=== PATIENT | male | born 1960 | race Caucasian/White ===

== ENCOUNTER → 2024-12-22 | Outpatient (CLI) | payer MEDICARE, MEDICAID, SELFPAY | END | disposition home or self-care (01) | PROVIDERS: PCP Internal Medicine; Referring Provider Nurse Practitioner Family; Visit Provider Nurse Practitioner Family | DX: R06.02 Shortness of breath (principal) | CPT/HCPCS: 94060; 94726; 94729 ==

== ENCOUNTER → 2025-01-09 | Outpatient (CLI) | payer MEDICARE, MEDICAID, SELFPAY ==
[2025-01-09 12:12] VITALS: PULSE 109; PULSE 113; PULSE 74; PULSE 80; PULSE 82; PULSE 89; PULSE 93; PULSE 96; O2SAT 92; O2SAT 93; O2SAT 95; O2SAT 96
--- NOTE | 2025-01-12 11:23 | PCM.PSN.6M ---
PSN 6 Minute Walk Test 6 Minute Walk Test 6 Minute Walk Test: 6 Minute Walk Test PSN:6-Minute Walk Test Start: 01/09/25 12:12 Freq: Status: Active Protocol: [id number] Document 01/09/25 12:12 JUDIE (Rec: 01/09/25 12:14 CHRISTA [id number]) 6 Minute Walk Test Date Performed 01/09/25 Time Performed 12:00 Height 6 ft Weight: 372 lb Weight in Pounds 372.[address]: Joann Crowe Assistive device Walker used: Pre-test Oxygen Delivery Room Air Method Pulse Ox (%) 92 Pulse Rate (60-100 74 beats/min) Dyspnea Minnie Scale ( 0 0-10) Exertion Minnie Scale 6 (6-20) 1st minute Oxygen Delivery Room Air Method Pulse Ox (%) 93 Pulse Rate (60-100 82 beats/min) 2nd minute Oxygen Delivery Room Air Method Pulse Ox (%) 92 Pulse Rate (60-100 89 beats/min) 3rd minute Oxygen Delivery Room Air Method Pulse Ox (%) 95 Pulse Rate (60-100 93 beats/min) 4th minute Oxygen Delivery Room Air Method Pulse Ox (%) 96 Pulse Rate (60-100 96 beats/min) 5th minute Oxygen Delivery Room Air Method Pulse Ox (%) 95 Pulse Rate (60-100 109 H beats/min) 6th minute Oxygen Delivery Room Air Method Pulse Ox (%) 95 Pulse Rate (60-100 113 H beats/min) Dyspnea Minnie Scale ( 4 0-10) Exertion Minnie Scale 14 (6-20) Post-test Oxygen Delivery Room Air Method Pulse Ox (%) 95 Pulse Rate (60-100 80 beats/min) Full Laps Walked 12 Partial Lap, Number 22 of Tiles Walked Total Distance 730 Walked (ft) Interpretation Interpretation: The patient ambulated 730 feet over the course of 6 minutes beginning on room air with use of a walker. Pretesting oxygen saturation was noted to be 92% on room air. With ambulation, the vinicius oxygen saturation was 92%. There was no significant exertional oxygen desaturation. Recommendations Recommendations: There is no indication for the use of supplemental oxygen at this time.
== END | disposition home or self-care (01) ==
LOC: PSN 11:52
PROVIDERS: PCP Internal Medicine; Referring Provider Nurse Practitioner Family; Visit Provider Nurse Practitioner Family
DX: R06.02 Shortness of breath (principal)
CPT/HCPCS: 94618

== ENCOUNTER 2025-03-01 06:49 | Day surgery (SDC) | payer MEDICARE, MEDICAID, SELFPAY ==
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
[2025-03-01] VITALS (7 sets, daily range): BP systolic 81–125; BP diastolic 55–82; PULSE 59–68; RESP 16–20; TEMP 35.5–36.2; O2SAT 94–95; BMI 52.7
--- OUTSIDE RECORDS SUMMARY | 2025-03-01 07:11 | XMS RPT_ITS | CCD ---
Author Organization [facility] Providers Care Sql Etl Developer Name Role Phone REFERRING, FREDERICK WO [id number] Unavailable Unava ilable HERBER CUMMINGS Unavailable Unavailable HERBER CUMMINGS Unavailable Unavailable DYANA LOPEZ Unavailable Unavailable BRITTANEY HOLLINS Unavailable Unavailable SAVANNA CHANDRA Unavailable Unavailable KAMALA CAUSEY Unavailable Unavailable JOEY CERVANTES Unavailable Unavailable HERBER CUMMINGS Unavailable Unavailable REFERRING, PHY WO [id number] Unavailable Unava ilable GARRETT DAVIS KJosy Unavailable Unavailable PODUGU, AMARESHWAR Unavailable Unavailable RUBÉN GUIDRY Unavailable Unavailable SHANNA PEACOCK Unavailable Unavailable DESTINY COX Unavailable Unavailable Artur Rosario Primary Care Provider Juve Martinez Primary Care Provider Unavailable Primary Care Provider UnavailJuve Carmona MD Primary Care Provider Artur Rosario MD Primary Care Provider Shanna Rai MD Primary Care Provider [phone] Shanna Rai MD Primary Care Provider Shanna Rai MD Primary Care Provider Shanna Rai MD Primary Care Provider Unavailable Primary Care Provider UnavailMadeleine Ross RN Unavailable Shanna Ferrari DO Primary Care Provider Judge Clara CARSON Unavailable Unavailable Primary Care Provider Unavailabl e VOSABINA, SHANNA Primary Care Unavailable CHEPYALA, MARTHA Attending Unavailable CHEPYPATITO, MARTHA Admitting Unavailable JUDGE, CLARA Admitting Unavailable JUDGE, CLARA Attending Unavailable VOGT, SHANNA Primary Care Unavailable BRITTANEY BRAGA Unavailable BETY SALINAS Attending Unavailable JUDGE, CLARA Attending Unavailable VOGT, SHANNA Primary Care Unavailable JUDGE, CLARA Attending Unavailable JUDGE, CLARA Attending Unavailable JUDGE, CLARA Referring Unavailable BROWN, ILSA Attending Unavailable BROWN, ILSA Referring Unavailable VOGT, SHANNA Primary Care Unavailable BROWN, ILSA Attending Unavailable BROWN, ILSA Referring Unavailable VOGT, SHANNA Primary Care Unavailable JUDGE, CLARA Attending Unavailable BROWN, ILSA Referring Unavailable JUDGE, CLARA Attending Unavailable JUDGE, CLARA Attending Unavailable JUDGE, CLARA Referring Unavailable MONE CAMPBELL Attending Unavailable ALMEGDADILEV Referring Unavailable JUDGE, CLARA Attending Unavailable JUDGE, CLARA Referring Unavailable VOGT, SHANNA Primary Care Unavailable JOSE G, ILSA Attending Unavailable VOGT, [facility] Primary Care Unavailable JUDGE, CLARA Attending Unavailable VOGT, [facility] Primary Care Unavailable JUDGE, CLARA Attending Unavailable MAEVE PEREZ Attending Unavailable Joann De La Cruz Attending Provider Dr. Shanna Thompson DO Primary Care Provider Dr. Shanna Thompson DO Referring Provider [phone] Erma Hickman Attending Provider Amrita MALDONADO-Joann Schaffer Referring Provider Joann De La Cruz Other Provider Dr. Lyle Araiza DO Attending Provider [phone] Joann Crowe Referring Unavailable Jay, Shanna Primary Care Unavailable Joann Crowe Attending Unavailable Joann Crowe Referring Unavailable Jay, Shanna Primary Care Unavailable Joann Crowe Attending Unavailable Javier Cason Attending Unavailable Jay, Shanna Primary Care Unavailable Vogt, Shanna Primary Care Unavailable Joann Crowe Attending Unavailable Shanna Thompson Referring Unavailable Lyle Araiza Attending Unavailable Joann Crowe Referring Unavailable Shanna Thompson Primary Care Unavailable Joann Crowe Consulting Unavailable Lyle Araiza Attending Unavailable Erma Rascon Attending Unavailable Shanna Thompson Primary Care Unavailable Shanna Thompson Referring Unavailable Shanna Thompson Referring Unavailable Shanna Thompson Primary Care Unavailable Joann Crowe Attending Unavailable Allergies Allergy Classification Reported Allergen(s) Allergy Type Date of Onset Reaction(s) Facility (20 sources) traZODone Drug Allergy 11-18-2004 [facility] Medications Current Medications Medication Drug Class(es) Dates Sig (Normalized) Sig (Original) 200 actuat albuterol 0.09 mg/actuat dry powder inhaler (20 sources) beta2-Adrenergic Agonist Start: 11-29-2024 End: 02-16-2025 Albuterol Sulfate 90 mcg/actuation aerosol powdr breath activated Active 2 NMA INHALATION Q4H as needed for shortness of breath or wheezing 1 February 16, 2025 8:51am Start: 11-04-2024 End: 11-07-2024 Start: 07-21-2024 End: 07-23-2024 take 2 puff(s) by inhalation every four hours as needed for wheezing 2 puff, Inhalation, Every 4 hours PRN, wheezing, Starting on 07/21/24 at 2157 Start: 10-07-2023 End: 10-15-2023 2.5 mg, Nebulization, Every 4 hours PRN, wheezing, Starting on [place] 10/07/23 at 2050, Initiate RT Bronchodilator Protocol? Yes Start: 09-07-2019 take 2 puff(s) by in halation every six hours as needed for wheezing albuterol sulfate HFA (VENTOLIN HFA) 108 (90 Base) MCG/ACT inhaler Indications: Chronic obstructive pulmonary disease, unspecified COPD type (HCC) Inhale 2 puffs into the lungs every 6 hours as needed for Wheezing 1 Inhaler 3 09/07/2019 Active Start: 09-01-2019 Albuterol Sulf ate 0.63 mg/3 mL nebulizer solution Use 1 Ampule via nebulizer every 6 hours as needed for Wheezing/Shortness of Breath. 90 mL 2 09/01/2019 Active Start: 09-01-2019 take 2.5 mg by inhal ation every four hours as needed albuterol (PROVENTIL) 2.5 mg /3 mL (0.083 %) nebulizer solution Use 3 mL via nebulizer every 4 hours as needed for Wheezing/Shortness of Breath. 90 mL 2 09/01/2019 Active Start: 06-07-2019 albuterol (PRO VENTIL) nebulizer solution 2.5 mg Start: 04-10-2019 take 2 puff(s) by in halation every six hours as needed for wheezing albuterol sulfate HFA (VENTOLIN HFA) 108 (90 Base) MCG/ACT inhaler Indications: Chronic obstructive pulmonary disease, unspecified COPD type (HCC) Inhale 2 puffs into the lungs every 6 hours as needed for Wheezing 1 Inhaler 3 09/07/2019 Active Start: 04-10-2019 take 2 puff(s) by in halation every six hours as needed for wheezing albuterol sulfate HFA (VENTOLIN HFA) 108 (90 Base) MCG/ACT inhaler Indications: Chronic obstructive pulmonary disease, unspecified COPD type (HCC) Inhale 2 puffs into the lungs every 6 hours as needed for Wheezing 1 Inhaler 3 04/10/2019 Active Comment on above: Use 1 Ampule via neb ulizer every 6 hours as needed for Wheezing/Shortness of Breath. Use 3 mL via nebuliz er every 4 hours as needed for Wheezing/Shortness of Breath. 24 hr alfuzosin hydrochloride 10 mg extended release oral tablet (1 source) alpha-Adrenergic [place] Start: take 1 tablet by mouth once daily alfuzosin (UROXATRAL) 10 MG extended release tablet Indications: Benign prostatic hyperplasia with urinary retention Take 1 tablet by mouth daily 30 tablet 3 12/04/2019 Active amoxicillin 875 mg / clavulanate 125 mg oral tablet (5 sources) Penicillin-class Antibacterial Start: 023 End: 023 take 1 tablet by mouth in the morning amoxicillin-clavul anate (Augmentin) 875-125 MG tablet Take 1 tablet by mouth in the morning and 1 tablet before bedtime. Do all this for 10 days. 20 tablet 0 10/14/2022 10/24/2022 Active Start: 10-13-2022 End: 10-14-2022 amoxicillin-clavulanate (Aug mentin) 875-125 MG per tablet 1 tablet apixaban 2.5 mg oral tablet (20 sources) Factor Xa Inhibitor Start: 11-29-2024 take 1 tablet by mouth twice daily Apixaban 2.5 mg tablet Active 2.5 mg PO TWICE A DAY November 29, 2024 12:00am Start: 11-04-2024 End: 11-07-2024 take 2.5 mg by mouth twice daily 2.5 mg, Oral, 2 times daily, First dose on 11/04/24 at 0900, Anticoagulant Start: 07-21-2024 End: 08-21-2024 take 1 tablet by mouth twice daily apixaban (Eliquis) 2.5 MG tablet Take 1 tablet (2.5 mg) by mouth 2 times daily. 60 tablet 07/22/2024 Active Start: 06-06-2019 End: 06-19-2020 take 1 tablet by mouth twice daily apixaban (ELIQUIS) 5 MG TABS tablet Take 1 tablet by mouth 2 times daily 60 tablet 3 06/06/2019 06/19/2020 Discontinued (LIST CLEANUP) Start: 06-01-2019 take 1 tablet by avery th twice daily apixaban (ELIQUIS) 5 MG TABS tablet Take 1 tablet by mouth 2 times daily 60 tablet 3 06/01/2019 Active aspirin 81 mg delayed release oral tablet (20 sources) Platelet Aggregation Inhibitor, Nonsteroidal Anti-inflammatory Drug Start: 10-08-2023 End: 10-15-2024 take 1 tablet by mouth once daily aspirin 81 MG EC tablet Take 1 tablet (81 mg) by mouth daily. 10/16/2023 10/15/2024 Active Start: 10-07-2023 End: 10-07-2023 take 324 mg by mouth once 324 mg, Oral, Once, On [place] at 1500, For 1 dose Start: 11-10-2018 End: 06-19-2020 take 1 tablet by mouth once daily aspirin 81 MG chewab le tablet Take 1 tablet by mouth daily 30 tablet 3 07/19/2019 Active Comment on above: Take 81 mg by mouth once daily. atorvastatin 10 mg oral tablet (20 sources) HMG-CoA Reductase Inhibitor Start: take 1 tablet by mouth once daily Atorvastatin 10 mg tablet Active 10 mg PO daily November 29, 2024 12:00am Start: 11-04-2024 End: 11-07-2024 take 10 mg by mouth once daily 10 mg, Oral, Daily, Fir st dose on 11/04/24 at 0900 Start: 01-19-2023 End: 07-23-2024 take 1 tablet by mouth once daily atorvastatin (Lipitor) 10 MG tablet Take 1 tablet by mouth daily. 01/21/2023 Active Start: 11-01-2019 End: 12-17-2020 take 1 tablet by mouth once daily atorvastatin (LIPITOR) 40 MG tablet Indications: Mixed hyperlipidemia Take 1 tablet by mouth nightly 90 tablet 1 06/20/2020 Active baclofen 10 mg oral tablet (20 sources) gamma-Aminobutyric Acid-ergic Agonist Start: 06-06-2019 End: 06-19-2020 take 1 tablet by mouth three times daily baclofen (LIORESAL) 10 MG tablet Indications: Acute pain of right shoulder TAKE 1 TABLET BY MOUTH THREE TIMES A DAY 90 tablet 0 07/10/2019 Active Start: 03-15-2019 take 10 mg by mouth three times daily 10 mg, Oral, 3 TIMES DAILY, First dose on 05/29/19 at 2330 Beclomethasone (20 sources) Corticosteroid Start: 09-07-2019 take 2 puff(s) by inhalation twice daily beclomethasone (QVAR) 80 MCG/ACT inhaler Indications: Medication refill Inhale 2 puffs into the lungs 2 times daily 1 Inhaler 3 09/07/2019 Active Start: 03-15-2019 take 2 puff(s) by in halation twice daily beclomethasone (QVAR) 80 MCG/ACT inhaler Indications: Medication refill Inhale 2 puffs into the lungs 2 times daily 1 Inhaler 3 03/15/2019 Active ceFAZolin 2000 mg injection (13 sources) Cephalosporin Antibacterial Start: 10-15-2023 End: 10-23-2023 inject 2 g by intramuscular injection every eight hours ceFAZolin (Ancef) 2 g injection Inject 2,000 mg (2 g) into the shoulder, thigh, or buttocks in the morning and 2,000 mg (2 g) at noon and 2,000 mg (2 g) before bedtime. Do all this for 8 days. 0 10/15/2023 10/23/2023 Active Start: 10-15-2023 End: 10-23-2023 inject 2 g by intramuscular injection every eight hours Start: 10-11-2023 End: 10-15-2023 take 2000 mg intravenously every eight hours 2,000 mg, IntraVENous, Administer over 30 Minutes, Every 8 hours, First dose on Wed10/11/23 at 1300, premix bag, Suspected Indication (Select all that apply): Bloodstream Infection, Skin and Soft Tissue Infection Start: 05-29-2019 End: 06-01-2019 ceFAZolin (ANCEF) 1 g in dextrose 5 % 50 mL IVPB (premix) celecoxib 200 mg oral capsule (20 sources) Nonsteroidal Anti-inflammatory Drug Start: 03-15-2019 take 1 capsule by mouth twice daily celecoxib (CELEBREX) 200 MG capsule Indications: Arthritis of both knees Take 1 capsule by mouth 2 times daily 60 capsule 0 03/15/2019 Active cephalexin 500 mg oral capsule (4 sources) Cephalosporin Antibacterial Start: 06-01-2019 End: 06-08-2019 take 2 capsules by mouth every eight hours cephALEXin (KEFLEX) 500 MG capsule Take 2 capsules by mouth every 8 hours for 7 days 42 capsule 0 06/01/2019 06/08/2019 Active Start: 06-01-2019 cephALEXin (KE FLEX) capsule 1,000 mg cetirizine hydrochloride 10 mg oral tablet (20 sources) Histamine-1 Receptor Antagonist Start: 10-10-2019 take 1 tablet by mouth once daily cetirizine (ZYRTEC) 10 MG tablet Indications: Allergic rhinitis, unspecified seasonality, unspecified trigger Take 1 tablet by mouth daily 30 tablet 2 10/10/2019 Active Start: 09-07-2019 take 1 tablet by avery th once daily cetirizine (ZYRTEC) 10 MG tablet Indications: Allergic rhinitis due to other allergic trigger, unspecified seasonality Take 1 tablet by mouth daily 30 tablet 2 09/07/2019 Active Start: 06-06-2019 take 1 tablet by avery th once daily cetirizine (ZYRTEC) 10 MG tablet Indications: Allergic rhinitis due to other allergic trigger, unspecified seasonality Take 1 tablet by mouth daily 30 tablet 2 06/06/2019 Active Start: 03-15-2019 take 10 mg by mouth once daily 10 mg, Oral, DAILY, First dose on Wed05/30/19 at 0900 docusate sodium 100 mg oral capsule (15 sources) Start: 07-21-2024 End: 08-21-2024 take 1 capsule by mouth twice daily as needed for constipation docusate sodium (Colace) 100 MG capsule Take 1 capsule (100 mg) by mouth 2 times daily as needed for constipation. 60 capsule 07/22/2024 08/21/2024 Active doxycycline hyclate 100 mg oral capsule (4 sources) Tetracyclin e-class Drug Start: 09-07-2019 take 1 capsule by mouth twice daily doxycycline hyclate (VIBRAMYCIN) 100 MG capsule Indications: Acute bacterial sinusitis Take 1 capsule by mouth 2 times daily 14 capsule 0 09/07/2019 Active Start: 08-01-2019 doxycycline hy clate (VIBRAMYCIN) 100 MG capsule DULoxetine 60 mg delayed release oral capsule (7 sources) Serotonin and Norepinephrine Reuptake Inhibitor Start: 07-22-2020 take 1 capsule by mouth once daily DULoxetine (CYMBALTA) 60 MG extended release capsule Indications: Episode of recurrent major depressive disorder, unspecified depression episode severity (HCC) Take 1 capsule by mouth daily 30 capsule 2 07/22/2020 Active Start: 06-21-2020 take 1 capsule by mo uth once daily DULoxetine (CYMBALTA) 60 MG extended release capsule Take 1 capsule by mouth daily 30 capsule 2 06/21/2020 Active Start: 09-01-2019 End: 06-20-2020 take 1 capsule by mouth twice daily at mealtime DULoxetine (CYMBALTA) 60 mg capsule Take 1 capsule by mouth twice daily with meals. 60 capsule 2 09/01/2019 Active Comment on above: Take 1 capsule by mo uth twice daily with meals. 120 actuat fluticasone propionate 0.11 mg/actuat metered dose inhaler (20 sources) Corticosteroid Start: 09-13-19 End: 09-12-19 21 take 2 puff(s) by inhalation twice daily fluticasone (FLOVENT HFA) 110 MCG/ACT inhaler Indications: Chronic obstructive pulmonary disease, unspecified COPD type (HCC) Inhale 2 puffs into the lungs 2 times daily 1 Inhaler 3 09/13/2019 09/12/2020 Active Start: 09-07-2019 fluticasone (F LONASE) 50 MCG/ACT nasal spray Indications: Acute bacterial sinusitis , Allergic rhinitis due to other allergic trigger, unspecified seasonality 1 spray by Nasal route daily 1 Bottle 3 09/07/2019 Active Start: 06-06-2019 fluticasone (F LONASE) 50 MCG/ACT nasal spray Indications: Medication refill 1 spray by Nasal route daily 1 Bottle 3 06/06/2019 Active Start: 05-29-2019 take 2 puff(s) by in halation twice daily 2 puff, Inhalation, 2 TIMES DAILY, First dose on Wed05/29/19 at 2330 Substituted for Beclomethasone (QVAR) inhaler. Start: 03-15-2019 fluticasone (F LONASE) 50 MCG/ACT nasal spray Indications: Medication refill 1 spray by Nasal route daily 1 Bottle 3 03/15/2019 Active take 1 spray(s) nasa l route once daily fluticasone (FLONASE ALLERGY RELIEF) 50 mcg/actuation nasal spray Use 1 [place] in each nostril once daily. 0 Active Comment on above: Use 1 [place] in each nostril once daily. folic acid 1 mg oral tablet (20 sources) Start: 11-29-2024 take 1 tablet by mouth once daily Folic Acid 1 mg tablet Active 1 mg PO daily November 29, 2024 12:00am Start: 11-04-2024 End: 11-07-2024 take 1 mg by mouth once daily 1 mg, Oral, Daily, First dose on Wed11/04/24 at 0900 Start: 12-27-2022 End: 12-30-2023 take 1 tablet by mouth once daily folic acid (Folvite) 1 MG tablet Take 1 tablet (1 mg) by mouth daily. 30 tablet 0 11/18/2023 12/18/2023 Active gabapentin enacarbil 300 mg extended release oral tablet (20 sources) Anti-epileptic Agent Start: 12-06-2024 take 1 tablet by mouth three times daily Gabapentin 300 mg tablet extended release 24 hr Active 300 mg PO THREE TIMES A DAY December 06, 2024 10:00am Start: 11-29-2024 End: 12-06-2024 Gabapentin 300 mg tablet ext ended release 24 hr Discontinued 900 mg PO THREE TIMES A DAY November 29, 2024 12:00am December 06, 2024 10:02am Start: 11-04-2024 End: 11-07-2024 take 300 mg by mouth three times daily 300 mg, Oral, 3 times daily, First dose on 11/04/24 at 0900 Start: 07-21-2024 End: 07-23-2024 take 300 mg by mouth three times daily 300 mg, Oral, 3 times daily, First dose on Wed07/21/24 at 2215 Start: 11-16-2023 End: 11-18-2023 take 100 mg by mouth three times daily 100 mg, Oral, 3 times daily, First dose on Wed11/16/23 at 0900 Start: 10-08-2020 End: 02-05-2021 take 2 tablets by mouth three times daily gabapentin (NEURONTIN) 600 MG tablet Indications: Neuropathic pain Take 2 tablets by mouth 3 times daily for 120 days. 90 tablet 7 10/08/2020 Active Start: 09-01-2019 take 2 capsules by m outh three times daily gabapentin (NEURONTIN) 300 mg capsule Take 2 capsules by mouth three times daily for 90 days. 180 capsule 2 09/01/2019 Active Start: 06-06-2019 End: 08-28-2019 take 2 tablets by mouth three times daily gabapentin (NEURONTIN) 600 MG tablet Indications: Low back pain potentially associated with radiculopathy , Arthritis of both knees Take 2 tablets by mouth 3 times daily for 83 days. 180 tablet 1 06/06/2019 08/28/2019 Active Start: 05-29-2019 take 1200 mg by mout h three times daily 1,200 mg, Oral, 3 TIMES DAILY, First dose on 05/29/19 at 2330 Start: 03-15-2019 take 2 tablets by mo uth three times daily gabapentin (NEURONTIN) 600 MG tablet Indications: Low back pain potentially associated with radiculopathy , Arthritis of both knees Take 2 tablets by mouth 3 times daily for 30 days. 180 tablet 1 03/15/2019 Active take 3 capsules by m outh three times daily gabapentin (Neurontin) 100 MG capsule Take 300 mg by mouth 3 times daily. Active End: 11-16-2023 gabapentin (Neurontin) 600 M G tablet Take 100 mg by mouth 3 times daily. 0 11/16/2023 Discontinued (Entered in error) take 1 tablet by avery th three times daily gabapentin (NEURONTIN) 600 MG tablet Take 600 mg by mouth 3 times daily. 0 Active Comment on above: Take 2 capsules by m out three times daily for 90 days. Handicap Placard MISC (7 sources) Start: 0 Handicap Placard MISC Indications: Class 3 severe obesity due to excess calories with serious comorbidity and body mass index (BMI) of 60.0 to 69.9 in adult (HCC) by Does not apply route Expiration 2023 1 each 0 10/10/2019 Active ibuprofen 600 mg oral tablet (20 sources) Nonsteroidal Anti-inflammatory Drug Start: 9 take 1 tablet by mouth every six hours as needed for pain ibuprofen (IBU) 600 MG tablet Take 1 tablet by mouth every 6 hours as needed for Pain 20 tablet 0 06/08/2019 Active lactic acid 50 mg/ml topical lotion (20 sources) Start: Ammonium Lactate 5 % lotion Active 1 NMA TOPICAL TWICE A DAY as needed November 29, 2024 12:00am End: 11-04-2024 ammonium lactate (Lac-Hydrin ) 12 % lotion Apply topically every 12 hours as needed for dry skin. 11/04/2024 Discontinued Lactobacillus acidophilus (1 source) Start: 02-16-2025 Lactobacillus Acidophilus (Freeze Dried Acidophilus) capsule Active 1 NMA PO daily February 16, 2025 12:00am lisinopril 5 mg oral tablet (20 sources) Angiotensin Converting Enzyme Inhibitor Start: 11-29-2024 take 1 tablet by mouth once daily Lisinopril 5 mg tablet Active 5 mg PO daily November 29, 2024 12:00am Start: 11-04-2024 End: 11-07-2024 take 5 mg by mouth once daily 5 mg, Oral, Daily, First dose on 11/04/24 at 0800 Start: 07-22-2024 End: 07-23-2024 take 5 mg by mouth once daily 5 mg, Oral, Daily, First dose on 07/22/24 at 0800 Start: 11-09-2023 End: 11-18-2023 take 1 tablet by mouth in the morning lisinopril 5 MG tablet Take 5 mg by mouth in the morning. 11/09/2023 Active Start: 12-28-2022 End: 12-30-2023 Start: 10-14-2022 End: 04-12-2023 take 1 tablet by mouth once daily lisinopril 2.5 MG tablet Take 1 tablet (2.5 mg) by mouth daily. 30 tablet 5 10/14/2022 12/31/2022 Discontinued (Stop taking at discharge) Start: 06-21-2020 take 1 tablet by avery th once daily lisinopril (PRINIVIL;ZESTRIL) 5 MG tablet Take 1 tablet by mouth daily 30 tablet 3 06/21/2020 Active Start: 06-21-2020 take 1 tablet by avery th once daily lisinopril (PRINIVIL;ZESTRIL) 5 MG tablet Take 1 tablet by mouth daily 30 tablet 3 06/21/2020 Active Start: 09-01-2019 take 1 tablet by avery th once daily lisinopril (ZESTRIL, PRINIVIL) 5 mg tablet Take 1 tablet by mouth once daily. 30 tablet 2 09/01/2019 Active Comment on above: Take 1 tablet by avery th once daily. loperamide hydrochloride 2 mg oral capsule (2 sources) Opioid Agonist Start: 11-29-2024 take 1 capsule by mouth every four hours as needed Loperamide 2 mg capsule Active 2 mg PO Q4H as needed November 29, 2024 12:00am magnesium hydroxide 80 mg/ml oral suspension (1 source) Start: 05-29-2019 magnesium hydroxide (MILK OF MAGNESIA) 400 MG/5ML suspension 30 mL melatonin 10 mg oral capsule (20 sources) Start: 11-29-2024 take 1 capsule by mouth at bedtime Melatonin 10 mg capsule Active 10 mg PO BEDTIME November 29, 2024 12:00am Start: 11-04-2024 End: 11-07-2024 take 10 mg by mouth once daily 10 mg, Oral, Nightly, F irst dose on 11/04/24 at 2100 Start: 07-21-2024 End: 07-23-2024 Start: 11-17-2023 End: 11-17-2023 melatonin tablet 5 mg take 1 capsule by mo uth once daily Melatonin 10 MG capsule Take 10 mg by mouth Nightly. Active metFORMIN hydrochloride 500 mg oral tablet (20 sources) Biguanide Start: 10-25-2019 End: 06-20-2020 take 1 tablet by mouth twice daily at mealtime, then take 1 tablet by mouth twice daily at mealtime metFORMIN (GLUCOPHAGE) 500 MG tablet Take 1 tablet by mouth 2 times daily (with meals) Take 1 pill by mouth twice daily with meals. 60 tablet 3 06/20/2020 Active Start: 09-01-2019 take 1 tablet by avery th twice daily at mealtime metFORMIN (GLUCOPHAGE) 1,000 mg tablet Take 1 tablet by mouth twice daily with meals. 60 tablet 1 09/01/2019 Active Start: 06-01-2019 take 1 tablet by avery th twice daily at mealtime metFORMIN (GLUCOPHAGE) 500 MG tablet Take 1 tablet by mouth 2 times daily (with meals) Take 1 pill with dinner for first 4 days, then 500mg BID 60 tablet 3 06/01/2019 Active Comment on above: Take 1 tablet by avery th twice daily with meals. metOLazone 5 mg oral tablet (20 sources) Thiazide-like Diuretic Start: 12-13-19 End: 05-30-20 metolazone (ZAROXOLYN) 5 MG tablet TAKE 1 TABLET BY MOUTH EVERY 48 HOURS NEEDED FOR WORSENING SHORTNESS OF BREATH/WEIGHT GAIN 30 tablet 0 12/12/2018 Active metoprolol tartrate 25 mg oral tablet (2 sources) beta-Adrenergic [place] Start: 06-20-20 take 1 tablet by mouth twice daily metoprolol tartrate (LOPRESSOR) 25 MG tablet Take 1 tablet by mouth 2 times daily 60 tablet 3 06/20/2020 Active nitroglycerin 0.4 mg sublingual tablet (20 sources) Nitrate Vasodilator Start: 11-10-19 nitroGLYCERIN (NITROSTAT) 0.[address] 1 tablet under the tongue; Wait 5 minutes, then repeat if needed-- up to max of 3 total doses. If no relief after 1 dose, call 911. 25 tablet 3 11/09/2018 Active nitroglycerin rosario blingual (NITROSTAT) 0.4 mg SL tablet Dissolve 0.4 mg under the tongue every 5 minutes as needed. 0 Active Comment on above: Dissolve 0.4 mg unde r the tongue every 5 minutes as needed. omeprazole 20 mg delayed release oral capsule (20 sources) Proton Pump Inhibitor Start: 10-25-2019 take 1 capsule by mouth twice daily omeprazole (PRILOSEC) 20 MG delayed release capsule Indications: Medication refill Take 1 capsule by mouth 2 times daily 30 capsule 2 10/25/2019 Active Start: 06-06-2019 take 1 capsule by mo uth twice daily omeprazole (PRILOSEC) 20 MG delayed release capsule Indications: Medication refill Take 1 capsule by mouth 2 times daily 30 capsule 2 06/06/2019 Active Start: 03-15-2019 take 1 capsule by [facility] twice daily omeprazole (PRILOSEC) 20 MG delayed release capsule Indications: Medication refill Take 1 capsule by mouth 2 times daily 30 capsule 2 03/15/2019 Active take 1 capsule by id ut once daily omeprazole (PRILOSEC) 20 mg capsule Take 20 mg by mouth once daily. 0 Active Comment on above: Take 20 mg by mouth once daily. oxyCODONE hydrochloride 5 mg oral tablet (20 sources) Opioid Agonist Start: 11-29-2024 take 1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 Administer over 240 Minutes, Every 8 hours, First dose (after last modification) on 10/09/23 at 0730, Suspected Indication (Select all that apply): Skin and Soft Tissue Infection Start: 10-07-2023 End: 10-07-2023 empagliflozin 25 mg oral tablet (20 sources) Sodium-Glucose Cotransporter 2 Inhibitor Start: 11-09-2023 End: 11-04-2024 empagliflozin (Jardiance) 25 MG 25 mg by Per G Tube route in the morning. 0 11/09/2023 11/16/2023 Discontinued 0.4 ml enoxaparin sodium 100 mg/ml prefilled syringe (20 sources) Low Molecular Weight Heparin Start: 11-16-2023 End: 11-18-2023 inject 40 mg by subcutaneous injection every twenty-four hours 40 mg, SubCUTAneous, Every 24 hours scheduled (Daily), First dose on Wed11/16/23 at 0900, Indication of Use: Prophylaxis-DVT/PE, Indications: Prophylaxis of Venous Thromboembolism Start: 10-08-2023 End: 10-15-2023 inject 40 mg by subcutaneous injection every twenty-four hours 40 mg, SubCUTAneous, Every 24 hours, First dose on Wed10/08/23 at 0900, Indication of Use: Prophylaxis-DVT/PE, Indications: Prophylaxis of Venous Thromboembolism Start: 12-26-2022 End: 12-31-2022 inject 1 dose by subcutaneous injection twice daily 30 mg, SubCUTAneous, Every 12 hours scheduled (2 times per day), First dose on Wed12/26/22 at 0900 Indication of Use: Prophylaxis-DVT/PE Start: 10-09-2022 End: 10-14-2022 enoxaparin (Lovenox) syringe 40 mg Start: 05-30-2019 enoxaparin (LO VENOX) injection 40 mg End: 05-08-2024 enoxaparin (Lovenox) 40 MG/0 .4ML solution prefilled syringe Inject 40 mg under the skin daily. 05/08/2024 Discontinued (Med list cleanup) famotidine 20 mg oral tablet (20 sources) Histamine-2 Receptor Antagonist Start: 11-09-2023 End: 11-04-2024 take 1 tablet by mouth in the morning famotidine (Pepcid) 20 MG tablet Take 20 mg by mouth in the morning. 11/09/2023 11/04/2024 Discontinued Start: 11-09-2023 End: 11-18-2023 take 1 tablet by mouth in the morning famotidine (Pepcid) 20 MG tablet Take 20 mg by mouth in the morning. 11/09/2023 Active 4 ml furosemide 10 mg/ml injection (11 sources) Loop Diuretic Start: 10-13-2023 End: 10-13-2023 40 mg, IntraVENous, Once, On Wed10/13/23 at 1745, For 1 dose Start: 10-09-2023 End: 10-09-2023 40 mg, IntraVENous, Once, On 10/09/23 at 0915, For 1 dose Start: 01-19-2023 End: 10-15-2023 Start: 10-09-2022 End: 10-09-2022 furosemide (Lasix) injection 40 mg Start: 05-31-2019 End: 06-01-2019 furosemide (LASIX) injection 80 mg glucagon (rdna) 1 mg injection (8 sources) Antihypoglycemic Agent Start: 11-04-2024 End: 11-07-2024 1 mg, IntraMUSCular, PRN, low blood sugar, Blood glucose less than 70 mg/dL and patient NOT ALERT or NPO and does not have IV access., Starting on 11/04/24 at 1625, After administration, attempt intravenous access and start D5W at 100 mL/hr. Repeat blood glucose in 15 minutes x2 and notify provider. Start: 11-16-2023 End: 11-18-2023 1 mg, IntraMUSCular, PRN, lo w blood sugar, Blood glucose less than 70 mg/dL and patient NOT ALERT or NPO and does not have IV access., Starting on 11/16/23 at 0325, After administration, attempt intravenous access and start D5W at 100 mL/hr. Repeat blood glucose in 15 minutes x2 and notify provider. Start: 10-10-2023 End: 10-15-2023 1 mg, IntraMUSCular, PRN, lo w blood sugar, Blood glucose less than 70 mg/dL and patient NOT ALERT or NPO and does not have IV access., Starting on 10/10/23 at 1815, After administration, attempt intravenous access and start D5W at 100 mL/hr. Repeat blood glucose in 15 minutes x2 and notify provider. Start: 10-09-2022 End: 10-14-2022 glucagon (human recombinant) injection 1 mg 50 ml glucose 50 mg/ml injection (16 sources) Start: 11-04-2024 End: 11-07-2024 100 mL/hr, IntraVENous, PRN, Blood sugar less than 70mg/dL, Starting on 11/04/24 at 1625, Start infusion following administration of dextrose 50% or glucagon. Start: 11-04-2024 End: 11-07-2024 12.5 g, IntraVENous, PRN, lo w blood sugar, Blood glucose less than 70 mg/dL and patient NOT ALERT or NPO., Starting on 11/04/24 at 1625, If patient does not respond within 5 minutes, repeat dose x1. Start D5W at 100 mL/hour until ordering provider can be reached. Repeat blood glucose in 15 minutes. If blood glucose is less than 70 mg/dL, repeat treatment and recheck blood glucose in 15 minutes x2. If using Glucostabilizer, dose as instructed per system. Start: 11-16-2023 End: 11-18-2023 12.5 g, IntraVENous, PRN, lo w blood sugar, Blood glucose less than 70 mg/dL and patient NOT ALERT or NPO., Starting on Wed11/16/23 at 0325, If patient does not respond within 5 minutes, repeat dose x1. Start D5W at 100 mL/hour until ordering provider can be reached. Repeat blood glucose in 15 minutes. If blood glucose is less than 70 mg/dL, repeat treatment and recheck blood glucose in 15 minutes x2. If using Glucostabilizer, dose as instructed per system. Start: 11-16-2023 End: 11-18-2023 100 mL/hr, IntraVENous, PRN, Blood sugar less than 70mg/dL, Starting on Tu11/16/23 at 0325, Start infusion following administration of dextrose 50% or glucagon. Start: 10-10-2023 End: 10-15-2023 12.5 g, IntraVENous, PRN, lo w blood sugar, Blood glucose less than 70 mg/dL and patient NOT ALERT or NPO., Starting on Wed10/10/23 at 1815, If patient does not respond within 5 minutes, repeat dose x1. Start D5W at 100 mL/hour until ordering provider can be reached. Repeat blood glucose in 15 minutes. If blood glucose is less than 70 mg/dL, repeat treatment and recheck blood glucose in 15 minutes x2. If using Glucostabilizer, dose as instructed per system. Start: 10-10-2023 End: 10-15-2023 100 mL/hr, IntraVENous, PRN, Blood sugar less than 70mg/dL, Starting on 10/10/23 at 1815, Start infusion following administration of dextrose 50% or glucagon. Start: 10-09-2022 End: 10-14-2022 dextrose 5 % infusion Start: 10-09-2022 End: 10-14-2022 dextrose 50 % solution 12.5 g 1 ml haloperidol 5 mg/ml injection (1 source) Typical Antipsychotic Start: 02-15-2022 End: 02-15-2022 haloperidol lactate (HALDOL) injection 5 mg 1 ml hydrALAZINE hydrochloride 20 mg/ml injection (4 sources) Arteriolar Vasodilator Start: 10-09-2023 End: 10-15-2023 take 10 mg intravenously every four hours as needed for hypertension 10 mg, IntraVENous, Every 4 hours PRN, high blood pressure, SBP > 180, Starting on 10/09/23 at 0815 Start: 12-28-2022 End: 12-31-2022 take 10 mg intravenously every six hours as needed for hypertension hydrALAZINE (Apresoline) injection 10 mg hydrocortisone 25 mg/ml topical cream (20 sources) Corticosteroid End: 11-04-2024 hydrocortisone 2.5 % cream Apply topically as needed (itching). 11/04/2024 Discontinued 1 ml HYDROmorphone hydrochloride 1 mg/ml cartridge (8 sources) Opioid Agonist Start: 11-04-2024 End: 11-07-2024 take 0.5 mg by mouth every three hours as needed for pain 0.5 mg, IntraVENous, Every 3 hours PRN, moderate pain (4-6), severe pain (7-10), Starting on 11/04/24 at 0523, If oral and IV narcotics ordered, use oral first and only use IV if oral is ineffective or cannot take oral. Do Not give oral and IV within 1 hour of each other unless specifically ordered. Start: 11-03-2024 End: 11-03-2024 1 mg, IntraVENous, Once, On Wed11/03/24 at 1925, For 1 dose Start: 10-11-2022 End: 10-14-2022 take 0.25 mg intravenously every four hours as needed for pain HYDROmorphone (Dilaudid) injection 0.25 mg Start: 10-11-2022 End: 10-11-2022 HYDROmorphone (Dilaudid) injection 0.5 mg HYDROmorphone (Dilaudid) injection 0.25 mg (2 sources) Start: 07-21-2024 End: 07-23-2024 HYDROmorphone (Dilaudid) injection 0.25 mg insulin lispro 100 unt/ml injectable solution (2 sources) Insulin Analog End: 11-18-2023 Insulin Lispro (Humalog) 100 UNIT/ML solution injection Indications: Type 2 Diabetes Mellitus Inject under the skin 3 times daily (with meals). 0-150= 0 151-200= 2 201-250= 4 251-300=6 301-350=8 351-400=10 401-450=12 0 11/18/2023 Discontinued (Stop taking at discharge) Insulin Lispro (Humalog) injection 0-6 Units (4 sources) Start: 11-04-2024 End: 11-07-2024 Insulin Lispro (Humalog) injection 0-6 Units Start: 10-09-2022 End: 10-14-2022 Insulin Lispro (Humalog) inj ection 0-6 Units Iopamidol (7 sources) Radiographic Contrast Agent Start: 10-13-2023 End: 10-13-2023 take 75 mL intravenously once as needed 75 mL, IntraVENous, IMG once PRN, contrast, Starting on Wed10/13/23 at 1701, For 1 dose Start: 10-07-2023 End: 10-07-2023 take 75 mL intravenously once as needed 75 mL, IntraVENous, IMG once PRN, contrast, Starting on Wed10/07/23 at 1651, For 1 dose Start: 10-07-2023 End: 10-07-2023 take 75 mL intravenously once as needed 75 mL, IntraVENous, IMG once PRN, contrast, Starting on Wed10/07/23 at 1643, For 1 dose Start: 05-29-2019 End: 05-29-2019 iopamidol (ISOVUE-370) 76 % injection 100 mL iopamidol (Isovue-370) 76 % injection 100 mL (2 sources) Start: 11-03-2024 End: 11-03-2024 take 100 mL intravenously once as needed 100 mL, IntraVENous, IMG once PRN, contrast, Starting on Wed11/03/24 at 1719, For 1 dose ketamine 100 mg/ml injectable solution (1 source) General Anesthetic Start: 02-15-2022 End: 02-15-2022 ketamine (KETALAR) injection 500 mg 1 ml ketorolac tromethamine 15 mg/ml cartridge (2 sources) Nonsteroidal Anti-inflammatory Drug, Cyclooxygenase Inhibitor Start: 07-21-2024 End: 07-22-2024 take 15 mg intravenously every six hours 15 mg, IntraVENous, Every 6 hours, First dose on Wed07/21/24 at 1845, For 2 doses, Phase II/On Unit 10 ml lidocaine hydrochloride 10 mg/ml injection (20 sources) Antiarrhythmic, Amide Local Anesthetic Start: 11-01-2024 End: 11-01-2024 lidocaine (Xylocaine) 1 % injection 8 mL Start: 11-01-2024 End: 11-01-2024 8 mL, Injection, Once, On 11/01/24 at 1430, For 1 dose Start: 02-02-2024 End: 02-02-2024 lidocaine (Xylocaine) 1 % in jection 8 mL Start: 01-14-2024 End: 01-14-2024 lidocaine (Xylocaine) 1 % in jection 4 mL Start: 11-18-2023 End: 11-18-2023 Lidocaine 4 % patch 1 patch Start: 10-09-2022 End: 10-14-2022 Lidocaine 4 % patch 1 patch 300 ml linezolid 2 mg/ml injection (2 sources) Oxazolidinone Antibacterial Start: 10-12-2022 End: 10-13-2022 take 600 mg intravenously every twelve hours linezolid (Zyvox) injection 600 mg LORazepam (4 sources) Benzodiazepine Start: 12-27-2022 End: 12-31-2022 LORazepam (Ativan) tablet 1 mg Start: 12-27-2022 End: 12-27-2022 LORazepam (Ativan) tablet 0. 5 mg magnesium citrate 58.2 mg/ml oral solution (2 sources) Start: 07-21-2024 End: 07-23-2024 50 ml magnesium sulfate 40 mg/ml injection (3 sources) Start: 10-10-2023 End: 10-10-2023 2,000 mg, IntraVENous, at 25 mL/hr, Administer over 2 Hours, Once, On 10/10/23 at 0615, For 1 dose, Recommended infusion rate not to exceed 1,000 mg (milligrams) per hour. Start: 05-31-2019 End: 05-31-2019 magnesium sulfate 4 g in 100 mL IVPB premix meclizine hydrochloride 12.5 mg oral tablet (9 sources) Antiemetic Start: 07-10-2019 End: 07-20-2019 take 1 tablet by mouth three times daily as needed for nausea meclizine (ANTIVERT) 12.5 MG tablet Indications: Dizziness , Concussion without loss of consciousness, subsequent encounter Take 1 tablet by mouth 3 times daily as needed for Dizziness or Nausea 30 tablet 0 07/10/2019 07/20/2019 miconazole nitrate 0.02 mg/mg topical powder (20 sources) Azole Antifungal Start: 10-09-2023 End: 11-04-2024 miconazole (Micotin) 2 % powder Apply topically 2 times daily. 10/15/2023 11/04/2024 Discontinued 1 ml morphine sulfate 4 mg/ml cartridge (2 sources) Opioid Agonist Start: 11-03-2024 End: 11-03-2024 4 mg, IntraVENous, Once, On Wed11/03/24 at 1615, For 1 dose multivitamin (Theragran) tablet (20 sources) End: 11-04-2024 take 1 tablet by mouth once daily multivitamin (Theragran) tablet Take 1 tablet by mouth daily. 11/04/2024 Discontinued take 1 tablet by mouth once casi y multivitamin (Theragran) tablet Take 1 tablet by mouth daily. Active take 1 tablet by mouth once casi y multivitamin (Theragran) tablet Take 1 tablet by mouth daily. 0 Active mupirocin 0.02 mg/mg topical ointment (9 sources) RNA Synthetase Inhibitor Antibacterial Start: 08-01-2019 End: 06-20-2020 mupirocin (BACTROBAN) 2 % ointment Start: 06-01-2019 End: 06-08-2019 mupirocin (BACTROBAN) 2 % oi ntment Apply topically 3 times daily. 15 g 1 06/01/2019 06/08/2019 Active Start: 05-30-2019 mupirocin (NEO TROBAN) 2 % ointment 1 ml naloxone hydrochloride 0.4 mg/ml injection (8 sources) Opioid Antagonist Start: 11-04-2024 End: 11-07-2024 0.4 mg, IntraVENous, Every 5 min PRN, opioid reversal, respiratory depression, Starting on 11/04/24 at 0529, +++ For RR Start: 07-21-2024 End: 07-23-2024 Start: 11-16-2023 End: 11-18-2023 naloxone (Narcan) injection 0.4 mg Start: 10-07-2023 End: 10-15-2023 0.4 mg, IntraVENous, As need ed, opioid reversal, pinpoint pupils, Starting on [place] 10/07/23 at 1720, administer IV PRN for oversedation, RR LESS than 10 OLANZapine 5 mg oral tablet (2 sources) Atypical Antipsychotic Start: 12-29-2022 End: 12-31-2022 OLANZapine (ZyPREXA) tablet 5 mg OLANZapine (ZyPREXA) injection 5 mg (2 sources) Start: 12-29-2022 End: 12-31-2022 inject 5 mg by intramuscular injection every six hours as needed OLANZapine (ZyPREXA) injection 5 mg 2 ml ondansetron 2 mg/ml injection (20 sources) Serotonin-3 Receptor Antagonist Start: 11-03-2024 End: 11-03-2024 4 mg, IntraVENous, Once, On 11/03/24 at 1615, For 1 dose Start: 07-21-2024 End: 08-21-2024 take 1 tablet by mouth every eight hours ondansetron (Zofran) 4 MG tablet Take 1 tablet (4 mg) by mouth every 8 hours as needed for nausea and/or vomiting. May take 2 tablets if needed. 10 tablet 07/22/2024 08/21/2024 Active Start: 12-25-2022 End: 12-25-2022 ondansetron (Zofran) injecti on 4 mg Start: 06-06-2019 End: 08-07-2019 take 1 tablet by mouth every eight hours as needed for nausea ondansetron (ZOFRAN ODT) 4 MG disintegrating tablet Take 1 tablet by mouth every 8 hours as needed for Nausea or Vomiting 10 tablet 0 06/06/2019 08/07/2019 Discontinued (DUPLICATE) Start: 05-29-2019 take 1 tablet by avery th every eight hours as needed for nausea ondansetron (ZOFRAN) 4 MG tablet Indications: Nausea Take 1 tablet by mouth every 8 hours as needed for Nausea or Vomiting 30 tablet 0 07/10/2019 Active Start: 10-07-2017 take 1 tablet by avery th every eight hours as needed for nausea ondansetron (ZOFRAN ODT) 4 MG disintegrating tablet Take 1 tablet by mouth every 8 hours as needed for Nausea or Vomiting 10 tablet 0 10/07/2017 Active End: 11-04-2024 ondansetron (Zofran) 4 MG ta blet Take by mouth every 6 hours as needed for nausea or vomiting. 11/04/2024 Discontinued ondansetron ODT (Zofran-ODT) disintegrating tablet 4 mg (10 sources) Start: 11-04-2024 End: 11-07-2024 take 1 tablet by mouth every eight hours as needed for nausea and vomiting ondansetron ODT (Zofran-ODT) disintegrating tablet 4 mg Start: 07-21-2024 End: 07-23-2024 take 1 tablet by mouth every eight hours as needed for nausea and vomiting ondansetron ODT (Zofran-ODT) disintegrating tablet 4 mg Start: 11-16-2023 End: 11-18-2023 take 1 tablet by mouth every eight hours as needed for nausea and vomiting ondansetron ODT (Zofran-ODT) disintegrating tablet 4 mg Start: 12-26-2022 End: 12-31-2022 take 1 tablet by mouth every eight hours as needed for nausea and vomiting ondansetron ODT (Zofran-ODT) disintegrating tablet 4 mg Start: 10-09-2022 End: 10-14-2022 take 1 tablet by mouth every eight hours as needed for nausea and vomiting ondansetron ODT (Zofran-ODT) disintegrating tablet 4 mg Oxygen (20 sources) End: 11-04-2024 oxygen (O2) gas Inhale 2 L/m in as needed. via nasal canula-as needed for low O2 11/04/2024 Discontinued oxygen (O2) gas Inhale 2 L/min as needed. via nasal canula-as needed for low O2 Active pantoprazole (ProtoNix) 40 mg in sodium chloride (PF) 0.9 % 10 mL injection (2 sources) Start: 11-04-2024 End: 11-07-2024 40 mg, IntraVENous, Administer over 2 Minutes, Daily before breakfast, First dose on 11/04/24 at 0600, Reconstitute with 10 ml NS. Vial expires 2 hrs after reconstitution. perflutren lipid microspheres (Definity) injection 1.65 mg (2 sources) Start: 10-10-2022 End: 10-10-2022 perflutren lipid microspheres (Definity) injection 1.65 mg perflutren protein A microsphere (Optison) 3 mL in sodium chloride (PF) 0.9 % 10 mL IV syringe (2 sources) Start: 11-16-2023 End: 11-16-2023 0-10 mL, IntraVENous, IMG once PRN, other, suboptimal echo image, Starting on Wed11/16/23 at 0325, For 1 dose, CV Procedural Medications, Only to be given in Echo Lab during CARDIAC STRESS TEST ONLY. Echocardiogram should first be performed without contrast and if exam is adequate then DO NOT administer the contrast. If unable to adequately visualize heart without contrast and the patient has no contraindications to echo contrast then administer the echo contrast. petrolatum 0.41 mg/mg topical ointment (2 sources) Start: 10-15-2023 End: 10-15-2023 apply 1 dose topically once daily Topical, Daily, First dose on Wed10/15/23 at 0600, Apply to Left hand and BLE piperacillin 4000 mg / tazobactam 500 mg injection (6 sources) Penicillin-cla ss Antibacterial, beta Lactamase Inhibitor Start: 10-10-2023 End: 10-11-2023 take 4500 mg intravenously every six hours 4,500 mg, IntraVENous, at 33.3 mL/hr, Administer over 180 Minutes, Every 6 hours, First dose (after last modification) on Wed10/10/23 at 1430, premix bag, Suspected Indication (Select all that apply): Skin and Soft Tissue Infection Start: 10-09-2022 End: 10-13-2022 take 3375 mg intravenously every eight hours piperacillin-tazobactam (Zosyn) IVPB 3,375 mg polyethylene glycol 3350 40666 mg powder for oral solution (20 sources) Osmotic Laxative Start: 11-16-2023 End: 11-18-2023 take 17 g by mouth every twenty-four hours as needed for constipation 17 g, Oral, Daily PRN, constipation, Starting on Wed11/16/23 at 0325, 1st line for treatment of constipation - give scheduled if no bowel movement in past 24 hours. Start: 10-12-2023 End: 10-15-2023 17 g, Oral, Daily, First dos e on Wed10/12/23 at 0900 Start: 12-26-2022 End: 12-31-2022 take 17 g by mouth every twenty-four hours as needed for constipation 17 g, Oral, Daily PRN, constipation, Starting on 12/26/22 at 0513 1st line for treatment of constipation - give scheduled if no bowel movement in past 24 hours. Start: 10-14-2022 End: 10-17-2022 take 17 g by mouth every twenty-four hours as needed polyethylene glycol, PEG, 3350 (Glycolax) 17 GM/SCOOP powder Take 17 g by mouth Daily as needed (constipation) for up to 3 days. 510 g 0 10/14/2022 10/17/2022 Active Start: 10-09-2022 End: 10-14-2022 take 17 g by mouth every twenty-four hours as needed for constipation polyethylene glycol (PEG) 3350 (Miralax) packet 17 g End: 11-04-2024 polyethylene glycol, PEG, 33 50 (Miralax) 17 g packet Take by mouth. 11/04/2024 Discontinued Potassium Chloride (10 sources) Start: 11-05-2024 End: 11-05-2024 40 mEq, IntraVENous, at 125 mL/hr, Administer over 4 Hours, Once, On 11/05/24 at 1345, For 1 dose, Max infusion rate = 10 mEq/hr Start: 11-04-2024 End: 11-04-2024 40 mEq, IntraVENous, at 125 mL/hr, Administer over 4 Hours, Once, On 11/04/24 at 0800, For 1 dose, Max infusion rate = 10 mEq/hr Start: 10-12-2023 End: 10-12-2023 take 1 [oz_av] by mouth twice daily 40 mEq, Oral, 2 times daily, First dose on Wed10/12/23 at 0900, For 2 doses, Dissolve each packet in 4 ounces of water = 5 mEq per 1 oz fluid., Indications: Hypokalemia Start: 10-11-2023 End: 10-11-2023 take 1 [oz_av] by mouth once 40 mEq, Oral, Once, On Mo n 10/11/23 at 1615, For 1 dose, Dissolve each packet in 4 ounces of water = 5 mEq per 1 oz fluid., Indications: Hypokalemia Start: 10-09-2023 End: 10-09-2023 take 1 [oz_av] by mouth once 40 mEq, Oral, Once, On Sa t 10/09/23 at 0730, For 1 dose, Dissolve each packet in 4 ounces of water = 5 mEq per 1 oz fluid., Indications: Hypokalemia predniSONE 10 mg oral tablet (11 sources) Start: 06-08-2019 End: 06-18-2019 take 4 tablets by mouth once daily predniSONE (DELTASONE) 10 MG tablet Take 4 tablets by mouth once daily for 5 days 20 tablet 0 06/08/2019 06/18/2019 Start: 06-07-2019 End: 06-08-2019 predniSONE (DELTASONE) table t 60 mg ropivacaine (Naropin) 5 MG/ML 15 mL, EPINEPHrine (Adrenalin) 30 MG/30ML 0.125 mL, ketorolac (Toradol) 30 MG/ML 0.5 mL in sodium chloride (PF) 0.9 % 15 mL syringe (4 sources) Start: 07-21-2024 End: 07-21-2024 1 Syringe, Intra-artICUlar, Once, On Wed07/21/24 at 1345, For 1 dose, Intraprocedure sertraline 50 mg oral tablet (20 sources) Serotonin Reuptake Inhibitor Start: 07-22-2024 End: 11-04-2024 take 50 mg by mouth once daily 50 mg, Oral, Daily, First dose on 07/22/24 at 0900 silver sulfADIAZINE 10 mg/ml topical cream (1 source) Sulfonamide Antibacterial Start: 06-11-2019 silver sulfADIAZINE (SILVADENE,THERMAZENE ) 1 % cream Apply 1 application to affected area twice daily. 25 g 0 06/11/2019 Active Comment on above: Apply 1 application to affected area twice daily. SITagliptin 100 mg oral tablet (1 source) Dipeptidyl Peptidase 4 Inhibitor Start: 09-01-2019 take 1 tablet by mouth once daily sitaGLIPtin (JANUVIA) 100 mg tablet Take 1 tablet by mouth once daily. 30 tablet 1 09/01/2019 Active Comment on above: Take 1 tablet by avery once daily. sodium chloride 1000 mg oral tablet (20 sources) Start: 11-04-2024 End: 11-07-2024 1 g, Oral, 3 times daily, First dose on Wed11/04/24 at 0900 Start: 11-04-2024 End: 11-05-2024 take 50 mL intravenously every hour 50 mL/hr, IntraVENous, Continuous, Starting on Wed11/04/24 at 0530, For 20 hours Start: 11-03-2024 End: 11-03-2024 1,000 mL, IntraVENous, at 1, 000 mL/hr, Administer over 1 Hours, Once, On Wed11/03/24 at 1615, For 1 dose Start: 07-21-2024 End: 07-23-2024 1 g, Oral, 3 times daily, Fi rst dose on Wed07/21/24 at 2215 Start: 07-21-2024 End: 07-23-2024 10 mL, IntraVENous, Every 12 hours scheduled (2 times per day), First dose on Wed07/21/24 at 2100, Phase II/On Unit Start: 07-21-2024 End: 07-23-2024 take 125 mL intravenously every hour 125 mL/hr, IntraVENous, Continuous, Starting on Wed07/21/24 at 1845, Phase II/On Unit Start: 07-21-2024 End: 07-23-2024 Start: 07-21-2024 End: 07-23-2024 take 10 mL intravenously once as needed 10 mL, IntraVENous, PRN, line care, Starting on Wed07/21/24 at 1832, Phase II/On Unit, After every IV line use Start: 11-16-2023 End: 11-18-2023 1 g, Oral, 3 times daily, Fi rst dose on Wed11/16/23 at 0900 Start: 11-15-2023 End: 11-15-2023 sodium chloride 0.9 % bolus 500 mL Start: 10-10-2023 End: 10-15-2023 take 5-40 mL intraluminal route every eight hours 5-40 mL, IntraCATHeter, Every 8 hours, First dose on [place] 10/10/23 at 0915, For Line Patency: Peripheral IV = 5 mL; Midline or Central Line = 10 mL/lumen. If following IV push medication, administer flush at same rate as the IV push. Flush volume is determined by type of infusion therapy being given. For non-viscous solutions use: Peripheral IV = 5 mL Midline or Central Line = 10 mL/lumen For viscous solutions (i.e. blood components, parenteral nutrition, contrast media, or after obtaining blood sample) use: Peripheral IV = 10 mL Midline or Central Line = 20 mL/lumen Start: 10-10-2023 End: 10-15-2023 5-40 mL, IntraVENous, PRN, l ine care, before and after blood draws, infusion, or medication administration, Starting on [place] 10/10/23 at 0908, For Line Patency: Peripheral IV = 5 mL; Midline or Central Line = 10 mL/lumen. If following IV push medication, administer flush at same rate as the IV push. Flush volume is determined by type of infusion therapy being given. For non-viscous solutions use: Peripheral IV = 5 mL Midline or Central Line = 10 mL/lumen For viscous solutions (i.e. blood components, parenteral nutrition, contrast media, or after obtaining blood sample) use: Peripheral IV = 10 mL Midline or Central Line = 20 mL/lumen Start: 10-07-2023 End: 10-07-2023 250 mL/hr, IntraVENous, Once , On [facility] 10/07/23 at 1550, For 1 dose Start: 10-07-2023 End: 10-07-2023 1,000 mL, IntraVENous, at 1, 000 mL/hr, Administer over 1 Hours, Once, On [facility] 10/07/23 at 1550, For 1 dose Start: 12-26-2022 End: 12-26-2022 take 100 mL intravenously every hour 100 mL/hr, IntraVENous, Continuous, Starting on 12/26/22 at 0530, For 10 hours Start: 12-25-2022 End: 12-25-2022 sodium chloride 0.9 % bolus 1,000 mL Start: 12-25-2022 End: 12-31-2022 sodium chloride 0.9 % infusi on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 [Elevated C-reactive protein (CRP)] Onset: 8 Resolved: 8 10-06-2017 Phlebitis; thrombophlebitis and thromboembolism (20 sources) Deep venous thrombosis; Translations: [Acute deep vein thrombosis of lower limb] Onset: 7 Resolved: 9 05-30-2019 Episodic Phlebitis; thrombophlebitis and thromboembolism (20 sources) Deep venous thrombosis of right upper extremity; Translations: [Deep vein thrombosis (DVT) of right upper extremity] Onset: 7 Resolved: 9 05-30-2019 Pneumonia (except that caused by tuberculosis or sexually transmitted disease) (20 sources) Community acquired pneumonia; Translations: [Pneumonia, unspecified organism] Onset: 8 Resolved: 8 10-06-2017 Episodic Residual codes; unclassified (20 sources) Chronic back pain ; Translations: [Dorsalgia, unspecified] Onset: 8 11-09-2018 Episodic Residual codes; unclassified (20 sources) Transient alteration of awareness; Translations: [Transient alteration of awareness] Onset: 4 10-19-2023 Episodic Residual codes; unclassified (20 sources) Other general symptoms and signs; Translations: [Other general symptoms] Onset: 4 02-02-2024 Episodic Residual codes; unclassified (2 sources) Swelling; Translations: [Edema, unspecified] Episodic Respiratory failure; insufficiency; arrest (adult) (20 sources) Dependence on supplemental oxygen; Translations: [Dependence on supplemental oxygen] Onset: 8 Resolved: 3 04-17-2018 Chronic Septicemia (except in labor) (20 sources) Sepsis; Translations: [Sepsis, unspecified organism] Onset: 7 Resolved: 7 01-26-2017 Episodic Skin and subcutaneous tissue infections (20 sources) Cellulitis; Translations: [Cellulitis of left lower limb] Onset: 7 Resolved: 3 05-29-2019 Episodic Skin and subcutaneous tissue infections (20 sources) Cellulitis of left lower limb; Translations: [Cellulitis of leg, left] Onset: 7 Resolved: 9 10-06-2017 Sprains and strains (20 sources) Shoulder strain; Translations: [Strain of neck muscle] Onset: 4 02-02-2024 Episodic Suicide and intentional self-inflicted injury (7 sources) Suicidal thoughts; Translations: [Suicidal ideations] Onset: 0 Resolved: 1 06-20-2020 Episodic Viral infection (20 sources) Disease caused by 2019-nCoV; Translations: [COVID-19] Onset: 4 Episodic Results Test Name Value Interpretation Reference Range Facility Pulmonary Visit Reporton Pulmonary Visit Report [facility] [place] [address] [place] [address] OFFICE VISIT Date of Service: 02/16/25 MR#: [id number] Acct: [id number] Name: HYACINTH HURST Rep #: [id number] : 1960 Provider: Joann Crowe NP Age/Sex: 64/M [place] [facility] Status: Signed Assessment and Plan Assessment and Plan (1) Shortness of breath: Status: Acute Plan: No evidence of COPD or asthma on PFT. The patient does not need to continue on Incruse. Albuterol can be available on an as needed basis. I have recommended that the patient have this available to him at all times. Mild restrictive lung disease is seen on PFT, likely due to morbid obesity due to a BMI of 52. He has a DLCO VA which corrects to normal. Weight loss will be the source of improving mild restriction. I have asked him to increase his exercise regimen. His biking regimen needs to increase to 20 mins (currently 15 min). He is asked to continue to follow with provider who is prescribing Ozempic. He is to follow up in 6 months to determine if weight loss has improved his shortness of breath. (2) Hypoxemia: Status: Acute Plan: Nocturnal hypoxemia was present in the past. I cannot evaluate if this is controlled without reviewing sleep study and compliance download. I have discussed the correlation between shortness of breath and abnormal nocturnal oxygenation with the patient at length today. I have recommended a nocturnal pulse oximetry to be obtained on CPAP with supplemental oxygen going forward. The patient understands that if he would like for me to manage his sleep apnea that I need the proper testing and documentation. The patient does not require daytime supplemental oxygen at this time. (3) HARISH (obstructive sleep apnea): Status: Acute Plan: History of sleep apnea but patient was not able to use the device over 20 years ago. He reports recent testing, although this has been request 3 times, it has not been received by this practice. He has recently reported use of CPAP and this has likely improved his HARISH but I have not objective data which proves this. He may be failing therapy and need BiPAP if he continues to have suboptimal control of sleep apnea on CPAP. Medications: New albuterol sulfate 90 mcg/actuation 2 inhalations inhalation Q4H PRN 1 ea 5RF shortness of breath or wheezing Discontinued umeclidinium 62.5 mcg/actuation (Incruse Ellipta) Discontinued Reason: Order Completed 1 inh inhalation Q24H Plan Fax office visit note to [facility] Plan Details Follow Up: 6 Months (LMR) HPI HPI Comments Details: Patient is a 64 year old male who presents today for evaluation of hypoxemia. He is being referred by AMA Gustafson from [facility], his current living facility. He is using a wheeled walker and on room air. He has not had respiratory illness requiring oral prednisone or antibiotics since last evaluation. He carries a diagnosis of COPD, HFpEF, HARISH, bipolar disorder, remote DVT, HTN, DM, polysubstance abuse who had presented to the care facility due to sepsis due to cellulitis, FRANCISCO J, rhabdomyolysis, and acute respiratory failure approximately 1 year ago. He is utilizing Incruse for COPD. Albuterol is being used on occasion. He is asking for a refill today. He underwent a chest xray on 10/15/24 due to shortness of breath, cough, wheezing which indicated no chest radiographic evidence of acute cardiopulmonary disease. Today the patient is reporting shortness of breath will occur at rest and with exertion this has occurred for several months. He was bed bound for a year, today he is in a wheel chair. He is planning to start to use a rollator soon. He reports occasional wheeze. He denies cough, sputum, hemoptysis. He denies chest pain, chest tightness, chest heaviness. The patient denies fever, chills, body aches. Smoking history includes 5 year history of 1 pack per day, he quit over 15 years. 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 He is using 4L per minute of supplemental oxygen blended into his PAP device but will occasionally use it during the day and finds it to be beneficial. He reports that he did complete a sleep study at his place of living. This was ordered by a different provider. He did not complete the ordered in-lab study from this provider. The patient indicates that he is using his PAP device. He feels rested upon awakening. He does experience oral dryness. He reports that he feels rested upon awakening. He denies morning headache. He denies napping. He have been on Ozempic for 4 weeks. Lost 6 pounds. Documentation reviewed today includes: PFT from December 22, 2024 shows mild restrictive impairment. 6-minute walk test from January 09, 2025 shows no significant exertional oxyg (more content not included)... [facility] 6 Minute Walk Teston 025 6 Minute Walk Test y [facility]Neurology [address] [place] [address] MR#: [id number] Acct: [id number] Name: HYACINTH HURST Rep #: [id number] : 1960 64 From: Lyle Araiza DO Referring Dr: Joann Crowe WOOD PROCESSING WORKER-C Status: REG CLI Location: PSN Date: Sex: M C PSN 6 Minute Walk Test 6 Minute Walk Test 6 Minute Walk Test: 6 Minute Walk Test PSN:6-Minute Walk Test Start: 01/09/25 12:12 Freq: Status: Active Protocol: RESP.6MINW Document 01/09/25 12:12 ENTON (Rec: 01/09/25 12:14 SFENTON [id number]) 6 Minute Walk Test Date Performed 01/09/25 Time Performed 12:00 Height 6 ft Weight: 372 lb Weight in Pounds 372.[address]: Joann Crowe Assistive device Walker used: Pre-test Oxygen Delivery Room Air Method Pulse Ox (%) 92 Pulse Rate (60-100 74 beats/min) Dyspnea Minnie Scale ( 0 0-10) Exertion Minnie Scale 6 (6-20) 1st minute Oxygen Delivery Room Air Method Pulse Ox (%) 93 Pulse Rate (60-100 82 beats/min) 2nd minute Oxygen Delivery Room Air Method Pulse Ox (%) 92 Pulse Rate (60-100 89 beats/min) 3rd minute Oxygen Delivery Room Air Method Pulse Ox (%) 95 Pulse Rate (60-100 93 beats/min) 4th minute Oxygen Delivery Room Air Method Pulse Ox (%) 96 Pulse Rate (60-100 96 beats/min) 5th minute Oxygen Delivery Room Air Method Pulse Ox (%) 95 Pulse Rate (60-100 109 H beats/min) 6th minute Oxygen Delivery Room Air Method Pulse Ox (%) 95 Pulse Rate (60-100 113 H beats/min) Dyspnea Minnie Scale ( 4 0-10) Exertion Minnie Scale 14 (6-20) Post-test Oxygen Delivery Room Air Method Pulse Ox (%) 95 Pulse Rate (60-100 80 beats/min) Full Laps Walked 12 Partial Lap, Number 22 of Tiles Walked Total Distance 730 Walked (ft) Interpretation Interpretation: The patient ambulated 730 feet over the course of 6 minutes beginning on room air with use of a walker. Pretesting oxygen saturation was noted to be 92% on room air. With ambulation, the vinicius oxygen saturation was 92%. There was no significant exertional oxygen desaturation. Recommendations Recommendations: There is no indication for the use of supplemental oxygen at this time. 01/12/25 1124 Date Lyle Araiza DO CC: Date Dictated: 01/12/25 1123 Date Transcribed: 01/12/25 112 Incubator Tender: Dr. Lyle Araiza DO Signed [facility] Gastroenterology Visit Repor ton 12-06-2024 Gastroenterology Visit Report [facility] Gastroenterology [address] [place] [address] OFFICE VISIT Date of Service: 12/06/24 MR#: [id number] Acct: [id number] Name: HYACINTH HURST Rep #: [id number] : 1960 Provider: CONNER pruett Age/Sex: 64/M Location: [facility] Status: Signed Intake Vital Signs 12/06/24 09:15 12/06/24 10:06 Height 6 ft 1.5 in 6 ft 1.5 in Weight: 380 lb 280 lb BMI 49.4 36.4 BP 123/83 H 143/77 H Blood Pressure Location Rt radial Position Sitting Respiration 22 H 16 Pulse 68 65 Pulse Source Monitor Temp 97.4 F L Pulse Oximetry (%) 93 95 Oxygen Delivery Method room air room air Intake Visit Reasons: DIARRHEA, BLOATING Apparel Embroidery Digitizer Required: No Is patient in pain?: Yes (lower abdomen) Pain scale (1-10): 3 Allergies No Known Allergies Allergy (Unverified 12/06/24 09:59) Medications ???Medication ???Instructions ???Recorded ???Confirmed ???Type albuterol sulfate 90 mcg/actuation 2 inh inhalation Q4H PRN 5 12/06/24 History breath activated powder inhaler ammonium lactate 5 % lotion 1 applic topical BID PRN 11/29/24 12/06/24 History apixaban 2.5 mg tablet 2.5 mg PO BID 11/29/24 12/06/24 Hi story atorvastatin 10 mg tablet 10 mg PO QDAY 11/29/24 12/06/24 Hi story folic acid 1 mg tablet 1 mg PO QDAY 11/29/24 12/06/24 His tory lisinopril 5 mg tablet 5 mg PO QDAY 11/29/24 12/06/24 His tory loperamide 2 mg capsule 2 mg PO Q4H PRN 11/29/24 12/06/24 History melatonin 10 mg capsule 10 mg PO HS 11/29/24 12/06/24 Hist ory oxycodone 5 mg tablet,oral ONLY 5 mg PO BID PRN 11/29/24 12/06/24 History (not feeding tubes) pantoprazole 20 mg tablet,delayed 20 mg PO QDAY 11/29/24 12/06/24 H istory release umeclidinium 62.5 mcg/actuation 1 inh inhalation Q24H 11/29/2405/24 History blister powder for inhalation (Incruse Ellipta) gabapentin 300 mg tablet,extended 300 mg PO TID 12/06/24 12/06/24 H istory release 24 hr peg 3350-electrolytes 236 240 ml PO Q10M #4,000 mL 12/06/24 12/06/24 Rx gram-22.74 gram-6.74 gram-5.86 gram solution (Golytely) Nurse's Note: Has been having diarrhea and bloating for several months. Had a regular bowel movement for the first time in a while yesterday. Denies blood in stool and is sometimes dark in color or green. 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 male with history of DVT, obesity, diabetes mellitus, asthma, COPD, CAD sleep apnea, GERD, hep C, underlying psychiatric issues [facility] comes into hospital with complaints of 2-week onset of nausea, vomiting and diarrhea and increased abdominal distention. He had left knee replacement approximately 4 weeks ago also. He had KUB done which was concerning and so sent to ER. CT abdomen was done in ER and noted to have gastric emphysema. Kept n.p.o. and consultation placed to surgery. Seen by surgery and recommended conservative treatment only. Having loose BM, GI PCR negative. Stool for C. difficile negative. Gradually patient condition improved. Tolerating diet at this time. Agreeable with going back to [facility]. Denies any nausea or vomiting. - resides at [facility] - in [place] - no history of colon and EGD and does not want one - lower abd pain, across lower abdomen - has resolved - currently complains of upper abdominal pain - intermittent, unable to associate a trigger, dull, non-radiating, does not change with PO intake - diarrhea x3 weeks - had first regular BM yesterday - denies any recurrent N/V post discharge - he is eating well and denies any loss of appetite - denies any pain with eating - denies any recent viral infections - denies any weight loss - denies any HB - pantoprazole 20mg daily - denies any fevers - c/o night sweats for couple months - endorses SOB - reports this is his baseline - denies any h/o NE or CVA - denies any CKD - no further N/V - bloating of the abdomen - his last dose of Imodium and Pepto was a couple days ago - denies any bleeding - stools are dark liquid green - last episode of fecal incontinence was one week ago - he was waking at HS with BM - Paternal Uncle with gastric cancer ROS Const Constitutional: No fatigue, fever(s) or weight change E (more content not included)... [facility] Pulmonary Visit Reporton Pulmonary Visit Report [facility] [place] [address] [place] [address] OFFICE VISIT Date of Service: 12/06/24 MR#: [id number] Acct: [id number] Name: HYACINTH HURST Rep #: [id number] : 1960 Provider: Joann Crowe NP Age/Sex: 64/M [place] [facility] Status: Signed Assessment and Plan Assessment and Plan (1) Shortness of breath: Status: Acute Plan: I would recommend a PFT and 6MWT test at this time to help confirm or refute the presence of COPD. Asthma, obesity, deconditioning is also in the differential for shortness of breath. I am concerned that since he has had 20 years of untreated sleep apnea that this could be causing pulmonary hypertension which would also be in the differential. I have recommended that he continue with use of Incruse at this time until further testing is obtained then recommendations will be forthcoming. I have also recommended that the patient have his albuterol HFA available to him on person to use on an as-needed basis for shortness of breath. It appears that Spiriva needs to be discontinued from his medication list that was on his previous PCP office visit records. (2) Hypoxemia: Status: Acute Plan: Await 6MWT and PSG. (3) HARISH (obstructive sleep apnea): Status: Acute Plan: History of sleep apnea but patient was not able to use the device over 20 years ago. He is currently using supplemental oxygen but I am concerned that this is not adequately treating his disease process and I am suspecting that this has worsened. I have recommended a PSG at this time. If sleep apnea is present then I would recommend proceeding with titration study and set up with device. The patient is agreeable to this plan. I have reviewed the pathophysiology of sleep apnea and the importance of treating this disease process. I have reviewed the comorbid disease processes uncontrolled sleep apnea can affect. Orders: Orders PFT Complete - DLCO, Spirometry b/a bronchodilators, lung volumes Today R06.02 - Shortness of breath Simple Pulmonary Exercise Test Today R06.02 - Shortness of breath Polysomnography Today G47.33 - Obstructive sleep apnea (adult) (pediatric) Plan Details Follow Up: 6-8 weeks (LMR) HPI HPI Comments Details: Patient is a 64 year old male who presents today for evaluation of hypoxemia. He is being referred by AMA Gustafson from [facility], his current living facility. He is in a wheel chair and on room air. He underwent a AP/RPO chest xray on 10/15/24 due to shortness of breath, cough, wheezing which indicated no chest radiographic evidence of acute cardiopulmonary disease. He carries a diagnosis of COPD, HFpEF, HARISH, bipolar disorder, remote DVT, HTN, DM, polysubstance abuse who had presented to the care facility due to sepsis due to cellulitis, FRANCISCO J, rhabdomyolysis, and acute respiratory failure approximately 1 year ago. He is utilizing Incruse for COPD, Sprivia is listed as a medication but patient reports he is not taking it. Albuterol is not being used because it is not accessible for him. It is unclear to me at this time why he is utilizing 2 muscarinic agents. Today the patient is reporting shortness of breath will occur at rest and with exertion this has occurred for several months. He was bed bound for a year, today he is in a wheel chair. He is planning to start to use a rollator soon. He reports occasional wheeze. He denies cough, sputum, hemoptysis. He denies chest pain, chest tightness, chest heaviness. The patient denies fever, chills, body aches. Smoking history includes 5 year history of 1 pack per day, he quit over 15 years. 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 He is using 3L per minute of supplemental oxygen mainly at night but will occasionally use it during the day and finds it to be beneficial. History of sleep apnea. He reports study 20 years ago. In the past he tried pap approximately 20 years ago but was unsuccessful. He feels like he is suffocating when he is trying to fall asleep. Intake Vital Signs 12/06/24 09:15 Height 6 ft 1.5 in Weight: 380 lb BMI 49.4 BP 123/83 H Blood Pressure Location Rt radial Position Sitting Respiration 22 H Pulse 68 Pulse Source Monitor Temp 97.4 F L Temperature Source Temporal Artery Pulse Oximetry (%) 93 Oxygen Delivery Method room air Intake Visit Reasons: COPD, LOW PULSE OX Apparel Embroidery Digitizer Required: No DME Vendor: [employer] Accompanied by: Self Is patient in pain?: No Allergies No Known Allergies Allergy (Unverified 12/06/24 09:18) Medications ???Medication ???Instructions ???Recorded ???Confirmed ???Type albuterol sulfate 90 mcg/actuation 2 inh inhalation Q4H PRN 5 12/06/24 History breath a (more content not included)... [facility] [id number] 11-07-2024 [id number] Confirmed pickup diana e of 4:30pm by transport company [employer] at phone number . Location of facility drop off is [facility] . Facility notified via [employer], Crystal Garza notified on secure chat. [facility] [phone] MAR & Discharge med list transmitted to [facility] via [facility] per TCC request. [facility] [phone] Transport requested in [employer]. Awaiting time confirmation. [facility] [phone] Discharge order note d. CM portion of [place] updated. Task sent to [facility] to send discharge paperwork to [facility]. SW and RN aware. CM and WORK ORDER CLERK arranging transport. Normal [facility] Laboratory - Chemistry and C hemistry - challengeon 11-07-2024 Glucose [Mass/Vol] 122 mg/dL High 70 - 100 mg/dL [facility] Glucose [Mass/Vol] 124 mg/dL High 70 - 100 mg/dL [facility] No Panel Informationon 11-07 Interpretation and review of laboratory results Abnormal [facility] Performed by: [facility], [address] [place] [address] CLIA ID: [id number] [facility] Interpretation and review of laboratory results Abnormal [facility] Performed by: [facility], [address] [place] [address] CLIA ID: [id number] [facility] Nursing Noteon 11-07-2024 Nursing Note [id number] called report brisa Estrella RN patient ready to go back to rehab denies needs Normal [facility] 30on 11-06-2024 30 Problem: Pain - Adul t Goal: Verbalizes/displays adequate comfort level or baseline comfort level Outcome: Progressing Problem: Safety - Adult Goal: Free from fall injury Outcome: Progressing Problem: Discharge Planning Goal: Discharge to home or other facility with appropriate resources Outcome: Progressing Problem: Chronic Conditions and Co-morbidities Goal: Patient's chronic conditions and co-morbidity symptoms are monitored and maintained or improved Outcome: Progressing Problem: Gastrointestinal - Adult Goal: Minimal or absence of nausea and vomiting Outcome: Progressing Goal: Maintains or returns to baseline bowel function Outcome: Progressing Goal: Maintains adequate nutritional intake Outcome: Progressing Normal [facility] CBC (HEMOGRAM)on 11-06-2024 Erythrocyte distribution width (RBC) [Ratio] 13.2 % Normal 11.5-15.0 [facility] Comment on above: Performed By: #### L [id number], [id number] #### Machine Long Goods Helper: BRANDEE BARON ([id number]) [facility] ([facility]) [address] [place] [address] Hematocrit (Bld) [Volume fraction] 45.4 % Normal 40.0-52.0 [facility] Comment on above: Performed By: #### L [id number], [id number] #### Machine Long Goods Helper: BRANDEE BARON ([id number]) [facility] ([facility]) [address] [place] [address] Hemoglobin (Bld) [Mass/Vol] 14.1 g/dL Normal 13.0-18.0 [facility] Comment on above: Performed By: #### L [id number], [id number] #### Machine Long Goods Helper: BRANDEE BARON ([id number]) [facility] ([facility]) [address] [place] [address] MCH (RBC) [Entitic mass] 29.1 pg Normal 26.0-34.0 [facility] Comment on above: Performed By: #### L [id number], [id number] #### Machine Long Goods Helper: BRANDEE BARON ([id number]) [facility] ([facility]) [address] [place] [address] MCHC 31.1 % Normal 30.5-36.0 [facility] Comment on above: Performed By: #### L [id number], [id number] #### Machine Long Goods Helper: BRANDEE BARON ([id number]) [facility] ([facility]) [address] [place] [address] MCV (RBC) [Entitic vol] 93.6 fL Normal 77.0-99.0 [facility] Comment on above: Performed By: #### L [id number], [id number] #### Machine Long Goods Helper: BRANDEE BARON ([phone]) [facility] ([facility]) [address] [place] [address] Platelet mean volume (Bld) [Entitic vol] 9.2 fL Normal 9.0-12.7 [facility] Comment on above: Performed By: #### L [id number], [id number] #### Machine Long Goods Helper: BRANDEE BARON ([id number]) [facility]) [address] [place] [address] Platelets (Bld) [#/Vol] 186 10*3/uL Normal 140-440 [facility] Comment on above: Performed By: #### L [id number], [id number] #### Machine Long Goods Helper: BRANDEE BARON ([id number]) [facility] ([facility] [facility] [address] [place] [address] RBC (Bld) [#/Vol] 4.85 10*6/uL Normal 4.40-5.90 [facility] Comment on above: Performed By: #### L [id number], [id number] #### Machine [employer] Helper: BRANDEE BARON ([phone]) [facility] ([facility]) [address] [place] [address] WBC (Bld) [#/Vol] 10.9 10*3/uL High 3.6-10.7 [facility] Comment on above: Performed By: #### L [id number], [id number] #### [employer] Helper: BRANDEE BARON ([phone]) [facility] ([facility]) [address] [place] [address] CBC panel Auto (Bld)on 11-06 Erythrocyte distribution width (RBC) [Ratio] 13.2 % 11.5 - 15.0 % [facility] Hematocrit (Bld) [Volume fraction] 45.4 % 40.0 - 52.0 % [facility] Hemoglobin (Bld) [Mass/Vol] 14.1 g/dL 13.0 - 18.0 g/dL [facility] Interpretation and review of laboratory results Abnormal [facility] MCH (RBC) [Entitic mass] 29.1 pg 26.0 - 34.0 pg [facility] MCHC (RBC) [Mass/Vol] 31.1 % 30.5 - 36.0 % [facility] MCV (RBC) [Entitic vol] 93.6 fL 77.0 - 99.0 fL [facility] Platelet mean volume (Bld) [Entitic vol] 9.2 fL 9.0 - 12.7 fL [facility] Platelets (Bld) [#/Vol] 186 10*3/uL 140 - 440 10*3/uL [facility] RBC (Bld) [#/Vol] 4.85 10*6/uL 4.40 - 5.9 0 10*6/uL [facility] WBC (Bld) [#/Vol] 10.9 10*3/uL High 3.6 - 10.7 10*3/uL [facility] COMPREHENSIVE METABOLIC PANE Jose 11-06-2024 Albumin [Mass/Vol] 3.1 g/dL Low 3.4-4.8 [facility] Comment on above: Performed By: #### L [id number], [id number] #### [employer] Helper: BRANDEE BARON ([id number]) [facility] [address] [place] [address] ALP [Catalytic activity/Vol] 74 U/L Normal 40-150 [facility] Comment on above: Performed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 a baseline troponin <= 5 ng/L suggests acute cardiac injury is unlikely and further serial testing is generally not indicated. [facility] XR Chest Single viewon 11-03 Cardiomegaly and chr onic appearing lung changes. Report Dictated on Electronically Signed By: Juve Vallejo MD Electronically Signed Date/Time: 11/03/2024 4:39 PM EST [facility] Patient Name: HYACINTH HURST : 1960 Exam Date/Time: 11/03/2024 16:23 Procedure: XR CHEST 1 VIEW Ordering Provider: VILLAREAL JAY Reason For Exam: shortness of breath EXAMINATION: XR chest AP. EXAM DATE & TIME: 11/03/2024 4:23 PM EST INDICATION: shortness of breath ADDITIONAL INFORMATION: 64-year-old male shortness of breath presents for evaluation COMPARISON: Chest x-ray dated 11/15/2023 TECHNIQUE: Frontal view of the chest was obtained. FINDINGS: Lines/support devices: None. Cardiomediastinal silhouette: The heart is enlarged. Lungs/pleura: There is bibasilar scarring/atelectasis. No focal consolidation, pleural effusion or pneumothorax. Osseous structures: Degenerative changes of the spine and shoulders are seen. No acute osseous abnormality is demonstrated. Bones are osteopenic. Other findings: None. [facility] Juve Vallejo MD - 11/03/2024 Patient Name: HYACINTH HURST : 1960 Exam Date/Time: 11/03/2024 16:23 Procedure: XR CHEST 1 VIEW Ordering Provider: VILLAREAL JAY Reason For Exam: shortness of breath EXAMINATION: XR chest AP. EXAM DATE & TIME: 11/03/2024 4:23 PM EST INDICATION: shortness of breath ADDITIONAL INFORMATION: 64-year-old male shortness of breath presents for evaluation COMPARISON: Chest x-ray dated 11/15/2023 TECHNIQUE: Frontal view of the chest was obtained. FINDINGS: Lines/support devices: None. Cardiomediastinal silhouette: The heart is enlarged. Lungs/pleura: There is bibasilar scarring/atelectasis. No focal consolidation, pleural effusion or pneumothorax. Osseous structures: Degenerative changes of the spine and shoulders are seen. No acute osseous abnormality is demonstrated. Bones are osteopenic. Other findings: None. IMPRESSION: Cardiomegaly and chronic appearing lung changes. Report Dictated on Electronically Signed By: Juve Vallejo MD Electronically Signed Date/Time: 11/03/2024 4:39 PM EST [employer] Radiology Study observation (narrative) [employer] XR Chest Single viewOrdered By: Juve Vallejo on 11-03-2024 [employer] Work Phone: No Panel Informationon 11-01 Patient Name: HYACINTH HURST DOB: 1960 Exam Date/Time: 11/01/2024 13:30 Procedure: XR KNEES ANTEROPOSTERIOR STANDING BILATERAL Ordering Provider: ARAIZA WILLIAM Reason For Exam: s/p R TKA HISTORY: Status post right TKA AP weightbearing view both knees shows right TKA appearing in good position. Severe degenerative joint disease left knee with lower end of long femoral intramedullary john. Additional frontal and sunrise view of the right knee shows TKA appearing in good position with scattered areas of soft tissue calcification in the region of the quadriceps tendon. Report Dictated on Electronically Signed By: Ilsa Liu MD Electronically Signed Date/Time: 11/01/2024 6:31 PM EST [facility] Ilsa Liu MD - 11/01/2024 Patient Name: HYACINTH HURST DOB: 1960 Exam Date/Time: 11/01/2024 13:30 Procedure: XR KNEES ANTEROPOSTERIOR STANDING BILATERAL Ordering Provider: ARAIZA WILLIAM Reason For Exam: s/p R TKA HISTORY: Status post right TKA AP weightbearing view both knees shows right TKA appearing in good position. Severe degenerative joint disease left knee with lower end of long femoral intramedullary john. Additional frontal and sunrise view of the right knee shows TKA appearing in good position with scattered areas of soft tissue calcification in the region of the quadriceps tendon. Report Dictated on Electronically Signed By: Ilsa Liu MD Electronically Signed Date/Time: 11/01/2024 6:31 PM [facility] Radiology Study observation (narrative) [facility] Office Visiton 11-01-2024 Follow-up visit [id number] Hyacinth Hurst T 1960 M Date Provider Department Center 11/01/2024 [facility]ARA MARTINEZ [facility] None Family History Problem Relation Age of Onset Arthritis Mother Arthritis Father High Blood Pressure Father Substance Abuse Father Heart disease Father Arthritis Sister Early natural Brother Depression Father Cancer Brother Family Status - Relation Status Age at Mother Alive Notes: dementia Father Sister Alive Brother Level of Service:31379 OR OFFICE/OUTPATIENT ESTABLISHED LOW MDM 20 MIN Reason for Visit and Comments: Follow-up [045128] - FU RTKA 4 month Normal [facility] System [facility] Progress Noteon 11-01-2024 Progress Note [facility] - [facility] [address] [place] [address] [place] [address] Dept: [phone] Dept 11/01/2024 Chief Complaint Patient presents with Follow-up FU RTKA 4 month Subjective: Hyacinth is approximately 4 month(s) out from a right total knee arthroplasty. Pain is mild. Patient has noted issues with: nothing out of the ordinary. Assistive device for ambulation: walker. Pre-operative symptoms are improved. The patient is able to walk 0 blocks and is not able to use stairs. Patient denies calf pain or unusual swelling. Known knee arthritis on left side. Here today with continued pain in left knee. Requesting injection for left knee. ED visit since surgery: No Hospital re-admit since surgery: No Complication since surgery: No Review of Systems Constitutional: Negative for activity change. HENT: Negative for congestion. Cardiovascular: Negative for leg swelling. Musculoskeletal: Negative for arthralgias, gait problem and joint swelling. Skin: Negative for wound. Neurological: Negative for weakness. Objective: There were no vitals taken for this visit. Hyacinth overall looks well and comfortable. Gait: antalgic. Knee incision(s): healing well. Swelling is absent. Knee ROM shows flexion 120, extension 20 active, 10 passive. The knee is stable to varus/valgus stress <6 degrees. No evidence of DVT seen on physical exam. No cords or calf tenderness. No significant calf/ankle edema. LEFT KNEE: Inspection shows skin is warm, dry and intact. There are no obvious scars or previous incisions.. Alignment is mild varus. ROM shows extension is 20, flexion 120. The knee is stable to varus/valgus stress (<6 degrees) and is correctable. Additional findings include medial joint line tenderness, no effusion and no erythema. Anterior, posterior drawer negative. +PF/DF/EHL. SILT distally. DP/PT palpable. Straight leg raise negative for inciting radicular symptoms. Bilateral hip range of motion is not painful. Ortho Exam XRAYS: 11/01/24 images obtained by outside radiology department independently reviewed by myself today in office. Indication: Status post right total knee arthroplasty. Left knee pain. Exam Ordered: Radiographs taken today include an AP standing, lateral, and sunrise view of the right knee. Left knee visualized on AP view. Details of Examination: Exam shows a well fixed, well positioned total knee arthroplasty with no evidence of wear, osteolysis, fracture, or loosening. Patella appears to be tracking well within the trochlear groove of the prosthesis. Medial compartment bone-bone degenerative arthritis, surrounding spurs and subchondral sclerosis Impression: Status post right total knee arthroplasty, implant in good position with no abnormality. Left knee end-stage degenerative arthritis. Assessment 1. S/P total knee arthroplasty, right 2. Primary osteoarthritis of left knee Plan Right knee: Hyacinth will continue with WBAT and therapy. Doing well, still limited with extension, similar to left knee he is very tight from sitting majority of the day. I would like to check the patient back in 8 month(s) with new knee X-rays. We reviewed signs and symptoms of common post-operative issues including infection. We reviewed the need for prophylaxis with dental or other procedures. He will call and return sooner for questions, issues, or concerns. Left knee: Injection only Procedure Note: After risks and benefits of intra-articular injection were reviewed with the patient, he elected to proceed. After sterile alcohol prep, a mixture of 2cc of celestone and 8cc of 1% lidocaine was given through a anterolateral portal into the left knee. The patient tolerated the injection well. A band-aid was placed. Post-injection instructions were reviewed. Electronically signed by Clara Judge M.D. 11/06/2024 at 12:33 PM. [facility] SHS XR Knee - right 1 or 2 Views on 11-01-2024 Patient Name: HYACINTH HURST : 1960 Exam Date/Time: 11/01/2024 13:30 Procedure: XR KNEE 1-2 VIEWS RIGHT Ordering Provider: ARAIZA WILLIAM Reason For Exam: s/p R TKA This order should be linked with today's previously dictated accession #, which includes the reasons for examination, report, and impressions for both orders. Report Dictated on Electronically Signed By: Ilsa Liu MD Electronically Signed Date/Time: 11/01/2024 6:31 PM [facility] Ilsa Liu MD - 11/01/2024 Patient Name: HYACINTH HURST : 1960 Exam Date/Time: 11/01/2024 13:30 Procedure: XR KNEE 1-2 VIEWS RIGHT Ordering Provider: ARAIZA WILLIAM Reason For Exam: s/p R TKA This order should be linked with today's previously dictated accession #, which includes the reasons for examination, report, and impressions for both orders. Report Dictated on Electronically Signed By: Ilsa Liu MD Electronically Signed Date/Time: 11/01/2024 6:31 PM EST [employer] XR Knee - right 1 or 2 Views Ordered By: Ilsa Liu on 11-01-2024 [employer] Work Phone: Office Visiton 2024 Follow-up visit [id number] Hyacinth Hurst 1960 M Date Provider Department Center 2024 [id number] ARAIZA [facility] ORT JAYNA None Family History Problem Relation Age of Onset Arthritis Mother Arthritis Father High Blood Pressure Father Substance Abuse Father Heart disease Father Arthritis Sister Early natural Brother Depression Father Cancer Brother Family Status - Relation Status Age at Mother Alive Notes: dementia Father Sister Alive Brother Level of Service:30264 OR POSTOP FOLLOW UP VISIT RELATED TO ORIGINAL PX Reason for Visit and Comments: Post-op [483] - Right Total Knee Arthroplasty SX 07/21/24 Normal [employer] [facility] Progress Noteon 2024 Progress Note [facility] [employer] OR[facility] - YUE [address] [place] [address] [place] [address] Dept: [phone] Dept 2024 No chief complaint on file. Subjective: Hyacinth is approximately 3 week(s) out from a right total knee arthroplasty. Pain is mild. Patient has noted issues with: nothing out of the ordinary. Assistive device for ambulation: walker and wheelchair. Pre-operative symptoms are improved. The patient is able to walk 0 blocks and is not able to use stairs. Patient denies calf pain or unusual swelling. ED visit since surgery: No Hospital re-admit since surgery: No Complication since surgery: No Review of Systems Objective: There were no vitals taken for this visit. Hyacinth overall looks well and comfortable. Gait: antalgic and baseline wheelchair . Knee incision(s): healing well, no drainage, no erythema. Swelling is moderate. Knee ROM shows flexion 110, extension -15. The knee is stable to varus/valgus stress <6 degrees. No evidence of DVT seen on physical exam. Negative Sathya's sign. No cords or calf tenderness.. Ortho Exam XRAYS: 08/16/28 images obtained by outside radiology department independently reviewed by myself today in office. Indication: Status post right total knee arthroplasty. Exam Ordered: Radiographs taken today include an AP standing, lateral, and sunrise view of the right knee. Details of Examination: Exam shows a well fixed, well positioned total knee arthroplasty with no evidence of wear, osteolysis, fracture, or loosening. Patella appears to be tracking well within the trochlear groove of the prosthesis. Impression: Status post right total knee arthroplasty, implant in good position with no abnormality. Assessment 1. Arthritis of right knee 2. S/P total knee arthroplasty, right Plan Hyacinth will continue with WBAT and therapy. I would like to check the patient back in 3 month(s) with new knee X-rays. He is doing well. Pain is controlled. He is working with PT at his facility. Early on had bleeding from proximal incision which eschar is present now and incision is well healed with no erythema or drainage. We reviewed signs and symptoms of common post-operative issues including infection. We reviewed the need for prophylaxis with dental or other procedures. He will call and return sooner for questions, issues, or concerns. Ilsa Araiza PA-C Orthopedic Surgery Hip and Knee Reconstruction [facility] 2024 at 2:05 PM. [facility] 36on 08-09-2024 36 I called number in [place] and spoke to daughter yas. She advised to me call the facility directly. I called the facility and patients nurse was not available at this time. LVM for facility to call us back or send in a new picture on mychart of patients incision. [place] [address]30on 07-31-2024 36 Spoke with Valentine and gave advice per Dr Judge. She verbalized understanding. Will check with PT for a knee immobilizer. [facility] 36 Spoke with Julius from [facility] she stated it trickles a little blood when he moves knee in therapy. They have placed steri strips and also reinforced with HILTON wrap. She will try and send pictures to secure [employer] email. [facility] 36on 07-28-2024 36 Received call from Brisa burger at [facility] stating patients dressing was to be removed today. She states patient has bled through 2 different bandages. She states she is keeping the patient in bed for the rest of the day. Please advise. Please call her back at [phone]. [facility] 36on 07-25-2024 36 Noted, thanks for handling. [facility] 36 Spoke with Daniela jara nd advised her that there are no sutures to remove as we use derma french and steri strips. She asked when dressing can come off and I let her know 7-10 days from surgery so around Saturday 07/28 it can come off. She verbalized understanding. [facility] 36 Facility calling to ask if any sutures will need removed prior to his follow up appt on 08/16. Please fax any orders to: [phone] Thank you! DOS: 07/21/24 R TKA [facility] 30on 07-23-2024 30 Problem: Pain - Adul t Goal: Verbalizes/displays adequate comfort level or baseline comfort level Outcome: Progressing Problem: Safety - Adult Goal: Free from fall injury Outcome: Progressing Problem: Discharge Planning Goal: Discharge to home or other facility with appropriate resources Outcome: Progressing Problem: Knowledge Deficit Goal: Patient/family/caregiver demonstrates understanding of disease process, treatment plan, medications, and discharge instructions Outcome: Progressing Problem: Potential for Compromised Skin Integrity Goal: Skin Integrity is Maintained or Improved Outcome: Progressing Goal: Nutritional status is improving Outcome: Progressing Problem: Urinary Incontinence Goal: Perineal skin integrity is maintained or improved Outcome: Progressing [facility] [id number] 07-23-2024 [id number] Next Site of Care Admission Date: 07/21/2024 09:30 AM Patient Name: HYACINTH HURST Location: [address]/[facility] [id number] A Date of : 1960 -------- Placement Information -------- Referral Type:[facility] ICF - Return Referral ID:[id number] Provider Name:[facility] Address 1:[address] [place] [address] VR1 Address 2: City:[place] Selection Factors:Returning to Facility State:[place] Normal [facility] Nursing Noteon 07-23-2024 Nursing Note Report called to [facility]. No questions at this time. [facility] Progress Noteon 07-23-2024 Progress Note Nutrition rescreen completed. Chart reviewed. Patient to be monitored and followed by the diet r&d lab technician. [facility] Progress Note Adult Hip and Knee Reconstruction Service Patient Name: Hyacinth Hurst Date of : 1960 Date: 07/23/24 Assessment: s/p Right TKA on 07/21/2024 Plan: Continue PT - WBAT Pain control Med consult DVT Prophylaxis - eliquis/SCDs Abx x24hrs, duricef at discharge Dispo: Appropriate for dc to rehab today Subjective: No significant issues overnight. Patient states that there was a small amount of bleeding on his dressing after therapy that required reinforcement. He was post to be discharged to rehab yesterday but transportation got delayed and now disposed to this morning. No other questions or concerns currently. Medications: acetaminophen, 650 mg, Oral, q6h apixaban, 2.5 mg, Oral, BID ARIPiprazole, 20 mg, Oral, Daily aspirin, 81 mg, Oral, Daily atorvastatin, 10 mg, Oral, Daily bumetanide, 1 mg, Oral, Daily dapagliflozin, 5 mg, Oral, Daily famotidine, 20 mg, Oral, BID gabapentin, 300 mg, Oral, TID lisinopril, 5 mg, Oral, Daily sertraline, 50 mg, Oral, Daily sodium chloride 0.9%, 10 mL, IntraVENous, 2 times per day sodium chloride, 1 g, Oral, TID tiotropium, 2 puff, Inhalation, Daily Physical Exam: Vitals: 07/22/24 194 BP: 112/71 Pulse: 76 Resp: 16 Temp: 36.8 ?C (98.2 ?F) SpO2: 93% Intake and Output Summary (Last 24 hours) at Date Time Intake/Output Summary (Last 24 hours) at 07/23/2024 0630 Last data filed at 07/22/2024 2311 Gross per 24 hour Intake 2747.92 ml Output 1025 ml Net 1722.92 ml General appearance - no acute distress Musculoskeletal - Dressing with some moderate saturation. It was removed and incision was inspected, revealing no gross dehiscence. Steri-Strips still intact. Dressing was replaced with a fresh OpSite and reinforced with a sterile 4 x 4 and Tegaderm proximally. Fires quad/TA/EHL/GSC SILT SP/DP/TN WWP distally Calves soft, nontender bilateral Labs: Lab Results Component Value Date WBC 10.1 11/18/2023 HGB 15.1 07/22/2024 HCT 46.5 07/22/2024 MCV 89.3 11/18/2023 PLT 310 11/18/2023 and Lab Results Component Value Date GLUCOSE 138 (H) 07/22/2024 CALCIUM 8.7 07/22/2024 NA 137 07/22/2024 K 4.7 07/22/2024 CO2 28 07/22/2024 CL 103 07/22/2024 BUN 17 07/22/2024 CREATININE 0.90 07/22/2024 Rads: Radiological Procedure reviewed. Signed by: Americo Wayne MD [facility] SHS XR Knee - right 1 or 2 Views on 07-23-2024 Patient Name: HYACINTH HURST : 1960 Exam Date/Time: 07/21/2024 17:09 Procedure: XR KNEE 1-2 VIEWS RIGHT Ordering Provider: GAMBOA BRITTANY Reason For Exam: Postprocedure RIGHT KNEE: CLINICAL INDICATION: Followup for arthroplasty. TECHNIQUE: Portable AP and crosstable lateral COMPARISON: 06/28/2024 FINDINGS: A total knee arthroplasty is noted with metallic femoral and tibial components in adequate alignment. No bone lesion is identified. Surgical changes are noted with overlying radiopaque structures and soft tissue gas. Report Dictated on Electronically Signed By: Pedro Mcmahan MD Electronically Signed Date/Time: 07/23/2024 12:04 PM [facility] Pedro Mcmahan MD - 07/23/2024 Patient Name: HYACINTH HURST : 1960 Exam Date/Time: 07/21/2024 17:09 Procedure: XR KNEE 1-2 VIEWS RIGHT Ordering Provider: GAMBOA BRITTANY Reason For Exam: Postprocedure RIGHT KNEE: CLINICAL INDICATION: Followup for arthroplasty. TECHNIQUE: Portable AP and crosstable lateral COMPARISON: 06/28/2024 FINDINGS: A total knee arthroplasty is noted with metallic femoral and tibial components in adequate alignment. No bone lesion is identified. Surgical changes are noted with overlying radiopaque structures and soft tissue gas. Report Dictated on Electronically Signed By: Pedro Mcmahna MD Electronically Signed Date/Time: 07/23/2024 12:04 PM EST [employer] XR Knee - right 1 or 2 Views Ordered By: Pedro Mcmahan on 07-23-2024 [employer] Work Phone: 30on 07-22-2024 30 Problem: Pain - Adul t Goal: Verbalizes/displays adequate comfort level or baseline comfort level Outcome: Progressing Problem: Safety - Adult Goal: Free from fall injury Outcome: Progressing Problem: Discharge Planning Goal: Discharge to home or other facility with appropriate resources Outcome: Progressing [facility] [id number] 07-22-2024 [id number] Case Management Casi padilla Note/Update Discharge Plan: return to [facility] Auth Status: none needed - returning under Medicaid Discharge Orders: yes [place] Complete: yes Med Rec Complete: yes 7000/[id number]: not needed - returning to LTC facility Transport: cot transport claimed by [facility] for 1630 / cancelled by [facility] dispatcher / second cot transport request claimed by [employer] for adjusted time of 2029 Notified Family: phoned legal guardian, Maeve Arreguin, at [phone] to notify of discharge and transport time Notified Facility: yes, via [facility] Notified RN: yes - RN will notify patient AVS & MAR: sent via [facility] TCC tasked to follow patient through the weekend to assist with discharge needs. Chart reviewed. Received message from bedside RN - discharge orders are in and patient wishes to return to [facility] rather than go to [facility]. Interested in therapy but states they offer it there. Sent return ECF referral via [facility]. Notified facility patient is interested in therapy if they are able to skill him. Received response back from facility - no auth to return. Can return today. Messaged bedside RN to update. Requested cot transport via [facility] for 1530. Expected Discharge, Rapid Rounding, and Discharge Milestones / Delays updated as appropriate. TCC will remain available for any additional discharge needs. Received message from bedside RN - patient now wishes to go to [facility]. Messaged [facility] liaison for chart review to confirm appropriateness before canceling transport. Received response back from [facility] liaison - patient is not appropriate for [facility] level of care due to lack of medical necessity. Daughters a bedside with questions. Will update patient/daughters on response. Stopped by room. Spoke to patient and daughters. PT working with patient. Discussed medical need to go to [facility] and that patient is not currently appropriate for that level of care. Patient/daughters expressed understanding. Confirmed DCP remains return to [facility]. Received notification that [facility] cancelled transport for 1630. Placed new cot transport request in [facility] for 1630. [facility] claimed second transport request for adjusted time of 2029. Messaged bedside RN to notify. Messaged facility via [facility] to make sure they will accept patient at that hour. Per bedside RN, patient would prefer to stay overnight and DC tomorrow rather than transporting that late. Messaged resident to notify of patient's preference. Requested confirmation patient could still DC in the AM and if transport could be pre-arranged or if they need to see him again before discharge. Per attending, patient okay to DC in AM and they do not need to see before discharge. Phoned [facility] at [phone] and rescheduled transport for tomorrow, [place], 07/23 at 1000. Messaged RN to update - RN will update patient. Phoned legal guardian and left message notifying of change in transport time from 1630 to 1000 without giving patient name. Provided TCC's contact information if there are any questions. TCC will continue to follow. [facility] BASIC METABOLIC PANELon 07-01 Anion gap [Moles/Vol] 6 mmol/L Normal -13 [facility] Comment on above: Performed By: #### L [id number], [id number] #### [employer] Helper: BRANDEE BARON ([phone]) [facility] ([facility]) [address] [place] [address] Calcium [Mass/Vol] 8.7 mg/dL Normal 8.4-10.4 [facility] Comment on above: Performed By: #### L [id number], [id number] #### [employer] Helper: BRANDEE BARON ([id number]) [facility] ([facility] [address] [place] [address] [place] Chloride [Moles/Vol] 103 mmol/L Normal 98-107 [facility] Comment on above: Performed By: #### L [id number], [id number] #### [employer] Helper: BRANDEE BARON ([phone]) [facility] ([facility] [address] [place] [address] [place] CO2 [Moles/Vol] 28 mmol/L Normal 22-30 [facility] Comment on above: Performed By: #### Costa [id number], [id number] #### [employer] Helper: BRANDEE BARON ([phone]) [facility] ([facility] [address] [place] [address] Creatinine [Mass/Vol] 0.90 mg/dL Normal 0.66-1.25 [facility] Comment on above: Performed By: #### Costa [id number], [id number] #### [employer] Helper: BRANDEE BARON ([id number]) [facility] ([facility]) [address] [place] [address] [place] GLOMERULAR FILTRATION RATE ML/MIN/1.73 SQ M.PREDICTED >90.0 Normal >60.0 [facility] Comment on above: Result Comment: Calc ulation based on the Chronic Kidney Disease Epidemiology Collaboration (CKD-EPI)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 Negative Negative [facility] Benzodiazepines screen method Nom (U) Negative Negative [facility] Cocaine Ql (U) Negative Negative [facility] Ethanol [Mass/Vol] Negative Negative [facility] Methadone Ql (U) Negative Negative [facility] Opiates Screen Ql (U) Negative Negative [facility] Lipid 1996 panelon Cholesterol [Mass/Vol] 98 mg/dL NINF - 200 mg/dL [facility] [place] Cholesterol in HDL [Mass/Vol] 20 mg/dL Low 40 - 60 mg/dL [facility] [place] Cholesterol in LDL [Mass/Vol] 66 mg/dL 0 - <100 [facility] [place] Cholesterol.total/Lori sterol in HDL [Mass ratio] 5 {ratio} [facility] [place] Comment on above: Ref Range: < 3 Low Risk for CHD 3-6 Mod Risk for CHD > 6 High Risk for CHD Interpretation and review of laboratory results Abnormal [facility] [place] Triglyceride [Mass/Vol] 62 mg/dL NINF - 150 mg/dL [facility] [place] [facility] [place] No Panel Informationon 11-15 Interpretation and review of laboratory results Abnormal [facility] [place] Performed by: [facility], [address] [place] [address] CLIA ID: [id number] [facility] [place] [facility] [place] Study Impression: No echocardiographic evidence of ischemia. The sensitivity of the study is decreased due to inability to achieve target heart rate. There is no evidence of ischemia at the achieved workload. Findings suggest a low risk of adverse cardiac events. Post-stress Echo: The post-stress echo showed normal wall motion which was improved compared to baseline. Left Ventricle: Left ventricle is mildly dilated. Normal wall thickness. Normal left ventricular systolic function. EF by 2D [employer] Biplane is 53%. Normal wall motion. Right Ventricle: Right ventricle is dilated. Normal systolic function. Aorta: Dilated annulus. Dilated ascending aorta. Ao ascending diameter is 4.0 cm. Stress ECG: Conclusion: The stress test is normal. Stress Test: A pharmacological stress test was performed using dobutamine. Dobutamine was infused to a max dose of 40 mcg/kg/min. Patient also received a total of 2mg IV Atropine to augment HR. Patient moved feet, but kept falling asleep and had to be verbally stimulated frequently and reminded to keep moving feet. Hemodynamics are inadequate for diagnosis. Blood pressure demonstrated a normal response and heart rate demonstrated a blunted response to stress. The patient's heart rate recovery was abnormal. This is an adverse prognostic indicator. The patient reported no symptoms during the stress test. Note is made of the mildly dilated right ventricle and mildly dilated ascending aorta. The dilated ascending aorta was seen on the transthoracic echocardiogram dated October 07, 2023. If clinically indicated, this requires follow-up with repeat imaging in 6 to 12 months. Although the patient did not achieve the target heart rate, to the full pharmacologic stress of this study there was no ischemia seen. This is consistent with a low risk for myocardial ischemia in the short-term. Left Ventricle Left ventricle is mildly dilated. Normal wall thickness. Normal left ventricular systolic function. EF by 2D [employer] Biplane is 53%. Normal wall motion. Right Ventricle Right ventricle is dilated. Normal systolic function. Left Atrium Left atrium size is normal. Right Atrium Right atrium size is normal. Mitral Valve Valve structure is normal. Trace regurgitation. No stenosis noted. Tricuspid Valve Valve structure is normal. Trace regurgitation. Aortic Valve Trileaflet. No cusp thickening. No cusp calcification. No regurgitation. No stenosis. Pulmonic Valve The pulmonic valve was not well visualized. Trace regurgitation. Ascending Aorta Dilated annulus. Dilated ascending aorta. Ao ascending diameter is 4.0 cm. Pericardium No pericardial effusion. Septum No interatrial shunt visualized on color Doppler. Study Details Image quality: fair. Heart rate: 75 bpm. The underlying ECG rhythm was sinus rhythm. Technical qualifiers: Technically difficult study due to patient's body habitus. Ultrasound enhancement agent was given to enhance imaging. Resting ECG The ECG shows normal sinus rhythm. Resting ECG shows no ST-segment deviation. There is no myocardial infarction. Stress Findings A pharmacological stress test was performed using dobutamine. Dobutamine was infused to a max dose of 40 mcg/kg/min. Patient also received a total of 2mg IV Atropine to augment HR. Patient moved feet, but kept falling asleep and had to be verbally stimulated frequently and reminded to keep moving feet. Hemodynamics are inadequate for diagnosis. Blood pressure demonstrated a normal response and heart rate demonstrated a blunted response to stress. The patient's heart rate recovery was abnormal. This is an adverse prognostic indicator. The patient reported no symptoms prior to the stress test. The patient reported no symptoms during the stress test. The patient reached the end of the protocol. Prior to bringing the patient to the Stress Lab, I spoke with his ED RN (Michelle) and informed her that his Coreg needed to be held for 24 hours prior to testing. Asked her to find out when last dose of Coreg was given. I then called the SN[facility] he came from to find out the last dose of his Coreg, but no one answered the phone. Francois (my gaming table operator) answered the Stress Lab phone and Michelle stated that he had not received his Coreg. Therefore, we brought the patient to the Stress Lab to perform his test. Stress ECG There were no arrhythmias during stress. No ST depression was noted. There were no noted arrhythmias during recovery. There were no ST changes during recovery. Conclusion: The stress test is normal. Echo Post Stress Left ventricle cavity size is decreased post-stress. Decreased end systolic volume. Compared to baseline, the post-stress left ventricle systolic function is improved. The post-stress echo showed normal wall motion which was improved compared to baseline. Study Impression No echocardiographic evidence of ischemia. The sensitivity of the study (more content not included)... JOSE MARTIN WRIGHT Interpretation and review of laboratory results Abnormal [facility] [place] Performed by: [facility], [address] [place] [address] CLIA ID: [id number] [facility] Sinus rhythm Nonspecific intraventricular conduction delay Low voltage, precordial leads Borderline T abnormalities, inferior leads Electronically Signed On 11-16-2023 12:47:42 EDT by Severiano Winkler, - 11/16/2023 IMPRESSION: Sinus rhythm Nonspecific intraventricular conduction delay Low voltage, precordial leads Borderline T abnormalities, inferior leads Electronically Signed On 11-16-2023 12:47:42 EDT by Severiano Hernandez [facility] ETHYL GLUCURONIDE, URINE Negative Negative [facility] Ethyl Glucuronide taylor s been screened by Immunoassay at a 500 ng/mL threshold. POSITIVE results are not confirmed by a more specific alternative method unless requested. If confirmation is needed, request confirmation under separate order. NOTE: These results are for medical treatment only. Analysis performed using non-forensic procedures. This test has not been cleared by the US Food and Drug Administration (FDA). The FDA has determined that such clearance or approval is not necessary. The performance characteristics have been determined by the clinical laboratories of [facility]. [facility] Interpretation and review of laboratory results Normal [facility] Radiology Study observation (narrative) [facility] Radiology Study observation (narrative) [facility] No Panel InformationOrdered By: Singh Fuentes on 11-16-2023 Ascending Aorta 4.0 cm [facility] [place] Work Phone: Ascending Aorta Index 1.58 cm/m2 [facility] [place] Work Phone: Baseline Diastolic BP 77 mmHg [facility] [place] Work Phone: Baseline HR 78 bpm [facility] [place] Work Phone: Baseline ST Depression 0 mm [facility] Work Phone: Baseline Systolic BP 123 mmHg [facility] [place] Work Phone: EF BP 53 % Abnormal 55 - 100 % [facility] [place] Work Phone: Exercise Duration Seconds 44 sec [facility] [place] Work Phone: Exercise Duration Time 14 min [facility] [place] Work Phone: Fractional Shortening 2D 35 % 28 - 44 % [facility] [place] Work Phone: Interpretation and review of laboratory results Abnormal [facility] [employer] Phone: IVSd 1.1 cm Abnormal 0.6 - 1.0 cm [facility] Work Phone: LV EDV A2C 158 mL [facility] Work Phone: LV EDV A4C 158 mL [facility] Work Phone: LV EDV BP 160 mL Abnormal 67 - 155 mL [facility] [place] Work Phone: LV EDV Index A2C 62 mL/m2 [facility] [place] Work Phone: LV EDV Index A4C 62 mL/m2 [facility] [place] Work Phone: LV EDV Index BP 63 mL/m2 [facility] [place] Work Phone: LV Ejection Fraction A2C 54 % [facility] [place] Work Phone: LV Ejection Fraction A4C 61 % [facility] [place] Work Phone: LV ESV A2C 72 mL [facility] Work Phone: LV ESV A4C 62 mL [facility] [place] Work Phone: LV ESV BP 75 mL Abnormal 22 - 58 mL [facility] Work Phone: LV ESV Index A2C 28 mL/m2 [facility] Work Phone: LV ESV Index A4C 25 mL/m2 [facility] [place] Work Phone: [phone] LV ESV Index BP 30 mL/m2 [facility] [place] Work Phone: [phone] LV Mass 2D 176.0 g 88 - 224 g [facility] [place] Work Phone: [phone] LV Mass 2D Index 69.6 g/m2 49 - 115 g/m2 [facility] [place] Work Phone: [phone] LV RWT Ratio 0.37 [facility] [place] Work Phone: [phone] LVIDd 4.9 cm 4.2 - 5.9 cm [facility] [place] Work Phone: [phone] LVIDd Index 1.94 cm/m2 [facility] [place] Work Phone: [phone] LVIDs 3.2 cm [facility] [place] Work Phone: [phone] LVIDs Index 1.26 cm/m2 [facility] [place] Work Phone: [phone] LVOT Area 4.5 cm2 [facility] [place] Work Phone: [phone] LVOT Cardiac Output 20.3 liter/minute [facility] [place] Work Phone: [phone] LVOT Diameter 2.4 cm [facility] [place] Work Phone: [phone] LVOT Mean Gradient 3 mmHg [facility] [place] Work Phone: [phone] LVOT Peak Gradient 6 mmHg [facility] [place] Work Phone: [phone] LVOT Peak Velocity 1.3 m/s [facility] [place] Work Phone: [phone] LVOT Stroke Volume Index 37.9 mL/m2 [facility] [place] Work Phone: [phone] LVOT SV 95.9 ml [facility] [place] Work Phone: [phone] LVOT VTI 21.2 cm [facility] [place] Work Phone: [phone] LVPWd 0.9 cm 0.6 - 1.0 cm [facility] [place] Work Phone: [phone] MV A Velocity 0.92 m/s [facility] [place] Work Phone: [phone] MV E Velocity 0.77 m/s [facility] [place] Work Phone: [phone] MV E Wave Deceleration Time 160.9 ms [employer] Work Phone: MV E/A 0.84 [employer] Work Phone: Recovery Stage 1 Comments 2 [employer] Work Phone: Recovery Stage 1 Duration 1 min:sec [employer] Work Phone: Recovery Stage 1 HR 114 bpm [employer] Work Phone: Recovery Stage 2 BP 121/72 mmHg [employer] Work Phone: Recovery Stage 2 Duration 2 min:sec [employer] Work Phone: Recovery Stage 2 HR 105 bpm [employer] Work Phone: Recovery Stage 3 BP 116/69 mmHg [employer] Work Phone: Recovery Stage 3 Duration 3 min:sec [employer] Work Phone: Recovery Stage 3 HR 93 bpm [employer] Work Phone: Recovery Stage 4 BP 120/74 mmHg [facility] Work Phone: Recovery Stage 4 Comments Pulse ox 97% on 2L NC [employer] Work Phone: Recovery Stage 4 Duration 2 min:sec [employer] Work Phone: Recovery Stage 4 HR 92 bpm [facility] Work Phone: Stress Diastolic BP 71 mmHg [employer] Phone: Stress Estimated Workload 1.0 METS [employer] Work Phone: Stress Peak HR 115 bpm [facility] Work Phone: Stress Percent HR Achieved 73 % [facility] Work Phone: Stress Rate Pressure Product 19194 bpm*mmHg [employer] Work Phone: Stress ST Depression 0 mm [facility] Work Phone: Stress Stage 1 BP 113/71 mmHg [facility] Reply Phone: Stress Stage 1 Duration 3 min:sec [facility] [place] Work Phone: Stress Stage 1 HR 73 bpm [facility] Work Phone: Stress Stage 2 BP 128/64 mmHg [employer] Work Phone: Stress Stage 2 Duration 3 min:sec [facility] [employer] Work Phone: Stress Stage 2 HR 82 bpm [employer] Work Phone: Stress Stage 3 BP 101/60 mmHg [employer] Work Phone: Stress Stage 3 Duration 3 min:sec [facility] [place] Work Phone: Stress Stage 3 HR 100 bpm [employer] Work Phone: Stress Stage 4 BP 127/71 mmHg [employer] Work Phone: Stress Stage 4 Comments Pulse ox 98% on 2L NC [employer] Work Phone: Stress Stage 4 Duration [id number] min:sec [facility] [place] Work Phone: Stress Stage 4 HR 115 bpm [employer] Phone: Stress Systolic BP 127 mmHg [employer] Work Phone: Stress Target HR 157 bpm [employer] Work Phone: TAPSE 1.9 cm 1.7 cm [employer] Work Phone: [employer] Work Phone: No Panel InformationOrdered By: Severiano Hernandez on 11-16-2023 P [place] -2 degrees [employer] Work Phone: OR Interval 196 ms [employer] Work Phone: QRS [place] 24 degrees [employer] Work Phone: [phone] QRSD Interval 118 ms [employer] Work Phone: [phone] QT Interval 411 ms [employer] Work Phone: [phone] QTC Interval 474 ms [employer] Work Phone: [phone] T Wave [place] 8 degrees [employer] Work Phone: [phone] [employer] Work Phone: [phone] Panel InformationOrdered By: Theresa Nurse on 11-16-2023 BUPRENORPHINE SCREEN Negative Negative [facility] FENTANYL Negative Negative [facility] OXYCODONE/OXYMORPHONE Positive Negative [facility] PCP Negative Negative [facility] THC Negative Negative [facility] The expected value f or the drugs listed above is Negative. The following drugs or drug groups have been screened for by Immunoassay at the following thresholds: Amphetamine class(1000ng/mL) Barbituates(200ng/mL) Benzodiazepines(200ng/mL ) Cocaine(300ng/mL) Ethanol (50 ng/mL) Methadone(300ng/mL) Opiates(300ng/mL) Oxycodone(100ng/mL) PCP(25ng/mL) Buprenorphine(5ng/mL) THC(50ng/mL) Fentanyl(1ng/mL) Positive results are NOT confirmed by a more specific alternative method unless requested. If confirmation is needed, request confirmation under separate order. NOTE: These results are for medical treatment only. Analysis performed using non-forensic procedures. [facility] Troponin I.cardiac [Mass/Vol ]on 11-16-2023 Interpretation and review of laboratory results Normal [facility] Patients with high levels of Biotin oral intake (ie >5 mg/day) may have falsely decreased Troponin levels. [facility] Interpretation and review of laboratory results Normal [facility] Patients with high levels of Biotin oral intake (ie >5 mg/day) may have falsely decreased Troponin levels. [facility] Interpretation and review of laboratory results Normal [facility] Patients with high levels of Biotin oral intake (ie >5 mg/day) may have falsely decreased Troponin levels. [facility] Vital signsOrdered By: Singh Fuentes on 11-16-2023 Oxygen saturation in Blood 96 % [facility] Work Phone: Oxygen saturation in Blood 98 % [facility] Work Phone: Vital signsOrdered By: Chandan Hernandez on 11-16-2023 Heart rate 80 /min bpm [facility] Work Phone: Basic metabolic 1998 panelon 11-15-2023 Anion gap [Moles/Vol] 6 mmol/L 3 - 13 mmol/L [facility] Calcium [Mass/Vol] 10.1 mg/dL 8.4 - 10. 4 mg/dL [facility] Chloride [Moles/Vol] 90 mmol/L Low 98 - 10 7 mmol/L [facility] CO2 [Moles/Vol] 29 mmol/L 22 - 30 mmol/L [facility] Creatinine [Mass/Vol] 0.85 mg/dL 0.66 - 1.25 mg/dL [facility] GFR/1.73 sq M.predicted MDRD (S/P/Bld) [Vol rate/Area] - PINF [facility] Comment on above: Calculation based on the Chronic Kidney Disease Epidemiology Collaboration (CKD-EPI) equation refit without adjustment for race Glucose [Mass/Vol] 138 mg/dL High 70 - 100 mg/dL [facility] Interpretation and review of laboratory results Abnormal [facility] Potassium [Moles/Vol] 4.9 mmol/L 3.5 - 5.1 mmol/L [facility] Sodium [Moles/Vol] 125 mmol/L Low 135 - 145 mmol/L [facility] Urea nitrogen [Mass/Vol] 40 mg/dL High 9 - 20 mg/dL [facility] CBC W Auto Differential pane l (Bld)on 11-15-2023 Basophils (Bld) [#/Vol] 0.1 10*3/uL 0.0 - 0.2 10*3/uL [facility] Basophils/100 WBC (Bld) 0.4 % 0.0 - 2.0 % [facility] Eosinophils (Bld) [#/Vol] 0.2 10*3/uL 0.0 - 0.5 10*3/uL [facility] Eosinophils/100 WBC (Bld) 1.6 % 0.0 - 6.0 % [facility] Erythrocyte distribution width (RBC) [Ratio] 12.6 % 11.5 - 15.0 % [facility] Hematocrit (Bld) [Volume fraction] 30.7 % Low 40.0 - 52.0 % [facility] Hemoglobin (Bld) [Mass/Vol] 10.2 g/dL Low 13.0 - 18.0 g/dL [facility] Immature granulocytes (Bld) [#/Vol] 0.3 10*3/uL High NINF - 0.1 10*3/uL [facility] Immature granulocytes/100 WBC (Bld) 2.2 % High 0.0 - 2.0 % [facility] Interpretation and review of laboratory results Abnormal [facility] Lymphocytes (Bld) [#/Vol] 2.3 10*3/uL 1.0 - 4.3 10*3/uL [facility] Lymphocytes/100 WBC (Bld) 16.0 % 15.0 - 45.0 % [facility] MCH (RBC) [Entitic mass] 29.6 pg 26.0 - 34.0 pg [facility] MCHC (RBC) [Mass/Vol] 33.2 % 30.5 - 36.0 % [facility] MCV (RBC) [Entitic vol] 89.0 fL 77.0 - 99.0 fL [facility] Monocytes (Bld) [#/Vol] 1.0 10*3/uL High 0.0 - 0.9 10*3/uL [facility] Monocytes/100 WBC (Bld) 6.7 % 5.0 - 13.0 % [facility] Neutrophils (Bld) [#/Vol] 10.6 10*3/uL High 1.8 - 7.5 10*3/uL [facility] Neutrophils/100 WBC (Bld) 73.1 % 38.0 - 82.0 % [facility] Nucleated RBC/100 WBC (Bld) [Ratio] 0.0 % [facility] Platelet mean volume (Bld) [Entitic vol] 8.6 fL Low 9.0 - 12.7 fL [facility] Platelets (Bld) [#/Vol] 377 10*3/uL 140 - 440 10*3/uL [facility] RBC (Bld) [#/Vol] 3.45 10*6/uL Low 4.40 - 5.9 0 10*6/uL [facility] WBC (Bld) [#/Vol] 14.5 10*3/uL High 3.6 - 10.7 10*3/uL [facility] - Chemistry and C hemistry - challengeon 11-15-2023 Troponin I.cardiac [Mass/Vol] ng/mL NINF - 0.034 ng/mL [facility] Glucose [Mass/Vol] 124 mg/dL High 70 - 100 mg/dL [facility] Natriuretic peptide B [Mass/ Vol]on 11-15-2023 Natriuretic peptide B (Bld) [Mass/Vol] 147 pg/mL <20 - 300 [facility] No Panel Informationon 11-14 P [place] -3 degrees [facility] OR Interval 190 ms [facility] QRS [place] 40 degrees [facility] QRSD Interval 104 ms [facility] [place] QT Interval 363 ms [facility] [place] QTC Interval 451 ms [facility] [place] T Wave [place] -17 degrees [facility] [place] Sinus rhythm RSR' in V1 or V2, right VCD or RVH Inferior infarct, age indeterminate Similar to prior on 10/07/23 Electronically Signed On 11-15-2023 23:33:43 EDT by Seymour Benito Seymour Lino DO - 11/15/2023 IMPRESSION: Sinus rhythm RSR' in V1 or V2, right VCD or RVH Inferior infarct, age indeterminate Similar to prior on 10/07/23 Electronically Signed On 11-15-2023 23:33:43 EDT by Seymour Benito [facility] Interpretation and review of laboratory results Normal [facility] Interpretation and review of laboratory results Abnormal [facility] Performed by: [facility], [address] [place] [address] CLIA ID: [id number] [facility] Radiology Study observation (narrative) [facility] Troponin I.cardiac [Mass/Vol ]on 11-15-2023 Patients with high levels of Biotin oral intake (ie >5 mg/day) may have falsely decreased Troponin levels. [facility] [place] Vital signson 11-15-2023 Heart rate 93 /min bpm [facility] XR Chest Single viewon 11-14 No acute cardiopulmonary process. Report Dictated on Electronically Signed By: Caesar Huber MD Electronically Signed Date/Time: 11/15/2023 9:10 PM EDT [facility] 1960 [id number] Exam Date/Time: 11/15/2023 20:53 Procedure: XR CHEST 1 VIEW Ordering Provider: DOUGLAS RACHEL Reason For Exam: chestpain CHEST X-RAY AP CLINICAL INDICATION: Chest pain AP radiograph of the chest was obtained. COMPARISON: October 13, 2023 FINDINGS: The cardiac silhouette is within normal limits. No focal consolidation or opacification is seen within the lungs. No pleural effusion or pneumothorax is identified. Degenerative changes of the thoracic spine are noted. [facility] Caesar Huber MD - 11/15/2023 Patient Name: HYACINTH HRUST [facility] 1960 [id number] Exam Date/Time: 11/15/2023 20:53 Procedure: XR CHEST 1 VIEW Ordering Provider: DOUGLAS RACHEL Reason For Exam: chestpain CHEST X-RAY AP CLINICAL INDICATION: Chest pain AP radiograph of the chest was obtained. COMPARISON: October 13, 2023 FINDINGS: The cardiac silhouette is within normal limits. No focal consolidation or opacification is seen within the lungs. No pleural effusion or pneumothorax is identified. Degenerative changes of the thoracic spine are noted. IMPRESSION: No acute cardiopulmonary process. Report Dictated on Electronically Signed By: Caesar Huber MD Electronically Signed Date/Time: 11/15/2023 9:10 PM EDT [facility] Radiology Study observation (narrative) [facility] [place] XR Chest Single viewOrdered By: Caesar Huber on 11-15-2023 [facility] [place] Work Phone: CBC W Auto Differential pane l (Bld)on 10-15-2023 Erythrocyte distribution width (RBC) [Ratio] 14.4 % 11.5 - 14.5 % [facility] Hematocrit (Bld) [Volume fraction] 36.6 % Low 40.0 - 52.0 % [facility] Hemoglobin (Bld) [Mass/Vol] 12.1 g/dL Low 13.0 - 18.0 g/dL [facility] Interpretation and review of laboratory results Abnormal [facility] MCH (RBC) [Entitic mass] 29.7 pg 26.0 - 34.0 pg [facility] MCHC (RBC) [Mass/Vol] 33.0 % 32.0 - 36.0 % [facility] MCV (RBC) [Entitic vol] 89.9 fL 80.0 - 98.0 fL [facility] Platelet mean volume (Bld) [Entitic vol] 7.4 fL 7.4 - 12.4 fL [facility] [place] Platelets (Bld) [#/Vol] 372 10*3/uL 140 - 440 10*3/uL [facility] RBC (Bld) [#/Vol] 4.08 10*6/uL Low 4.40 - 5.9 0 10*6/uL [facility] WBC (Bld) [#/Vol] 28.0 10*3/uL High 3.6 - 10.7 10*3/uL [facility] Comprehensive metabolic 1998 panelon 10-15-2023 Albumin [Mass/Vol] 2.8 g/dL Low 3.5 - 5.0 g/dL [facility] ALP [Catalytic activity/Vol] 128 U/L High 38 - 126 U/L [facility] ALT [Catalytic activity/Vol] 27 U/L 0 - 49 U/L [facility] Anion gap [Moles/Vol] 6 mmol/L 3 - 13 mmol/L [facility] AST [Catalytic activity/Vol] 60 U/L High 15 - 46 U/L [facility] Bilirubin [Mass/Vol] 1.1 mg/dL 0.2 - 1 .3 mg/dL [facility] Calcium [Mass/Vol] 8.4 mg/dL 8.4 - 10. 4 mg/dL [facility] Chloride [Moles/Vol] 97 mmol/L Low 98 - 10 7 mmol/L [facility] CO2 [Moles/Vol] 30 mmol/L 22 - 30 mmol/L [facility] Creatinine [Mass/Vol] 0.93 mg/dL 0.66 - 1.25 mg/dL [facility] GFR/1.73 sq M.predicted MDRD (S/P/Bld) [Vol rate/Area] - PINF [facility] Glucose [Mass/Vol] 126 mg/dL High 70 - 100 mg/dL [facility] Interpretation and review of laboratory results Abnormal [facility] Potassium [Moles/Vol] 4.0 mmol/L 3.5 - 5.1 mmol/L [facility] Protein [Mass/Vol] 7.0 g/dL 6.3 - 8.2 g/dL [facility] Sodium [Moles/Vol] 134 mmol/L Low 135 - 145 mmol/L [facility] Urea nitrogen [Mass/Vol] 30 mg/dL High 9 - 20 mg/dL [facility] Laboratory - Chemistry and C hemistry - challengeon 10-15-2023 Glucose [Mass/Vol] 148 mg/dL High 70 - 100 mg/dL [facility] Magnesium [Mass/Vol] 2.0 mg/dL 1.6 - 2 .3 mg/dL [facility] Manual differential performe d Ql (Bld)on 10-15-2023 Atypical Lymphocytes Manual 1 [facility] Band form neutrophils (Bld) [#/Vol] 2.8 10*3/uL High NINF - 0.0 10*3/uL [facility] Band form neutrophils/100 WBC (Bld) 10 % High NINF - 0 % [facility] Bands Manual 10 [facility] Cells Counted Total (Bld) [#] 100 {cells} [facility] Differential Method Manual differential performed [facility] Interpretation and review of laboratory results Abnormal [facility] Leukocyte morphology finding Nom (Bld) Normal [facility] Lymphocytes (Bld) [#/Vol] 4.2 10*3/uL 1.0 - 4.3 10*3/uL [facility] Lymphocytes Manual 15 [facility] Lymphocytes/100 WBC (Bld) 15 % Low 20 - 40 % [facility] Metamyelocytes (Bld) [#/Vol] 1.7 10*3/uL High NINF - 0.0 10*3/uL [facility] Health Metamyelocytes Manual 6 [facility] Metamyelocytes/100 WBC (Bld) 6 % High NINF - 0 % [facility] Monocytes (Bld) [#/Vol] 1.4 10*3/uL High 0.0 - 0.8 10*3/uL [facility] Monocytes Manual 5 [facility] Monocytes/100 WBC (Bld) 5 % 2 - 10 % [facility] Neutrophils (Bld) [#/Vol] 20.4 10*3/uL High 1.8 - 7.0 10*3/uL [facility] Neutrophils Manual 63 [facility] Platelet morphology finding Nom (Bld) Normal [facility] RBC morphology finding Nom (Bld) Normal [facility] Segmented neutrophils/100 WBC (Bld) 63 % 40 - 80 % [facility] Variant lymphocytes (Bld) [#/Vol] 0.3 10*3/uL High NINF - 0.0 10*3/uL [facility] Variant lymphocytes/100 WBC (Bld) 1 % High NINF - 0 % [facility] WBC corrected for nucl RBC (Bld) [#/Vol] 28.0 10*3/uL High 3.6 - 10.7 10*3/uL [facility] No Panel Informationon 10-15 Interpretation and review of laboratory results Abnormal [facility] Interpretation and review of laboratory results Normal [facility] Radiology Study observation (narrative) [facility] Phosphate [Moles/Vol]on 09-30 Phosphate [Mass/Vol] 4.0 mg/dL 2.5 - 4 .5 mg/dL [facility] Bacteria identified Cx Nom ( Bld)on 10-14-2023 Interpretation and review of laboratory results Normal [facility] CBC W Auto Differential pane l (Bld)Ordered By: Nirav Gan on 10-14-2023 Erythrocyte distribution width (RBC) [Ratio] 14.6 % High 11.5 - 14.5 % [facility] Hematocrit (Bld) [Volume fraction] 40.1 % 40.0 - 52.0 % [facility] Hemoglobin (Bld) [Mass/Vol] 13.2 g/dL 13.0 - 18.0 g/dL [facility] Interpretation and review of laboratory results Abnormal [facility] MCH (RBC) [Entitic mass] 29.4 pg 26.0 - 34.0 pg [facility] MCHC (RBC) [Mass/Vol] 32.9 % 32.0 - 36.0 % [facility] MCV (RBC) [Entitic vol] 89.2 fL 80.0 - 98.0 fL [facility] Nucleated RBC/100 WBC (Bld) [Ratio] 0.0 % [facility] Platelet mean volume (Bld) [Entitic vol] 7.8 fL 7.4 - 12.4 fL [facility] Platelets (Bld) [#/Vol] 328 10*3/uL 140 - 440 10*3/uL [facility] RBC (Bld) [#/Vol] 4.50 10*6/uL 4.40 - 5.9 0 10*6/uL [facility] WBC (Bld) [#/Vol] 34.5 10*3/uL Critically high 3.6 - 1 0.7 10*3/uL [facility] CT Hand - left W contrast IV on 10-14-2023 [facility] CT Hand - left W contrast IV Ordered By: Caesar Huber on 10-14-2023 [facility] Work Phone: Comprehensive metabolic 1998 panelon 10-14-2023 Albumin [Mass/Vol] 3.0 g/dL Low 3.5 - 5.0 g/dL [facility] ALP [Catalytic activity/Vol] 191 U/L High 38 - 126 U/L [facility] ALT [Catalytic activity/Vol] 31 U/L 0 - 49 U/L [facility] Anion gap [Moles/Vol] 7 mmol/L 3 - 13 mmol/L [facility] AST [Catalytic activity/Vol] 76 U/L High 15 - 46 U/L [facility] Bilirubin [Mass/Vol] 1.4 mg/dL High 0.2 - 1 .3 mg/dL [facility] Calcium [Mass/Vol] 8.7 mg/dL 8.4 - 10. 4 mg/dL [facility] Chloride [Moles/Vol] 98 mmol/L 98 - 10 7 mmol/L [facility] CO2 [Moles/Vol] 30 mmol/L 22 - 30 mmol/L [facility] Creatinine [Mass/Vol] 0.86 mg/dL 0.66 - 1.25 mg/dL [facility] GFR/1.73 sq M.predicted MDRD (S/P/Bld) [Vol rate/Area] - PINF [facility] Glucose [Mass/Vol] 119 mg/dL High 70 - 100 mg/dL [facility] Interpretation and review of laboratory results Abnormal [facility] Potassium [Moles/Vol] 3.9 mmol/L 3.5 - 5.1 mmol/L [facility] Protein [Mass/Vol] 7.2 g/dL 6.3 - 8.2 g/dL [facility] Sodium [Moles/Vol] 135 mmol/L 135 - 145 mmol/L [facility] Urea nitrogen [Mass/Vol] 22 mg/dL High 9 - 20 mg/dL [facility] HCV RNA panel AROLDO+probeon HCV RNA AROLDO+probe [Log units/Vol] Not detected [facility] HCV RNA AROLDO+probe Qn Not detected [facility] Interpretation and review of laboratory results Normal [facility] Laboratory - Chemistry and C hemistry - challengeon 10-14-2023 Glucose [Mass/Vol] 126 mg/dL High 70 - 100 mg/dL [facility] Glucose [Mass/Vol] 123 mg/dL High 70 - 100 mg/dL [facility] Glucose [Mass/Vol] 159 mg/dL High 70 - 100 mg/dL [facility] Glucose [Mass/Vol] 119 mg/dL High 70 - 100 mg/dL [facility] Lactate [Moles/Vol] 1.2 mmol/L 0.7 - 2. 0 mmol/L [facility] Magnesium [Mass/Vol] 2.0 mg/dL 1.6 - 2 .3 mg/dL [facility] Laboratory - Microbiology an d Antimicrobial susceptibilityon 10-14-2023 Bacteria identified Cx Nom (Bld) No growth at 5 days [facility] Manual differential performe d Ql (Bld)on 10-14-2023 Atypical Lymphocytes Manual 4 [facility] Band form neutrophils (Bld) [#/Vol] 4.8 10*3/uL High NINF - 0.0 10*3/uL [facility] Band form neutrophils/100 WBC (Bld) 14 % High NINF - 0 % [facility] Bands Manual 14 [facility] Cells Counted Total (Bld) [#] 100 {cells} [facility] Differential Method Manual differential performed [facility] Interpretation and review of laboratory results Abnormal [facility] Lymphocytes (Bld) [#/Vol] 2.1 10*3/uL 1.0 - 4.3 10*3/uL [facility] Lymphocytes Manual 6 [facility] Lymphocytes/100 WBC (Bld) 6 % Low 20 - 40 % [facility] Metamyelocytes (Bld) [#/Vol] 1.0 10*3/uL High NINF - 0.0 10*3/uL [facility] Metamyelocytes Manual 3 [facility] Metamyelocytes/100 WBC (Bld) 3 % High NINF - 0 % [facility] Monocytes (Bld) [#/Vol] 1.0 10*3/uL High 0.0 - 0.8 10*3/uL [facility] Monocytes Manual 3 [facility] Monocytes/100 WBC (Bld) 3 % 2 - 10 % [facility] Myelocytes (Bld) [#/Vol] 0.3 10*3/uL High NINF - 0.0 10*3/uL [facility] Myelocytes Manual 1 [facility] Myelocytes/100 WBC (Bld) 1 % High NINF - 0 % [facility] Neutrophils (Bld) [#/Vol] 28.6 10*3/uL High 1.8 - 7.0 10*3/uL [facility] Neutrophils Manual 69 [facility] Platelet morphology finding Nom (Bld) Normal [facility] RBC morphology finding Nom (Bld) Normal [facility] Segmented neutrophils/100 WBC (Bld) 69 % 40 - 80 % [facility] Toxic granules LM Ql (Bld) Present Abnormal (none) [facility] Variant lymphocytes (Bld) [#/Vol] 1.4 10*3/uL High NINF - 0.0 10*3/uL [facility] Variant lymphocytes/100 WBC (Bld) 4 % High NINF - 0 % [facility] WBC corrected for nucl RBC (Bld) [#/Vol] 34.5 10*3/uL Critically high 3.6 - 10.7 10*3/uL [facility] Natriuretic peptide B [Mass/ Vol]on 10-14-2023 Interpretation and review of laboratory results Abnormal [facility] Natriuretic peptide B (Bld) [Mass/Vol] 2910 pg/mL High <20 - 300 [facility] No Panel Informationon 10-14 Interpretation and review of laboratory results Abnormal [facility] Interpretation and review of laboratory results Abnormal [facility] Interpretation and review of laboratory results Abnormal [facility] Interpretation and review of laboratory results Abnormal [facility] Interpretation and review of laboratory results Normal [facility] Interpretation and review of laboratory results Normal [facility] Radiology Study observation (narrative) [facility] Radiology Study observation (narrative) [facility] Radiology Study observation (narrative) [facility] No Panel InformationOrdered By: Kamala Park on 10-14-2023 Pathology Review [facility] Work Phone: [facility] Work Phone: Phosphate [Moles/Vol]on 09-30 Phosphate [Mass/Vol] 4.4 mg/dL 2.5 - 4 .5 mg/dL [facility] Bacteria identified Anaer cx Nom (Unsp spec)Ordered By: Chip Emanuel on 10-13-2023 Interpretation and review of laboratory results Normal [facility] CBC W Auto Differential pane l (Bld)Ordered By: Reba Dewitt on 10-13-2023 Erythrocyte distribution width (RBC) [Ratio] 14.4 % 11.5 - 14.5 % [facility] Hematocrit (Bld) [Volume fraction] 37.5 % Low 40.0 - 52.0 % [facility] Hemoglobin (Bld) [Mass/Vol] 12.6 g/dL Low 13.0 - 18.0 g/dL [facility] Interpretation and review of laboratory results Abnormal [facility] MCH (RBC) [Entitic mass] 29.6 pg 26.0 - 34.0 pg [facility] MCHC (RBC) [Mass/Vol] 33.6 % 32.0 - 36.0 % [facility] MCV (RBC) [Entitic vol] 87.9 fL 80.0 - 98.0 fL [facility] Nucleated RBC/100 WBC (Bld) [Ratio] 0.0 % [facility] Platelet mean volume (Bld) [Entitic vol] 8.8 fL 7.4 - 12.4 fL [facility] Platelets (Bld) [#/Vol] 225 10*3/uL 140 - 440 10*3/uL [facility] RBC (Bld) [#/Vol] 4.27 10*6/uL Low 4.40 - 5.9 0 10*6/uL [facility] WBC (Bld) [#/Vol] 27.7 10*3/uL High 3.6 - 10.7 10*3/uL [facility] CT Hand - left W contrast IV on 10-13-2023 Radiology Study observation (narrative) [facility] Comprehensive metabolic 1998 panelon 10-13-2023 Albumin [Mass/Vol] 2.7 g/dL Low 3.5 - 5.0 g/dL [facility] ALP [Catalytic activity/Vol] 150 U/L High 38 - 126 U/L [facility] ALT [Catalytic activity/Vol] 34 U/L 0 - 49 U/L [facility] Anion gap [Moles/Vol] 8 mmol/L 3 - 13 mmol/L [facility] AST [Catalytic activity/Vol] 57 U/L High 15 - 46 U/L [facility] Bilirubin [Mass/Vol] 1.1 mg/dL 0.2 - 1 .3 mg/dL [facility] Calcium [Mass/Vol] 8.2 mg/dL Low 8.4 - 10. 4 mg/dL [facility] Chloride [Moles/Vol] 98 mmol/L 98 - 10 7 mmol/L [facility] CO2 [Moles/Vol] 26 mmol/L 22 - 30 mmol/L [facility] Creatinine [Mass/Vol] 0.79 mg/dL 0.66 - 1.25 mg/dL [facility] GFR/1.73 sq M.predicted MDRD (S/P/Bld) [Vol rate/Area] - PINF [facility] Glucose [Mass/Vol] 135 mg/dL High 70 - 100 mg/dL [facility] Interpretation and review of laboratory results Abnormal [facility] Potassium [Moles/Vol] 3.7 mmol/L 3.5 - 5.1 mmol/L [facility] Protein [Mass/Vol] 6.2 g/dL Low 6.3 - 8.2 g/dL [facility] Sodium [Moles/Vol] 131 mmol/L Low 135 - 145 mmol/L [facility] Urea nitrogen [Mass/Vol] 22 mg/dL High 9 - 20 mg/dL [facility] Laboratory - Chemistry and C hemistry - challengeon 10-13-2023 Glucose [Mass/Vol] 123 mg/dL High 70 - 100 mg/dL [facility] Glucose [Mass/Vol] 116 mg/dL High 70 - 100 mg/dL [facility] Procalcitonin [Mass/Vol] 2.09 ng/mL High 0.00 - 0.09 ng/mL [facility] Glucose [Mass/Vol] 114 mg/dL High 70 - 100 mg/dL [facility] Magnesium [Mass/Vol] 1.9 mg/dL 1.6 - 2 .3 mg/dL [facility] Laboratory - Microbiology an d Antimicrobial susceptibilityOrdered By: Chip Emanuel on 10-13-2023 Bacteria identified Anaer cx Nom (Unsp spec) No growth at 5 days [facility] Manual differential performe d Ql (Bld)Ordered By: Joann Wing on 10-13-2023 Band form neutrophils (Bld) [#/Vol] 1.9 10*3/uL High NINF - 0.0 10*3/uL [facility] Band form neutrophils/100 WBC (Bld) 7 % High NINF - 0 % [facility] Bands Manual 7 [facility] Cells Counted Total (Bld) [#] 100 {cells} [facility] Differential Method Manual differential performed [facility] Interpretation and review of laboratory results Abnormal [facility] Lymphocytes (Bld) [#/Vol] 1.9 10*3/uL 1.0 - 4.3 10*3/uL [facility] Health Lymphocytes Manual 7 [facility] Lymphocytes/100 WBC (Bld) 7 % Low 20 - 40 % [facility] Metamyelocytes (Bld) [#/Vol] 0.6 10*3/uL High NINF - 0.0 10*3/uL [facility] Metamyelocytes Manual 2 [facility] Metamyelocytes/100 WBC (Bld) 2 % High NINF - 0 % [facility] Monocytes (Bld) [#/Vol] 1.4 10*3/uL High 0.0 - 0.8 10*3/uL [facility] Monocytes Manual 5 [facility] Monocytes/100 WBC (Bld) 5 % 2 - 10 % [facility] Myelocytes (Bld) [#/Vol] 0.3 10*3/uL High NINF - 0.0 10*3/uL [facility] Myelocytes Manual 1 [facility] Myelocytes/100 WBC (Bld) 1 % High NINF - 0 % [facility] Neutrophils (Bld) [#/Vol] 23.5 10*3/uL High 1.8 - 7.0 10*3/uL [facility] Neutrophils Manual 78 [facility] Neutrophils.vacuolated LM Ql (Bld) Present Abnormal (none) [facility] Platelet morphology finding Nom (Bld) Normal [facility] RBC morphology finding Nom (Bld) Normal [facility] Segmented neutrophils/100 WBC (Bld) 78 % 40 - 80 % [facility] Toxic granules LM Ql (Bld) Present Abnormal (none) [facility] WBC corrected for nucl RBC (Bld) [#/Vol] 27.7 10*3/uL High 3.6 - 10.7 10*3/uL [facility] No Panel Informationon 10-13 Interpretation and review of laboratory results Abnormal [facility] Interpretation and review of laboratory results Abnormal [facility] Interpretation and review of laboratory results Abnormal [facility] Interpretation and review of laboratory results Normal [facility] Radiology Study observation (narrative) [facility] Radiology Study observation (narrative) [facility] Radiology Study observation (narrative) [facility] Phosphate [Moles/Vol]on 09-30 Phosphate [Mass/Vol] 3.6 mg/dL 2.5 - 4 .5 mg/dL [facility] Procalcitonin [Mass/Vol]on 0 10-13-2023 Interpretation and review of laboratory results Abnormal [facility] XR Chest Single viewon 10-13 [facility] Radiology Study observation (narrative) [facility] CBC W Auto Differential pane l (Bld)on 10-12-2023 Erythrocyte distribution width (RBC) [Ratio] 14.3 % 11.5 - 14.5 % [facility] Hematocrit (Bld) [Volume fraction] 36.7 % Low 40.0 - 52.0 % [facility] Hemoglobin (Bld) [Mass/Vol] 12.4 g/dL Low 13.0 - 18.0 g/dL [facility] Interpretation and review of laboratory results Abnormal [facility] MCH (RBC) [Entitic mass] 30.4 pg 26.0 - 34.0 pg [facility] MCHC (RBC) [Mass/Vol] 33.7 % 32.0 - 36.0 % [facility] MCV (RBC) [Entitic vol] 90.2 fL 80.0 - 98.0 fL [facility] Platelet mean volume (Bld) [Entitic vol] 9.0 fL 7.4 - 12.4 fL [facility] Platelets (Bld) [#/Vol] 143 10*3/uL 140 - 440 10*3/uL [facility] RBC (Bld) [#/Vol] 4.07 10*6/uL Low 4.40 - 5.9 0 10*6/uL [facility] WBC (Bld) [#/Vol] 26.1 10*3/uL High 3.6 - 10.7 10*3/uL [facility] CK [Catalytic activity/Vol]o n 10-12-2023 Interpretation and review of laboratory results Normal [facility] Comprehensive metabolic 1998 panelon 10-12-2023 Albumin [Mass/Vol] 2.7 g/dL Low 3.5 - 5.0 g/dL [facility] ALP [Catalytic activity/Vol] 124 U/L 38 - 126 U/L [facility] ALT [Catalytic activity/Vol] 41 U/L 0 - 49 U/L [facility] Anion gap [Moles/Vol] 7 mmol/L 3 - 13 mmol/L [facility] AST [Catalytic activity/Vol] 68 U/L High 15 - 46 U/L [facility] Bilirubin [Mass/Vol] 0.9 mg/dL 0.2 - 1 .3 mg/dL [facility] Calcium [Mass/Vol] 8.1 mg/dL Low 8.4 - 10. 4 mg/dL [facility] Chloride [Moles/Vol] 97 mmol/L Low 98 - 10 7 mmol/L [facility] CO2 [Moles/Vol] 26 mmol/L 22 - 30 mmol/L [facility] Creatinine [Mass/Vol] 0.86 mg/dL 0.66 - 1.25 mg/dL [facility] GFR/1.73 sq M.predicted MDRD (S/P/Bld) [Vol rate/Area] - PINF [facility] [facility] Glucose [Mass/Vol] 111 mg/dL High 70 - 100 mg/dL [facility] Interpretation and review of laboratory results Abnormal [facility] Potassium [Moles/Vol] 3.4 mmol/L Low 3.5 - 5.1 mmol/L [facility] Protein [Mass/Vol] 5.9 g/dL Low 6.3 - 8.2 g/dL [facility] Sodium [Moles/Vol] 130 mmol/L Low 135 - 145 mmol/L [facility] Urea nitrogen [Mass/Vol] 27 mg/dL High 9 - 20 mg/dL [facility] Laboratory - Chemistry and C hemistry - challengeon 10-12-2023 Glucose [Mass/Vol] 120 mg/dL High 70 - 100 mg/dL [facility] Glucose [Mass/Vol] 114 mg/dL High 70 - 100 mg/dL [facility] CK [Catalytic activity/Vol] 99 U/L 30 - 170 U/L [facility] Glucose [Mass/Vol] 108 mg/dL High 70 - 100 mg/dL [facility] Glucose [Mass/Vol] 103 mg/dL High 70 - 100 mg/dL [facility] Procalcitonin [Mass/Vol] 4.56 ng/mL High 0.00 - 0.09 ng/mL [facility] Magnesium [Mass/Vol] 1.9 mg/dL 1.6 - 2 .3 mg/dL [facility] Manual differential performe d Ql (Bld)on 10-12-2023 Band form neutrophils (Bld) [#/Vol] 3.9 10*3/uL High NINF - 0.0 10*3/uL [facility] Band form neutrophils/100 WBC (Bld) 15 % High NINF - 0 % [facility] Bands Manual 15 [facility] [place] Cells Counted Total (Bld) [#] 100 {cells} [facility] [place] Differential Method Manual differential performed [facility] Eosinophils (Bld) [#/Vol] 0.3 10*3/uL 0.0 - 0.5 10*3/uL [facility] [place] Eosinophils Manual 1 0 - 1 [facility] [place] Eosinophils/100 WBC (Bld) 1 % 1 - 6 % [facility] [place] Interpretation and review of laboratory results Abnormal [facility] Leukocyte morphology finding Nom (Bld) Normal [facility] Lymphocytes (Bld) [#/Vol] 0.8 10*3/uL Low 1.0 - 4.3 10*3/uL [facility] Lymphocytes Manual 3 [facility] [place] Lymphocytes/100 WBC (Bld) 3 % Low 20 - 40 % [facility] [place] Monocytes (Bld) [#/Vol] 0.5 10*3/uL 0.0 - 0.8 10*3/uL [facility] [place] Monocytes Manual 2 [facility] [place] Monocytes/100 WBC (Bld) 2 % 2 - 10 % [facility] Neutrophils (Bld) [#/Vol] 24.5 10*3/uL High 1.8 - 7.0 10*3/uL [facility] [place] Neutrophils Manual 79 [facility] [place] Nucleated RBC/100 WBC (Bld) [Ratio] 1 % [facility] [place] Platelet morphology finding Nom (Bld) Normal [facility] RBC morphology finding Nom (Bld) Normal [facility] Segmented neutrophils/100 WBC (Bld) 79 % 40 - 80 % [facility] WBC corrected for nucl RBC (Bld) [#/Vol] 26.1 10*3/uL High 3.6 - 10.7 10*3/uL [facility] No Panel Informationon 10-12 Interpretation and review of laboratory results Abnormal [facility] Interpretation and review of laboratory results Abnormal [facility] Interpretation and review of laboratory results Abnormal [facility] Interpretation and review of laboratory results Abnormal [facility] Interpretation and review of laboratory results Normal [facility] Radiology Study observation (narrative) [facility] Radiology Study observation (narrative) [facility] Radiology Study observation (narrative) [facility] Radiology Study observation (narrative) [facility] Phosphate [Moles/Vol]on 09-30 Phosphate [Mass/Vol] 3.9 mg/dL 2.5 - 4 .5 mg/dL [facility] Procalcitonin [Mass/Vol]on 10-12-2023 Interpretation and review of laboratory results Abnormal [facility] Bacteria identified Aer cx N om (Unsp spec)Ordered By: Gaston Mcdowell on 10-11-2023 Gram Stain Result No polymorphonuclear leukocytes seen [facility] Gram Stain Result No organisms seen [facility] CBC W Auto Differential pane l (Bld)on 10-11-2023 Erythrocyte distribution width (RBC) [Ratio] 14.2 % 11.5 - 14.5 % [facility] Hematocrit (Bld) [Volume fraction] 38.4 % Low 40.0 - 52.0 % [facility] Hemoglobin (Bld) [Mass/Vol] 12.7 g/dL Low 13.0 - 18.0 g/dL [facility] Interpretation and review of laboratory results Abnormal [facility] MCH (RBC) [Entitic mass] 29.8 pg 26.0 - 34.0 pg [facility] MCHC (RBC) [Mass/Vol] 33.1 % 32.0 - 36.0 % [facility] MCV (RBC) [Entitic vol] 90.2 fL 80.0 - 98.0 fL [facility] Nucleated RBC/100 WBC (Bld) [Ratio] 0.0 % [facility] Platelet mean volume (Bld) [Entitic vol] 9.2 fL 7.4 - 12.4 fL [facility] Platelets (Bld) [#/Vol] 102 10*3/uL Low 140 - 440 10*3/uL [facility] RBC (Bld) [#/Vol] 4.25 10*6/uL Low 4.40 - 5.9 0 10*6/uL [facility] WBC (Bld) [#/Vol] 22.6 10*3/uL High 3.6 - 10.7 10*3/uL [facility] Comprehensive metabolic 1998 panelon 10-11-2023 Albumin [Mass/Vol] 2.6 g/dL Low 3.5 - 5.0 g/dL [facility] ALP [Catalytic activity/Vol] 162 U/L High 38 - 126 U/L [facility] ALT [Catalytic activity/Vol] 42 U/L 0 - 49 U/L [facility] Anion gap [Moles/Vol] 8 mmol/L 3 - 13 mmol/L [facility] AST [Catalytic activity/Vol] 125 U/L High 15 - 46 U/L [facility] Bilirubin [Mass/Vol] 0.9 mg/dL 0.2 - 1 .3 mg/dL [facility] Calcium [Mass/Vol] 8.2 mg/dL Low 8.4 - 10. 4 mg/dL [facility] Chloride [Moles/Vol] 98 mmol/L 98 - 10 7 mmol/L [facility] CO2 [Moles/Vol] 25 mmol/L 22 - 30 mmol/L [facility] Creatinine [Mass/Vol] 0.93 mg/dL 0.66 - 1.25 mg/dL [facility] GFR/1.73 sq M.predicted MDRD (S/P/Bld) [Vol rate/Area] - PINF [facility] Glucose [Mass/Vol] 112 mg/dL High 70 - 100 mg/dL [facility] Interpretation and review of laboratory results Abnormal [facility] Potassium [Moles/Vol] 3.3 mmol/L Low 3.5 - 5.1 mmol/L [facility] Protein [Mass/Vol] 5.8 g/dL Low 6.3 - 8.2 g/dL [facility] Sodium [Moles/Vol] 130 mmol/L Low 135 - 145 mmol/L [facility] Urea nitrogen [Mass/Vol] 25 mg/dL High 9 - 20 mg/dL [facility] HIV 1+2 Ab+HIV1 p24 Ag IA Ql Ordered By: Francisco Hodge on 10-11-2023 Interpretation and review of laboratory results Normal [facility] Laboratory - Chemistry and C hemistry - challengeon 10-11-2023 Glucose [Mass/Vol] 181 mg/dL High 70 - 100 mg/dL [facility] [place] Glucose [Mass/Vol] 108 mg/dL High 70 - 100 mg/dL [facility] [place] Glucose [Mass/Vol] 94 mg/dL 70 - 100 mg/dL [facility] [place] Magnesium [Mass/Vol] 1.9 mg/dL 1.6 - 2 .3 mg/dL [facility] Laboratory - Microbiology an d Antimicrobial susceptibilityOrdered By: Francisco Hodge on 10-11-2023 HIV 1+2 Ab+HIV1 p24 Ag IA Ql Non-Reactive Nonreactive [facility] Laboratory - Microbiology an d Antimicrobial susceptibilityOrdered By: Gaston Mcdowell on 10-11-2023 Bacteria identified Aer cx Nom (Unsp spec) No growth at 72 hours [facility] [place] MR Lower leg - left WO and W contrast Betty 10-11-2023 [facility] Radiology Study observation (narrative) [facility] [place] MR Lower leg - left WO and W contrast IVOrdered By: Danica Bustillos on 10-11-2023 [facility] [place] Work Phone: Manual differential performe d Ql (Bld)Ordered By: Shyla Shankar on 10-11-2023 Basophils (Bld) [#/Vol] 0.0 10*3/uL 0.0 - 0.2 10*3/uL [facility] [place] Basophils Manual 0 [facility] [place] Basophils/100 WBC (Bld) 0 % 0 - 2 % [facility] Cells Counted Total (Bld) [#] 100 {cells} [facility] [place] Differential Method Automated differenti al reported after manual slide review [facility] [place] Eosinophils (Bld) [#/Vol] 0.2 10*3/uL 0.0 - 0.5 10*3/uL [facility] [place] Eosinophils Manual 1 0 - 1 [facility] [place] Eosinophils/100 WBC (Bld) 1 % 1 - 6 % [facility] Interpretation and review of laboratory results Abnormal [facility] Leukocyte morphology finding Nom (Bld) Normal [facility] [place] Lymphocytes (Bld) [#/Vol] 0.5 10*3/uL Low 1.0 - 4.3 10*3/uL [facility] [place] Lymphocytes Manual 2 [facility] [place] Lymphocytes/100 WBC (Bld) 2 % Low 20 - 40 % [facility] Monocytes (Bld) [#/Vol] 0.7 10*3/uL 0.0 - 0.8 10*3/uL [facility] Monocytes Manual 3 [facility] Monocytes/100 WBC (Bld) 3 % 2 - 10 % [facility] Neutrophils (Bld) [#/Vol] 21.2 10*3/uL High 1.8 - 7.0 10*3/uL [facility] Neutrophils Manual 94 [facility] Platelet morphology finding Nom (Bld) Normal [facility] RBC morphology finding Nom (Bld) Normal [facility] Segmented neutrophils/100 WBC (Bld) 94 % High 40 - 80 % [facility] WBC corrected for nucl RBC (Bld) [#/Vol] 22.6 10*3/uL High 3.6 - 10.7 10*3/uL [facility] No Panel Informationon 10-11 Interpretation and review of laboratory results Abnormal [facility] Interpretation and review of laboratory results Abnormal [facility] CV CPACS Interpretation and review of laboratory results Normal [facility] Interpretation and review of laboratory results Normal [facility] Radiology Study observation (narrative) [facility] Radiology Study observation (narrative) [facility] Radiology Study observation (narrative) [facility] Phosphate [Moles/Vol]on 09-30 Phosphate [Mass/Vol] 3.3 mg/dL 2.5 - 4 .5 mg/dL [facility] A variant subtype Ab Qlon [facility] CBC W Auto Differential pane l (Bld)Ordered By: Abiodun Elizabeth on 10-10-2023 Erythrocyte distribution width (RBC) [Ratio] 13.8 % 11.5 - 14.5 % [facility] Hematocrit (Bld) [Volume fraction] 40.3 % 40.0 - 52.0 % [facility] Hemoglobin (Bld) [Mass/Vol] 13.2 g/dL 13.0 - 18.0 g/dL [facility] MCH (RBC) [Entitic mass] 29.4 pg 26.0 - 34.0 pg [facility] MCHC (RBC) [Mass/Vol] 32.7 % 32.0 - 36.0 % [facility] MCV (RBC) [Entitic vol] 89.9 fL 80.0 - 98.0 fL [facility] Nucleated RBC/100 WBC (Bld) [Ratio] 0.1 % [facility] Platelet mean volume (Bld) [Entitic vol] 9.0 fL 7.4 - 12.4 fL [facility] Platelets (Bld) [#/Vol] 94 10*3/uL Low 140 - 440 10*3/uL [facility] RBC (Bld) [#/Vol] 4.48 10*6/uL 4.40 - 5.9 0 10*6/uL [facility] WBC (Bld) [#/Vol] 23.3 10*3/uL High 3.6 - 10.7 10*3/uL [facility] Comprehensive metabolic 1998 panelon 10-10-2023 Albumin [Mass/Vol] 3.0 g/dL Low 3.5 - 5.0 g/dL [facility] ALP [Catalytic activity/Vol] 67 U/L 38 - 126 U/L [facility] ALT [Catalytic activity/Vol] 57 U/L High 0 - 49 U/L [facility] Anion gap [Moles/Vol] 9 mmol/L 3 - 13 mmol/L [facility] AST [Catalytic activity/Vol] 128 U/L High 15 - 46 U/L [facility] Bilirubin [Mass/Vol] 1.1 mg/dL 0.2 - 1 .3 mg/dL [facility] Calcium [Mass/Vol] 8.2 mg/dL Low 8.4 - 10. 4 mg/dL [facility] Chloride [Moles/Vol] 95 mmol/L Low 98 - 10 7 mmol/L [facility] CO2 [Moles/Vol] 23 mmol/L 22 - 30 mmol/L [facility] Creatinine [Mass/Vol] 1.04 mg/dL 0.66 - 1.25 mg/dL [facility] GFR/1.73 sq M.predicted MDRD (S/P/Bld) [Vol rate/Area] 80.7 mL/min/{1.73_m2} - PINF [facility] Glucose [Mass/Vol] 108 mg/dL High 70 - 100 mg/dL [facility] Potassium [Moles/Vol] 3.7 mmol/L 3.5 - 5.1 mmol/L [facility] Protein [Mass/Vol] 6.2 g/dL Low 6.3 - 8.2 g/dL [facility] Sodium [Moles/Vol] 128 mmol/L Low 135 - 145 mmol/L [facility] Urea nitrogen [Mass/Vol] 24 mg/dL High 9 - 20 mg/dL [facility] E Ag Ql (RBC)on 10-10-2023 [facility] HBV surface Ag IA Qlon 10-10 Interpretation and review of laboratory results Normal [facility] Laboratory - Blood bankon A variant subtype Ab Ql LC [facility] little c Ag Ql (RBC) Negative [facility] E Ag Ql (RBC) Negative [facility] Laboratory - Chemistry and C hemistry - challengeon 10-10-2023 Glucose [Mass/Vol] 101 mg/dL High 70 - 100 mg/dL [facility] Glucose [Mass/Vol] 115 mg/dL High 70 - 100 mg/dL [facility] Procalcitonin [Mass/Vol] 8.03 ng/mL High 0.00 - 0.09 ng/mL [facility] Average glucose Estimated from glycated hemoglobin (Bld) [Mass/Vol] 120 mg/dL [facility] Procalcitonin [Mass/Vol] 9.55 ng/mL High 0.00 - 0.09 ng/mL [facility] Magnesium [Mass/Vol] 1.6 mg/dL 1.6 - 2 .3 mg/dL [facility] Laboratory - Coagulationon 0 10-10-2023 aPTT Coag (PPP) [Time] 26.2 s 20.0 - 30.5 s [facility] INR Coag (PPP) [Relative time] 1.0 {INR} 0.9 - 1.1 [facility] PT Coag (Bld) [Time] 10.3 s 9.0 - 12.0 s [facility] Laboratory - Drug toxicology on 10-10-2023 Vancomycin [Mass/Vol] 12.5 ug/mL Low 15.0 - 20.0 ug/mL [facility] Laboratory - Hematology and Cell countson 10-10-2023 HbA1c (Bld) [Mass fraction] 5.8 % High NINF - 5.7 % [facility] Laboratory - Microbiology an d Antimicrobial susceptibilityon 10-10-2023 HBV surface Ab IA Qn 471.9 m[IU]/mL mIU/mL [facility] HBV surface Ag IA Ql Not detected Not Detected [facility] Magnesium [Mass/Vol]on 10-10 Interpretation and review of laboratory results Normal [facility] [place] Manual differential performe d Ql (Bld)on 10-10-2023 Band form neutrophils (Bld) [#/Vol] 3.7 10*3/uL High NINF - 0.0 10*3/uL [facility] Band form neutrophils/100 WBC (Bld) 16 % High NINF - 0 % [facility] [place] Bands Manual 16 [facility] Cells Counted Total (Bld) [#] 100 {cells} [facility] [place] Differential Method Manual differential performed [facility] Leukocyte morphology finding Nom (Bld) Normal [facility] Lymphocytes (Bld) [#/Vol] 0.5 10*3/uL Low 1.0 - 4.3 10*3/uL [facility] Lymphocytes Manual 2 [facility] Lymphocytes/100 WBC (Bld) 2 % Low 20 - 40 % [facility] Monocytes (Bld) [#/Vol] 0.5 10*3/uL 0.0 - 0.8 10*3/uL [facility] Monocytes Manual 2 [facility] Monocytes/100 WBC (Bld) 2 % 2 - 10 % [facility] Neutrophils (Bld) [#/Vol] 22.4 10*3/uL High 1.8 - 7.0 10*3/uL [facility] Neutrophils Manual 80 [facility] Platelet morphology finding Nom (Bld) Normal [facility] RBC morphology finding Nom (Bld) Normal [facility] Segmented neutrophils/100 WBC (Bld) 80 % 40 - 80 % [facility] WBC corrected for nucl RBC (Bld) [#/Vol] 23.3 10*3/uL High 3.6 - 10.7 10*3/uL [facility] No Panel Informationon 10-10 Interpretation and review of laboratory results Abnormal [facility] Interpretation and review of laboratory results Abnormal [facility]IOLOG[facility] SYSTEM [facility] Radiology Study observation (narrative) [facility] Interpretation and review of laboratory results Abnormal [facility] Radiology Study observation (narrative) [facility] Interpretation and review of laboratory results Abnormal [facility] Interpretation and review of laboratory results Abnormal [facility] Interpretation and review of laboratory results Normal [facility] Radiology Study observation (narrative) [facility] Radiology Study observation (narrative) [facility] No Panel InformationOrdered By: Deonte Connell on 10-10-2023 [facility] [place] Work Phone: No Panel InformationOrdered By: Candice Funes on 10-10-2023 [facility] Work Phone: No Panel InformationOrdered By: Abiodun Elizabeth on 10-10-2023 Interpretation and review of laboratory results Abnormal [facility] No Panel InformationOrdered By: Shanna Rod on 10-10-2023 [facility] Phosphate [Moles/Vol]on 09-30 Phosphate [Mass/Vol] 2.2 mg/dL Low 2.5 - 4 .5 mg/dL [facility] Procalcitonin [Mass/Vol]on 0 10-10-2023 Interpretation and review of laboratory results Abnormal [facility] Interpretation and review of laboratory results Abnormal [facility] XR Abdomen Single viewon [facility] RADIOLOGY SYSTEM [facility] Radiology Study observation (narrative) [facility] XR Chest Single viewon 10-10 [facility] RAD[facility]Y SYSTEM [facility] Radiology Study observation (narrative) [facility] XR Chest Single viewOrdered By: Noble Kyle on 10-10-2023 [facility] Work Phone: XR Hand - bilateral 3 Viewso n 10-10-2023 [facility]Y SYSTEM [facility] Radiology Study observation (narrative) [facility] XR Hand - bilateral 3 ViewsO rdered By: Nirav Gallego on 10-10-2023 [facility] Work Phone: little c Ag Ql (RBC)on 10-10 [facility] ABO and Rh group Confirm Nom (Bld)on 10-09-2023 ABO group Nom (Bld) O [facility] D Ag Ql (RBC) Positive [facility] Bacteria identified Cx Nom ( Bld)Ordered By: Cindy Murguia on 10-09-2023 Interpretation and review of laboratory results Abnormal [facility] Bacteria identified Cx Nom ( Bld)on 10-09-2023 Interpretation and review of laboratory results Abnormal [facility] Blood type and Crossmatch pa david (Bld)on 10-09-2023 ABO group Nom (Bld) O [facility] Blood group antibody screen GEL Ql Positive [facility] D Ag Ql (RBC) Positive [facility] CBC W Auto Differential pane l (Bld)on 10-09-2023 Basophils (Bld) [#/Vol] 0.0 10*3/uL 0.0 - 0.2 10*3/uL [facility] Basophils/100 WBC (Bld) 0.1 % 0.0 - 2.0 % [facility] Eosinophils (Bld) [#/Vol] 0.0 10*3/uL 0.0 - 0.5 10*3/uL [facility] Eosinophils/100 WBC (Bld) 0.1 % Low 1.0 - 6.0 % [facility] Erythrocyte distribution width (RBC) [Ratio] 13.9 % 11.5 - 14.5 % [facility] Hematocrit (Bld) [Volume fraction] 40.3 % 40.0 - 52.0 % [facility] Hemoglobin (Bld) [Mass/Vol] 13.5 g/dL 13.0 - 18.0 g/dL [facility] Interpretation and review of laboratory results Abnormal [facility] Lymphocytes (Bld) [#/Vol] 0.2 10*3/uL Low 1.0 - 4.3 10*3/uL [facility] Lymphocytes/100 WBC (Bld) 1.6 % Low 20.0 - 40.0 % [facility] MCH (RBC) [Entitic mass] 29.5 pg 26.0 - 34.0 pg [facility] MCHC (RBC) [Mass/Vol] 33.5 % 32.0 - 36.0 % [facility] MCV (RBC) [Entitic vol] 87.9 fL 80.0 - 98.0 fL [facility] Monocytes (Bld) [#/Vol] 0.2 10*3/uL 0.0 - 0.8 10*3/uL [facility] Monocytes/100 WBC (Bld) 1.6 % Low 2.0 - 10.0 % [facility] Neutrophils (Bld) [#/Vol] 14.4 10*3/uL High 1.8 - 7.0 10*3/uL [facility] Neutrophils/100 WBC (Bld) 96.6 % High 40.0 - 80.0 % [facility] Nucleated RBC/100 WBC (Bld) [Ratio] 0.0 % [facility] Platelet mean volume (Bld) [Entitic vol] 8.5 fL 7.4 - 12.4 fL [facility] Platelets (Bld) [#/Vol] 94 10*3/uL Low 140 - 440 10*3/uL [facility] RBC (Bld) [#/Vol] 4.59 10*6/uL 4.40 - 5.9 0 10*6/uL [facility] WBC (Bld) [#/Vol] 14.9 10*3/uL High 3.6 - 10.7 10*3/uL [facility] CK [Catalytic activity/Vol]o n 10-09-2023 Interpretation and review of laboratory results Abnormal [facility] Comprehensive metabolic 1998 panelon 10-09-2023 Albumin [Mass/Vol] 2.9 g/dL Low 3.5 - 5.0 g/dL [facility] ALP [Catalytic activity/Vol] 62 U/L 38 - 126 U/L [facility] ALT [Catalytic activity/Vol] 62 U/L High 0 - 49 U/L [facility] Anion gap [Moles/Vol] 9 mmol/L 3 - 13 mmol/L [facility] AST [Catalytic activity/Vol] 177 U/L High 15 - 46 U/L [facility] Bilirubin [Mass/Vol] 1.0 mg/dL 0.2 - 1 .3 mg/dL [facility] Calcium [Mass/Vol] 8.1 mg/dL Low 8.4 - 10. 4 mg/dL [facility] Chloride [Moles/Vol] 99 mmol/L 98 - 10 7 mmol/L [facility] CO2 [Moles/Vol] 22 mmol/L 22 - 30 mmol/L [facility] Creatinine [Mass/Vol] 0.98 mg/dL 0.66 - 1.25 mg/dL [facility] GFR/1.73 sq M.predicted MDRD (S/P/Bld) [Vol rate/Area] 86.6 mL/min/{1.73_m2} - PINF [facility] Glucose [Mass/Vol] 102 mg/dL High 70 - 100 mg/dL [facility] Potassium [Moles/Vol] 3.3 mmol/L Low 3.5 - 5.1 mmol/L [facility] Protein [Mass/Vol] 6.2 g/dL Low 6.3 - 8.2 g/dL [facility] Sodium [Moles/Vol] 129 mmol/L Low 135 - 145 mmol/L [facility] Urea nitrogen [Mass/Vol] 20 mg/dL 9 - 20 mg/dL [facility] ESR (Bld) [Velocity]on 10-09 Interpretation and review of laboratory results Abnormal [facility] - Chemistry and C hemistry - challengeon 10-09-2023 CK [Catalytic activity/Vol] 1165 U/L High 30 - 170 U/L [facility] CK [Catalytic activity/Vol] 2978 U/L High 30 - 170 U/L [facility] CRP [Mass/Vol] mg/L High NINF - 10.0 mg/L [facility] Magnesium [Mass/Vol] 1.8 mg/dL 1.6 - 2 .3 mg/dL [facility] Laboratory - Coagulationon 0 10-09-2023 aPTT Coag (PPP) [Time] 33.6 s High 20.0 - 30.5 s [facility] INR Coag (PPP) [Relative time] 0.9 {INR} 0.9 - 1.1 [facility] PT Coag (Bld) [Time] 10.4 s 9.0 - 12.0 s [facility] Laboratory - Drug toxicology on 10-09-2023 Vancomycin [Mass/Vol] 6.9 ug/mL Low 15.0 - 20.0 ug/mL [facility] Laboratory - Hematology and Cell countson 10-09-2023 ESR (Bld) [Velocity] 75 mm/h High [facility] Laboratory - Microbiology an d Antimicrobial susceptibilityOrdered By: Cindy Murguia on 10-09-2023 Bacteria identified Cx Nom (Bld) Streptococcus dysgalactiae (group C/G) Critically abnormal [facility] Laboratory - Microbiology an d Antimicrobial susceptibilityon 10-09-2023 Bacteria identified Cx Nom (Bld) Streptococcus dysgalactiae (group C/G) Critically abnormal [facility] Magnesium [Mass/Vol]on 10-09 Interpretation and review of laboratory results Normal [facility] No Panel Informationon 10-09 Interpretation and review of laboratory results Abnormal [facility] Interpretation and review of laboratory results Abnormal [facility] Interpretation and review of laboratory results Abnormal [facility] Interpretation and review of laboratory results Abnormal [facility] Phosphate [Moles/Vol]on 09-30 Phosphate [Mass/Vol] 2.3 mg/dL Low 2.5 - 4 .5 mg/dL [facility] CBC W Auto Differential pane l (Bld)Ordered By: Harshil Henderson on 10-08-2023 Basophils (Bld) [#/Vol] 0.0 10*3/uL 0.0 - 0.2 10*3/uL [facility] Basophils/100 WBC (Bld) 0.2 % 0.0 - 2.0 % [facility] Eosinophils (Bld) [#/Vol] 0.0 10*3/uL 0.0 - 0.5 10*3/uL [facility] Eosinophils/100 WBC (Bld) 0.1 % Low 1.0 - 6.0 % [facility] Erythrocyte distribution width (RBC) [Ratio] 14.0 % 11.5 - 14.5 % [facility] Hematocrit (Bld) [Volume fraction] 43.3 % 40.0 - 52.0 % [facility] Hemoglobin (Bld) [Mass/Vol] 14.4 g/dL 13.0 - 18.0 g/dL [facility] Interpretation and review of laboratory results Abnormal [facility] Lymphocytes (Bld) [#/Vol] 0.3 10*3/uL Low 1.0 - 4.3 10*3/uL [facility] Lymphocytes/100 WBC (Bld) 1.8 % Low 20.0 - 40.0 % [facility] MCH (RBC) [Entitic mass] 29.7 pg 26.0 - 34.0 pg [facility] MCHC (RBC) [Mass/Vol] 33.3 % 32.0 - 36.0 % [facility] MCV (RBC) [Entitic vol] 89.2 fL 80.0 - 98.0 fL [facility] Monocytes (Bld) [#/Vol] 0.3 10*3/uL 0.0 - 0.8 10*3/uL [facility] Monocytes/100 WBC (Bld) 2.1 % 2.0 - 10.0 % [facility] Neutrophils (Bld) [#/Vol] 13.6 10*3/uL High 1.8 - 7.0 10*3/uL [facility] Neutrophils/100 WBC (Bld) 95.8 % High 40.0 - 80.0 % [facility] Nucleated RBC/100 WBC (Bld) [Ratio] 0.0 % [facility] Platelet mean volume (Bld) [Entitic vol] 8.3 fL 7.4 - 12.4 fL [facility] Platelets (Bld) [#/Vol] 123 10*3/uL Low 140 - 440 10*3/uL [facility] RBC (Bld) [#/Vol] 4.86 10*6/uL 4.40 - 5.9 0 10*6/uL [facility] WBC (Bld) [#/Vol] 14.2 10*3/uL High 3.6 - 10.7 10*3/uL [facility] CK [Catalytic activity/Vol]o n 10-08-2023 Interpretation and review of laboratory results Abnormal [facility] Comprehensive metabolic 1998 panelon 10-08-2023 Albumin [Mass/Vol] 3.1 g/dL Low 3.5 - 5.0 g/dL [facility] ALP [Catalytic activity/Vol] 51 U/L 38 - 126 U/L [facility] ALT [Catalytic activity/Vol] 67 U/L High 0 - 49 U/L [facility] Anion gap [Moles/Vol] 11 mmol/L 3 - 13 mmol/L [facility] AST [Catalytic activity/Vol] 300 U/L High 15 - 46 U/L [facility] Bilirubin [Mass/Vol] 1.2 mg/dL 0.2 - 1 .3 mg/dL [facility] Calcium [Mass/Vol] 7.7 mg/dL Low 8.4 - 10. 4 mg/dL [facility] Chloride [Moles/Vol] 100 mmol/L 98 - 10 7 mmol/L [facility] CO2 [Moles/Vol] 18 mmol/L Low 22 - 30 mmol/L [facility] Creatinine [Mass/Vol] 1.43 mg/dL High 0.66 - 1.25 mg/dL [facility] GFR/1.73 sq M.predicted MDRD (S/P/Bld) [Vol rate/Area] 55.1 mL/min/{1.73_m2} Low - PINF [facility] Glucose [Mass/Vol] 94 mg/dL 70 - 100 mg/dL [facility] Interpretation and review of laboratory results Abnormal [facility] Potassium [Moles/Vol] 3.8 mmol/L 3.5 - 5.1 mmol/L [facility] Protein [Mass/Vol] 6.5 g/dL 6.3 - 8.2 g/dL [facility] Sodium [Moles/Vol] 129 mmol/L Low 135 - 145 mmol/L [facility] Urea nitrogen [Mass/Vol] 33 mg/dL High 9 - 20 mg/dL [facility] - Chemistry and C hemistry - challengeon 10-08-2023 Glucose [Mass/Vol] 131 mg/dL High 70 - 100 mg/dL [facility] Lactate [Moles/Vol] 1.9 mmol/L 0.7 - 2. 0 mmol/L [facility] CK [Catalytic activity/Vol] 30648 U/L High 30 - 170 U/L [facility] Magnesium [Mass/Vol] 1.6 mg/dL 1.6 - 2 .3 mg/dL [facility] Lactate [Moles/Vol] 2.4 mmol/L High 0.7 - 2. 0 mmol/L [facility] Laboratory - Chemistry and C hemistry - challengeOrdered By: Brennon Hernandez on 10-08-2023 Troponin I.cardiac [Mass/Vol] 0.202 ng/mL Critically high NINF - 0.034 ng/mL [facility] Laboratory - Coagulationon 0 10-08-2023 aPTT Coag (PPP) [Time] 31.6 s High 20.0 - 30.5 s [facility] INR Coag (PPP) [Relative time] 1.2 {INR} High 0.9 - 1.1 [facility] PT Coag (Bld) [Time] 12.4 s High 9.0 - 12.0 s [facility] Laboratory - Drug toxicology on 10-08-2023 Vancomycin [Mass/Vol] 8.3 ug/mL Low 15.0 - 20.0 ug/mL [facility] No Panel Informationon 10-08 Interpretation and review of laboratory results Abnormal [facility] Interpretation and review of laboratory results Normal [facility] Interpretation and review of laboratory results Normal [facility] Legionella pneumophila Ag Not detected Not Detected [facility] Streptococcus pneumoniae Ag Not detected Not Detected [facility] Interpretation and review of laboratory results Abnormal [facility] Interpretation and review of laboratory results Normal [facility] Interpretation and review of laboratory results Abnormal [facility] Interpretation and review of laboratory results Abnormal [facility] Radiology Study observation (narrative) [facility] No Panel InformationOrdered By: Amber Crain on 10-08-2023 Interpretation and review of laboratory results Abnormal [facility] Streptococcus species Detected Abnormal Not Detected [facility] Phosphate [Moles/Vol]on Phosphate [Mass/Vol] 4.0 mg/dL 2.5 - 4 .5 mg/dL [facility] Respiratory pathogens DNA an d RNA panel AROLDO+non-probe (Nph)on 10-08-2023 Adenovirus Not detected Not Detected [facility] B. pertussis DNA AROLDO+probe Ql (Unsp spec) Not detected Not Detected [facility] Bordetella parapertussis Not detected Not Detected [facility] Chlamydia pneumoniae Not detected Not Detected [facility] Coronavirus 229E Not detected Not Detected [facility] Coronavirus HKU1 Not detected Not Detected [facility] Coronavirus NL63 Not detected Not Detected [facility] Coronavirus OC43 Not detected Not Detected [facility] FLUAV RNA AROLDO+non-probe Ql (Nph) Not detected Not Detected [facility] FLUBV RNA AROLDO+non-probe Ql (Nph) Not detected Not Detected [facility] Human Metapneumovirus Not detected Not Detected [facility] Human Rhinovirus/Enterovirus Not detected Not Detected [facility] Interpretation and review of laboratory results Abnormal [facility] Mycoplasma pneumoniae Not detected Not Detected [facility] Parainfluenza 1 Not detected Not Detected [facility] Parainfluenza 2 Not detected Not Detected [facility] Parainfluenza 3 Not detected Not Detected [facility] Parainfluenza 4 Not detected Not Detected [facility] Respiratory Syncytial Virus Detected Abnormal Not Detected [facility] SARS-CoV-2 (COVID-19) RNA AROLDO+non-probe Ql (Nph) Not detected Not Detected [facility] [employer] Troponin I.cardiac [Mass/Vol ]Ordered By: Brennon Hernandez on 10-08-2023 Interpretation and review of laboratory results Abnormal [facility] [employer] [facility] [employer] US Heart TransthoracicOrdere d By: Inocencia Tavares on 10-08-2023 Ascending A[facility] 3.9 [facility] Reply Phone: Ascending Aorta Index 1.46 cm/m2 [facility] [employer] Work Phone: AV Area by Peak Velocity 3.9 cm2 [facility] Reply Phone: AV Area by VTI 3.7 cm2 [facility] Reply Phone: AV Mean Gradient 2 mmHg [facility] Reply Phone: AV Mean Velocity 0.6 m/s [facility] Reply Phone: AV Peak Gradient 3 mmHg [facility] Reply Phone: AV Peak Velocity 0.9 m/s [facility] [employer] Phone: AV Velocity Ratio 0.89 [facility] Reply Phone: AV VTI 15.1 cm [facility] [employer] Phone: WILMER/BSA Peak Velocity 1.5 cm2/m2 [facility] [employer] Work Phone: WILMER/BSA VTI 1.4 cm2/m2 [facility] [employer] Phone: EF BP 53 % 55 - 100 % [facility] Reply Phone: Fractional Shortening 2D 28 % 28 - 44 % [facility] Reply Phone: IVC Diameter 2.0 cm [facility] Work Phone: IVSd 1.0 cm 0.6 - 1.0 cm [facility] Reply Phone: LA Diameter 3.4 cm [facility] [employer] Phone: LA Size Index 1.27 cm/m2 [facility] Reply Phone: LA Volume 2C 36 mL 18 - 58 mL [facility] Reply Phone: LA Volume 4C 29 mL 18 - 58 mL [facility] Work Phone: [phone] LA Volume A/L 39 mL [employer] Work Phone: LA Volume Index 2C 13 mL/m2 16 - 34 mL/m2 [employer] Work Phone: LA Volume Index 4C 11 mL/m2 16 - 34 mL/m2 [employer] Work Phone: LA Volume Index A/L 15 mL/m2 16 - 34 mL/m2 [employer] Work Phone: LV EDV A2C 158 mL [employer] Work Phone: LV EDV A4C 233 mL [employer] Work Phone: [phone] LV EDV BP 202 mL 67 - 155 mL [employer] Phone: [phone] LV EDV Index A2C 59 mL/m2 [employer] Phone: LV EDV Index A4C 87 mL/m2 [employer] Phone: [phone] LV EDV Index BP 75 mL/m2 [employer] Phone: [phone] LV Ejection Fraction A2C 50 % [employer] Phone: [phone] LV Ejection Fraction A4C 55 % [employer] Phone: LV ESV A2C 79 mL [employer] Phone: [phone] LV ESV A4C 105 mL [employer] Phone: LV ESV BP 94 mL 22 - 58 mL [employer] Work Phone: LV ESV Index A2C 29 mL/m2 [employer] Work Phone: [phone] LV ESV Index A4C 39 mL/m2 [employer] Work Phone: LV ESV Index BP 35 mL/m2 [employer] Phone: [phone] LV Mass 2D 200.4 g 88 - 224 g [employer] Phone: LV Mass 2D Index 74.8 g/m2 49 - 115 g/m2 [employer] Work Phone: LV RWT Ratio 0.38 [employer] Phone: [phone] LVIDd 5.3 cm 4.2 - 5.9 cm [facility] [employer] Work Phone: [phone] LVIDd Index 1.98 cm/m2 [facility] [employer] Work Phone: [phone] LVIDs 3.8 cm [facility] [employer] Work Phone: [phone] LVIDs Index 1.42 cm/m2 [facility] [employer] Work Phone: [phone] LVOT Area 4.5 cm2 [facility] [employer] Work Phone: [phone] LVOT Cardiac Output 5.0 liter/minute [facility] [employer] Work Phone: [phone] LVOT Diameter 2.4 cm [facility] [employer] Work Phone: [phone] LVOT Mean Gradient 1 mmHg [facility] [employer] Work Phone: [phone] LVOT Peak Gradient 2 mmHg [facility] [employer] Work Phone: [phone] LVOT Peak Velocity 0.8 m/s [facility] [employer] Work Phone: [phone] LVOT Stroke Volume Index 20.8 mL/m2 [facility] [employer] Work Phone: [phone] LVOT SV 55.6 ml [facility] [employer] Work Phone: [phone] LVOT VTI 12.3 cm [facility] [employer] Work Phone: [phone] LVOT:AV VTI Index 0.81 [facility] [employer] Work Phone: [phone] LVPWd 1.0 cm 0.6 - 1.0 cm [facility] [employer] Work Phone: [phone] MV A Velocity 0.69 m/s [facility] [employer] Work Phone: [phone] MV E Velocity 0.85 m/s [facility] [employer] Work Phone: [phone] MV E Wave Deceleration Time 230.6 ms [facility] [employer] Work Phone: [phone] MV E/A 1.23 [facility] [employer] Work Phone: [phone] PV Max Velocity 1.1 m/s [facility] [employer] Work Phone: [phone] PV Peak Gradient 5 mmHg [facility] [employer] Work Phone: [phone] RV Basal Dimension 4.2 cm [employer] Work Phone: RV Mid Dimension 4.2 cm [employer] Work Phone: TR Max Velocity 2.42 m/s [employer] Work Phone: TR Peak Gradient 23 mmHg [employer] Work Phone: [employer] Work Phone: US Heart Transthoracicon CV CPACS XR Tibia and Fibula - left 2 Viewson 10-08-2023 [facility] [employer] Radiology Study observation (narrative) [employer] XR Tibia and Fibula - left 2 ViewsOrdered By: Guanako Mayo on 10-08-2023 [employer] Work Phone: CBC W Auto Differential pane l (Bld)Ordered By: Kandy Hurtado on 10-07-2023 Basophils (Bld) [#/Vol] 0.0 10*3/uL 0.0 - 0.2 10*3/uL [facility] [employer] Basophils/100 WBC (Bld) 0.2 % 0.0 - 2.0 % [facility] [place] Eosinophils (Bld) [#/Vol] 0.0 10*3/uL 0.0 - 0.5 10*3/uL [facility] [place] Eosinophils/100 WBC (Bld) 0.0 % Low 1.0 - 6.0 % [facility] [place] Erythrocyte distribution width (RBC) [Ratio] 14.1 % 11.5 - 14.5 % [employer] Hematocrit (Bld) [Volume fraction] 43.4 % 40.0 - 52.0 % [facility] [place] Hemoglobin (Bld) [Mass/Vol] 14.5 g/dL 13.0 - 18.0 g/dL [facility] [place] Interpretation and review of laboratory results Abnormal [facility] [place] Lymphocytes (Bld) [#/Vol] 0.2 10*3/uL Low 1.0 - 4.3 10*3/uL [facility] [place] Lymphocytes/100 WBC (Bld) 1.1 % Low 20.0 - 40.0 % [facility] [place] MCH (RBC) [Entitic mass] 29.6 pg 26.0 - 34.0 pg [facility] [place] MCHC (RBC) [Mass/Vol] 33.3 % 32.0 - 36.0 % [facility] MCV (RBC) [Entitic vol] 89.0 fL 80.0 - 98.0 fL [facility] Monocytes (Bld) [#/Vol] 0.4 10*3/uL 0.0 - 0.8 10*3/uL [facility] Monocytes/100 WBC (Bld) 2.4 % 2.0 - 10.0 % [facility] Neutrophils (Bld) [#/Vol] 15.1 10*3/uL High 1.8 - 7.0 10*3/uL [facility] Neutrophils/100 WBC (Bld) 96.3 % High 40.0 - 80.0 % [facility] Nucleated RBC/100 WBC (Bld) [Ratio] 0.0 % [facility] Platelet mean volume (Bld) [Entitic vol] 7.9 fL 7.4 - 12.4 fL [facility] Platelets (Bld) [#/Vol] 140 10*3/uL 140 - 440 10*3/uL [facility] RBC (Bld) [#/Vol] 4.88 10*6/uL 4.40 - 5.9 0 10*6/uL [facility] WBC (Bld) [#/Vol] 15.7 10*3/uL High 3.6 - 10.7 10*3/uL [facility] CK [Catalytic activity/Vol]o n 10-07-2023 Interpretation and review of laboratory results Abnormal [facility] COVID-19, Flu A/B, and RSV C omboon 10-07-2023 Interpretation and review of laboratory results Normal [facility] Comprehensive metabolic 1998 panelon 10-07-2023 Albumin [Mass/Vol] 3.4 g/dL Low 3.5 - 5.0 g/dL [facility] ALP [Catalytic activity/Vol] 43 U/L 38 - 126 U/L [facility] ALT [Catalytic activity/Vol] 48 U/L 0 - 49 U/L [facility] Anion gap [Moles/Vol] 10 mmol/L 3 - 13 mmol/L [facility] AST [Catalytic activity/Vol] 235 U/L High 15 - 46 U/L [facility] Bilirubin [Mass/Vol] 1.2 mg/dL 0.2 - 1 .3 mg/dL [facility] Calcium [Mass/Vol] 8.2 mg/dL Low 8.4 - 10. 4 mg/dL [facility] Chloride [Moles/Vol] 96 mmol/L Low 98 - 10 7 mmol/L [facility] CO2 [Moles/Vol] 23 mmol/L 22 - 30 mmol/L [facility] Creatinine [Mass/Vol] 1.66 mg/dL High 0.66 - 1.25 mg/dL [facility] GFR/1.73 sq M.predicted MDRD (S/P/Bld) [Vol rate/Area] 46.0 mL/min/{1.73_m2} Low - PINF [facility] Glucose [Mass/Vol] 124 mg/dL High 70 - 100 mg/dL [facility] Interpretation and review of laboratory results Abnormal [facility] Potassium [Moles/Vol] 4.2 mmol/L 3.5 - 5.1 mmol/L [facility] Protein [Mass/Vol] 6.9 g/dL 6.3 - 8.2 g/dL [facility] Sodium [Moles/Vol] 129 mmol/L Low 135 - 145 mmol/L [facility] Urea nitrogen [Mass/Vol] 42 mg/dL High 9 - 20 mg/dL [facility] Creatinine (U) [Mass/Vol]on 10-07-2023 CREATININE, URINE 126.1 mg/dL No Range [facility] - Chemistry and C hemistry - challengeon 10-07-2023 Troponin I.cardiac [Mass/Vol] 0.244 ng/mL Critically high NINF - 0.034 ng/mL [facility] Lactate [Moles/Vol] 2.1 mmol/L High 0.7 - 2. 0 mmol/L [facility] Procalcitonin [Mass/Vol] 19.57 ng/mL High 0.00 - 0.09 ng/mL [facility] Glucose [Mass/Vol] 111 mg/dL High 70 - 100 mg/dL [facility] Sodium (24H U) [Mass/Vol] 13 mmol/L Low 30 - 90 mmol/L [facility] Troponin I.cardiac [Mass/Vol] 0.293 ng/mL Critically high NINF - 0.034 ng/mL [facility] Lactate [Moles/Vol] 2.2 mmol/L High 0.7 - 2. 0 mmol/L [facility] TSH Qn 2.342 m[IU]/L [facility] Base excess Calc (BldV) [Moles/Vol] -0.4000 mmol/L -3 - 3 mmol/L [facility] CO2 (BldV) [Partial pressure] 31.4 mm[Hg] Low [facility] HCO3 (Bld) [Moles/Vol] 22.5 mmol/L Low 23.0 - 27.0 mmol/L [facility] Oxygen (BldV) [Partial pressure] 41.8 mm[Hg] mm Hg [facility] pH (BldV) 7.463 [pH] High 7.330 - 7.430 pH [facility] CK [Catalytic activity/Vol] 79315 U/L High 30 - 170 U/L [facility] Lactate [Moles/Vol] 2.7 mmol/L High 0.7 - 2. 0 mmol/L [facility] Laboratory - Chemistry and C hemistry - challengeOrdered By: Juhi Medina on 10-07-2023 Troponin I.cardiac [Mass/Vol] 0.313 ng/mL Critically high NINF - 0.034 ng/mL [facility] Laboratory - Drug toxicology Ordered By: Zainab Argueta on 10-07-2023 Amphetamines Screen method >1000 ng/mL Ql (U) Positive [facility] Barbiturates Screen method >200 ng/mL Ql (U) Negative [facility] Benzodiazepines Ql (U) Negative [facility] Methadone Screen Ql (U) Negative [facility] Opiates Screen Ql (U) Negative [facility] oxyCODONE Ql (U) Negative [facility] Phencyclidine Ql (U) Negative [facility] Laboratory - Microbiology an d Antimicrobial susceptibilityon 10-07-2023 FLUAV RNA AROLDO+probe Ql (Resp) Not detected Not Detected [facility] FLUBV RNA AROLDO+probe Ql (Resp) Not detected Not Detected [facility] RSV RNA AROLDO+probe Ql (Resp) Not detected Not Detected [facility] SARS-CoV-2 (COVID-19) RNA AROLDO+probe Ql (Resp) Not detected Not Detected [facility] MRSA DNA AROLDO+probe Ql (Nose) on 10-07-2023 Interpretation and review of laboratory results Abnormal [facility] mecA gene Not detected Not Detected [facility] Staphylococcus aureus Detected Abnormal Not Detected [facility] Natriuretic peptide B [Mass/ Vol]on 10-07-2023 Interpretation and review of laboratory results Abnormal [facility] Natriuretic peptide B (Bld) [Mass/Vol] 4940 pg/mL High <20 - 300 [facility] No Panel Informationon 10-07 Interpretation and review of laboratory results Abnormal [facility] Interpretation and review of laboratory results Abnormal [facility] Interpretation and review of laboratory results Abnormal [facility] CV CPACS Interpretation and review of laboratory results Abnormal [facility] RADIOLOGY SYSTEM [facility] Radiology Study observation (narrative) [facility] FIO2 21 [facility] Interpretation and review of laboratory results Abnormal [facility] Radiology Study observation (narrative) [facility] Interpretation and review of laboratory results Abnormal [facility] P Mes[place] 12 degrees [facility] OR Interval 185 ms [facility] QRS [place] 22 degrees [facility] QRSD Interval 120 ms [facility] QT Interval 404 ms [facility] QTC Interval 499 ms [facility] T Wave [place] 3 degrees [facility] CV EPIPHANY [facility] Radiology Study observation (narrative) [facility] Radiology Study observation (narrative) [facility] No Panel InformationOrdered By: Zainab Argueta on 10-07-2023 COCAINE METAB. SCREEN Negative [facility] No Panel InformationOrdered By: Erma Murillo on 10-07-2023 [facility] Work Phone: Procalcitonin [Mass/Vol]on 0 10-07-2023 Interpretation and review of laboratory results Abnormal [facility] TSH Qnon 10-07-2023 Interpretation and review of laboratory results Normal [facility] Troponin I.cardiac [Mass/Vol ]on 10-07-2023 Interpretation and review of laboratory results Abnormal [facility] Interpretation and review of laboratory results Abnormal [facility] Troponin I.cardiac [Mass/Vol ]Ordered By: Juhi Medina on 10-07-2023 Interpretation and review of laboratory results Abnormal [facility] Urinalysis complete panel (U )Ordered By: Kristine Fernandez on 10-07-2023 Bacteria LM.HPF (Urine sed) [#/Area] Few Abnormal Negative /HPF [facility] Bilirubin Ql (U) Negative Negative mg/dL [facility] Clarity (U) Clear Clear [facility] Color (U) Light Mower Abnormal Lt. Yellow [facility] Epithelial cells.squamous LM.HPF (Urine sed) [#/Area] 0-2 [facility] Glucose Ql (U) Normal Normal (<70) mg/dL [facility] Hemoglobin Ql (U) >1.0 Abnormal Negative mg/dL [facility] Interpretation and review of laboratory results Abnormal [facility] Ketones (U) [Mass/Vol] Negative Negat lex mg/dL [facility] Leukocyte esterase Test strip Ql (U) Negative Negative Nura/uL [facility] Mucus LM.HPF (Urine sed) [#/Area] Few Negative /LPF [facility] Nitrite Ql (U) Negative Negative [facility] pH (U) 5.5 [pH] 5.0 - 8.0 pH [facility] Protein (U) [Mass/Vol] 100 mg/dL Abnormal Negative [facility] RBC LM.HPF (Urine sed) [#/Area] 6-10 Abnormal [facility] Specific gravity (U) [Rel density] 1.023 1.005 - 1.030 [facility] Urobilinogen (U) [Mass/Vol] Normal Normal (0-1) mg/dL [facility] WBC LM.HPF (Urine sed) [#/Area] 3-5 [facility] Health Vital signson 10-07-2023 Oxygen saturation in Venous blood 80.8 % [facility] Heart rate 95 /min bpm [facility] XR Chest Single viewon 10-07 [facility] Radiology Study observation (narrative) [facility] XR Chest Single viewOrdered By: Cam Vinson on 10-07-2023 [facility] [place] Work Phone: Laboratory - Chemistry and C hemistry - challengeon 12-31-2022 Glucose [Mass/Vol] 124 mg/dL High 70 - 100 mg/dL [facility] Glucose [Mass/Vol] 128 mg/dL High 70 - 100 mg/dL [facility] No Panel Informationon 12-31 Interpretation and review of laboratory results Abnormal [facility] Performed by: [facility], [address] [place] [id number] CLIA ID: [id number] [facility] Interpretation and review of laboratory results Abnormal [facility] Performed by: [facility], [address] [place] [id number] CLIA ID: [id number] [facility] Laboratory - Chemistry and C hemistry - challengeon 12-30-2022 Glucose [Mass/Vol] 146 mg/dL High 70 - 100 mg/dL [facility] Glucose [Mass/Vol] 96 mg/dL 70 - 100 mg/dL [facility] Glucose [Mass/Vol] 98 mg/dL 70 - 100 mg/dL [facility] No Panel Informationon 12-30 Interpretation and review of laboratory results Abnormal [facility] Performed by: [facility], [address] [place] [id number] CLIA ID: [id number] [facility] Interpretation and review of laboratory results Normal [facility] Performed by: [facility], [address] [place] [id number] CLIA ID: [id number] [facility] Interpretation and review of laboratory results Normal [facility] Performed by: [facility], [address] [place] [id number] CLIA ID: [id number] [facility] Laboratory - Chemistry and C hemistry - challengeon 12-29-2022 Glucose [Mass/Vol] 112 mg/dL High 70 - 100 mg/dL [facility] Glucose [Mass/Vol] 93 mg/dL 70 - 100 mg/dL [facility] Glucose [Mass/Vol] 180 mg/dL High 70 - 100 mg/dL [facility] No Panel Informationon 12-29 Interpretation and review of laboratory results Abnormal [facility] Performed by: [facility], [address] [place] [id number] CLIA ID: [id number] [facility] Interpretation and review of laboratory results Normal [facility] Performed by: [facility], [address] [place] [id number] CLIA ID: [id number] [facility] Interpretation and review of laboratory results Abnormal [facility] Performed by: [facility], [address] [place] [id number] CLIA ID: [id number] [facility] CBC W Auto Differential pane l (Bld)on 12-27-2022 Basophils (Bld) [#/Vol] 0.0 10*3/uL 0.0 - 0.2 10*3/uL [facility] Basophils/100 WBC (Bld) 0.6 % 0.0 - 2.0 % [facility] Eosinophils (Bld) [#/Vol] 0.1 10*3/uL 0.0 - 0.5 10*3/uL [facility] Eosinophils/100 WBC (Bld) 1.5 % 1.0 - 6.0 % [facility] Erythrocyte distribution width (RBC) [Ratio] 13.8 % 11.5 - 14.5 % [facility] Hematocrit (Bld) [Volume fraction] 45.9 % 40.0 - 52.0 % [facility] Hemoglobin (Bld) [Mass/Vol] 15.5 g/dL 13.0 - 18.0 g/dL [facility] Interpretation and review of laboratory results Normal [facility] Lymphocytes (Bld) [#/Vol] 1.8 10*3/uL 1.0 - 4.3 10*3/uL [facility] Lymphocytes/100 WBC (Bld) 23.4 % 20.0 - 40.0 % [facility] MCH (RBC) [Entitic mass] 31.1 pg 26.0 - 34.0 pg [facility] MCHC (RBC) [Mass/Vol] 33.8 % 32.0 - 36.0 % [facility] MCV (RBC) [Entitic vol] 92.1 fL 80.0 - 98.0 fL [facility] Monocytes (Bld) [#/Vol] 0.6 10*3/uL 0.0 - 0.8 10*3/uL [facility] Monocytes/100 WBC (Bld) 7.9 % 2.0 - 10.0 % [facility] Neutrophils (Bld) [#/Vol] 5.1 10*3/uL 1.8 - 7.0 10*3/uL [facility] Neutrophils/100 WBC (Bld) 66.6 % 40.0 - 80.0 % [facility] Nucleated RBC/100 WBC (Bld) [Ratio] 0.1 % [facility] Platelet mean volume (Bld) [Entitic vol] 7.4 fL 7.4 - 12.4 fL [facility] Platelets (Bld) [#/Vol] 199 10*3/uL 140 - 440 10*3/uL [facility] RBC (Bld) [#/Vol] 4.99 10*6/uL 4.40 - 5.9 0 10*6/uL [facility] WBC (Bld) [#/Vol] 7.7 10*3/uL 3.6 - 10.7 10*3/uL [facility] Comprehensive metabolic 1998 panelon 12-27-2022 Albumin [Mass/Vol] 4.0 g/dL 3.5 - 5.0 g/dL [facility] ALP [Catalytic activity/Vol] 55 U/L 38 - 126 U/L [facility] ALT [Catalytic activity/Vol] 23 U/L 0 - 49 U/L [facility] Anion gap [Moles/Vol] 5 mmol/L 3 - 13 mmol/L [facility] AST [Catalytic activity/Vol] 27 U/L 15 - 46 U/L [facility] Bilirubin [Mass/Vol] 0.6 mg/dL 0.2 - 1 .3 mg/dL [facility] Calcium [Mass/Vol] 8.6 mg/dL 8.4 - 10. 4 mg/dL [facility] Chloride [Moles/Vol] 104 mmol/L 98 - 10 7 mmol/L [facility] CO2 [Moles/Vol] 26 mmol/L 22 - 30 mmol/L [facility] Creatinine [Mass/Vol] 0.76 mg/dL 0.66 - 1.25 mg/dL [facility] GFR/1.73 sq M.predicted MDRD (S/P/Bld) [Vol rate/Area] - PINF [facility] Comment on above: Calculation based on the Chronic Kidney Disease Epidemiology Collaboration (CKD-EPI) equation refit without adjustment for race Glucose [Mass/Vol] 88 mg/dL 70 - 100 mg/dL [facility] Interpretation and review of laboratory results Normal [facility] Potassium [Moles/Vol] 4.1 mmol/L 3.5 - 5.1 mmol/L [facility] Protein [Mass/Vol] 7.6 g/dL 6.3 - 8.2 g/dL [facility] Sodium [Moles/Vol] 136 mmol/L 135 - 145 mmol/L [facility] Urea nitrogen [Mass/Vol] 16 mg/dL 9 - 20 mg/dL [facility] No Panel Informationon 12-27 ETHYL GLUCURONIDE, URINE Negative Negative [facility] Ethyl Glucuronide taylor s been screened by Immunoassay at a 500 ng/mL threshold. POSITIVE results are not confirmed by a more specific alternative method unless requested. If confirmation is needed, request confirmation under separate order. NOTE: These results are for medical treatment only. Analysis performed using non-forensic procedures. This test has not been cleared by the US Food and Drug Administration (FDA). The FDA has determined that such clearance or approval is not necessary. The performance characteristics have been determined by the clinical laboratories of [facility]. [facility] Sinus rhythm Low voltage, precordial leads IRBBB Electronically Signed On 12-27-2022 10:37:39 EDT by Andrew Mcrae MD - 12/27/2022 IMPRESSION: Sinus rhythm Low voltage, precordial leads IRBBB Electronically Signed On 12-27-2022 10:37:39 EDT by Andrew Lion [facility] No Panel InformationOrdered By: Andrew Lion on 12-27-2022 P [place] 7 degrees [employer] Phone: OR Interval 182 ms [employer] Phone: QRS [place] -1 degrees [employer] Phone: QRSD Interval 113 ms [employer] Phone: QT Interval 432 ms [employer] Phone: QTC Interval 462 ms [employer] Phone: T Wave [place] 30 degrees [employer] Phone: [employer] Phone: Vital signsOrdered By: Makenzie Lion on 12-27-2022 Heart rate 68 /min bpm [facility] Work Phone: CBC W Auto Differential pane l (Bld)on 12-26-2022 Basophils (Bld) [#/Vol] 0.0 10*3/uL 0.0 - 0.2 10*3/uL [facility] Basophils/100 WBC (Bld) 0.5 % 0.0 - 2.0 % [facility] Eosinophils (Bld) [#/Vol] 0.1 10*3/uL 0.0 - 0.5 10*3/uL [facility] Eosinophils/100 WBC (Bld) 1.7 % 1.0 - 6.0 % [facility] Erythrocyte distribution width (RBC) [Ratio] 13.9 % 11.5 - 14.5 % [facility] Hematocrit (Bld) [Volume fraction] 43.1 % 40.0 - 52.0 % [facility] Hemoglobin (Bld) [Mass/Vol] 14.3 g/dL 13.0 - 18.0 g/dL [facility] Interpretation and review of laboratory results Normal [facility] Lymphocytes (Bld) [#/Vol] 1.9 10*3/uL 1.0 - 4.3 10*3/uL [facility] Lymphocytes/100 WBC (Bld) 25.1 % 20.0 - 40.0 % [facility] MCH (RBC) [Entitic mass] 30.9 pg 26.0 - 34.0 pg [facility] MCHC (RBC) [Mass/Vol] 33.3 % 32.0 - 36.0 % [facility] MCV (RBC) [Entitic vol] 92.8 fL 80.0 - 98.0 fL [facility] Monocytes (Bld) [#/Vol] 0.6 10*3/uL 0.0 - 0.8 10*3/uL [facility] Monocytes/100 WBC (Bld) 8.3 % 2.0 - 10.0 % [facility] Neutrophils (Bld) [#/Vol] 5.0 10*3/uL 1.8 - 7.0 10*3/uL [facility] Neutrophils/100 WBC (Bld) 64.4 % 40.0 - 80.0 % [facility] Nucleated RBC/100 WBC (Bld) [Ratio] 0.1 % [facility] Platelet mean volume (Bld) [Entitic vol] 7.4 fL 7.4 - 12.4 fL [facility] Platelets (Bld) [#/Vol] 179 10*3/uL 140 - 440 10*3/uL [facility] RBC (Bld) [#/Vol] 4.65 10*6/uL 4.40 - 5.9 0 10*6/uL [facility] WBC (Bld) [#/Vol] 7.7 10*3/uL 3.6 - 10.7 10*3/uL [facility] Cobalamin (Vitamin B12) [Mas s/Vol]on 12-26-2022 Interpretation and review of laboratory results Normal [facility] Comprehensive metabolic 1998 panelon 12-26-2022 Albumin [Mass/Vol] 3.7 g/dL 3.5 - 5.0 g/dL [facility] ALP [Catalytic activity/Vol] 52 U/L 38 - 126 U/L [facility] ALT [Catalytic activity/Vol] 23 U/L 0 - 49 U/L [facility] Anion gap [Moles/Vol] 5 mmol/L 3 - 13 mmol/L [facility] AST [Catalytic activity/Vol] 28 U/L 15 - 46 U/L [facility] Bilirubin [Mass/Vol] 0.8 mg/dL 0.2 - 1 .3 mg/dL [facility] Calcium [Mass/Vol] 8.3 mg/dL Low 8.4 - 10. 4 mg/dL [facility] Chloride [Moles/Vol] 104 mmol/L 98 - 10 7 mmol/L [facility] CO2 [Moles/Vol] 29 mmol/L 22 - 30 mmol/L [facility] Creatinine [Mass/Vol] 0.72 mg/dL 0.66 - 1.25 mg/dL [facility] GFR/1.73 sq M.predicted MDRD (S/P/Bld) [Vol rate/Area] - PINF [facility] Comment on above: Calculation based on the Chronic Kidney Disease Epidemiology Collaboration (CKD-EPI) equation refit without adjustment for race Glucose [Mass/Vol] 101 mg/dL High 70 - 100 mg/dL [facility] Interpretation and review of laboratory results Abnormal [facility] Potassium [Moles/Vol] 3.9 mmol/L 3.5 - 5.1 mmol/L [facility] Protein [Mass/Vol] 6.8 g/dL 6.3 - 8.2 g/dL [facility] Sodium [Moles/Vol] 138 mmol/L 135 - 145 mmol/L [facility] Urea nitrogen [Mass/Vol] 16 mg/dL 9 - 20 mg/dL [facility] Laboratory - Chemistry and C hemistry - challengeon 12-26-2022 Cobalamin (Vitamin B12) [Mass/Vol] 266 pg/mL 239 - 931 pg/mL [facility] TSH Qn 1.750 m[IU]/L [facility] No Panel InformationOrdered By: Erna Palacios on 12-26-2022 FENTANYL SCREEN, URINE Negative Negative [facility] Fentanyl has been screened for by Immunoassay at a 1 ng/ml threshold. POSITIVE results are not confirmed by a more specific alternative method unless requested. If confirmation is needed, request confirmation under separate order. NOTE: These results are for medical treatment only. Analysis performed using non-forensic procedures. [facility] No Panel InformationOrdered By: Americo Stone on 12-26-2022 AMPHETAMINE (UR) Detected Not Detected [facility] EPHED/PSEUDO. (UR) Not detected Not Detected [facility] MDMA (UR) Not detected Not Detected [facility] METHAMPHETAMINE (UR) Detected Not Detected [facility] PHENTERMINE (UR) Not detected Not Detected [facility] REVIEWED BY Denisa Stone MT [facility] The following were tested for in the urine specimen submitted: Amphetamine, Ephedrine/Pseudoephedrin e, Methamphetamine, MDMA, and Phentermine. Specimen confirmed by Gas Chromatography/Mass Spectrometry. NOTE: These results are for medical treatment only. Analysis performed using non-forensic procedures. This test has not been cleared by the US Food and Drug Administration (FDA). The FDA has determined that such clearance or approval is not necessary. The performance chararcteristics have been determined by the clinical laboratories of [facility]. [facility] TSH Qnon 12-26-2022 Interpretation and review of laboratory results Normal [facility] CBC W Auto Differential pane l (Bld)Ordered By: Juhi Medina on 12-25-2022 Basophils (Bld) [#/Vol] 0.0 10*3/uL 0.0 - 0.2 10*3/uL [facility] Basophils/100 WBC (Bld) 0.3 % 0.0 - 2.0 % [facility] Eosinophils (Bld) [#/Vol] 0.1 10*3/uL 0.0 - 0.5 10*3/uL [facility] Eosinophils/100 WBC (Bld) 1.3 % 1.0 - 6.0 % [facility] [place] Erythrocyte distribution width (RBC) [Ratio] 13.7 % 11.5 - 14.5 % [facility] Hematocrit (Bld) [Volume fraction] 47.7 % 40.0 - 52.0 % [facility] Hemoglobin (Bld) [Mass/Vol] 15.8 g/dL 13.0 - 18.0 g/dL [facility] Interpretation and review of laboratory results Abnormal [facility] Lymphocytes (Bld) [#/Vol] 1.2 10*3/uL 1.0 - 4.3 10*3/uL [facility] Lymphocytes/100 WBC (Bld) 12.6 % Low 20.0 - 40.0 % [facility] MCH (RBC) [Entitic mass] 30.3 pg 26.0 - 34.0 pg [facility] MCHC (RBC) [Mass/Vol] 33.0 % 32.0 - 36.0 % [facility] MCV (RBC) [Entitic vol] 91.7 fL 80.0 - 98.0 fL [facility] Monocytes (Bld) [#/Vol] 0.7 10*3/uL 0.0 - 0.8 10*3/uL [facility] Monocytes/100 WBC (Bld) 7.2 % 2.0 - 10.0 % [facility] Neutrophils (Bld) [#/Vol] 7.4 10*3/uL High 1.8 - 7.0 10*3/uL [facility] Neutrophils/100 WBC (Bld) 78.6 % 40.0 - 80.0 % [facility] Nucleated RBC/100 WBC (Bld) [Ratio] 0.0 % [facility] Platelet mean volume (Bld) [Entitic vol] 7.3 fL Low 7.4 - 12.4 fL [facility] Platelets (Bld) [#/Vol] 197 10*3/uL 140 - 440 10*3/uL [facility] RBC (Bld) [#/Vol] 5.20 10*6/uL 4.40 - 5.9 0 10*6/uL [facility] WBC (Bld) [#/Vol] 9.4 10*3/uL 3.6 - 10.7 10*3/uL [facility] CT Head WO contraston 2022 No acute intracrania l hemorrhage or mass effect. Report Dictated on Electronically Signed By: Grover Elias Electronically Signed Date/Time: 12/25/2022 2:53 PM EDT [facility] Patient Name: HYACINTH HURST : 1960 Exam Date/Time: 12/25/2022 14:31 Procedure: CT HEAD WO IV CONTRAST Ordering Provider: MUNGUIA KEVIN Reason For Exam: Neuro deficit, acute, stroke suspected CT HEAD: CLINICAL INDICATION: Neuro deficit, acute, stroke suspected TECHNIQUE: Transaxial CT sequence performed through the head with 3 mm reconstruction. Sagittal and Coronal reconstruction images included. Dose reduction was employed with automated exposure control. COMPARISON: None FINDINGS: Ventricles and sulci are prominent, consistent with age-related cerebral volume loss. There are scattered foci of hypoattenuation in the periventricular and subcortical white matter, which is nonspecific, but commonly seen with chronic small vessel ischemia. No extra-axial collection. No acute intracranial hemorrhage. No mass effect or midline shift. No CT evidence of an acute large territorial infarction. Imaged paranasal sinuses and mastoid air cells are well aerated. Calvarium is unremarkable. [facility] Grover Elias MD - 12/25/2022 Patient Name: HYACINTH HURST : 1960 Exam Date/Time: 12/25/2022 14:31 Procedure: CT HEAD WO IV CONTRAST Ordering Provider: MUNGUIA KEVIN Reason For Exam: Neuro deficit, acute, stroke suspected CT HEAD: CLINICAL INDICATION: Neuro deficit, acute, stroke suspected TECHNIQUE: Transaxial CT sequence performed through the head with 3 mm reconstruction. Sagittal and Coronal reconstruction images included. Dose reduction was employed with automated exposure control. COMPARISON: None FINDINGS: Ventricles and sulci are prominent, consistent with age-related cerebral volume loss. There are scattered foci of hypoattenuation in the periventricular and subcortical white matter, which is nonspecific, but commonly seen with chronic small vessel ischemia. No extra-axial collection. No acute intracranial hemorrhage. No mass effect or midline shift. No CT evidence of an acute large territorial infarction. Imaged paranasal sinuses and mastoid air cells are well aerated. Calvarium is unremarkable. IMPRESSION: No acute intracranial hemorrhage or mass effect. Report Dictated on Electronically Signed By: Grover Elias Electronically Signed Date/Time: 12/25/2022 2:53 PM EDT [facility] Radiology Study observation (narrative) [facility] CT Head WO contrastOrdered B y: Grover Elias on 12-25-2022 [facility] Work Phone: Comprehensive metabolic 1998 panelon 12-25-2022 Albumin [Mass/Vol] 4.3 g/dL 3.5 - 5.0 g/dL [facility] ALP [Catalytic activity/Vol] 65 U/L 38 - 126 U/L [facility] ALT [Catalytic activity/Vol] 22 U/L 0 - 49 U/L [facility] Anion gap [Moles/Vol] 5 mmol/L 3 - 13 mmol/L [facility] AST [Catalytic activity/Vol] 35 U/L 15 - 46 U/L [facility] Bilirubin [Mass/Vol] 0.9 mg/dL 0.2 - 1 .3 mg/dL [facility] Calcium [Mass/Vol] 8.8 mg/dL 8.4 - 10. 4 mg/dL [facility] Chloride [Moles/Vol] 107 mmol/L 98 - 10 7 mmol/L [facility] CO2 [Moles/Vol] 28 mmol/L 22 - 30 mmol/L [facility] Creatinine [Mass/Vol] 0.87 mg/dL 0.66 - 1.25 mg/dL [facility] GFR/1.73 sq M.predicted MDRD (S/P/Bld) [Vol rate/Area] - PINF [facility] Comment on above: Calculation based on the Chronic Kidney Disease Epidemiology Collaboration (CKD-EPI) equation refit without adjustment for race Glucose [Mass/Vol] 135 mg/dL High 70 - 100 mg/dL [facility] Interpretation and review of laboratory results Abnormal [facility] Potassium [Moles/Vol] 4.2 mmol/L 3.5 - 5.1 mmol/L [facility] Protein [Mass/Vol] 7.9 g/dL 6.3 - 8.2 g/dL [facility] Sodium [Moles/Vol] 139 mmol/L 135 - 145 mmol/L [facility] Urea nitrogen [Mass/Vol] 26 mg/dL High 9 - 20 mg/dL [facility] Ethanol (Bld) [Mass/Vol]on 0 12-25-2022 Ethanol [Mass/Vol] g/dL 0.000 - 0.010 g/dL [facility] Interpretation and review of laboratory results Normal [facility] Laboratory - Chemistry and C hemistry - challengeon 12-25-2022 CK.MB [Mass/Vol] 6.2 ng/mL High 0.0 - 2.4 ng/mL [facility] Comment on above: Both the CKMB and th e Relative Index must be abnormal for clinical significance. Troponin I.cardiac [Mass/Vol] ng/mL 0.000 - 0.034 ng/mL [facility] CK [Catalytic activity/Vol] 196 U/L High 30 - 170 U/L [facility] Laboratory - Drug toxicology Ordered By: Aurelia Sanders on 12-25-2022 Amphetamines Screen method >1000 ng/mL Ql (U) Positive [facility] Barbiturates Screen method >200 ng/mL Ql (U) Negative [facility] Benzodiazepines Ql (U) Negative [facility] Methadone Screen Ql (U) Negative [facility] Opiates Screen Ql (U) Negative [facility] oxyCODONE Ql (U) Negative [facility] Phencyclidine Ql (U) Negative [facility] No Panel InformationOrdered By: Aurelia Sanders on 12-25-2022 COCAINE METAB. SCREEN Negative [facility] The expected value f or all of the drugs listed above is Negative. The following drugs or drug groups have been screened for by Immunoassay at the following thresholds: Amphetamine class (1000 ng/mL) Barbiturates (200 ng/mL) Benzodiazepines (200 ng/mL) Cocaine (300 ng/mL) Methadone (300 ng/mL) Opiates (300 ng/mL) Oxycodone (100 ng/mL) PCP (25 ng/mL) NOTE: These results are for medical treatment only. Analysis performed using non-forensic procedures. POSITIVE results are NOT confirmed by a more specific alternative method unless requested. If confirmation is needed, request confirmation under separate order. [facility] [place] No Panel Informationon 12-25 Heart Rate 54 bpm [facility] P Mes[place] -5 degrees [facility] OR Interval 193 ms [facility] QRS [place] 24 degrees [facility] QRSD Interval 118 ms [facility] QT Interval 488 ms [facility] QTC Interval 465 ms [facility] T Wave [place] 29 degrees [facility] Sinus rhythm Incomplete right bundle branch block Low voltage, precordial leads Compared to ECG 10/09/2022 04:24:10 Incomplete right bundle-branch block now present Electronically Signed On 12-25-2022 17:33:18 EDT by Grover Munguia CV Grover Rider MD - 12/25/2022 IMPRESSION: Sinus rhythm Incomplete right bundle branch block Low voltage, precordial leads Compared to ECG 10/09/2022 04:24:10 Incomplete right bundle-branch block now present Electronically Signed On 12-25-2022 17:33:18 EDT by Grover Munguia [facility] Interpretation and review of laboratory results Abnormal [facility] RELATIVE INDEX 3.2 High 0.0 - 3.0 [facility] Interpretation and review of laboratory results Abnormal [facility] Troponin I.cardiac [Mass/Vol ]on 12-25-2022 Interpretation and review of laboratory results Normal [facility] Patients with high levels of Biotin oral intake (ie >5 mg/day) may have falsely decreased Troponin levels. [facility] Urinalysis complete panel (U )on 12-25-2022 Bilirubin Ql (U) Negative Negative mg/dL [facility] Clarity (U) Clear Clear [facility] Color (U) Yellow Lt. Yellow [facility] Glucose Ql (U) Normal Normal (<70) mg/dL [facility] Hemoglobin Ql (U) Negative Negative mg/dL [facility] Interpretation and review of laboratory results Normal [facility] Ketones (U) [Mass/Vol] Negative Negat lex mg/dL [facility] Leukocyte esterase Test strip Ql (U) Negative Negative Nura/uL [facility] Nitrite Ql (U) Negative Negative [facility] pH (U) 6.0 [pH] 5.0 - 8.0 pH [facility] Protein (U) [Mass/Vol] Negative Negat lex mg/dL [facility] Specific gravity (U) [Rel density] 1.024 1.005 - 1.030 [facility] Urobilinogen (U) [Mass/Vol] Normal Normal (0-1) mg/dL [facility] Bacteria identified Aer cx N om (Unsp spec)on 10-14-2022 Gram Stain Result Moderate Polymorphonuclear leukocytes per low power field Abnormal [facility] Gram Stain Result Positive Abnormal [facility] Interpretation and review of laboratory results Abnormal [facility] Bacteria identified Aer cx N om (Unsp spec)Ordered By: Denisse Miles on 10-14-2022 Gram Stain Result Moderate Polymorphonuclear leukocytes per low power field [facility] Gram Stain Result No organisms seen [facility] Interpretation and review of laboratory results Abnormal [facility] Bacteria identified Cx Nom ( Bld)on 10-14-2022 Interpretation and review of laboratory results Normal [facility] Blood Collection Sit e: Right Hand [facility] Blood Collection Sit e: Right Arm [facility] Basic metabolic 1998 panelon 10-14-2022 Anion gap [Moles/Vol] 3 mmol/L 3 - 13 mmol/L [facility] Calcium [Mass/Vol] 8.8 mg/dL 8.4 - 10. 4 mg/dL [facility] Chloride [Moles/Vol] 103 mmol/L 98 - 10 7 mmol/L [facility] CO2 [Moles/Vol] 31 mmol/L High 22 - 30 mmol/L [facility] Creatinine [Mass/Vol] 0.86 mg/dL 0.66 - 1.25 mg/dL [facility] GFR/1.73 sq M.predicted MDRD (S/P/Bld) [Vol rate/Area] - PINF [facility] Comment on above: Calculation based on the Chronic Kidney Disease Epidemiology Collaboration (CKD-EPI) equation refit without adjustment for race Glucose [Mass/Vol] 125 mg/dL High 70 - 100 mg/dL [facility] Interpretation and review of laboratory results Abnormal [facility] Potassium [Moles/Vol] 4.2 mmol/L 3.5 - 5.1 mmol/L [facility] Sodium [Moles/Vol] 136 mmol/L 135 - 145 mmol/L [facility] Urea nitrogen [Mass/Vol] 17 mg/dL 9 - 20 mg/dL [facility] CBC panel Auto (Bld)on 10-14 Erythrocyte distribution width (RBC) [Ratio] 13.6 % 11.5 - 14.5 % [facility] Hematocrit (Bld) [Volume fraction] 44.0 % 40.0 - 52.0 % [facility] Hemoglobin (Bld) [Mass/Vol] 14.5 g/dL 13.0 - 18.0 g/dL [facility] Interpretation and review of laboratory results Abnormal [facility] MCH (RBC) [Entitic mass] 30.1 pg 26.0 - 34.0 pg [facility] MCHC (RBC) [Mass/Vol] 32.9 % 32.0 - 36.0 % [facility] MCV (RBC) [Entitic vol] 91.4 fL 80.0 - 98.0 fL [facility] Platelet mean volume (Bld) [Entitic vol] 6.8 fL Low 7.4 - 12.4 fL [facility] Platelets (Bld) [#/Vol] 257 10*3/uL 140 - 440 10*3/uL [facility] RBC (Bld) [#/Vol] 4.81 10*6/uL 4.40 - 5.9 0 10*6/uL [facility] WBC (Bld) [#/Vol] 9.6 10*3/uL 3.6 - 10.7 10*3/uL [facility] Laboratory - Chemistry and C hemistry - challengeon 10-14-2022 Glucose [Mass/Vol] 117 mg/dL High 70 - 100 mg/dL [facility] Glucose [Mass/Vol] 105 mg/dL High 70 - 100 mg/dL [facility] Glucose [Mass/Vol] 105 mg/dL High 70 - 100 mg/dL [facility] Laboratory - Microbiology an d Antimicrobial susceptibilityon 10-14-2022 Bacteria identified Aer cx Nom (Unsp spec) Moderate Streptococcus agalactiae (Group B) Abnormal [facility] Comment on above: Susceptibility testi ng not performed. Beta-hemolytic streptococci are universally susceptible to beta-lactam antibiotics. If patient is beta-lactam allergic, providers should call the [facility] Microbiology Laboratory ([phone]) within 3 days to request susceptibility testing. Bacteria identified Cx Nom (Bld) No growth at 5 days [facility] Laboratory - Microbiology an d Antimicrobial susceptibilityOrdered By: Denisse Miles on 10-14-2022 Bacteria identified Aer cx Nom (Unsp spec) Rare Streptococcus agalactiae (Group B) Abnormal [facility] Comment on above: Susceptibility testi ng not performed. Beta-hemolytic streptococci are universally susceptible to beta-lactam antibiotics. If patient is beta-lactam allergic, providers should call the [facility] Microbiology Laboratory ([phone]) within 3 days to request susceptibility testing. No Panel Informationon 10-14 Interpretation and review of laboratory results Abnormal [facility] Performed by: [facility], [address] [place] [address] CLIA ID: [id number] [facility] Interpretation and review of laboratory results Abnormal [facility] Performed by: [facility], [address] [place] [address] CLIA ID: [id number] [facility] Interpretation and review of laboratory results Abnormal [facility] Performed by: [facility], [address] [place] [address] CLIA ID: [id number] [facility] Laboratory - Chemistry and C hemistry - challengeon 10-13-2022 Glucose [Mass/Vol] 83 mg/dL 70 - 100 mg/dL [facility] Glucose [Mass/Vol] 87 mg/dL 70 - 100 mg/dL [facility] Glucose [Mass/Vol] 104 mg/dL High 70 - 100 mg/dL [facility] No Panel Informationon 10-13 Interpretation and review of laboratory results Normal [facility] Performed by: [facility], [address] [place] [id number] CLIA ID: [id number] [facility] Interpretation and review of laboratory results Normal [facility] Performed by: [facility], [address] [place] [address] CLIA ID: [id number] [facility] Interpretation and review of laboratory results Abnormal [facility] Performed by: [facility], [address] [place] [address] CLIA ID: [id number] [facility] Basic metabolic 1998 panelon 10-12-2022 Anion gap [Moles/Vol] 2 mmol/L Low 3 - 13 mmol/L [facility] Calcium [Mass/Vol] 8.5 mg/dL 8.4 - 10. 4 mg/dL [facility] Chloride [Moles/Vol] 103 mmol/L 98 - 10 7 mmol/L [facility] CO2 [Moles/Vol] 29 mmol/L 22 - 30 mmol/L [facility] Creatinine [Mass/Vol] 0.92 mg/dL 0.66 - 1.25 mg/dL [facility] GFR/1.73 sq M.predicted MDRD (S/P/Bld) [Vol rate/Area] - PINF [facility] Comment on above: Calculation based on the Chronic Kidney Disease Epidemiology Collaboration (CKD-EPI) equation refit without adjustment for race Glucose [Mass/Vol] 190 mg/dL High 70 - 100 mg/dL [facility] Interpretation and review of laboratory results Abnormal [facility] Potassium [Moles/Vol] 4.4 mmol/L 3.5 - 5.1 mmol/L [facility] Sodium [Moles/Vol] 134 mmol/L Low 135 - 145 mmol/L [facility] Urea nitrogen [Mass/Vol] 23 mg/dL High 9 - 20 mg/dL [facility] CBC W Auto Differential pane l (Bld)Ordered By: Brennon Hernandez on 10-12-2022 Basophils (Bld) [#/Vol] 0.1 10*3/uL 0.0 - 0.2 10*3/uL [facility] Basophils/100 WBC (Bld) 0.6 % 0.0 - 2.0 % [facility] Eosinophils (Bld) [#/Vol] 0.0 10*3/uL 0.0 - 0.5 10*3/uL [facility] Eosinophils/100 WBC (Bld) 0.4 % Low 1.0 - 6.0 % [facility] Erythrocyte distribution width (RBC) [Ratio] 13.7 % 11.5 - 14.5 % [facility] Hematocrit (Bld) [Volume fraction] 41.9 % 40.0 - 52.0 % [facility] Hemoglobin (Bld) [Mass/Vol] 13.9 g/dL 13.0 - 18.0 g/dL [facility] Interpretation and review of laboratory results Abnormal [facility] Lymphocytes (Bld) [#/Vol] 0.8 10*3/uL Low 1.0 - 4.3 10*3/uL [facility] Lymphocytes/100 WBC (Bld) 6.1 % Low 20.0 - 40.0 % [facility] MCH (RBC) [Entitic mass] 30.1 pg 26.0 - 34.0 pg [facility] MCHC (RBC) [Mass/Vol] 33.1 % 32.0 - 36.0 % [facility] MCV (RBC) [Entitic vol] 90.9 fL 80.0 - 98.0 fL [facility] Monocytes (Bld) [#/Vol] 1.1 10*3/uL High 0.0 - 0.8 10*3/uL [facility] Monocytes/100 WBC (Bld) 8.5 % 2.0 - 10.0 % [facility] Neutrophils (Bld) [#/Vol] 11.2 10*3/uL High 1.8 - 7.0 10*3/uL [facility] Neutrophils/100 WBC (Bld) 84.4 % High 40.0 - 80.0 % [facility] Nucleated RBC/100 WBC (Bld) [Ratio] 0.1 % [facility] Platelet mean volume (Bld) [Entitic vol] 7.4 fL 7.4 - 12.4 fL [facility] Platelets (Bld) [#/Vol] 228 10*3/uL 140 - 440 10*3/uL [facility] RBC (Bld) [#/Vol] 4.61 10*6/uL 4.40 - 5.9 0 10*6/uL [facility] WBC (Bld) [#/Vol] 13.2 10*3/uL High 3.6 - 10.7 10*3/uL [facility] Laboratory - Chemistry and C hemistry - challengeon 10-12-2022 Glucose [Mass/Vol] 133 mg/dL High 70 - 100 mg/dL [facility] Glucose [Mass/Vol] 104 mg/dL High 70 - 100 mg/dL [facility] Glucose [Mass/Vol] 130 mg/dL High 70 - 100 mg/dL [facility] Glucose [Mass/Vol] 105 mg/dL High 70 - 100 mg/dL [facility] No Panel Informationon 10-12 Interpretation and review of laboratory results Abnormal [facility] Performed by: [facility], [address] [place] [address] [place] [address] CLIA ID: [id number] [facility] Interpretation and review of laboratory results Abnormal [facility] Performed by: [facility], [address] [facility] [address] CLIA ID: [id number] [facility] Interpretation and review of laboratory results Abnormal [facility] Performed by: [facility], [address] [facility] [address] CLIA ID: [id number] [facility] Interpretation and review of laboratory results Abnormal [facility] Performed by: [facility], [address] [facility] [address] CLIA ID: [id number] [facility] Basic metabolic 1998 panelon 10-11-2022 Anion gap [Moles/Vol] 1 mmol/L Low 3 - 13 mmol/L [facility] Calcium [Mass/Vol] 8.8 mg/dL 8.4 - 10. 4 mg/dL [facility] Chloride [Moles/Vol] 105 mmol/L 98 - 10 7 mmol/L [facility] CO2 [Moles/Vol] 30 mmol/L 22 - 30 mmol/L [facility] Creatinine [Mass/Vol] 0.83 mg/dL 0.66 - 1.25 mg/dL [facility] GFR/1.73 sq M.predicted MDRD (S/P/Bld) [Vol rate/Area] - PINF [facility] Comment on above: Calculation based on the Chronic Kidney Disease Epidemiology Collaboration (CKD-EPI) equation refit without adjustment for race Glucose [Mass/Vol] 108 mg/dL High 70 - 100 mg/dL [facility] Interpretation and review of laboratory results Abnormal [facility] Potassium [Moles/Vol] 4.1 mmol/L 3.5 - 5.1 mmol/L [facility] Sodium [Moles/Vol] 136 mmol/L 135 - 145 mmol/L [facility] Urea nitrogen [Mass/Vol] 14 mg/dL 9 - 20 mg/dL [facility] CBC W Auto Differential pane l (Bld)Ordered By: Bartolo Jimenez on 10-11-2022 Basophils (Bld) [#/Vol] 0.1 10*3/uL 0.0 - 0.2 10*3/uL [facility] Basophils/100 WBC (Bld) 1.2 % 0.0 - 2.0 % [facility] Eosinophils (Bld) [#/Vol] 0.2 10*3/uL 0.0 - 0.5 10*3/uL [facility] Eosinophils/100 WBC (Bld) 1.8 % 1.0 - 6.0 % [facility] Erythrocyte distribution width (RBC) [Ratio] 13.7 % 11.5 - 14.5 % [facility] Hematocrit (Bld) [Volume fraction] 42.2 % 40.0 - 52.0 % [facility] Hemoglobin (Bld) [Mass/Vol] 14.3 g/dL 13.0 - 18.0 g/dL [facility] Interpretation and review of laboratory results Abnormal [facility] Lymphocytes (Bld) [#/Vol] 1.2 10*3/uL 1.0 - 4.3 10*3/uL [facility] Lymphocytes/100 WBC (Bld) 13.2 % Low 20.0 - 40.0 % [facility] MCH (RBC) [Entitic mass] 31.1 pg 26.0 - 34.0 pg [facility] MCHC (RBC) [Mass/Vol] 33.8 % 32.0 - 36.0 % [facility] MCV (RBC) [Entitic vol] 91.9 fL 80.0 - 98.0 fL [facility] Monocytes (Bld) [#/Vol] 1.0 10*3/uL High 0.0 - 0.8 10*3/uL [facility] Monocytes/100 WBC (Bld) 11.1 % High 2.0 - 10.0 % [facility] Neutrophils (Bld) [#/Vol] 6.7 10*3/uL 1.8 - 7.0 10*3/uL [facility] Neutrophils/100 WBC (Bld) 72.7 % 40.0 - 80.0 % [facility] Nucleated RBC/100 WBC (Bld) [Ratio] 0.0 % [facility] Platelet mean volume (Bld) [Entitic vol] 7.5 fL 7.4 - 12.4 fL [facility] Platelets (Bld) [#/Vol] 216 10*3/uL 140 - 440 10*3/uL [facility] RBC (Bld) [#/Vol] 4.60 10*6/uL 4.40 - 5.9 0 10*6/uL [facility] WBC (Bld) [#/Vol] 9.2 10*3/uL 3.6 - 10.7 10*3/uL [facility] Laboratory - Chemistry and C hemistry - challengeon 10-11-2022 Glucose [Mass/Vol] 169 mg/dL High 70 - 100 mg/dL [facility] Glucose [Mass/Vol] 140 mg/dL High 70 - 100 mg/dL [facility] Glucose [Mass/Vol] 95 mg/dL 70 - 100 mg/dL [facility] Glucose [Mass/Vol] 110 mg/dL High 70 - 100 mg/dL [facility] [place] No Panel Informationon 10-11 Interpretation and review of laboratory results Abnormal [facility] [place] Performed by: [facility], [address] [place] [address] CLIA ID: [id number] [facility] Interpretation and review of laboratory results Abnormal [facility] Performed by: [facility], [address] [facility] [address] CLIA ID: [id number] [facility] Interpretation and review of laboratory results Normal [facility] Performed by: [facility], [address] [place] [address] CLIA ID: [id number] [facility] Interpretation and review of laboratory results Abnormal [facility] Performed by: [facility], [address] [place] [address] CLIA ID: [id number] [facility] CBC W Auto Differential pane l (Bld)Ordered By: Harshil Henderson on 10-10-2022 Basophils (Bld) [#/Vol] 0.1 10*3/uL 0.0 - 0.2 10*3/uL [facility] [place] Basophils/100 WBC (Bld) 0.8 % 0.0 - 2.0 % [facility] Eosinophils (Bld) [#/Vol] 0.2 10*3/uL 0.0 - 0.5 10*3/uL [facility] [place] Eosinophils/100 WBC (Bld) 2.0 % 1.0 - 6.0 % [facility] Erythrocyte distribution width (RBC) [Ratio] 13.7 % 11.5 - 14.5 % [facility] [place] Hematocrit (Bld) [Volume fraction] 42.3 % 40.0 - 52.0 % [facility] Hemoglobin (Bld) [Mass/Vol] 14.1 g/dL 13.0 - 18.0 g/dL [facility] Interpretation and review of laboratory results Abnormal [facility] Lymphocytes (Bld) [#/Vol] 1.6 10*3/uL 1.0 - 4.3 10*3/uL [facility] Lymphocytes/100 WBC (Bld) 16.2 % Low 20.0 - 40.0 % [facility] MCH (RBC) [Entitic mass] 30.5 pg 26.0 - 34.0 pg [facility] MCHC (RBC) [Mass/Vol] 33.2 % 32.0 - 36.0 % [facility] MCV (RBC) [Entitic vol] 91.7 fL 80.0 - 98.0 fL [facility] Monocytes (Bld) [#/Vol] 1.1 10*3/uL High 0.0 - 0.8 10*3/uL [facility] Monocytes/100 WBC (Bld) 11.0 % High 2.0 - 10.0 % [facility] Neutrophils (Bld) [#/Vol] 7.2 10*3/uL High 1.8 - 7.0 10*3/uL [facility] Neutrophils/100 WBC (Bld) 70.0 % 40.0 - 80.0 % [facility] Nucleated RBC/100 WBC (Bld) [Ratio] 0.0 % [facility] Platelet mean volume (Bld) [Entitic vol] 7.7 fL 7.4 - 12.4 fL [facility] Platelets (Bld) [#/Vol] 210 10*3/uL 140 - 440 10*3/uL [facility] RBC (Bld) [#/Vol] 4.62 10*6/uL 4.40 - 5.9 0 10*6/uL [facility] WBC (Bld) [#/Vol] 10.2 10*3/uL 3.6 - 10.7 10*3/uL [facility] Laboratory - Chemistry and C hemistry - challengeon 10-10-2022 Glucose [Mass/Vol] 125 mg/dL High 70 - 100 mg/dL [facility] Glucose [Mass/Vol] 107 mg/dL High 70 - 100 mg/dL [facility] Glucose [Mass/Vol] 108 mg/dL High 70 - 100 mg/dL [facility] [place] Glucose [Mass/Vol] 129 mg/dL High 70 - 100 mg/dL [facility] [place] No Panel Informationon 10-10 Interpretation and review of laboratory results Abnormal [facility] [place] Performed by: [facility], [address], [facility] [address] CLIA ID: [id number] [facility] [place] Interpretation and review of laboratory results Abnormal [facility] [place] Performed by: [facility], [address], [facility] [address] CLIA ID: [id number] [facility] [place] [facility] [place] Interpretation and review of laboratory results Abnormal [facility] [place] Performed by: [facility], [address], [facility] [address] CLIA ID: [id number] [facility] [place] [facility] [place] Interpretation and review of laboratory results Abnormal [facility] [place] Performed by: [facility], [address], [facility] [address] CLIA ID: [id number] [facility] [place] [facility] [place] Heart TransthoracicOrdere d By: Inocencia Tavares on 10-10-2022 Ao Root Index 1.36 cm/m2 [employer] Work Phone: Aortic Root 3.5 cm [facility] [place] Work Phone: Ascending Aorta 4.0 cm [facility] Work Phone: Ascending Aorta Index 1.55 cm/m2 [facility] [place] Work Phone: E/E' Lateral 6.70 [facility] [place] Work Phone: E/E' Ratio (Averaged) 6.70 [facility] [place] Work Phone: E/E' Septal 6.70 [facility] [place] Work Phone: Fractional Shortening 2D 37 % 28 - 44 % [employer] Work Phone: Interpretation and review of laboratory results Abnormal [employer] Work Phone: IVC Diameter 2.0 cm [employer] Work Phone: IVSd 1.1 cm Abnormal 0.6 - 1.0 cm [facility] Work Phone: LA Volume 2C 85 mL Abnormal 18 - 58 mL [facility] Work Phone: LA Volume 4C 113 mL Abnormal 18 - 58 mL [facility] Work Phone: LA Volume A/L 104 mL [facility] Work Phone: LA Volume BP 99 mL Abnormal 18 - 58 mL [facility] Work Phone: LA Volume Index 2C 33 mL/m2 16 - 34 mL/m2 [facility] Work Phone: LA Volume Index 4C 44 mL/m2 Abnormal 16 - 34 mL/m2 [facility] Work Phone: LA Volume Index A/L 40 mL/m2 16 - 34 mL/m2 [facility] Work Phone: LA Volume Index BP 38 ml/m2 Abnormal 16 - 34 ml/m2 [facility] Work Phone: LV E' Lateral Velocity 10 cm/s [facility] Work Phone: LV E' Septal Velocity 10 cm/s [facility] Work Phone: LV Mass 2D 176.0 g 88 - 224 g [facility] Work Phone: LV Mass 2D Index 68.2 g/m2 49 - 115 g/m2 [facility] Work Phone: LV RWT Ratio 0.37 [facility] Work Phone: LVIDd 4.9 cm 4.2 - 5.9 cm [facility] Work Phone: LVIDd Index 1.90 cm/m2 [facility] Work Phone: LVIDs 3.1 cm [facility] [facility] Work Phone: LVIDs Index 1.20 cm/m2 [facility] Work Phone: LVOT Area 2.8 cm2 [facility] Work Phone: LVOT Diameter 1.9 cm [facility] Work Phone: LVPWd 0.9 cm 0.6 - 1.0 cm [facility] Work Phone: MV A Velocity 0.81 m/s [facility] Reply Phone: MV E Velocity 0.67 m/s [facility] Reply Phone: MV E Wave Deceleration Time 141.3 ms [facility] Reply Phone: MV E/A 0.83 [facility] Reply Phone: RV Free Wall Peak S' 12 cm/s [facility] Comic Reply Phone: TAPSE 2.1 cm 1.7 cm [facility] Phone: [facility] Reply Phone: US Heart Transthoracicon Left Ventricle: Left ventricle size is normal. Normal wall thickness. Normal left ventricular systolic function. The EF by visual approximation is 55%. Normal wall motion. Right Ventricle: Right ventricle size is normal. Normal systolic function. No significant valvular abnormalities. Technically difficult study. Left Ventricle Left ventricle size is normal. Normal wall thickness. Normal left ventricular systolic function. The EF by visual approximation is 55%. Normal wall motion. Right Ventricle Right ventricle size is normal. Normal systolic function. Left Atrium Left atrium size is normal. Right Atrium Right atrium size is normal. IVC/SVC Cannot estimate RA pressure due to the IVC not being visualized. Mitral Valve No regurgitation. No stenosis noted. Tricuspid Valve Trace regurgitation. Unable to assess RVSP due to inadequate Doppler assessment. Aortic Valve Trileaflet. No regurgitation. No stenosis. Pulmonic Valve The pulmonic valve was not well visualized. Trace regurgitation. Ascending Aorta Not well visualized. Normal sized sinuses of Valsalva and ascending aorta. Pericardium Not well visualized. Septum No interatrial shunt visualized on color Doppler. Study Details Image quality: poor. Technical qualifiers: Technically difficult study, technically difficult study with poor endocardial visualization and technically difficult study due to patient's body habitus. Ultrasound enhancement agent was given to enhance imaging. Echo Additional Conclusions No significant valvular abnormalities.Technicall y difficult study. CV CPACS Basic metabolic 1998 panelon 10-09-2022 Anion gap [Moles/Vol] 4 mmol/L 3 - 13 mmol/L [facility] [place] Calcium [Mass/Vol] 8.2 mg/dL Low 8.4 - 10. 4 mg/dL [facility] [place] Chloride [Moles/Vol] 105 mmol/L 98 - 10 7 mmol/L [facility] CO2 [Moles/Vol] 28 mmol/L 22 - 30 mmol/L [facility] Creatinine [Mass/Vol] 0.92 mg/dL 0.66 - 1.25 mg/dL [facility] GFR/1.73 sq M.predicted MDRD (S/P/Bld) [Vol rate/Area] - PINF [facility] Comment on above: Calculation based on the Chronic Kidney Disease Epidemiology Collaboration (CKD-EPI) equation refit without adjustment for race Glucose [Mass/Vol] 99 mg/dL 70 - 100 mg/dL [facility] Interpretation and review of laboratory results Abnormal [facility] Potassium [Moles/Vol] 4.1 mmol/L 3.5 - 5.1 mmol/L [facility] Sodium [Moles/Vol] 138 mmol/L 135 - 145 mmol/L [facility] Urea nitrogen [Mass/Vol] 12 mg/dL 9 - 20 mg/dL [facility] CBC W Auto Differential pane l (Bld)Ordered By: Katina Kraft on 10-09-2022 Basophils (Bld) [#/Vol] 0.0 10*3/uL 0.0 - 0.2 10*3/uL [facility] Basophils/100 WBC (Bld) 0.4 % 0.0 - 2.0 % [facility] Eosinophils (Bld) [#/Vol] 0.3 10*3/uL 0.0 - 0.5 10*3/uL [facility] Eosinophils/100 WBC (Bld) 2.4 % 1.0 - 6.0 % [facility] Erythrocyte distribution width (RBC) [Ratio] 13.3 % 11.5 - 14.5 % [facility] Hematocrit (Bld) [Volume fraction] 41.5 % 40.0 - 52.0 % [facility] Hemoglobin (Bld) [Mass/Vol] 13.8 g/dL 13.0 - 18.0 g/dL [facility] Interpretation and review of laboratory results Abnormal [facility] Lymphocytes (Bld) [#/Vol] 1.4 10*3/uL 1.0 - 4.3 10*3/uL [facility] Lymphocytes/100 WBC (Bld) 13.2 % Low 20.0 - 40.0 % [facility] MCH (RBC) [Entitic mass] 30.5 pg 26.0 - 34.0 pg [facility] MCHC (RBC) [Mass/Vol] 33.3 % 32.0 - 36.0 % [facility] MCV (RBC) [Entitic vol] 91.5 fL 80.0 - 98.0 fL [facility] Monocytes (Bld) [#/Vol] 0.9 10*3/uL High 0.0 - 0.8 10*3/uL [facility] Monocytes/100 WBC (Bld) 8.7 % 2.0 - 10.0 % [facility] Neutrophils (Bld) [#/Vol] 8.2 10*3/uL High 1.8 - 7.0 10*3/uL [facility] Neutrophils/100 WBC (Bld) 75.3 % 40.0 - 80.0 % [facility] Nucleated RBC/100 WBC (Bld) [Ratio] 0.0 % [facility] Platelet mean volume (Bld) [Entitic vol] 7.4 fL 7.4 - 12.4 fL [facility] Platelets (Bld) [#/Vol] 201 10*3/uL 140 - 440 10*3/uL [facility] RBC (Bld) [#/Vol] 4.53 10*6/uL 4.40 - 5.9 0 10*6/uL [facility] WBC (Bld) [#/Vol] 10.8 10*3/uL High 3.6 - 10.7 10*3/uL [facility] CRP [Mass/Vol]on 10-09-2022 Interpretation and review of laboratory results Abnormal [facility] Comprehensive metabolic 1998 panelon 10-09-2022 Albumin [Mass/Vol] 3.8 g/dL 3.5 - 5.0 g/dL [facility] ALP [Catalytic activity/Vol] 67 U/L 38 - 126 U/L [facility] ALT [Catalytic activity/Vol] 92 U/L High 0 - 49 U/L [facility] Anion gap [Moles/Vol] 4 mmol/L 3 - 13 mmol/L [facility] AST [Catalytic activity/Vol] 76 U/L High 15 - 46 U/L [facility] Bilirubin [Mass/Vol] 0.8 mg/dL 0.2 - 1 .3 mg/dL [facility] Calcium [Mass/Vol] 7.9 mg/dL Low 8.4 - 10. 4 mg/dL [facility] Chloride [Moles/Vol] 107 mmol/L 98 - 10 7 mmol/L [facility] CO2 [Moles/Vol] 26 mmol/L 22 - 30 mmol/L [facility] Creatinine [Mass/Vol] 0.77 mg/dL 0.66 - 1.25 mg/dL [facility] GFR/1.73 sq M.predicted MDRD (S/P/Bld) [Vol rate/Area] - PINF [facility] Comment on above: Calculation based on the Chronic Kidney Disease Epidemiology Collaboration (CKD-EPI) equation refit without adjustment for race Glucose [Mass/Vol] 106 mg/dL High 70 - 100 mg/dL [facility] Interpretation and review of laboratory results Abnormal [facility] Potassium [Moles/Vol] 4.0 mmol/L 3.5 - 5.1 mmol/L [facility] Protein [Mass/Vol] 7.0 g/dL 6.3 - 8.2 g/dL [facility] Sodium [Moles/Vol] 136 mmol/L 135 - 145 mmol/L [facility] Urea nitrogen [Mass/Vol] 13 mg/dL 9 - 20 mg/dL [facility] Slightly Hemolyzed [facility] HbA1c (Bld) [Mass fraction]o n 10-09-2022 Glucose [Mass/Vol] 108 mg/dL [facility] HbA1c (Bld) [Mass/Vol] 5.4 % NINF - 5.7 % [facility] Comment on above: Normal less than 5.7 % Prediabetes 5.7% to 6.4% Diabetes 6.5% or higher --HgbA1C levels may not be accurate in patients who have renal disease, received recent blood transfusions, are anemic, or who have dyshemoglobinemia. [facility] Laboratory - Chemistry and C hemistry - challengeon 10-09-2022 Glucose [Mass/Vol] 204 mg/dL High 70 - 100 mg/dL [facility] Glucose [Mass/Vol] 138 mg/dL High 70 - 100 mg/dL [facility] Glucose [Mass/Vol] 94 mg/dL 70 - 100 mg/dL [facility] Troponin I.cardiac [Mass/Vol] ng/mL 0.000 - 0.034 ng/mL [facility] Glucose [Mass/Vol] 94 mg/dL 70 - 100 mg/dL [facility] Troponin I.cardiac [Mass/Vol] ng/mL 0.000 - 0.034 ng/mL [facility] [place] CRP [Mass/Vol] 28.1 mg/L High NINF - 10.0 mg/L [facility] Lactate [Moles/Vol] 1.7 mmol/L 0.7 - 2. 0 mmol/L [facility] Lipid 1996 panelon 3 Cholesterol [Mass/Vol] 139 mg/dL NINF - 200 mg/dL [facility] [place] Cholesterol in HDL [Mass/Vol] 60 mg/dL 40 - 60 mg/dL [facility] Cholesterol in LDL [Mass/Vol] 66 mg/dL 0 - <100 [facility] [place] Cholesterol.total/Lori sterol in HDL [Mass ratio] 2 {ratio} [facility] [place] Comment on above: Ref Range: < 3 Low Risk for CHD 3-6 Mod Risk for CHD > 6 High Risk for CHD Triglyceride [Mass/Vol] 67 mg/dL NINF - 150 mg/dL [facility] [place] Natriuretic peptide B [Mass/ Vol]on 10-09-2022 Interpretation and review of laboratory results Abnormal [facility] Natriuretic peptide B (Bld) [Mass/Vol] 331 pg/mL High 0 - 125 pg/mL [facility] [place] No Panel Informationon 10-09 Interpretation and review of laboratory results Abnormal [facility] [place] Performed by: [facility], [address] [place] [address] CLIA ID: [id number] [facility] [place] [facility] Interpretation and review of laboratory results Abnormal [facility] [place] Performed by: [facility], [address] [place] [id number] CLIA ID: [id number] [facility] Interpretation and review of laboratory results Normal [facility] Performed by: [facility], [address] [place] [id number] CLIA ID: [id number] [facility] No evidence of deep vein or superficial vein thrombosis in the right lower extremity. Vessels demonstrate normal compressibility, color filling, and phasic and spontaneous flow. No evidence of deep vein or superficial vein thrombosis in the left lower extremity. Vessels demonstrate normal compressibility, color filling, and phasic and spontaneous flow. Right Lower Venous No evidence of deep vein or superficial vein thrombosis. The common femoral, saphenofemoral junction, femoral, popliteal, gastrocnemius, soleal, greater saphenous, posterior tibial, and peroneal veins were imaged in the transverse view and showed normal compressibility. The common femoral, middle femoral, and popliteal veins were imaged in the longitudinal view and showed normal color filling and normal phasic and spontaneous flow. Left Lower Venous No evidence of deep vein or superficial vein thrombosis. The common femoral, saphenofemoral junction, femoral, popliteal, gastrocnemius, soleal, greater saphenous, posterior tibial, and peroneal veins were imaged in the transverse view and showed normal compressibility. The common femoral, middle femoral, and popliteal veins were imaged in the longitudinal view and showed normal color filling and normal phasic and spontaneous flow. [employer] Worker Details A montgomery scale, color Doppler imaging and spectral Doppler analysis ultrasound was performed. During the study longitudinal and transverse views were obtained. Pulsed wave doppler was performed. The exam was performed with the patient in the supine position. Overall the study quality was adequate. Study was technically difficult due to: body habitus and diffuse subcutaneous edema. CV CPA Interpretation and review of laboratory results Normal [facility] Performed by: [facility], [address] [place] [address] CLIA ID: [id number] [facility] P Mesa -1 degrees [facility] OR Interval 179 ms [facility] QRS Mesa 3 degrees [facility] QRSD Interval 108 ms [facility] QT Interval 435 ms [facility] QTC Interval 455 ms [facility] T Wave Mes[place] 19 degrees [facility] Sinus rhythm Low voltage, precordial leads Compared to ECG 03/16/2022 06:41:23 Grossly unchanged Electronically Signed On 10-09-2022 6:44:17 EST by Jurgen Castro CV Jurgen Delgado D O - 10/09/2022 IMPRESSION: Sinus rhythm Low voltage, precordial leads Compared to ECG 03/16/2022 06:41:23 Grossly unchanged Electronically Signed On 10-09-2022 6:44:17 EST by Jurgen Castro [facility] Interpretation and review of laboratory results Normal [facility] Troponin I.cardiac [Mass/Vol ]on 10-09-2022 Interpretation and review of laboratory results Normal [facility] Patients with high levels of Biotin oral intake (ie >5 mg/day) may have falsely decreased Troponin levels. [facility] Interpretation and review of laboratory results Normal [facility] Patients with high levels of Biotin oral intake (ie >5 mg/day) may have falsely decreased Troponin levels. [facility] Vital signson 10-09-2022 Heart rate 67 /min bpm [facility] XR Chest Single viewon 10-09 1.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 [facility] Comment on above: Result Comment: . Performed By: #### A DDON, COVAG, CUA2, DRGA4 #### [facility] [address] [place] [address] Ketone,Urine Negative Normal Negative [facility] Comment on above: Result Comment: . Performed By: #### A DDON, COVAG, CUA2, DRGA4 #### [facility] [address] [place] [address] Leukocytes,Urine Negative Normal Negative [facility] Comment on above: Result Comment: . Performed By: #### A DDON, COVAG, CUA2, DRGA4 #### [facility] [address] [place] [address] Mucous Threads Moderate Abnormal Negative [facility] Comment on above: Result Comment: . Performed By: #### A DDON, COVAG, CUA2, DRGA4 #### [facility] [address] [place] [address] Nitrites,Urine Negative Normal Negative [facility] Comment on above: Result Comment: . Performed By: #### A DDON, COVAG, CUA2, DRGA4 #### [facility] [address] [place] [address] Occult Blood,Urine 0.03 mg/dL Abnormal Negative [facility] Comment on above: Result Comment: . Performed By: #### A DDON, COVAG, CUA2, DRGA4 #### [facility] [address] [place] [address] pH,Urine 6.0 Normal 5.0-8.0 [facility] Comment on above: Result Comment: . Performed By: #### A DDON, COVAG, CUA2, DRGA4 #### [facility] [address] [place] [address] RBC, Urine 3 - 5 Abnormal 0-2 [facility] Comment on above: Result Comment: . Performed By: #### A DDON, COVAG, CUA2, DRGA4 #### [facility] [address] [place] [address] Specific [place],Urine 1.014 Normal 1.005 - 1.030 [facility] Comment on above: Result Comment: . Performed By: #### A DDON, COVAG, CUA2, DRGA4 #### [facility] [address] [place] [address] Squamous Epithelial 0 - 2 Normal 3-5 [facility] Comment on above: Result Comment: . Performed By: #### A DDON, COVAG, CUA2, DRGA4 #### [facility] [address] [place] [address] Total Protein,Urine Negative Normal Negative [facility] Comment on above: Result Comment: . Performed By: #### A DDON, COVAG, CUA2, DRGA4 #### [facility] [address] [place] [address] Urobilinogen,Urine Normal Normal Normal (0-1) [facility] Comment on above: Result Comment: . Performed By: #### A DDON, COVAG, CUA2, DRGA4 #### [facility] [address] [place] [address] WBC, Urine 3 - 5 Normal 0-5 [facility] Comment on above: Result Comment: . Performed By: #### A DDON, COVAG, CUA2, DRGA4 #### [facility] [address] [place] [address] Drugs of Abuseon 02-16-2022 Opiates, Ur Negative Normal [facility] Comment on above: Performed By: #### A DDON, COVAG, CUA2, DRGA4 #### [facility] [address] [place] [address] Amphetamines, Ur Positive Normal [facility] Comment on above: Performed By: #### A DDON, COVAG, CUA2, DRGA4 #### [facility] [address] [place] [address] Phencyclidine (PCP), Ur Negative Normal [facility] Comment on above: Result Comment: The expected value for all of the drugs listed above is Negative. The following drugs or drug groups have been screened for by Immunoassay at the following thresholds: Amphetamine class (1000 ng/mL), Barbiturates (200 ng/mL), Benzodiazepines (200 ng/mL), Cocaine (300 ng/mL), Methadone (300 ng/mL), Opiates (300 ng/mL), Oxycodone (100 ng/mL), and PCP (25 ng/mL). NOTE: These results are for medical treatment only. Analysis performed using non-forensic procedures. POSITIVE results are NOT confirmed by a more specific alternative method unless requested. If confirmation is needed, request confirmation under separate order. Performed By: #### A DDON, COVAG, CUA2, DRGA4 #### [facility] [address] [place] [address] Methadone, Ur Negative Normal [facility] Comment on above: Performed By: #### A DDON, COVAG, CUA2, DRGA4 #### [facility] [address] [place] [address] Cocaine, Ur Negative Normal [facility] Comment on above: Performed By: #### A DDON, COVAG, CUA2, DRGA4 #### [facility] [address] [place] [address] Barbiturates, Ur Negative Normal [facility] Comment on above: Performed By: #### A DDON, COVAG, CUA2, DRGA4 #### [facility] [address] [place] [address] Benzodiazepines, Ur Negative Normal [facility] Comment on above: Performed By: #### A DDON, COVAG, CUA2, DRGA4 #### [facility] [address] [place] [address] Oxycodone/Oxymorphine,U r Negative Normal [facility] Comment on above: Performed By: #### A DDON, COVAG, CUA2, DRGA4 #### [facility] [address] [place] [address] EKG 12 Leadon 02-16-2022 [facility] Test Date: 2022-02-16 Pat Name: HYACINTH HURST Department: 2AED Room: 14 Gender: M Receiving Room Clerk: ANDRESSA : 1960 Requested By: JAYLENE VERDUZCO Order Number: [id number] Devaughn MD: Jaylene Verduzco Measurements Intervals [place] Rate: 48 P: 16 OR: 145 QRS: 7 QRSD: 106 T: 16 QT: 502 QTc: 451 Interpretive Statements Sinus bradycardia Low voltage, precordial leads Compared to ECG 06/18/2020 17:33:21 Low QRS voltage now present Sinus rhythm no longer present Right-axis deviation no longer present Electronically Signed On 02-16-2022 11:51:50 EDT by [facility] Jaylene Verduzco M D - 02/16/2022 [facility] Test Date: 2022-02-16 Pat Name: HYACINTH HURST Department: 2AED Room: 14 Gender: M Receiving Room Clerk: ANDRESSA : 1960 Requested By: JAYLENE VERDUZCO Order Number: [id number] Reading MD: Jaylene Verduzco Measurements Intervals [place] Rate: 48 P: 16 OR: 145 QRS: 7 QRSD: 106 T: 16 QT: 502 QTc: 451 Interpretive Statements Sinus bradycardia Low voltage, precordial leads Compared to ECG 06/18/2020 17:33:21 Low QRS voltage now present Sinus rhythm no longer present Right-axis deviation no longer present Electronically Signed On 02-16-2022 11:51:50 EDT by Jaylene Verduzco [facility] Work Phone: [facility] Work Phone: Add On Lab Teston 02-15-2022 Add On Accepted [facility] Comment on above: Specimen available & acceptable for analysis. Test Performed by [facility], [address] [facility] Add On Accepted [facility] Comment on above: Specimen available & acceptable for analysis. Test Performed by [facility], [address] [facility] Add on test from HISon 02-15 Add on test from HIS Accepted Normal [facility] Comment on above: Result Comment: Spec imen available & acceptable for analysis. Performed By: #### A DDON, COVAG, CUA2, DRGA4 #### [facility] [address] [place] [address] Basic Metabolic Panelon 01-28 Calcium [Mass/Vol] 8.8 mg/dL Normal 8.4-10.4 [facility] Comment on above: Order Comment: Chemi [facility] specimen is moderately hemolyzed. Interpret resultswith caution. Performed By: #### L FT3, HEMDF, CK3, ETOH4, BMP3 #### [facility] [address] [place] [address] Glucose [Mass/Vol] 108 mg/dL High 70-100 [facility] Comment on above: Order Comment: April allen specimen is moderately hemolyzed. Interpret resultswith caution. Performed By: #### L FT3, HEMDF, CK3, ETOH4, BMP3 #### [facility] [address] [place] [address] Urea nitrogen [Mass/Vol] 12 mg/dL Normal 7-17 [facility] Comment on above: Order Comment: April allen specimen is moderately hemolyzed. Interpret resultswith caution. Performed By: #### L FT3, HEMDF, CK3, ETOH4, BMP3 #### [facility] [address] [place] [address] Anion gap [Moles/Vol] 11 mmol/L Normal 3-[address] [facility] Comment on above: Order Comment: April allen specimen is moderately hemolyzed. Interpret resultswith caution. Performed By: #### L FT3, HEMDF, CK3, ETOH4, BMP3 #### [facility] [address] [place] [address] CO2 [Moles/Vol] 22 mmol/L Normal 22-30 [facility] Comment on above: Order Comment: April allen specimen is moderately hemolyzed. Interpret resultswith caution. Performed By: #### L FT3, HEMDF, CK3, ETOH4, BMP3 #### [facility] [address] [place] [address] Creatinine [Mass/Vol] 0.96 mg/dL Normal 0.52-1.[address] [facility] Comment on above: Order Comment: April allen specimen is moderately hemolyzed. Interpret resultswith caution. Performed By: #### L FT3, HEMDF, CK3, ETOH4, BMP3 #### [facility] [address] [place] [address] GFR/1.73 sq M.predicted among blacks MDRD (S/P/Bld) [Vol rate/Area] mL/min/{1.73_m2} Normal >60 [facility] Comment on above: Order Comment: Chemi stry specimen is moderately hemolyzed. Interpret resultswith caution. Performed By: #### L FT3, HEMDF, CK3, ETOH4, BMP3 #### [facility] [address] [place] [address] GFR/1.73 sq M.predicted among non-blacks MDRD (S/P/Bld) [Vol rate/Area] 84.7 mL/min/{1.73_m2} Normal >60 [facility] Comment on above: Order Comment: Chemi stry specimen is moderately hemolyzed. Interpret resultswith caution. Result Comment: KDIG O guidelines provide the following GFR categories: Stage GFR(ml/min/1.73 m2) Terms G1 >=90 Normal or high G2 60-89 Mildly decreased* G3a 45-59 Mildly to moderately decreased G3b 30-44 Moderately to severely decreased G4 15-29 Severely decreased G5 <15 Kidney failure *Relative to young adult level. In the absence of evidence of kidney damage, neither GFR category G1 nor G2 fulfill the criteria for CKD. The CKD-EPI equation is validated in individuals 18 years of age and older. Currently the best equation for estimating glomerular filtration rate (GFR) from serum creatinine in children is the Bedside Sigala equation. It is less accurate in patients with extremes of muscle mass, restriction of dietary protein, ingestion of creatine, extra-renal metabolism of creatinine, or treatment with medications that affect renal tubular creatinine secretion. Performed By: #### L FT3, HEMDF, CK3, ETOH4, BMP3 #### [facility] [address] [place] [address] Chloride [Moles/Vol] 102 mmol/L Normal 98-107 [facility] Comment on above: Order Comment: Chemi stry specimen is moderately hemolyzed. Interpret resultswith caution. Performed By: #### L FT3, HEMDF, CK3, ETOH4, BMP3 #### [facility] [address] [place] [address] Potassium [Moles/Vol] 3.4 mmol/L Low 3.5-5.[address] [facility] Comment on above: Order Comment: Chemi stry specimen is moderately hemolyzed. Interpret resultswith caution. Performed By: #### L FT3, HEMDF, CK3, ETOH4, BMP3 #### [facility] [address] [place] [address] Sodium [Moles/Vol] 136 mmol/L Normal 135-145 [facility] Comment on above: Order Comment: Chemi stry specimen is moderately hemolyzed. Interpret resultswith caution. Performed By: #### L FT3, HEMDF, CK3, ETOH4, BMP3 #### [facility] [address] [place] [address] Anion gap [Moles/Vol] 11 mmol/L 3 - 13 mmol/L [facility] Calcium [Mass/Vol] 8.8 mg/dL 8.4 - 10. 4 mg/dL [facility] Chloride [Moles/Vol] 102 mmol/L 98 - 10 7 mmol/L [facility] CO2 [Moles/Vol] 22 mmol/L 22 - 30 mmol/L [facility] Creatinine [Mass/Vol] 0.96 mg/dL 0.52 - 1.25 mg/dL [facility] EGFR IF NonAfrican Macanese 84.7 mL/min >60 [facility] Comment on above: KDIGO guidelines pro vide the following GFR categories: Stage GFR(ml/min/1.73 m2) Terms G1 >=90 Normal or high G2 60-89 Mildly decreased* G3a 45-59 Mildly to moderately decreased G3b 30-44 Moderately to severely decreased G4 15-29 Severely decreased G5 <15 Kidney failure *Relative to young adult level. In the absence of evidence of kidney damage, neither GFR category G1 nor G2 fulfill the criteria for CKD. The CKD-EPI equation is validated in individuals 18 years of age and older. Currently the best equation for estimating glomerular filtration rate (GFR) from serum creatinine in children is the Bedside Sigala equation. It is less accurate in patients with extremes of muscle mass, restriction of dietary protein, ingestion of creatine, extra-renal metabolism of creatinine, or treatment with medications that affect renal tubular creatinine secretion. GFR/1.73 sq M.predicted among blacks MDRD (S/P/Bld) [Vol rate/Area] mL/min/{1.73_m2} >60 mL/min [facility] Glucose [Mass/Vol] 108 mg/dL High 70 - 100 mg/dL [facility] Potassium [Moles/Vol] 3.4 mmol/L Low 3.5 - 5.1 mmol/L [facility] Sodium [Moles/Vol] 136 mmol/L 135 - 145 mmol/L [facility] Urea nitrogen (BldV) [Mass/Vol] 12 mg/dL 7 - 17 mg/dL [facility] C-Reactive Proteinon 022 CRP [Mass/Vol] 26.2 mg/L High 0.0-9.9 [facility] Comment on above: Order Comment: Chemi stry specimen is moderately hemolyzed. Interpret resultswith caution. Result Comment: . Performed By: #### L FT3, HEMDF, CK3, ETOH4, BMP3 #### [facility] [address] [place] [address] CRP [Mass/Vol] 26.2 mg/L High 0.0 - 9.9 mg/L [facility] Comment on above: . CBC with Auto Differentialon 02-15-2022 Absolute Baso # 0.1 10*3/uL 0.0 - 0.2 10*3/uL [facility] Absolute Neut # 8.5 10*3/uL High 1.8 - 7.0 10*3/uL [facility] MCHC (RBC) [Mass/Vol] 33.8 % 32.0 - 36.0 % [facility] Platelet distribution width (Bld) [Ratio] 13.8 % 11.5 - 14.5 % [facility] CKon 02-15-2022 CK [Catalytic activity/Vol] 687 U/L High 30 - 170 U/L [facility] Interpretation and review of laboratory results Abnormal [facility] Test Performed by [facility], [address], [place], [place] [address] Chemistry specimen is moderately hemolyzed. Interpret results with caution. [facility] COVID-19, Antigenon 02-16-20 22 SARS-CoV-2 Nucleocapsid Antigen Negative Negative NA [facility] Comment on above: A negative result does not rule out the possibility of SARS-CoV-2 infection. NAAT-based methods should be considered for symptomatic patients presenting greater than seven days after onset of symptoms. Method: Lateral flow immunoassay. Fact sheets for healthcare providers and patients can be found at the following sites: https://www.fda.gov/media/429628/download https://www.fda.gov/media/207155/download [facility] CT Abdomen Pelvis Wo Contras ton 02-15-2022 [id number] Tom[facility] ACCESSION EXAM DATE/TIME PROCEDURE ORDERING PROVIDER [id number] 02/15/2022 16:[address] Abdomen/Pelvis (No [id number] -VERDUZCO, PO, No IV) [place] CPT code 89899 Reason For Exam (CT Abdomen/Pelvis (No PO, No IV)) rectal foreign body, psychotic, eval more foreign bodies, free air, etc Report CT ABDOMEN AND PELVIS WITHOUT IV CONTRAST CLINICAL INDICATION: Foreign body. TECHNIQUE: Multidetector axial CT images through the abdomen and pelvis were obtained without IV contrast. No oral contrast was administered. Images were reconstructed in sagittal and coronal planes. COMPARISON: None. FINDINGS: This examination is limited for the evaluation of solid organs and vascular structures due to the lack of intravenous contrast. Lower thorax: Normal. Stomach: Unremarkable. Liver: Normal size and contours. Normal hepatic parenchyma. No focal lesion. Biliary tree: Unremarkable gallbladder by CT. No biliary dilatation Spleen: Normal Adrenals: Normal. Pancreas: Normal. Right kidney and collecting system: No contour abnormality or focal renal lesion identified. No calculi, hydronephrosis or ureteral dilatation. Left kidney and collecting system: No contour abnormality or focal renal lesion identified. No calculi, hydronephrosis or ureteral dilatation. Free air or fluid: None. Mesenteric/retroperitone al: No adenopathy or inflammation. Aorta: Normal caliber. Bowel: No radiopaque foreign body. No inflammatory changes at the ileocecal junction. No inflammatory change or bowel dilatation is noted. Computed Tomography Report Bladder: No calculi or filling defects. Urinary bladder is physiologically distended. Inguinal: Bilateral fat containing inguinal hernias. No lymphadenopathy. Abdominal wall/soft tissues: No ventral hernia is evident. Osseous structures: Multilevel degenerative spondylosis. Healed left hip fracture status post ORIF. IMPRESSION: No evidence of an acute infectious or inflammatory process in the abdomen or pelvis. Report Dictated on --- Final --- Dictating Physician: MD HUBER JASON Signed Date and Time: 02/15/2022 5:02 pm Signed by: MD HUBER JASON Transcribed Date and Time: 02/15/2022 5:03 [facility] Caesar Huber MD - 02/15/2022 [id number] Computed Tomography ACCESSION EXAM DATE/TIME PROCEDURE ORDERING PROVIDER [id number] 02/15/2022 16:[address] Abdomen/Pelvis (No [id number] -VERDUZ[place], PO, No IV) [place] CPT code 57442 Reason For Exam (CT Abdomen/Pelvis (No PO, No IV)) rectal foreign body, psychotic, eval more foreign bodies, free air, etc Report CT ABDOMEN AND PELVIS WITHOUT IV CONTRAST CLINICAL INDICATION: Foreign body. TECHNIQUE: Multidetector axial CT images through the abdomen and pelvis were obtained without IV contrast. No oral contrast was administered. Images were reconstructed in sagittal and coronal planes. COMPARISON: None. FINDINGS: This examination is limited for the evaluation of solid organs and vascular structures due to the lack of intravenous contrast. Lower thorax: Normal. Stomach: Unremarkable. Liver: Normal size and contours. Normal hepatic parenchyma. No focal lesion. Biliary tree: Unremarkable gallbladder by CT. No biliary dilatation Spleen: Normal Adrenals: Normal. Pancreas: Normal. Right kidney and collecting system: No contour abnormality or focal renal lesion identified. No calculi, hydronephrosis or ureteral dilatation. Left kidney and collecting system: No contour abnormality or focal renal lesion identified. No calculi, hydronephrosis or ureteral dilatation. Free air or fluid: None. Mesenteric/retroperitone al: No adenopathy or inflammation. Aorta: Normal caliber. Bowel: No radiopaque foreign body. No inflammatory changes at the ileocecal junction. No inflammatory change or bowel dilatation is noted. Computed Tomography Report Bladder: No calculi or filling defects. Urinary bladder is physiologically distended. Inguinal: Bilateral fat containing inguinal hernias. No lymphadenopathy. Abdominal wall/soft tissues: No ventral hernia is evident. Osseous structures: Multilevel degenerative spondylosis. Healed left hip fracture status post ORIF. IMPRESSION: No evidence of an acute infectious or inflammatory process in the abdomen or pelvis. Report Dictated on --- Final --- Dictating Physician: MD HUBER JASON Signed Date and Time: 02/15/2022 5:02 pm Signed by: MD HUBER JASON Transcribed Date and Time: 02/15/2022 5:03 [facility] Work Phone: CT Abdomen Pelvis Wo Contras tOrdered By: Caesar Huber on 02-15-2022 [facility] Work Phone: CT Abdomen/Pelvis w/o Contra stojose 02-15-2022 CT Abdomen/Pelvis w/o Contrast [facility]: [id number] Computed Tomography ACCESSION EXAM DATE/TIME PROCEDURE ORDERING PROVIDER [id number] 02/15/2022 16:[address] Abdomen/Pelvis (No [id number] -[place], PO, No IV) [place] CPT code 94576 Reason For Exam (CT Abdomen/Pelvis (No PO, No IV)) rectal foreign body, psychotic, eval more foreign bodies, free air, etc Report CT ABDOMEN AND PELVIS WITHOUT IV CONTRAST CLINICAL INDICATION: Foreign body. TECHNIQUE: Multidetector axial CT images through the abdomen and pelvis were obtained without IV contrast. No oral contrast was administered. Images were reconstructed in sagittal and coronal planes. COMPARISON: None. FINDINGS: This examination is limited for the evaluation of solid organs and vascular structures due to the lack of intravenous contrast. Lower thorax: Normal. Stomach: Unremarkable. Liver: Normal size and contours. Normal hepatic parenchyma. No focal lesion. Biliary tree: Unremarkable gallbladder by CT. No biliary dilatation Spleen: Normal Adrenals: Normal. Pancreas: Normal. Right kidney and collecting system: No contour abnormality or focal renal lesion identified. No calculi, hydronephrosis or ureteral dilatation. Left kidney and collecting system: No contour abnormality or focal renal lesion identified. No calculi, hydronephrosis or ureteral dilatation. Free air or fluid: None. Mesenteric/retroperitone al: No adenopathy or inflammation. Aorta: Normal caliber. Bowel: No radiopaque foreign body. No inflammatory changes at the ileocecal junction. No inflammatory change or bowel dilatation is noted. Computed Tomography Report Bladder: No calculi or filling defects. Urinary bladder is physiologically distended. Inguinal: Bilateral fat containing inguinal hernias. No lymphadenopathy. Abdominal wall/soft tissues: No ventral hernia is evident. Osseous structures: Multilevel degenerative spondylosis. Healed left hip fracture status post ORIF. IMPRESSION: No evidence of an acute infectious or inflammatory process in the abdomen or pelvis. Report Dictated on Final Dictating Physician: MD HUBER JASON Signed Date and Time: 02/15/2022 5:02 pm Signed by: MD HUBER JASON Transcribed Date and Time: 02/15/2022 5:03 [facility] [address] HEAD WO CONTRASTon 2021 Patient Name: HYACINTH HURST Computed Tomography ACCESSION EXAM DATE/TIME PROCEDURE ORDERING PROVIDER [id number] 02/15/2022 16:[address] Head or Brain w/o [id number] -VERDUZCO, Contrast [place] CPT code 02121 Reason For Exam (CT Head or Brain w/o Contrast) AMS Report CT HEAD WITHOUT CONTRAST CLINICAL INDICATION: Change in mental status Axial noncontrast CT images of the brain were obtained. Coronal and sagittal reconstructions were also made available for interpretation. COMPARISON: July 04, 2019. FINDINGS: Mild diffuse cortical volume loss, within normal limits for the patient's age. No high attenuation material is seen to suggest hemorrhage. No definite evidence for acute cortical infarction. No midline shift or mass effect is noted. No fracture is identified on the bone windows. The paranasal sinuses are clear. IMPRESSION: No evidence of an acute intracranial process. Report Dictated on --- Final --- Dictating Physician: MD HUBER JASON Signed Date and Time: 02/15/2022 4:30 pm Signed by: MD HUBER JASON Transcribed Date and Time: 02/15/2022 4:31 [facility] Caesar Huber MD - 02/15/2022 Patient Name: HYACINTH HURST Computed Tomography ACCESSION EXAM DATE/TIME PROCEDURE ORDERING PROVIDER [id number] 02/15/2022 16:[address] Head or Brain w/o [id number] -VERDUZ[place], Contrast J[facility] CPT code 40537 Reason For Exam (CT Head or Brain w/o Contrast) AMS Report CT HEAD WITHOUT CONTRAST CLINICAL INDICATION: Change in mental status Axial noncontrast CT images of the brain were obtained. Coronal and sagittal reconstructions were also made available for interpretation. COMPARISON: July 04, 2019. FINDINGS: Mild diffuse cortical volume loss, within normal limits for the patient's age. No high attenuation material is seen to suggest hemorrhage. No definite evidence for acute cortical infarction. No midline shift or mass effect is noted. No fracture is identified on the bone windows. The paranasal sinuses are clear. IMPRESSION: No evidence of an acute intracranial process. Report Dictated on --- Final --- Dictating Physician: MD HUBER JASON Signed Date and Time: 02/15/2022 4:30 pm Signed by: MD HUBER JASON Transcribed Date and Time: 02/15/2022 4:31 [facility] Work Phone: [facility] Work Phone: CT Head or Brain w/o Contras ton 02-15-2022 CT Head or Brain w/o Contrast [id number] Computed Tomography ACCESSION EXAM DATE/TIME PROCEDURE ORDERING PROVIDER [id number] 02/15/2022 16:[address] Head or Brain w/o [id number] Daniele MOSQUEDA CPT code 30441 Reason For Exam (CT Head or Brain w/o Contrast) AMS Report CT HEAD WITHOUT CONTRAST CLINICAL INDICATION: Change in mental status Axial noncontrast CT images of the brain were obtained. Coronal and sagittal reconstructions were also made available for interpretation. COMPARISON: July 04, 2019. FINDINGS: Mild diffuse cortical volume loss, within normal limits for the patient's age. No high attenuation material is seen to suggest hemorrhage. No definite evidence for acute cortical infarction. No midline shift or mass effect is noted. No fracture is identified on the bone windows. The paranasal sinuses are clear. IMPRESSION: No evidence of an acute intracranial process. Report Dictated on Final Dictating Physician: MD HUBER JASON Signed Date and Time: 02/15/2022 4:30 pm Signed by: MD HUBER JASON Transcribed Date and Time: 02/15/2022 4:31 Normal [facility] ED Provider Noteon 2 ED Provider Note [facility] EMERGENCY DEPARTMENT ENCOUNTER Pt Name: Hyacinth Hurst Birthdate 1960 Date of evaluation: 02/15/2022 Provider: Jaylene Verduzco MD CHIEF COMPLAINT Chief Complaint Patient presents with ? Other pt states his cats attacked him and scratched his legs and arms. pt has dried blood and scrathces covering affected areas. HISTORY OF PRESENT ILLNESS (Location/Symptom, Timing/Onset, Context/Setting, Quality, Duration, Modifying Factors, Severity) Note limiting factors. I wore a surgical mask for the entirety of this encounter. Mr. Hurst is a 61 y.o. male with a past medical history of bipolar disorder, methamphetamine abuse, depression with prior suicidal ideation and prior hospitalizations to psychiatric services presenting with extremely bizarre affect and behavior and delusions. Patient checked into triage with complaint of scratches from a cat on his left lower extremity and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 Chronic pain of right upper extremity [M79.601,*02/15/2017 Cor pulmonale (HCC) [I27.81] 09/30/2017 Gastroesophageal reflux disease [K21.9] 11/09/2018 Suicidal ideation [R45.851] 08/22/2019 09/01/2019 Hyperglycemia [R73.9] 08/22/2019 Major depressive disorder [F32.9] 08/27/2019 Type 2 diabetes mellitus with hyperglycemia (more content not included)... Normal [facility] EKG 12 Lead - Chest Painon 1 Cj, [facility] Incoming Cardiology Results From [facility] - 06/19/2020 5:24 PM EDT [facility] Test Date: 2020-06-18 Pat Name: Hyacinth Hurst Department: 2AED Room: 13 Gender: Caryn Receiving Room Clerk: GENIA : 1960 Requested By: BRITTANEY MAHER Order Number: [id number] Reading MD: Dmitriy Ileregina Measurements Intervals [place] Rate: 72 P: 22 OR: 208 QRS: 107 QRSD: 102 T: 45 QT: 424 QTc: 465 Interpretive Statements SINUS RHYTHM BORDERLINE AV CONDUCTION DELAY RIGHT AXIS DEVIATION Electronically Signed On 06-19-2020 17:23:05 EDT by [facility] Test Date: 2020-06-18 Pat Name: Hyacinth Hurst Department: 2AED Room: 13 Gender: M Receiving Room Clerk: GENIA : 1960 Requested By: BRITTANEY MAHER Order Number: [id number] Reading MD: Dmitriy Kayr Measurements Intervals [place] Rate: 72 P: 22 OR: 208 QRS: 107 QRSD: 102 T: 45 QT: 424 QTc: 465 Interpretive Statements SINUS RHYTHM BORDERLINE AV CONDUCTION DELAY RIGHT AXIS DEVIATION Electronically Signed On 06-19-2020 17:23:05 EDT by Dmitriy Mccoy [facility] [place] CKon 06-18-2020 Total CK 119 U/L 30 - 170 U/L [place], [place] COVID-19on 06-18-2020 SARS-CoV-2 Not Detected Expected Result: Not Detected _ Real-time, RT-PCR performed on the [employer] System by the [facility]. Negative results do not preclude SARS-CoV-2 infection and should not be used as the sole basis for treatment or other patient management decisions. This assay was developed by [employer] and distributed under an Emergency Use Authorization (EUA) granted by the FDA for the qualitative detection of SARS-CoV-2 nucleic acid. [place], [place] Test Performed by [facility], [address] [place] [id number] Specimen Source Comment:Nasopharyngeal Swab [place], [place] Comprehensive Metabolic Pane jose 10-20-2020 Albumin [Mass/Vol] 3.9 g/dL 3.5 - 5 g/dL [place], [place] ALP [Catalytic activity/Vol] 57 U/L 38 - 126 U/L [place], [place] ALT [Catalytic activity/Vol] 21 U/L 0 - 49 U/L [place], [place] Comment on above: The ALT test is perf ormed by an updated assay method. Please note that the reference intervals have been changed and are now sex specific. Anion gap [Moles/Vol] 7 mmol/L [place], [place] AST [Catalytic activity/Vol] 28 U/L 15 - 46 U/L [place], [place] Bilirubin Ql (U) 0.7 mg/dL 0.2 - 1.3 mg/dL [place], [place] Calcium [Mass/Vol] 8.5 mg/dL 8.4 - 10. 4 mg/dL [place] Chloride [Moles/Vol] 103 mmol/L 98 - 10 7 mmol/L [place] CO2 [Moles/Vol] 28 mmol/L 22 - 30 mmol/L [place] Creatinine [Mass/Vol] 0.8 mg/dL 0.52 - 1.25 mg/dL [place], [place] EGFR IF NonAfrican [place] >90.0 >60 mL/min [place], [place] Comment on above: KDIGO guidelines pro vide the following GFR categories: Stage GFR(ml/min/1.73 m2) Terms G1 >=90 Normal or high G2 60-89 Mildly decreased* G3a 45-59 Mildly to moderately decreased G3b 30-44 Moderately to severely decreased G4 15-29 Severely decreased G5 <15 Kidney failure *Relative to young adult level. In the absence of evidence of kidney damage, neither GFR category G1 nor G2 fulfill the criteria for CKD. The CKD-EPI equation is validated in individuals 18 years of age and older. Currently the best equation for estimating glomerular filtration rate (GFR) from serum creatinine in children is the Bedside Sigala equation. It is less accurate in patients with extremes of muscle mass, restriction of dietary protein, ingestion of creatine, extra-renal metabolism of creatinine, or treatment with medications that affect renal tubular creatinine secretion. GFR/1.73 sq M predicted among blacks MDRD (S/P/Bld) [Vol rate/Area] mL/min/{1.73_m2} >60 mL/min [place] Glucose [Mass/Vol] 107 mg/dL High 70 - 100 mg/dL [place] Interpretation and review of laboratory results Abnormal [place] Potassium [Moles/Vol] 3.9 mmol/L 3.5 - 5.1 mmol/L [place] Protein [Mass/Vol] 7.0 g/dL 6.3 - 8.2 g/dL [place] Sodium [Moles/Vol] 138 mmol/L 135 - 145 mmol/L [place] Urea nitrogen [Mass/Vol] 13 mg/dL 7 - 20 mg/dL [place] Ethanolon 06-18-2020 Ethanol Lvl <0.010 0 - 0.01 g/dL [place] Comment on above: NOTE: This result is for medical treatment only. Analysis performed using non-forensic procedures. Hemogram (CBC) w/Auto Diffon 06-18-2020 Absolute Baso # 0.0 10*3/uL 0 - 0.2 10*3/uL [place] Absolute Neut # 4.6 10*3/uL 1.8 - 7 10*3/uL [place] Basophils/100 WBC (Bld) 0.5 % 0 - 2 % [place] Eosinophils (Bld) [#/Vol] 0.1 10*3/uL 0 - 0.5 10*3/uL [place] Eosinophils/100 WBC (Bld) 1.3 % 1 - 6 % [place] Erythrocyte distribution width (RBC) [Ratio] 13.8 % 11.5 - 14.5 % [place] Granulocytes/100 WBC (Bld) 65.8 % 40 - 80 % [place] Hematocrit (Bld) [Volume fraction] 49.1 % 40 - 52 % [place] Hemoglobin (Bld) [Mass/Vol] 16.3 g/dL 13 - 18 g/dL [place] Lymphocytes (Bld) [#/Vol] 1.6 10*3/uL 1 - 4.3 10*3/uL [place] Lymphocytes/100 WBC (Bld) 22.7 % 20 - 40 % [place] MCH (RBC) [Entitic mass] 30.5 pg 26 - 34 pg [place] MCHC (RBC) [Mass/Vol] 33.2 % 32 - 36 % [place] MCV (RBC) [Entitic vol] 91.9 fL 80 - 98 fL [place] Monocytes (Bld) [#/Vol] 0.7 10*3/uL 0 - 0.8 10*3/uL [place] Monocytes/100 WBC (Bld) 9.7 % 2 - 10 % [place] Platelet mean volume (Bld) [Entitic vol] 7.5 fL 7.4 - 10.4 fL [place] Platelets (Bld) [#/Vol] 212 10*3/uL 140 - 440 10*3/uL [place] RBC (Bld) [#/Vol] 5.35 10*6/uL 4.4 - 5.9 10*6/uL [place] WBC (Bld) [#/Vol] 7.0 10*3/uL 3.6 - 10.7 10*3/uL [place] Test Performed by [facility], [address] [place], [place] [id number] [place] [address] Otheron 06-18-2020 Test Performed by [facility], [address] [place], [place] [id number] [place] [address] Troponin x1on 06-18-2020 Troponin I.cardiac [Mass/Vol] ng/mL 0 - 0.034 ng/mL [place] Comment on above: . Test Performed by [facility], [address] [place], [place] [id number] [place] [address] Urinalysison 06-18-2020 Appearance (U) Clear Clear NA [place] Comment on above: . Bilirubin Urine Negative Negative mg/dL [place] Comment on above: . Color (U) Yellow Lt. Yellow NA [place] Comment on above: . Glucose, Ur Normal Normal (<70) mg/dL [place] Comment on above: . Interpretation and review of laboratory results Abnormal [place] Ketones Ql (U) Negative Negative mg/dL [place] Comment on above: . LEUKOCYTES, UA Negative Negative Nura/uL [place] Comment on above: . Nitrite, Urine Negative Negative [place] Comment on above: . Occult Blood,Urine Negative Negative mg/dL [place] Comment [place] above: . pH (U) 6.5 [pH] [place] Comment on above: . Protein (U) [Mass/Vol] Negative Negat lex mg/dL [place] Comment on above: . Specific [place], Urine >1.030 Abnormal [place] Comment on above: . Urobilinogen, Urine Normal Normal ( 0-1) mg/dL [place] Comment on above: . Test Performed by [facility], [address], [place], [place] [address] [place] Urine Drug Screenon 1020-20 20 Amphetamines, urine Positive [place] Barbiturates, Ur Negative [place] Benzodiazepine Ur Qual Negative [place], [place] Cocaine Metabolites, Ur Negative [place] Methadone, Urine Negative [place] Opiates, Urine Negative [place] Oxycodone Screen, Ur Negative [place] PCP, Urine Negative [place] Comment on above: The expected value f or all of the drugs listed above is Negative. The following drugs or drug groups have been screened for by Immunoassay at the following thresholds: Amphetamine class (1000 ng/mL), Barbiturates (200 ng/mL), Benzodiazepines (200 ng/mL), Cocaine (300 ng/mL), Methadone (300 ng/mL), Opiates (300 ng/mL), Oxycodone (100 ng/mL), and PCP (25 ng/mL). NOTE: These results are for medical treatment only. Analysis performed using non-forensic procedures. POSITIVE results are NOT confirmed by a more specific alternative method unless requested. If confirmation is needed, request confirmation under separate order. Test Performed by [facility], [address], [place], [place] [id number] [place] [address], [place] Basic Panelon 09-01-2019 Creatinine [Mass/Vol] 1.19 mg/dL High 0.67-1.17 [facility] Comment on above: Performed By: #### P 14 #### [facility] [address] [place], [place] [address] Anion gap [Moles/Vol] 9 mmol/L Normal 8-16 [facility] Comment on above: Performed By: #### P 14 #### [facility] [address] [place], [place] [address] Calcium [Mass/Vol] 8.5 mg/dL Normal 8.5-10.1 [facility] Comment on above: Performed By: #### P 14 #### [facility] [address] [place], [place] [address] CO2 [Moles/Vol] 35 mmol/L High 21-32 [facility] Comment on above: Performed By: #### P 14 #### [facility] [address] [place], [place] [address] Glucose [Mass/Vol] 117 mg/dL High 70-99 [facility] Comment on above: Performed By: #### P 14 #### [facility] [address] [place], [place] [address] Urea nitrogen [Mass/Vol] 30 mg/dL High 7-18 [facility] Comment on above: Performed By: #### P 14 #### [facility] [address] [place], [place] [address] Chloride [Moles/Vol] 94 mmol/L Low 98-107 [facility] Comment on above: Performed By: #### P 14 #### [facility] [address] [place], [place] [address] Potassium [Moles/Vol] 3.4 mmol/L Low 3.5-5.1 [facility] Comment on above: Performed By: #### P 14 #### [facility] [address] [place], [place] [address] Sodium [Moles/Vol] 135 mmol/L Low 136-145 [facility] Comment on above: Performed By: #### P 14 #### [facility] [address] [place], [place] [address] Glucose Meteron 09-01-2019 Glucose [Mass/Vol] 110 mg/dL High 70-99 [facility] Comment on above: Result Comment: SREE FERNANDEZ Performed By: #### P 14 #### [facility] [address] [place], [place] [address] MDRD GFRon 09-01-2019 GFR/1.73 sq M predicted among non-blacks MDRD (S/P/Bld) [Vol rate/Area] mL/min/{1.73_m2} Normal >60mL/min/1. 73m2 [facility] Comment on above: Result Comment: If t he patient is , multiply the result by 1.210. Performed By: #### L IP #### [place] [address] Basic Panelon 08-26-2019 Creatinine [Mass/Vol] 1.25 mg/dL High 0.67-1.17 [facility] Comment on above: Performed By: #### P 14 #### [facility] [address] [place], [place] [address] Anion gap [Moles/Vol] 8 mmol/L Normal 8-16 [facility] Comment on above: Performed By: #### P 14 #### [facility] [address] [place], [place] [address] Calcium [Mass/Vol] 9.4 mg/dL Normal 8.5-10.1 [facility] Comment on above: Performed By: #### P 14 #### [facility] [address] [place], [place] [address] CO2 [Moles/Vol] 35 mmol/L High 21-32 [facility] Comment on above: Performed By: #### P 14 #### [facility] [address] [place], [place] [address] Glucose [Mass/Vol] 262 mg/dL High 70-99 [facility] Comment on above: Performed By: #### P 14 #### [facility] [address] [place], [place] [address] Urea nitrogen [Mass/Vol] 33 mg/dL High 7-18 [facility] Comment on above: Performed By: #### P 14 #### [facility] [address] [place], [place] [address] Chloride [Moles/Vol] 93 mmol/L Low 98-107 [facility] Comment on above: Performed By: #### P 14 #### [facility] [address] [place], [place] [address] Potassium [Moles/Vol] 3.5 mmol/L Normal 3.5-5.1 [facility] Comment on above: Performed By: #### P 14 #### [facility] [address] [place], [place] [address] Sodium [Moles/Vol] 132 mmol/L Low 136-145 [facility] Comment on above: Performed By: #### P 14 #### [facility] [address] [place], [place] [address] Glucose Meteron 08-26-2019 Glucose [Mass/Vol] 220 mg/dL High 70-99 [facility] Comment on above: Result Comment: SREE FERNANDEZ Performed By: #### G DORIAN ####[facility] [place], [place] [address] Hemogramon 08-26-2019 Erythrocyte distribution width (RBC) [Ratio] 12.7 % Normal 11.6-14.4 [facility] Comment on above: Performed By: #### P 14 #### [facility] [address] [place], [place] [address] Hematocrit (Bld) [Volume fraction] 48.5 % Normal 40.1-51.0 [facility] Comment on above: Performed By: #### P 14 #### [facility] [address] [place], [place] [address] Hemoglobin (Bld) [Mass/Vol] 16.1 g/dL Normal 13.7-17.5 [facility] Comment on above: Performed By: #### P 14 #### [facility] 1 [place] [address] MCH (RBC) [Entitic mass] 30.4 pg Normal 25.7-32.2 [facility] Comment on above: Performed By: #### P 14 #### [facility] [address] [place] [address] MCHC (RBC) [Mass/Vol] 33.2 % Normal 32.3-36.5 [facility] Comment on above: Performed By: #### P 14 #### [facility] [address] [place] [address] MCV (RBC) [Entitic vol] 91.7 fL Normal 83.2-95.6 [facility] Comment on above: Performed By: #### P 14 #### [facility] [address] [place] [address] Platelet mean volume (Bld) [Entitic vol] 10.3 fL Normal 8.7-12.0 [facility] Comment on above: Performed By: #### P 14 #### [facility] [address] [place] [address] Platelets (Bld) [#/Vol] 169 thou/cmm Normal 141-365 [facility] Comment on above: Performed By: #### P 14 #### [facility] 1 [place] [address] RBC (Bld) [#/Vol] 5.29 mil/cmm Normal 4.63-6.08 [facility] Comment on above: Performed By: #### P 14 #### [facility] 1 [place] [address] RDW SD 42.5 fl Normal 36.1-45.8 [facility] Comment on above: Performed By: #### P 14 #### [facility] 1 [place] [id number] WBC (Bld) [#/Vol] 8.66 thou/cmm Normal 4.23-9.07 [facility] Comment on above: Performed By: #### P 14 #### [facility] 1 [place] [address] MDRD GFRon 08-26-2019 GFR/1.73 sq M predicted among non-blacks MDRD (S/P/Bld) [Vol rate/Area] 59.11 mL/min/{1.73_m2} Normal >60mL/min/1. 73m2 [facility] Comment on above: Result Comment: If t he patient is , multiply the result by 1.210. Performed By: #### G FR ####[facility] [place] [address] Comprehensive Panelon 2018 Creatinine [Mass/Vol] 1.52 mg/dL High 0.67-1.17 [facility] Comment on above: Performed By: #### P 14 #### [facility] [address] [place] [address] ALP [Catalytic activity/Vol] 95 U/L Normal 45-117 [facility] Comment on above: Performed By: #### P 14 #### [facility] [address] [place] [address] Bilirubin [Mass/Vol] 0.5 mg/dL Normal 0.2-1.0 [facility] Comment on above: Performed By: #### P 14 #### [facility] [address] [place] [address] Protein [Mass/Vol] 8.3 g/dL High 6.4-8.2 [facility] Comment on above: Performed By: #### P 14 #### [facility] [address] [place], [place] [address] ALT [Catalytic activity/Vol] 49 U/L Normal 12-78 [facility] Comment on above: Performed By: #### P 14 #### [facility] [address] [place], [place] [address] AST [Catalytic activity/Vol] 32 U/L Normal 15-37 [facility] Comment on above: Performed By: #### P 14 #### [facility] [address] [place], [place] [address] Glucose [Mass/Vol] 213 mg/dL High 70-99 [facility] Comment on above: Performed By: #### P 14 #### [facility] [address] [place], [place] [address] Albumin [Mass/Vol] 3.7 g/dL Normal 3.4-5.0 [facility] Comment on above: Performed By: #### P 14 #### [facility] [address] [place], [place] [address] Anion gap [Moles/Vol] 14 mmol/L Normal 8-16 [facility] Comment on above: Performed By: #### P 14 #### [facility] [address] [place], [place] [address] CO2 [Moles/Vol] 31 mmol/L Normal 21-32 [facility] Comment on above: Performed By: #### P 14 #### [facility] [address] [place], [place] [address] Urea nitrogen [Mass/Vol] 36 mg/dL High 7-18 [facility] Comment on above: Performed By: #### P 14 #### [facility] [address] [place], [place] [address] Calcium [Mass/Vol] 9.1 mg/dL Normal 8.5-10.1 [facility] Comment on above: Performed By: #### P 14 #### [facility] [address] [place], [place] [address] Chloride [Moles/Vol] 94 mmol/L Low 98-107 [facility] Comment on above: Performed By: #### P 14 #### [facility] [address] [place], [place] [address] Potassium [Moles/Vol] 3.5 mmol/L Normal 3.5-5.1 [facility] Comment on above: Performed By: #### P 14 #### [facility] [address] [place], [place] [address] Sodium [Moles/Vol] 135 mmol/L Low 136-145 [facility] Comment on above: Performed By: #### P 14 #### [facility] [address] [place], [place] [address] Hemogramon 08-25-2019 Erythrocyte distribution width (RBC) [Ratio] 12.6 % Normal 11.6-14.4 [facility] Comment on above: Performed By: #### P 14 #### [facility] 1 [place] [address] Hematocrit (Bld) [Volume fraction] 49.6 % Normal 40.1-51.0 [facility] Comment on above: Performed By: #### P 14 #### [facility] [address] [place] [address] Hemoglobin (Bld) [Mass/Vol] 16.4 g/dL Normal 13.7-17.5 [facility] Comment on above: Performed By: #### P 14 #### [facility] [address] [place] [address] MCH (RBC) [Entitic mass] 30.3 pg Normal 25.7-32.2 [facility] Comment on above: Performed By: #### P 14 #### [facility] [address] [place] [address] MCHC (RBC) [Mass/Vol] 33.1 % Normal 32.3-36.5 [facility] Comment on above: Performed By: #### P 14 #### [facility] [address] [place] [address] MCV (RBC) [Entitic vol] 91.5 fL Normal 83.2-95.6 [facility] Comment on above: Performed By: #### P 14 #### [facility] [address] [place] [address] Platelet mean volume (Bld) [Entitic vol] 10.6 fL Normal 8.7-12.0 [facility] Comment on above: Performed By: #### P 14 #### [facility] [address] [place] [address] Platelets (Bld) [#/Vol] 168 thou/cmm Normal 141-365 [facility] Comment on above: Performed By: #### P 14 #### [facility] 1 [place] [id number] RBC (Bld) [#/Vol] 5.42 mil/cmm Normal 4.63-6.08 [facility] Comment on above: Performed By: #### P 14 #### [facility] [address] [place] [address] RDW SD 41.9 fl Normal 36.1-45.8 [facility] Comment on above: Performed By: #### P 14 #### [facility] [address] [place], [place] [address] WBC (Bld) [#/Vol] 9.38 thou/cmm High 4.23-9.07 [facility] Comment on above: Performed By: #### P 14 #### [facility] [address] [place] [address] Basic Panelon 08-24-2019 Creatinine [Mass/Vol] 1.74 mg/dL High 0.67-1.17 [facility] Comment on above: Performed By: #### P 14 #### [facility] [address] [place], [place] [address] Anion gap [Moles/Vol] 13 mmol/L Normal 8-16 [facility] Comment on above: Performed By: #### P 14 #### [facility] [address] [place], [place] [address] CO2 [Moles/Vol] 29 mmol/L Normal 21-32 [facility] Comment on above: Performed By: #### P 14 #### [facility] [address] [place], [place] [address] Urea nitrogen [Mass/Vol] 25 mg/dL High 7-18 [facility] Comment on above: Performed By: #### P 14 #### [facility] [address] [place], [place] [address] Calcium [Mass/Vol] 8.8 mg/dL Normal 8.5-10.1 [facility] Comment on above: Performed By: #### P 14 #### [facility] [address] [place], [place] [address] Glucose [Mass/Vol] 282 mg/dL High 70-99 [facility] Comment on above: Performed By: #### P 14 #### [facility] [address] [place], [place] [address] Chloride [Moles/Vol] 93 mmol/L Low 98-107 [facility] Comment on above: Performed By: #### P 14 #### [facility] [address] [place] [address] Potassium [Moles/Vol] 3.4 mmol/L Low 3.5-5.1 [facility] Comment on above: Performed By: #### P 14 #### [facility] [address] [place] [address] Sodium [Moles/Vol] 132 mmol/L Low 136-145 [facility] Comment on above: Performed By: #### P 14 #### [facility] [address] [place] [address] Hemogramon 08-24-2019 Erythrocyte distribution width (RBC) [Ratio] 12.3 % Normal 11.6-14.4 [facility] Comment on above: Performed By: #### P 14 #### [facility] [address] [place] [address] Hematocrit (Bld) [Volume fraction] 47.0 % Normal 40.1-51.0 [facility] Comment on above: Performed By: #### P 14 #### [facility] [address] [place] [address] Hemoglobin (Bld) [Mass/Vol] 15.4 g/dL Normal 13.7-17.5 [facility] Comment on above: Performed By: #### P 14 #### [facility] [address] [place] [address] MCH (RBC) [Entitic mass] 30.1 pg Normal 25.7-32.2 [facility] Comment on above: Performed By: #### P 14 #### [facility] [address] [place] [address] MCHC (RBC) [Mass/Vol] 32.8 % Normal 32.3-36.5 [facility] Comment on above: Performed By: #### P 14 #### [facility] [address] [place] [address] MCV (RBC) [Entitic vol] 92.0 fL Normal 83.2-95.6 [facility] Comment on above: Performed By: #### P 14 #### [facility] [address] [place] [address] Platelet mean volume (Bld) [Entitic vol] 10.4 fL Normal 8.7-12.0 [facility] Comment on above: Performed By: #### P 14 #### [facility] [address] [place], [place] [address] Platelets (Bld) [#/Vol] 181 thou/cmm Normal 141-365 [facility] Comment on above: Performed By: #### P 14 #### [facility] [address] [place] [address] RBC (Bld) [#/Vol] 5.11 mil/cmm Normal 4.63-6.08 [facility] Comment on above: Performed By: #### P 14 #### [facility] [address] [place] [address] RDW SD 41.5 fl Normal 36.1-45.8 [facility] Comment on above: Performed By: #### P 14 #### [facility] [address] [place] [address] WBC (Bld) [#/Vol] 10.71 thou/cmm High 4.23-9.07 [facility] Comment on above: Performed By: #### P 14 #### [place] [address] Basic Panelon 08-23-2019 Creatinine [Mass/Vol] 1.08 mg/dL Normal 0.67-1.17 [facility] Comment on above: Performed By: #### P 14 #### [facility] [address] [place] [address] Anion gap [Moles/Vol] 10 mmol/L Normal 8-16 [facility] Comment on above: Performed By: #### P 14 #### [facility] [address] [place], [place] [address] CO2 [Moles/Vol] 32 mmol/L Normal 21-32 [facility] Comment on above: Performed By: #### P 14 #### [facility] [address] [place], [place] [address] Urea nitrogen [Mass/Vol] 14 mg/dL Normal 7-18 [facility] Comment on above: Performed By: #### P 14 #### [facility] [address] [place], [place] [address] Calcium [Mass/Vol] 9.1 mg/dL Normal 8.5-10.1 [facility] Comment on above: Performed By: #### P 14 #### [facility] [address] [place], [place] [address] Glucose [Mass/Vol] 330 mg/dL High 70-99 [facility] Comment on above: Performed By: #### P 14 #### [facility] [address] [place], [place] [address] Chloride [Moles/Vol] 94 mmol/L Low 98-107 [facility] Comment on above: Performed By: #### P 14 #### [facility] [address] [place], [place] [address] Potassium [Moles/Vol] 3.7 mmol/L Normal 3.5-5.1 [facility] Comment on above: Performed By: #### P 14 #### [facility] [address] [place], [place] [address] Sodium [Moles/Vol] 132 mmol/L Low 136-145 [facility] Comment on above: Performed By: #### P 14 #### [facility] [address] [place] [address] Hemogramon 08-23-2019 Erythrocyte distribution width (RBC) [Ratio] 12.3 % Normal 11.6-14.4 [facility] Comment on above: Performed By: #### C BC1 ####[facility] [place], [place] [address] Hematocrit (Bld) [Volume fraction] 48.0 % Normal 40.1-51.0 [facility] Comment on above: Performed By: #### C BC1 ####[facility] [place], [place] [address] Hemoglobin (Bld) [Mass/Vol] 16.2 g/dL Normal 13.7-17.5 [facility] Comment on above: Performed By: #### C BC1 ####[facility] [place], [place] [address] MCH (RBC) [Entitic mass] 30.3 pg Normal 25.7-32.2 [facility] Comment on above: Performed By: #### C BC1 ####[facility] [place], [place] [address] MCHC (RBC) [Mass/Vol] 33.8 % Normal 32.3-36.5 [facility] Comment on above: Performed By: #### C BC1 ####[facility] [place], [place] [address] MCV (RBC) [Entitic vol] 89.9 fL Normal 83.2-95.6 [facility] Comment on above: Performed By: #### C BC1 ####[place] [address] Platelet mean volume (Bld) [Entitic vol] 10.2 fL Normal 8.7-12.0 [facility] Comment on above: Performed By: #### C BC1 ####[place] [id number] Platelets (Bld) [#/Vol] 183 thou/cmm Normal 141-365 [facility] Comment on above: Performed By: #### C BC1 ####[place] [id number] RBC (Bld) [#/Vol] 5.34 mil/cmm Normal 4.63-6.08 [facility] Comment on above: Performed By: #### C BC1 ####[place] [address] RDW SD 40.3 fl Normal 36.1-45.8 [facility] Comment on above: Performed By: #### C BC1 ####[address] [address] WBC (Bld) [#/Vol] 7.88 thou/cmm Normal 4.23-9.07 [facility] Comment on above: Performed By: #### C BC1 ####[address] [address] US DVT LOWER BILon 9 US DVT LOWER ZENOBIA * * *Final Report* * * DATE OF EXAM: Aug 23 2019 12:58PM VAU 1005 - US DVT LOWER ZENOBIA / PROCEDURE REASON: Leg swelling * * * * Physician Interpretation * * * * BILATERAL LOWER EXTREMITY DUPLEX VENOUS ULTRASOUND. 08/23/2019 HISTORY: Leg swelling COMPARISON:None TECHNIQUE: Duplex venous assessment was performed with grayscale and color-flow imaging as well as waveform evaluation. Images were obtained and stored in a permanent archive. RESULT: Normal flow with compressibility and augmentation were seen in the distal external iliac, common femoral, femoral, and popliteal veins bilaterally. The calf veins were poorly visualized because of the patient's body habitus. IMPRESSION: No deep vein thrombosis seen in either lower extremity. However, the calf veins were poorly visualized because of factors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 OF EXAM: Jun 10 2019 4:23AM [facility] 0504 - CT BRAIN WO IVCON / PROCEDURE REASON: Head trauma, headache * * * * Physician Interpretation * * * * EXAM: CT HEAD, CT CERVICAL SPINE WITHOUT CONTRAST. HISTORY: Traumatic head and neck pain. Status post [facility]. COMPARISON: None. TECHNIQUE: Contiguous axial images were obtained through the head and cervical spine without IV contrast. Multiplanar reformatted images were derived for the cervical spine. CT Radiation dose: Integrated Dose-length product (DLP) for this visit = 1653 mGy*cm. CT Dose Reduction Employed: Iterative recon FINDINGS CT HEAD: Acute change: No evidence of an acute infarct or other acute parenchymal process. Hemorrhage: No evidence of acute intracranial hemorrhage. Mass Effect / Mass Lesion: No visualized mass, mass effect, midline shift or extra-axial fluid collection. Chronic change: No significant chronic abnormality. Ventricles: Within normal limits for age. Bones/extracranial soft tissues: No acute osseous abnormality. No acute soft tissue abnormality. Sinuses: Partial opacification of the inferior aspect of a few left anterior ethmoid air cells, however no clinically significant paranasal sinus disease. Bilateral mastoid air cells are clear. FINDINGS CT CERVICAL: Please note for purposes of this exam, 7 cervical vertebrae are assumed, with the most cephalad vertebra counted as C1. Bones: No acute cervical fracture. Occipital condyles are intact. Exam is mildly degraded by motion artifact but remains diagnostic. Alignment: No gross focal malalignment. Osseous degenerative changes: Atlantoaxial spurring. Multilevel vertebral body osteophytosis, C4-C7. No moderate or severe osseous neural foraminal narrowing. Multilevel facet arthropathy bilaterally. Discs: Posterior disc margins are suboptimally characterized without intrathecal contrast. No large disc herniation/protrusion or raj spinal canal stenosis as imaged. Relative disc space narrowing at C6-C7. Soft tissues: Normal prevertebral soft tissues. Visualized lung apices: No acute abnormality. COMBINED IMPRESSION: No acute intracranial process. No basilar skull nor calvarial fracture. No acute fracture of the cervical spine. Chronic changes as described. Incubator Tender: PSCB Transcribe Date/Time: Jun 10 2019 4:27A Dictated by : DMITRIY RUIZ MD This examination was interpreted and the report reviewed and electronically signed by: DMITRIY RUIZ MD on Jun 10 2019 4:35AM EST Normal [facility] CT CERVICAL SPINE WO IVCONon 06-10-2019 CT CERVICAL SPINE WO IVCON * * *Final Report* * * DATE OF EXAM: Jun 10 2019 4:23AM [facility] 0505 - CT CERVICAL SPINE WO IVCON / PROCEDURE REASON: C-spine fx, traumatic * * * * Physician Interpretation * * * * EXAM: CT HEAD, CT CERVICAL SPINE WITHOUT CONTRAST. HISTORY: Traumatic head and neck pain. Status post [facility]. COMPARISON: None. TECHNIQUE: Contiguous axial images were obtained through the head and cervical spine without IV contrast. Multiplanar reformatted images were derived for the cervical spine. CT Radiation dose: Integrated Dose-length product (DLP) for this visit = 1653 mGy*cm. CT Dose Reduction Employed: Iterative recon FINDINGS CT HEAD: Acute change: No evidence of an acute infarct or other acute parenchymal process. Hemorrhage: No evidence of acute intracranial hemorrhage. Mass Effect / Mass Lesion: No visualized mass, mass effect, midline shift or extra-axial fluid collection. Chronic change: No significant chronic abnormality. Ventricles: Within normal limits for age. Bones/extracranial soft tissues: No acute osseous abnormality. No acute soft tissue abnormality. Sinuses: Partial opacification of the inferior aspect of a few left anterior ethmoid air cells, however no clinically significant paranasal sinus disease. Bilateral mastoid air cells are clear. FINDINGS CT CERVICAL: Please note for purposes of this exam, 7 cervical vertebrae are assumed, with the most cephalad vertebra counted as C1. Bones: No acute cervical fracture. Occipital condyles are intact. Exam is mildly degraded by motion artifact but remains diagnostic. Alignment: No gross focal malalignment. Osseous degenerative changes: Atlantoaxial spurring. Multilevel vertebral body osteophytosis, C4-C7. No moderate or severe osseous neural foraminal narrowing. Multilevel facet arthropathy bilaterally. Discs: Posterior disc margins are suboptimally characterized without intrathecal contrast. No large disc herniation/protrusion or raj spinal canal stenosis as imaged. Relative disc space narrowing at C6-C7. Soft tissues: Normal prevertebral soft tissues. Visualized lung apices: No acute abnormality. COMBINED IMPRESSION: No acute intracranial process. No basilar skull nor calvarial fracture. No acute fracture of the cervical spine. Chronic changes as described. Incubator Tender: PSCB Transcribe Date/Time: Jun 10 2019 4:27A Dictated by : DMITRIY RUIZ MD This examination was interpreted and the report reviewed and electronically signed by: DMITRIY RUIZ MD on Jun 10 2019 4:35AM EST Normal [facility] CT CHEST W IVCONon 9 CT CHEST W IVCON * * *Final Report* * * * * * SEE BOTTOM OF REPORT FOR ADDENDED TEXT * * * DATE OF EXAM: Jun 10 2019 4:42AM [facility] 0539 - CT CHEST W IVCON / PROCEDURE REASON: Chest trauma, blunt * * * * Physician Interpretation * * * * * * * * * * * * ORIGINAL REPORT * * * * * * * * EXAMINATION: CT ABD/PEL W IVCON, CT T-SPINE W RECON DATA -NB, CT CHEST W IVCON, CT LUMBAR SPINE W RECON DATA -NB CLINICAL HISTORY: Abdomen-pelvis trauma, moderate, blunt Technique: 1. Axial CT images were acquired through the chest following the bolus administration of nonionic intravenous contrast. Sagittal and coronal reformatted images are provided for interpretation. 2. Axial CT images were acquired through the thoracic spine. Sagittal and coronal reformatted images are provided for interpretation. 3. Axial CT images were acquired through the abdomen and pelvis following the bolus administration of nonionic intravenous contrast. Sagittal and coronal reformatted images are provided for interpretation. 4. Axial CT images were acquired through the lumbar spine. Sagittal and coronal reformatted images are provided for interpretation. Exam Date: 06/10/2019 4:42 AM Comparison: None Contrast: IV 150 ml of Omnipaque 300 CT Radiation dose: Integrated Dose-length product (DLP) for this visit = 1653 mGy*cm CT Dose Reduction Employed: Automated exposure control(AEC) and iterative recon RESULT: Heart, mediastinum and pulmonary kelvin: The heart is normal in size and configuration. No mediastinal or hilar adenopathy. No pericardial effusion. Aorta and great vessels: Minimal calcified atheromatous plaquing with the arctic arch and brachiocephalic artery with no evidence of acute posttraumatic abnormality. Trachea and primary bronchi: Patent. Pulmonary parenchyma and pleura: The lungs are equally and symmetrically inflated with no evidence of acute posttraumatic abnormality. Thoracic bones and soft tissues: Acute fracture of the left fourth anterior rib. Healed fractures of the left sixth and seventh ribs are present. No other acute fracture deformity is seen. Thoracic spine: Counting reference: Cervicothoracic junction. Anatomic variation: None. Normal thoracic kyphosis and vertebral body alignment is maintained. Intervertebral disc spaces and vertebral body heights appear normal. The facets and spinous processes appear well aligned. Multilevel anterior spondylosis is present. Mild to moderate multilevel facet hypertrophic changes of the upper thoracic spine. Hepatobiliary: Liver is normal in size and density. The gallbladder is decompressed but otherwise normal in appearance. Spleen, pancreas and adrenal glands: Normal. Urogenital: The kidneys are normal in size and density. The ureters are normal in course and caliber. The urinary bladder is unremarkable. The prostate is normal in size. GASTROINTESTINAL: Minimal scattered colonic diverticulosis is present with no evidence of acute diverticulitis. No intra-abdominal free air or free fluid is present. Lymph nodes and retroperitoneum: No adenopathy or retroperitoneal mass. Vasculature: Unremarkable. Bones and soft tissues: Postsurgical changes from left femoral neck repair with no evidence of acute fracture of the pelvis. Lumbar spine: Counting reference: Lumbosacral junction. Anatomic variation: None. Normal lumbar lordosis and vertebral body alignment. Facet hypertrophic changes are seen from L3 through S1, most evident at L5/S1. No evidence of bony canal or neural foraminal stenosis. The sacrum appears intact. IMPRESSION: CT thorax: 1. Acute appearing left fourth rib fracture with healed left sixth and seventh rib fractures. 2. No acute posttraumatic cardiothoracic abnormality CT thoracic spine: Degenerative changes with no acute bony abnormality appreciated. CT abdomen and pelvis: 1. No acute posttraumatic abdominal or pelvic abnormality. 2. Minimal colonic diverticulosis with no evidence of diverticulitis. 3. Intact left femoral neck ORIF. CT lumbar spine: Degenerative changes of the facet joints with no acute posttraumatic bony abnormality appreciated. * * * * * * * * ADDENDUM #1 * * * * * * * * Indication: Fall/trauma with mid back pain. Incubator Tender: CORBY Transcribe Date/Time: Aug 08 2019 3:01A Dictated by : WALDO GASPAR MD This examination was interpreted and the report reviewed and electronically signed by: WALDO GASPAR MD on Jun 10 2019 5:10AM EST This document has been addended by: WALDO GASPAR MD on Aug 08 2019 3:02AM EST Normal [facility] CT LUMBAR SPINE W RECON DATA -NBon 06-10-2019 CT LUMBAR SPINE W RECON DATA -NB * * *Final Report* * * * * * SEE BOTTOM OF REPORT FOR ADDENDED TEXT * * * DATE OF EXAM: Jun 10 2019 4:42AM [facility] 0481 - CT LUMBAR SPINE W RECON DATA -NB / PROCEDURE REASON: L/S-spine fx, traumatic * * * * Physician Interpretation * * * * * * * * * * * * ORIGINAL REPORT * * * * * * * * EXAMINATION: CT ABD/PEL W IVCON, CT T-SPINE W RECON DATA -NB, CT CHEST W IVCON, CT LUMBAR SPINE W RECON DATA -NB CLINICAL HISTORY: Abdomen-pelvis trauma, moderate, blunt Technique: 1. Axial CT images were acquired through the chest following the bolus administration of nonionic intravenous contrast. Sagittal and coronal reformatted images are provided for interpretation. 2. Axial CT images were acquired through the thoracic spine. Sagittal and coronal reformatted images are provided for interpretation. 3. Axial CT images were acquired through the abdomen and pelvis following the bolus administration of nonionic intravenous contrast. Sagittal and coronal reformatted images are provided for interpretation. 4. Axial CT images were acquired through the lumbar spine. Sagittal and coronal reformatted images are provided for interpretation. Exam Date: 06/10/2019 4:42 AM Comparison: None Contrast: IV 150 ml of Omnipaque 300 CT Radiation dose: Integrated Dose-length product (DLP) for this visit = 1653 mGy*cm CT Dose Reduction Employed: Automated exposure control(AEC) and iterative recon RESULT: Heart, mediastinum and pulmonary kelvin: The heart is normal in size and configuration. No mediastinal or hilar adenopathy. No pericardial effusion. Aorta and great vessels: Minimal calcified atheromatous plaquing with the arctic arch and brachiocephalic artery with no evidence of acute posttraumatic abnormality. Trachea and primary bronchi: Patent. Pulmonary parenchyma and pleura: The lungs are equally and symmetrically inflated with no evidence of acute posttraumatic abnormality. Thoracic bones and soft tissues: Acute fracture of the left fourth anterior rib. Healed fractures of the left sixth and seventh ribs are present. No other acute fracture deformity is seen. Thoracic spine: Counting reference: Cervicothoracic junction. Anatomic variation: None. Normal thoracic kyphosis and vertebral body alignment is maintained. Intervertebral disc spaces and vertebral body heights appear normal. The facets and spinous processes appear well aligned. Multilevel anterior spondylosis is present. Mild to moderate multilevel facet hypertrophic changes of the upper thoracic spine. Hepatobiliary: Liver is normal in size and density. The gallbladder is decompressed but otherwise normal in appearance. Spleen, pancreas and adrenal glands: Normal. Urogenital: The kidneys are normal in size and density. The ureters are normal in course and caliber. The urinary bladder is unremarkable. The prostate is normal in size. GASTROINTESTINAL: Minimal scattered colonic diverticulosis is present with no evidence of acute diverticulitis. No intra-abdominal free air or free fluid is present. Lymph nodes and retroperitoneum: No adenopathy or retroperitoneal mass. Vasculature: Unremarkable. Bones and soft tissues: Postsurgical changes from left femoral neck repair with no evidence of acute fracture of the pelvis. Lumbar spine: Counting reference: Lumbosacral junction. Anatomic variation: None. Normal lumbar lordosis and vertebral body alignment. Facet hypertrophic changes are seen from L3 through S1, most evident at L5/S1. No evidence of bony canal or neural foraminal stenosis. The sacrum appears intact. IMPRESSION: CT thorax: 1. Acute appearing left fourth rib fracture with healed left sixth and seventh rib fractures. 2. No acute posttraumatic cardiothoracic abnormality CT thoracic spine: Degenerative changes with no acute bony abnormality appreciated. CT abdomen and pelvis: 1. No acute posttraumatic abdominal or pelvic abnormality. 2. Minimal colonic diverticulosis with no evidence of diverticulitis. 3. Intact left femoral neck ORIF. CT lumbar spine: Degenerative changes of the facet joints with no acute posttraumatic bony abnormality appreciated. * * * * * * * * ADDENDUM #1 * * * * * * * * Indication: Fall/trauma with mid back pain. Incubator Tender: PSCB Transcribe Date/Time: Aug 08 2019 3:01A Dictated by : WALDO GASPAR MD This examination was interpreted and the report reviewed and electronically signed by: WALDO GASPAR MD on Jun 10 2019 5:10AM EST This document has been addended by: WALDO GASPAR MD on Aug 08 2019 3:02AM EST Normal [facility] CT T-SPINE W RECON DATA -NBo n 06-10-2019 CT T-SPINE W RECON DATA -NB * * *Final Report* * * * * * SEE BOTTOM OF REPORT FOR ADDENDED TEXT * * * DATE OF EXAM: Jun 10 2019 4:42AM [facility] 0485 - CT T-SPINE W RECON DATA -NB / PROCEDURE REASON: T-spine fx, traumatic * * * * Physician Interpretation * * * * * * * * * * * * ORIGINAL REPORT * * * * * * * * EXAMINATION: CT ABD/PEL W IVCON, CT T-SPINE W RECON DATA -NB, CT CHEST W IVCON, CT LUMBAR SPINE W RECON DATA -NB CLINICAL HISTORY: Abdomen-pelvis trauma, moderate, blunt Technique: 1. Axial CT images were acquired through the chest following the bolus administration of nonionic intravenous contrast. Sagittal and coronal reformatted images are provided for interpretation. 2. Axial CT images were acquired through the thoracic spine. Sagittal and coronal reformatted images are provided for interpretation. 3. Axial CT images were acquired through the abdomen and pelvis following the bolus administration of nonionic intravenous contrast. Sagittal and coronal reformatted images are provided for interpretation. 4. Axial CT images were acquired through the lumbar spine. Sagittal and coronal reformatted images are provided for interpretation. Exam Date: 06/10/2019 4:42 AM Comparison: None Contrast: IV 150 ml of Omnipaque 300 CT Radiation dose: Integrated Dose-length product (DLP) for this visit = 1653 mGy*cm CT Dose Reduction Employed: Automated exposure control(AEC) and iterative recon RESULT: Heart, mediastinum and pulmonary kelvin: The heart is normal in size and configuration. No mediastinal or hilar adenopathy. No pericardial effusion. Aorta and great vessels: Minimal calcified atheromatous plaquing with the arctic arch and brachiocephalic artery with no evidence of acute posttraumatic abnormality. Trachea and primary bronchi: Patent. Pulmonary parenchyma and pleura: The lungs are equally and symmetrically inflated with no evidence of acute posttraumatic abnormality. Thoracic bones and soft tissues: Acute fracture of the left fourth anterior rib. Healed fractures of the left sixth and seventh ribs are present. No other acute fracture deformity is seen. Thoracic spine: Counting reference: Cervicothoracic junction. Anatomic variation: None. Normal thoracic kyphosis and vertebral body alignment is maintained. Intervertebral disc spaces and vertebral body heights appear normal. The facets and spinous processes appear well aligned. Multilevel anterior spondylosis is present. Mild to moderate multilevel facet hypertrophic changes of the upper thoracic spine. Hepatobiliary: Liver is normal in size and density. The gallbladder is decompressed but otherwise normal in appearance. Spleen, pancreas and adrenal glands: Normal. Urogenital: The kidneys are normal in size and density. The ureters are normal in course and caliber. The urinary bladder is unremarkable. The prostate is normal in size. GASTROINTESTINAL: Minimal scattered colonic diverticulosis is present with no evidence of acute diverticulitis. No intra-abdominal free air or free fluid is present. Lymph nodes and retroperitoneum: No adenopathy or retroperitoneal mass. Vasculature: Unremarkable. Bones and soft tissues: Postsurgical changes from left femoral neck repair with no evidence of acute fracture of the pelvis. Lumbar spine: Counting reference: Lumbosacral junction. Anatomic variation: None. Normal lumbar lordosis and vertebral body alignment. Facet hypertrophic changes are seen from L3 through S1, most evident at L5/S1. No evidence of bony canal or neural foraminal stenosis. The sacrum appears intact. IMPRESSION: CT thorax: 1. Acute appearing left fourth rib fracture with healed left sixth and seventh rib fractures. 2. No acute posttraumatic cardiothoracic abnormality CT thoracic spine: Degenerative changes with no acute bony abnormality appreciated. CT abdomen and pelvis: 1. No acute posttraumatic abdominal or pelvic abnormality. 2. Minimal colonic diverticulosis with no evidence of diverticulitis. 3. Intact left femoral neck ORIF. CT lumbar spine: Degenerative changes of the facet joints with no acute posttraumatic bony abnormality appreciated. * * * * * * * * ADDENDUM #1 * * * * * * * * Indication: Fall/trauma with mid back pain. Incubator Tender: PSCB Transcribe Date/Time: Aug 08 2019 3:01A Dictated by : WALDO GASPAR MD This examination was interpreted and the report reviewed and electronically signed by: WALDO GASPAR MD on Jun 10 2019 5:10AM EST This document has been addended by: WALDO GASPAR MD on Aug 08 2019 3:02AM EST Normal [facility] Comprehensive Panelon 2018 ALP [Catalytic activity/Vol] 68 U/L Normal 45-117 [facility] Comment on above: Performed By: #### P 14 #### [facility] [address] [place], [place] [address] Bilirubin [Mass/Vol] 0.3 mg/dL Normal 0.2-1.0 [facility] Comment on above: Performed By: #### P 14 #### [facility] [address] [place], [place] [address] Protein [Mass/Vol] 7.6 g/dL Normal 6.4-8.2 [facility] Comment on above: Performed By: #### P 14 #### [facility] [address] [place], [place] [address] ALT [Catalytic activity/Vol] 43 U/L Normal 12-78 [facility] Comment on above: Performed By: #### P 14 #### [facility] [address] [place], [place] [address] AST [Catalytic activity/Vol] 30 U/L Normal 15-37 [facility] Comment on above: Performed By: #### P 14 #### [facility] [address] [place], [place] [address] Creatinine [Mass/Vol] 1.02 mg/dL Normal 0.67-1.17 [facility] Comment on above: Performed By: #### P 14 #### [facility] [address] [place], [place] [address] Albumin [Mass/Vol] 3.7 g/dL Normal 3.4-5.0 [facility] Comment on above: Performed By: #### P 14 #### [facility] [address] [place], [place] [address] Anion gap [Moles/Vol] 13 mmol/L Normal 8-16 [facility] Comment on above: Performed By: #### P 14 #### [facility] [address] [place], [place] [address] CO2 [Moles/Vol] 27 mmol/L Normal 21-32 [facility] Comment on above: Performed By: #### P 14 #### [facility] [address] [place], [place] [address] Glucose [Mass/Vol] 177 mg/dL High 70-99 [facility] Comment on above: Performed By: #### P 14 #### [facility] [address] [place], [place] [address] Calcium [Mass/Vol] 8.9 mg/dL Normal 8.5-10.1 [facility] Comment on above: Performed By: #### P 14 #### [facility] [address] [place], [place] [address] Urea nitrogen [Mass/Vol] 21 mg/dL High 7-18 [facility] Comment on above: Performed By: #### P 14 #### [facility] [address] [place], [place] [address] Chloride [Moles/Vol] 102 mmol/L Normal 98-107 [facility] Comment on above: Performed By: #### P 14 #### [facility] [address] [place], [place] [address] Potassium [Moles/Vol] 4.0 mmol/L Normal 3.5-5.1 [facility] Comment on above: Performed By: #### P 14 #### [facility] [address] [place], [place] [address] Sodium [Moles/Vol] 138 mmol/L Normal 136-145 [facility] Comment on above: Performed By: #### P 14 #### [facility] [address] [place] [address] [facility] Troponin Ion 06-10-2019 Troponin I.cardiac [Mass/Vol] ng/mL Normal 0.015-0.045 [facility] Comment on above: Performed By: #### A LC #### [facility] [address] [place] [address] Hemogramon 06-10-2019 Erythrocyte distribution width (RBC) [Ratio] 13.0 % Normal 11.6-14.4 [facility] Comment on above: Performed By: #### C BC1 #### [facility] [address] [place] [address] Hematocrit (Bld) [Volume fraction] 46.6 % Normal 40.1-51.0 [facility] Comment on above: Performed By: #### C BC1 #### [place] [address] Hemoglobin (Bld) [Mass/Vol] 15.0 g/dL Normal 13.7-17.5 [facility] Comment on above: Performed By: #### C BC1 #### [facility] [address] [place] [place] [address] MCH (RBC) [Entitic mass] 30.5 pg Normal 25.7-32.2 [facility] Comment on above: Performed By: #### C BC1 #### [place] [address] MCHC (RBC) [Mass/Vol] 32.2 % Low 32.3-36.5 [facility] Comment on above: Performed By: #### C BC1 #### [place] [address] MCV (RBC) [Entitic vol] 94.7 fL Normal 83.2-95.6 [facility] Comment on above: Performed By: #### C BC1 #### [place] [address] Platelet mean volume (Bld) [Entitic vol] 10.0 fL Normal 8.7-12.0 [facility] Comment on above: Performed By: #### C BC1 #### [facility] [address] [place], [place] [address] Platelets (Bld) [#/Vol] 228 thou/cmm Normal 141-365 [facility] Comment on above: Performed By: #### C BC1 #### [facility] [address] [place] [id number] RBC (Bld) [#/Vol] 4.92 mil/cmm Normal 4.63-6.08 [facility] Comment on above: Performed By: #### C BC1 #### [facility] [address] [place] [address] RDW SD 45.0 fl Normal 36.1-45.8 [facility] Comment on above: Performed By: #### C BC1 #### [facility] [address] [place] [address] WBC (Bld) [#/Vol] 17.20 thou/cmm High 4.23-9.07 [facility] Comment on above: Performed By: #### C BC1 #### [facility] [address] [place] [address] Lipase Bloodon 06-10-2019 Lipase Blood 169 U/L Normal 73-393 [facility] Comment on above: Performed By: #### L IP #### [place] [address] MDRD GFRon 06-10-2019 GFR/1.73 sq M predicted among non-blacks MDRD (S/P/Bld) [Vol rate/Area] mL/min/{1.73_m2} Normal >60mL/min/1. 73m2 [facility] Comment on above: Result Comment: If t he patient is , multiply the result by 1.210. Performed By: #### G FR #### [facility] [address] [place] [address] Protimeon 06-10-2019 INR Coag (PPP) [Relative time] 0.94 {INR} Normal 0.90-1.30 [facility] Comment on above: Result Comment: Idania min K Antagonist (VKA) Therapeutic Range: INR 2 to 3 (Target INR of 2.5) Note: For patients treated with VKA drugs, such as warfarin, the [employer] 2012 Guideline recommends a therapeutic INR range of 2 to 3 (target INR of 2.5). This recommendation includes high-risk patients with antiphospholipid syndrome with previous arterial or venous thromboembolism, current-generation mechanical or bioprosthetic aortic heart valve replacement. Note: Patients with mechanical aortic valve replacement and additional risk factors for thromboembolic events (atrial fibrillation, previous thromboembolism, LV dysfunction, hypercoagulable conditions) or an older generation mechanical AVR (i.e., ball in-Cage) or any mechanical MVR should have a INR therapeutic range of 2.5 to 3.5 target INR of 3).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 +R saphenofemoral +Patent +Compressible + + +junction + + + + + +--- ----+ --+ + +R profunda femoral +Patent +Normal phasicity; + + + + +spontaneous; normal + + + + +augmentation + + + +--- ----+ --+ + +R FV - prox. +Patent +Compressible + + + +--- ----+ --+ + +R FV - mid +Patent +Normal phasicity; + + + + +spontaneous; normal + + + + +augmentation; + + + + +compressible + + + +--- ----+ --+ + +R FV - distal +Patent +Compressible + + + +--- ----+ --+ + +R popliteal +Patent +Normal phasicity; + + + + +spontaneous; normal + + + + +augmentation; + + + + +compressible + + + +--- ----+ --+ + +R gastrocnemius +Patent +Compressible + + + +--- ----+ --+ + +R PTV +Patent +Compressible + + + +--- ----+ --+ + +R peroneal +Patent +Compressible +Not well + + + + +visualized. + + +--- ----+ --+ + +R soleol +Patent +Compressible +Not well + + + + +visualized. + + +--- ----+ --+ + +R GSV +Patent +Compressible + + + +--- ----+ --+ + +L CFV +Patent +Normal phasicity; + + + + +spontaneous; normal + + + + +augmentation; + + + + +compressible + + + +--- ----+ --+ + +L saphenofemoral +Patent +Compressible + + +junction + + + + + +--- ----+ --+ + +L profunda femoral +Patent +Normal phasicity; + + + + +spontaneous; normal + + + + +augmentation + + + +--- ----+ --+ + +L FV - prox. +Patent +Compressible + + + +--- ----+ --+ + +L FV - mid +Patent +Normal phasicity; + + + + +spontaneous; normal + + + + +augmentation; + + + + +compressible + + + +--- ----+ --+ + +L FV - distal +Patent +Compressible + + + +--- ----+ --+ + +L popliteal +Patent +Normal phasicity; + + + + +spontaneous; normal + + + + +augmentation; + + + + +compressible + + + +--- ----+ --+ + +L gastrocnemius +Patent +Compressible + + + +--- ----+ --+ + +L PTV +Patent +Compressible + + + +--- ----+ --+ + +L peroneal +Patent +Compressible +Not well + + + + +visualized. + + +--- ----+ --+ + +L soleol +Patent +Compressible +Not well + + + + +visualized. + + +--- ----+ --+ + +L GSV +Patent +Compressible + + + +--- ----+ --+ + Prepared and electronically signed by Severiano Lyons MD 05/30/2019 07:28 [facility], [address] [place] [address] , [facility] [place], [address] [place] [address] , [place], [place] Brain Natriuretic Peptideon 05-29-2019 Interpretation and review of laboratory results Abnormal [place], [place] Natriuretic peptide B (Bld) [Mass/Vol] 162 pg/mL High 0 - 125 pg/mL [place], [place] C-Reactive Proteinon 019 CRP [Mass/Vol] 12.5 mg/L High 0 - 6 mg/L [place] Comment on above: . CTA Chest W WO (PE study)on 05-29-2019 [facility] Incoming Radiology Results From [facility] - 05/29/2019 6:25 PM EDT Patient Name: HYACINTH HURST ---CT--- Exam Date/Time 05/29/2019 18:08:59 EDT Exam CTA Chest w/ + w/o Contrast Ordering Physician JAN RENO Accession Number [id number] CPT4 Codes 39204 (), Q9967 (CT ISOVUE 370MG/[id number]& 1) Reason For Exam SOB, hx of PE, off AC Report Examination: CTA chest Clinical Indication: SOB, hx of PE, off AC Comparison: 12/21/2016 Findings: Serial axial [address] images were obtained through the chest after a 75 mL Isovue-370 bolus tracked intravenous contrast bolus secondary to the chest CTA P.E. protocol. Three-dimensional images were reconstructed concurrently on a dedicated [employer] workstation by the interpreting radiologist. Examination is mildly degraded by beam hardening artifact related to patient enlarged habitus. Minimal amount of dependent groundglass opacity likely air trapping. No focal consolidation, effusion or pulmonary infarct. No lymphadenopathy. Heart size at the upper limits of normal. No pericardial effusion. There is no definite filling defect noted within the pulmonary arteries. Contrast bolus is mildly degraded by motion, slightly suboptimal bolus timing and some beam hardening artifact. Aorta is normal in caliber with no dissection or aneurysm. Diffuse fatty infiltration of the liver. Gallbladder is contracted. Mild cortical atrophy of the visualized upper pole kidneys. Degenerative changes shoulders and spine. Impression: 1. Mildly limited exam. 2. No CT evidence of pulmonary embolus or other acute thoracic process. 3. Diffuse fatty infiltration of the liver. Report Dictated on --- Final --- Dictating Physician: MD AVILES ANTHONY J Signed Date and Time: 05/29/2019 6:24 pm Signed by: MD AVILES ANTHONY J Transcribed Date and Time: 05/29/2019 6:25 [place], [place] Patient Name: HYACINTH HURST ---CT--- Exam Date/Time 05/29/2019 18:08:59 EDT Exam CTA Chest w/ + w/o Contrast Ordering Physician JAN RENO Accession Number [id number] CPT4 Codes 70650 (), Q9967 (CT ISOVUE 370MG/ML&[id number]& 1) Reason For Exam SOB, hx of PE, off AC Report Examination: CTA chest Clinical Indication: SOB, hx of PE, off AC Comparison: 12/21/2016 Findings: Serial axial [address] images were obtained through the chest after a 75 mL Isovue-370 bolus tracked intravenous contrast bolus secondary to the chest CTA P.E. protocol. Three-dimensional images were reconstructed concurrently on a dedicated [employer] workstation by the interpreting radiologist. Examination is mildly degraded by beam hardening artifact related to patient enlarged habitus. Minimal amount of dependent groundglass opacity likely air trapping. No focal consolidation, effusion or pulmonary infarct. No lymphadenopathy. Heart size at the upper limits of normal. No pericardial effusion. There is no definite filling defect noted within the pulmonary arteries. Contrast bolus is mildly degraded by motion, slightly suboptimal bolus timing and some beam hardening artifact. Aorta is normal in caliber with no dissection or aneurysm. Diffuse fatty infiltration of the liver. Gallbladder is contracted. Mild cortical atrophy of the visualized upper pole kidneys. Degenerative changes shoulders and spine. Impression: 1. Mildly limited exam. 2. No CT evidence of pulmonary embolus or other acute thoracic process. 3. Diffuse fatty infiltration of the liver. Report Dictated on --- Final --- Dictating Physician: MD AVILES ANTHONY J Signed Date and Time: 05/29/2019 6:24 pm Signed by: MD AVILES ANTHONY J Transcribed Date and Time: 05/29/2019 6:25 [place], [place] Comprehensive Metabolic Pane jose 05-29-2019 Albumin [Mass/Vol] 4.0 g/dL 3.5 - 5 g/dL [place], [place] ALP [Catalytic activity/Vol] 58 U/L 38 - 126 U/L [place] ALT [Catalytic activity/Vol] 42 U/L 13 - 69 U/L [place] Anion gap [Moles/Vol] 7 mmol/L [place], [place] AST [Catalytic activity/Vol] 33 U/L 15 - 46 U/L [place] Bilirubin Ql (U) 0.5 mg/dL 0.2 - 1.3 mg/dL [place] Calcium [Mass/Vol] 9.3 mg/dL 8.4 - 10. 4 mg/dL [place] Chloride [Moles/Vol] 102 mmol/L 98 - 10 7 mmol/L [place] CO2 [Moles/Vol] 28 mmol/L 22 - 30 mmol/L [place] Creatinine [Mass/Vol] 0.96 mg/dL 0.52 - 1.25 mg/dL [place] EGFR IF NonAfrican Macanese >60.0 >60 mL/min [place] Comment on above: Source- MDRD equatio n with creatinine calibration to IDMS(NKDEP) eGFR not recommended for drug dose adjustment GFR/1.73 sq M predicted among blacks MDRD (S/P/Bld) [Vol rate/Area] mL/min/{1.73_m2} >60 mL/min [place] Glucose [Mass/Vol] 129 mg/dL High 70 - 100 mg/dL [place] Potassium [Moles/Vol] 4.1 mmol/L 3.5 - 5.1 mmol/L [place] Protein [Mass/Vol] 7.5 g/dL 6.3 - 8.2 g/dL [place] Sodium [Moles/Vol] 138 mmol/L 135 - 145 mmol/L [place] Urea nitrogen [Mass/Vol] 15 mg/dL 7 - 20 mg/dL [place] EKG 12 Lead - Chest Painon 0 05-29-2019 Cj, [facility] Incoming [facility]iology [facility] 05[facility]29/[facility] 8:14 PM EDT [facility] Test Date: 2019-05-29 Pat Name: Hyacinth Elia Department: Room: 16 Gender: M Receiving Room Clerk: GENIA : 1960 Requested By: ED Order Number: [id number] Reading MD: Jody Camargo Measurements Intervals [place] Rate: 73 P: 0 OR: 188 QRS: 36 QRSD: 102 T: 20 QT: 392 QTc: 432 Interpretive Statements SINUS RHYTHM CONSIDER ANTERIOR INFARCT BASELINE WANDER IN LEAD(S) II,III,aVF,V3 Compared to ECG 11/09/2018 07:22:39 Myocardial infarct finding now present Electronically Signed On 05-29-2019 20:12:59 EDT by Jody Camargo [facility] Test Date: 2019-05-29 Pat Name: Hyacinth Elia Department: Room: 16 Gender: M Receiving Room Clerk: GENIA : 1960 Requested By: ED Order Number: [id number] Reading MD: Jody Camargo Measurements Intervals [place] Rate: 73 P: 0 OR: 188 QRS: 36 QRSD: 102 T: 20 QT: 392 QTc: 432 Interpretive Statements SINUS RHYTHM CONSIDER ANTERIOR INFARCT BASELINE WANDER IN LEAD(S) II,III,aVF,V3 Compared to ECG 11/09/2018 07:22:39 Myocardial infarct finding now present Electronically Signed On 05-29-2019 20:12:59 EDT by Jody Camargo [place], [place] Hemogram (CBC) w/Auto Diffon 05-29-2019 Absolute Baso # 0.1 10*3/uL 0 - 0.2 10*3/uL [place] Absolute Neut # 6.4 10*3/uL 1.8 - 7 10*3/uL [place] Basophils/100 WBC (Bld) 0.7 % 0 - 2 % [place] Eosinophils (Bld) [#/Vol] 0.1 10*3/uL 0 - 0.5 10*3/uL [place] Eosinophils/100 WBC (Bld) 1.3 % 1 - 6 % [place] Erythrocyte distribution width (RBC) [Ratio] 13.8 % 11.5 - 14.5 % [place] Granulocytes/100 WBC (Bld) 67.7 % 40 - 80 % [place] Hematocrit (Bld) [Volume fraction] 44.4 % 40 - 52 % [place] Hemoglobin (Bld) [Mass/Vol] 15.3 g/dL 13 - 18 g/dL [place] Lymphocytes (Bld) [#/Vol] 2.0 10*3/uL 1 - 4.3 10*3/uL [place] Lymphocytes/100 WBC (Bld) 21.6 % 20 - 40 % [place] MCH (RBC) [Entitic mass] 31.4 pg 26 - 34 pg [place] MCHC (RBC) [Mass/Vol] 34.3 % 32 - 36 % [place] MCV (RBC) [Entitic vol] 91.5 fL 80 - 98 fL [place] Monocytes (Bld) [#/Vol] 0.8 10*3/uL 0 - 0.8 10*3/uL [place] Monocytes/100 WBC (Bld) 8.7 % 2 - 10 % [place] Platelet mean volume (Bld) [Entitic vol] 7.6 fL 7.4 - 10.4 fL [place] Platelets (Bld) [#/Vol] 185 10*3/uL 140 - 440 10*3/uL [place] RBC (Bld) [#/Vol] 4.85 10*6/uL 4.4 - 5.9 10*6/uL [place] WBC (Bld) [#/Vol] 9.4 10*3/uL 3.6 - 10.7 10*3/uL [place] Test Performed by [facility], [address] Otheron 05-29-2019 Test Performed by [facility], [address] Interpretation and review of laboratory results Abnormal [place] Test Performed by [facility], [address] Sedimentation Rateon 019 Interpretation and review of laboratory results Abnormal [place], [place] Sed Rate 26 mm/h High 0 - 10 mm/h [place] Test Performed by [facility], [address] Troponin x1on 05-29-2019 Troponin I.cardiac [Mass/Vol] ng/mL 0 - 0.034 ng/mL [place], [place] Comment on above: < 0.034 = negative 0.034 0.120 = indeterminate > 0.120 = positive XR CHEST PORTABLEon 05-29-20 19 Patient Name: HYACINTH HURST ---Diagnostic Radiology--- Exam Date/Time 05/29/2019 17:02:15 EDT Exam CR Chest Portable Ordering Physician SEVERINO MAHER DANIEL M Accession Number [id number] CPT4 Codes 18119 () Reason For Exam dyspnea Report Examination: AP portable chest Clinical Indication: dyspnea Comparison: 11/08/2018 Findings: Lungs appear normally inflated. There is no focal consolidation, effusion, or pulmonary edema identified. The cardiomediastinal silhouette is within normal limits. Degenerative changes within the shoulders. Impression: No acute cardiopulmonary process. Report Dictated on --- Final --- Dictating Physician: MD AVILES ANTHONY J Signed Date and Time: 05/29/2019 5:00 pm Signed by: MD AVILES ANTHONY J Transcribed Date and Time: 05/29/2019 5:02 [facility] [place] C[facility], [facility] Results From [facility] - 05/29/2019 5:02 PM EDT Patient Name: HYACINTH HURST ---Diagnostic Radiology--- Exam Date/Time 05/29/2019 17:02:15 EDT Exam CR Chest Portable Ordering Physician SEVERINO MAHER DANIEL M Accession Number [id number] CPT4 Codes 29187 () Reason For Exam dyspnea Report Examination: AP portable chest Clinical Indication: dyspnea Comparison: 11/08/2018 Findings: Lungs appear normally inflated. There is no focal consolidation, effusion, or pulmonary edema identified. The cardiomediastinal silhouette is within normal limits. Degenerative changes within the shoulders. Impression: No acute cardiopulmonary process. Report Dictated on --- Final --- Dictating Physician: MD AVILES ANTHONY J Signed Date and Time: 05/29/2019 5:00 pm Signed by: MD AVILES ANTHONY J Transcribed Date and Time: 05/29/2019 5:02 [facility], [place] Pop XR TIBIA FIBULA LEFT (2 VIEW S)on 05-29-2019 Cj, [facility] Incoming Radiology Results From [facility] - 05/29/2019 5:05 PM EDT Patient Name: HYACINTH HURST ---Diagnostic Radiology--- Exam Date/Time 05/29/2019 17:02:15 EDT Exam CR Tibia/Fibula 2 Views Left Ordering Physician SEVERINO MAHER DANIEL M Accession Number [id number] CPT4 Codes 27037 () Reason For Exam ulcers to leg, evaluate for air Report Examination: Left tibia fibula Clinical Indication: Ulceration concern for subcutaneous air Comparison: None Findings: AP and lateral proximal and distal views of the left tibia and fibula demonstrate no cortical or trabecular irregularity to suggest a fracture. No periostitis or osteolysis is appreciated. Advanced osteoarthropathy of the left knee with severe joint space narrowing, subchondral sclerosis and bulky osteophytes. Intramedullary femoral john incompletely evaluated. There is diffuse subcutaneous edema. There is minimal 3 to 5 mm subcutaneous air seen superficial anterior to the tibia 18 cm proximal to the tip of the lateral fibula and posteriorly, 10 cm proximal. Small venous stasis calcifications anterior to the leg. Left ankle demonstrates mild joint space narrowing and osteoarthropathy. Tiny enthesophyte at the Achilles tendon insertion. Impression: Superficial soft tissue ulcerations with superficial subcutaneous air seen both anterior and posterior to the distal leg as above. No x-ray evidence of osteomyelitis. No gross evidence of fracture, subluxation, or other gross abnormality of the left tibia and fibula. Report Dictated on --- Final --- Dictating Physician: MD AVILES ANTHONY J Signed Date and Time: 05/29/2019 5:04 pm Signed by: MD AVILES ANTHONY J Transcribed Date and Time: 05/29/2019 5:05 [place], [place] Patient Name: HYACINTH HURST ---Diagnostic Radiology--- Exam Date/Time 05/29/2019 17:02:15 EDT Exam CR Tibia/Fibula 2 Views Left Ordering Physician SEVERINO MAHER DANIEL M Accession Number [id number] CPT4 Codes 04325 () Reason For Exam ulcers to leg, evaluate for air Report Examination: Left tibia fibula Clinical Indication: Ulceration concern for subcutaneous air Comparison: None Findings: AP and lateral proximal and distal views of the left tibia and fibula demonstrate no cortical or trabecular irregularity to suggest a fracture. No periostitis or osteolysis is appreciated. Advanced osteoarthropathy of the left knee with severe joint space narrowing, subchondral sclerosis and bulky osteophytes. Intramedullary femoral john incompletely evaluated. There is diffuse subcutaneous edema. There is minimal 3 to 5 mm subcutaneous air seen superficial anterior to the tibia 18 cm proximal to the tip of the lateral fibula and posteriorly, 10 cm proximal. Small venous stasis calcifications anterior to the leg. Left ankle demonstrates mild joint space narrowing and osteoarthropathy. Tiny enthesophyte at the Achilles tendon insertion. Impression: Superficial soft tissue ulcerations with superficial subcutaneous air seen both anterior and posterior to the distal leg as above. No x-ray evidence of osteomyelitis. No gross evidence of fracture, subluxation, or other gross abnormality of the left tibia and fibula. Report Dictated on --- Final --- Dictating Physician: MD AVILES ANTHONY J Signed Date and Time: 05/29/2019 5:04 pm Signed by: MD AVILES ANTHONY J Transcribed Date and Time: 05/29/2019 5:05 [facility] Pulmonary Functiono n 06-07-2017 [place] Pulmonary Function Normal [facility] ([place]) XR KNEE 1 OR 2 VIEWS RIGHTon 06-03-2017 XR KNEE 1 OR 2 VIEWS RIGHT ORIGINALXR KNEE 2 VIEWS RIGHT CLINICAL STATEMENT: DISABILITY DETERMINATION, pain COMPARISON: None FINDINGS: No acute fracture or dislocation is identified. No joint effusion is seen. There are severe tricompartmental degenerative changes. A 2.2 cm calcific density is seen at the superior aspect of the joint on the lateral view, possibly an intra-articular loose body. An intramedullary john is seen within the distal femur. There is no radiopaque foreign body. IMPRESSION: Severe tricompartmental degenerative changes. Interpreted By: Sylvia Choudhary MDPreliminary Report By: Sylvia Choudhary MDElectronically Signed By: Sylvia Choudhary MD Dictated Date: 06/03/2017 3:55:12 PM Prelim Date: 06/03/2017 3:55:12 PM Sign Date: 06/03/2017 3:57:23 PM Normal [facility] ([place]) XR SPINE LUMBAR 2 VIEWSon XR SPINE LUMBAR 2 VIEWS ORIGINALXR SPINE LUMBAR 2 VIEWS CLINICAL STATEMENT: Pain COMPARISON: None FINDINGS: 5 lumbar type vertebral bodies are visualized. There is approximately 5 mm of anterolisthesis of L4 on L5. The vertebral body alignment is otherwise maintained. Vertebral body heights are maintained. Facet arthropathy is seen at L4-L5 and L5-S1. There is mild degenerative disc disease at L1-L2 and L2-L3. IMPRESSION: Degenerative changes with grade 1 anterolisthesis of L4 on L5. Interpreted By: Sylvia Choudharyreliminary Report By: Sylvia Choudhary MDElectronically Signed By: Sylvia Choudhary MD Dictated Date: 06/03/2017 4:00:52 PM Prelim Date: 06/03/2017 4:00:52 PM Sign Date: 06/03/2017 4:02:31 PM Normal [facility]) Discharge Summaryon 05-17-20 17 Discharge Summary Normal [facility] ([place]) Discharge Summary Normal [facility]) Hospitalist Progress Noteon 05-05-2017 Hospitalist Progress Note Normal [facility]) .GFRon 05-04-2017 eGFR (non-black) mL/min/{1.73_m2} Normal [facility] ([place]) Comment on above: Result Comment: GFR Population mean for , Non- Americans Ages 20-29 = 116 mL/min/1.73 sq.m. Ages 30-39 = 107 mL/min/1.73 sq.m. Ages 40-49 = 99 mL/min/1.73 sq.m. Ages 50-59 = 93 mL/min/1.73 sq.m. Ages 60-69 = 85 mL/min/1.73 sq.m. Ages 70+ = 75 mL/min/1.73 sq.m.Chronic Kidney Disease: Less than 60 mL/min/1.73 square metersEnd Stage Renal Disease: Less than 15 mL/min/1.73 square meters Performed By: #### C BC, ADIFF, ANEU, GFR, CMP, TROPI, APTT, PRO, ERDS, ABORH, ANTIS ####[place] [address] BMPon 05-04-2017 BUN/Creatinine Ratio 9.3 ratio Low 10.0-22.0 [facility]) Comment on above: Performed By: #### C BC, ADIFF, ANEU, GFR, CMP, TROPI, APTT, PRO, ERDS, ABORH, ANTIS ####[place] [address] Calcium 8.7 mg/dL Normal 8.4-10.1 [facility] ([place]) Comment on above: Performed By: #### C BC, ADIFF, ANEU, GFR, CMP, TROPI, APTT, PRO, ERDS, ABORH, ANTIS ####[place] [address] Chloride 103 mmol/L Normal 98-110 [facility] [facility] ([place]) Comment on above: Performed By: #### C BC, ADIFF, ANEU, GFR, CMP, TROPI, APTT, PRO, ERDS, ABORH, ANTIS ####[place] [address] CO2 26 mmol/L Normal 22-32 [facility] ([place]) Comment on above: Performed By: #### C BC, ADIFF, ANEU, GFR, CMP, TROPI, APTT, PRO, ERDS, ABORH, ANTIS ####[place] [address] Creatinine 0.86 mg/dL Normal 0.60-1.40 [facility] ([place]) Comment on above: Performed By: #### C BC, ADIFF, ANEU, GFR, CMP, TROPI, APTT, PRO, ERDS, ABORH, ANTIS ####[place] [address] Electrolyte Balance 10.0 mEq/L Normal 4.0-15.0 [facility] ([place]) Comment on above: Performed By: #### C BC, ADIFF, ANEU, GFR, CMP, TROPI, APTT, PRO, ERDS, ABORH, ANTIS ####[place] [address] Glucose mass conc 115 mg/dL High 70-110 [facility] ([place]) Comment on above: Performed By: #### C BC, ADIFF, ANEU, GFR, CMP, TROPI, APTT, PRO, ERDS, ABORH, ANTIS ####[address] [address] Potassium molar conc 4.1 mmol/L Normal 3.5-5.0 [facility] ([place]) Comment on above: Performed By: #### C BC, ADIFF, ANEU, GFR, CMP, TROPI, APTT, PRO, ERDS, ABORH, ANTIS ####[place] [address] Sodium 139 mmol/L Normal 136-145 [facility] ([place]) Comment on above: Performed By: #### C BC, ADIFF, ANEU, GFR, CMP, TROPI, APTT, PRO, ERDS, ABORH, ANTIS ####[place] [address] Urea nitrogen 8.0 mg/dL Normal 8.0-22.0 [facility]) Comment on above: Performed By: #### C BC, ADIFF, ANEU, GFR, CMP, TROPI, APTT, PRO, ERDS, ABORH, ANTIS ####[place] [address] Senior Asic Engineer Progress Noteon 05-04-2017 Senior Asic Engineer Progress Note Normal [facility] ([place]) Senior Asic Engineer Progress Note Normal [facility] ([place]) Depart Summaryon 05-04-2017 Depart Summary Normal [facility] ([place]) Discharge Summaryon 05-04-20 17 Discharge Summary Normal [facility] ([place]) Inpatient Patient Summaryon 05-04-2017 Inpatient Patient Summary Normal [facility] ([place]) Gastroenterology Progress No richard 05-02-2017 Gastroenterology Progress Note Normal [facility] ([place]) Hospitalist Progress Noteon 05-02-2017 Hospitalist Progress Note Normal [facility] ([place]) Progress Noteon 05-02-2017 Progress Note Normal [facility] ([place]) Gastroenterology Progress No richard 05-01-2017 Gastroenterology Progress Note Normal [facility] ([place]) .Auto Diffon 04-30-2017 Basophils Auto #/vol (Bld) 0.10 10 3/mcL Normal 0.00-0.27 [facility] ([place]) Comment on above: Performed By: #### C BC, ADIFF, ANEU, GFR, CMP, TROPI, APTT, PRO, ERDS, ABORH, ANTIS ####[address] [address] Basophils/100 WBC Auto (Bld) 0.8 % Normal 0.0-2.5 [facility] ([place]) Comment on above: Performed By: #### C BC, ADIFF, ANEU, GFR, CMP, TROPI, APTT, PRO, ERDS, ABORH, ANTIS ####[address] [address] Eosinophils 0.20 10 3/mcL Normal 0.00-0.65 [facility] ([place]) Comment on above: Performed By: #### C BC, ADIFF, ANEU, GFR, CMP, TROPI, APTT, PRO, ERDS, ABORH, ANTIS ####[address] [address] Eosinophils/100 leukocytes 1.5 % Normal 0.0-6.0 [facility] ([place]) Comment on above: Performed By: #### C BC, ADIFF, ANEU, GFR, CMP, TROPI, APTT, PRO, ERDS, ABORH, ANTIS ####[address] [address] Lymphocytes 2.10 10 3/mcL Normal 0.90-4.32 [facility] ([place]) Comment on above: Performed By: #### C BC, ADIFF, ANEU, GFR, CMP, TROPI, APTT, PRO, ERDS, ABORH, ANTIS ####[address] [address] Lymphocytes/100 leukocytes 13.9 % Low 20.0-40.0 [facility] ([place]) Comment on above: Performed By: #### C BC, ADIFF, ANEU, GFR, CMP, TROPI, APTT, PRO, ERDS, ABORH, ANTIS ####[address] [address] Monocytes 1.20 10 3/mcL Normal 0.09-1.40 [facility] ([place]) Comment on above: Performed By: #### C BC, ADIFF, ANEU, GFR, CMP, TROPI, APTT, PRO, ERDS, ABORH, ANTIS ####[address] [address] Monocytes/100 leukocytes 8.1 % Normal 2.0-13.0 [facility] ([place]) Comment on above: Performed By: #### C BC, ADIFF, ANEU, GFR, CMP, TROPI, APTT, PRO, ERDS, ABORH, ANTIS ####[address] [address] Neutrophils/100 WBC Auto (Bld) 75.7 % High 50.0-75.0 [facility] ([place]) Comment on above: Performed By: #### C BC, ADIFF, ANEU, GFR, CMP, TROPI, APTT, PRO, ERDS, ABORH, ANTIS ####[address] [address] .GFRon 04-30-2017 eGFR (non-black) mL/min/{1.73_m2} Normal [facility] ([place]) Comment on above: Result Comment: GFR Population mean for , Non- Americans Ages 20-29 = 116 mL/min/1.73 sq.m. Ages 30-39 = 107 mL/min/1.73 sq.m. Ages 40-49 = 99 mL/min/1.73 sq.m. Ages 50-59 = 93 mL/min/1.73 sq.m. Ages 60-69 = 85 mL/min/1.73 sq.m. Ages 70+ = 75 mL/min/1.73 sq.m.Chronic Kidney Disease: Less than 60 mL/min/1.73 square metersEnd Stage Renal Disease: Less than 15 mL/min/1.73 square meters Performed By: #### C BC, ADIFF, ANEU, GFR, CMP, TROPI, APTT, PRO, ERDS, ABORH, ANTIS ####[address] [address] .NEUABSon 04-30-2017 Neutrophils 11.20 10 3/mcL High 2.25-8.10 [facility] ([place]) Comment on above: Performed By: #### C BC, ADIFF, ANEU, GFR, CMP, TROPI, APTT, PRO, ERDS, ABORH, ANTIS ####[place] [address] BMPon 04-30-2017 BUN/Creatinine Ratio 13.9 ratio Normal 10.0-22.0 [facility] ([place]) Comment on above: Performed By: #### C BC, ADIFF, ANEU, GFR, CMP, TROPI, APTT, PRO, ERDS, ABORH, ANTIS ####[place] [address] Calcium 8.6 mg/dL Normal 8.4-10.1 [facility] ([place]) Comment on above: Performed By: #### C BC, ADIFF, ANEU, GFR, CMP, TROPI, APTT, PRO, ERDS, ABORH, ANTIS ####[place] [address] CO2 25 mmol/L Normal 22-32 [facility] ([place]) Comment on above: Performed By: #### C BC, ADIFF, ANEU, GFR, CMP, TROPI, APTT, PRO, ERDS, ABORH, ANTIS ####[place] [address] Creatinine 0.79 mg/dL Normal 0.60-1.40 [facility] ([place]) Comment on above: Performed By: #### C BC, ADIFF, ANEU, GFR, CMP, TROPI, APTT, PRO, ERDS, ABORH, ANTIS ####[place] [address] Electrolyte Balance 9.0 mEq/L Normal 4.0-15.0 [facility] ([place]) Comment on above: Performed By: #### C BC, ADIFF, ANEU, GFR, CMP, TROPI, APTT, PRO, ERDS, ABORH, ANTIS ####[place] [address] Glucose mass conc 103 mg/dL Normal 70-110 [facility] ([place]) Comment on above: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 ANTIS ####[place] [address] Platelets Normal [facility] ([place]) Comment on above: Performed By: #### C BC, ADIFF, ANEU, GFR, CMP, TROPI, APTT, PRO, ERDS, ABORH, ANTIS ####[place] [address] Poik Slight [facility] ([place]) Comment on above: Performed By: #### C BC, ADIFF, ANEU, GFR, CMP, TROPI, APTT, PRO, ERDS, ABORH, ANTIS ####[place] [address] Polychrom Slight [facility] ([place]) Comment on above: Performed By: #### C BC, ADIFF, ANEU, GFR, CMP, TROPI, APTT, PRO, ERDS, ABORH, ANTIS ####[place] [address] Target Cell Few [facility] ([place]) Comment on above: Performed By: #### C BC, ADIFF, ANEU, GFR, CMP, TROPI, APTT, PRO, ERDS, ABORH, ANTIS ####[place] [address] BMPon 04-25-2017 Chloride 106 mmol/L Normal 98-110 [facility] ([place]) Comment on above: Performed By: #### C BC, ADIFF, ANEU, GFR, CMP, TROPI, APTT, PRO, ERDS, ABORH, ANTIS ####[place] [address] Electrolyte Balance 12.0 mEq/L Normal 4.0-15.0 [facility] ([place]) Comment on above: Performed By: #### C BC, ADIFF, ANEU, GFR, CMP, TROPI, APTT, PRO, ERDS, ABORH, ANTIS ####[place] [address] Sodium 145 mmol/L Normal 136-145 [facility] ([place]) Comment on above: Performed By: #### C BC, ADIFF, ANEU, GFR, CMP, TROPI, APTT, PRO, ERDS, ABORH, ANTIS ####[place] [address] BUN/Creatinine Ratio 24.0 ratio High 10.0-22.0 [facility] ([place]) Comment on above: Performed By: #### C BC, ADIFF, ANEU, GFR, CMP, TROPI, APTT, PRO, ERDS, ABORH, ANTIS ####[place] [address] Calcium 8.4 mg/dL Normal 8.4-10.1 [facility] ([place]) Comment on above: Performed By: #### C BC, ADIFF, ANEU, GFR, CMP, TROPI, APTT, PRO, ERDS, ABORH, ANTIS ####[place] [address] CO2 27 mmol/L Normal 22-32 [facility] ([place]) Comment on above: Performed By: #### C BC, ADIFF, ANEU, GFR, CMP, TROPI, APTT, PRO, ERDS, ABORH, ANTIS ####[place] [address] Creatinine 0.75 mg/dL Normal 0.60-1.40 [facility] ([place]) Comment on above: Performed By: #### C BC, ADIFF, ANEU, GFR, CMP, TROPI, APTT, PRO, ERDS, ABORH, ANTIS ####[place] [address] Glucose mass conc 101 mg/dL Normal 70-110 [facility] ([place]) Comment on above: Performed By: #### C BC, ADIFF, ANEU, GFR, CMP, TROPI, APTT, PRO, ERDS, ABORH, ANTIS ####[place] [address] Potassium molar conc 4.3 mmol/L Normal 3.5-5.0 [facility] ([place]) Comment on above: Performed By: #### C BC, ADIFF, ANEU, GFR, CMP, TROPI, APTT, PRO, ERDS, ABORH, ANTIS ####[place] [address] Urea nitrogen 18.0 mg/dL Normal 8.0-22.0 [facility] ([place]) Comment on above: Performed By: #### C BC, ADIFF, ANEU, GFR, CMP, TROPI, APTT, PRO, ERDS, ABORH, ANTIS ####[place] [address] CBCon 04-25-2017 Platelet mean volume (PMV) 8.2 fL Normal 6.4-10.5 [facility] ([place]) Comment on above: Performed By: #### C BC, ADIFF, ANEU, GFR, CMP, TROPI, APTT, PRO, ERDS, ABORH, ANTIS ####[place] [address] Platelets 263 10 3/mcL Normal 150-450 [facility] ([place]) Comment on above: Performed By: #### C BC, ADIFF, ANEU, GFR, CMP, TROPI, APTT, PRO, ERDS, ABORH, ANTIS ####[place] [address] Erythrocyte distribution width Auto Ratio (RBC) 15.0 % Normal 11.5-15.5 [facility] ([place]) Comment on above: Performed By: #### C BC, ADIFF, ANEU, GFR, CMP, TROPI, APTT, PRO, ERDS, ABORH, ANTIS ####[place] [address] Erythrocytes (RBC) 3.10 10 6/mcL Low 4.50-6.00 [facility] ([place]) Comment on above: Performed By: #### C BC, ADIFF, ANEU, GFR, CMP, TROPI, APTT, PRO, ERDS, ABORH, ANTIS ####[place] [address] Hematocrit (HCT) 28.4 % Low 40.0-52.0 [facility] ([place]) Comment on above: Performed By: #### C BC, ADIFF, ANEU, GFR, CMP, TROPI, APTT, PRO, ERDS, ABORH, ANTIS ####[place] [address] Hemoglobin mass conc (Bld) 9.5 G/dL Low 13.0-17.5 [facility] ([place]) Comment on above: Performed By: #### C BC, ADIFF, ANEU, GFR, CMP, TROPI, APTT, PRO, ERDS, ABORH, ANTIS ####[place] [address] MCH 30.5 pg Normal 27.0-33.0 [facility] ([place]) Comment on above: Performed By: #### C BC, ADIFF, ANEU, GFR, CMP, TROPI, APTT, PRO, ERDS, ABORH, ANTIS ####[place] [address] MCHC mass conc (RBC) 33.3 G/dL Normal 32.0-36.0 [facility] ([place]) Comment on above: Performed By: #### C BC, ADIFF, ANEU, GFR, CMP, TROPI, APTT, PRO, ERDS, ABORH, ANTIS ####[place] [address] MCV 91.7 fL Normal 81.0-100.0 [facility] ([place]) Comment on above: Performed By: #### C BC, ADIFF, ANEU, GFR, CMP, TROPI, APTT, PRO, ERDS, ABORH, ANTIS ####[address] [address] WBC (Leukocytes) 15.80 10 3/mcL High 4.50-10.80 [facility] ([place]) Comment on above: Result Comment: Capi llary or microtainer specimen received. Performed By: #### C BC, ADIFF, ANEU, GFR, CMP, TROPI, APTT, PRO, ERDS, ABORH, ANTIS ####[address] [address] Surgical Progress Noteon Surgical Progress Note Normal [facility] ([place]) .Auto Diffon 04-24-2017 Basophils Auto #/vol (Bld) 0.10 10 3/mcL Normal 0.00-0.27 [facility] ([place]) Comment on above: Performed By: #### C BC, ADIFF, ANEU, GFR, CMP, TROPI, APTT, PRO, ERDS, ABORH, ANTIS ####[address] [address] Basophils/100 WBC Auto (Bld) 0.8 % Normal 0.0-2.5 [facility] ([place]) Comment on above: Performed By: #### C BC, ADIFF, ANEU, GFR, CMP, TROPI, APTT, PRO, ERDS, ABORH, ANTIS ####[address] [address] Eosinophils 0.20 10 3/mcL Normal 0.00-0.65 [facility] ([place]) Comment on above: Performed By: #### C BC, ADIFF, ANEU, GFR, CMP, TROPI, APTT, PRO, ERDS, ABORH, ANTIS ####[address] [address] Eosinophils/100 leukocytes 0.9 % Normal 0.0-6.0 [facility] ([place]) Comment on above: Performed By: #### C BC, ADIFF, ANEU, GFR, CMP, TROPI, APTT, PRO, ERDS, ABORH, ANTIS ####[address] [address] Lymphocytes 1.90 10 3/mcL Normal 0.90-4.32 [facility] ([place]) Comment on above: Performed By: #### C BC, ADIFF, ANEU, GFR, CMP, TROPI, APTT, PRO, ERDS, ABORH, ANTIS ####[address] [address] Lymphocytes/100 leukocytes 10.7 % Low 20.0-40.0 [facility] ([place]) Comment on above: Performed By: #### C BC, ADIFF, ANEU, GFR, CMP, TROPI, APTT, PRO, ERDS, ABORH, ANTIS ####[address] [address] Monocytes 1.50 10 3/mcL High 0.09-1.40 [facility] ([place]) Comment on above: Performed By: #### C BC, ADIFF, ANEU, GFR, CMP, TROPI, APTT, PRO, ERDS, ABORH, ANTIS ####[address] [address] Monocytes/100 leukocytes 8.5 % Normal 2.0-13.0 [facility] ([place]) Comment on above: Performed By: #### C BC, ADIFF, ANEU, GFR, CMP, TROPI, APTT, PRO, ERDS, ABORH, ANTIS ####[address] [address] Neutrophils/100 WBC Auto (Bld) 79.1 % High 50.0-75.0 [facility] ([place]) Comment on above: Performed By: #### C BC, ADIFF, ANEU, GFR, CMP, TROPI, APTT, PRO, ERDS, ABORH, ANTIS ####[address] [address] .GFRon 04-24-2017 eGFR (non-black) mL/min/{1.73_m2} Normal [facility] ([place]) Comment on above: Result Comment: GFR Population mean for , Non- Americans Ages 20-29 = 116 mL/min/1.73 sq.m. Ages 30-39 = 107 mL/min/1.73 sq.m. Ages 40-49 = 99 mL/min/1.73 sq.m. Ages 50-59 = 93 mL/min/1.73 sq.m. Ages 60-69 = 85 mL/min/1.73 sq.m. Ages 70+ = 75 mL/min/1.73 sq.m.Chronic Kidney Disease: Less than 60 mL/min/1.73 square metersEnd Stage Renal Disease: Less than 15 mL/min/1.73 square meters Performed By: #### C BC, ADIFF, ANEU, GFR, CMP, TROPI, APTT, PRO, ERDS, ABORH, ANTIS ####[place] [address] .Morphon 04-24-2017 Platelets Normal Normal [facility] ([place]) Comment on above: Performed By: #### C BC, ADIFF, ANEU, GFR, CMP, TROPI, APTT, PRO, ERDS, ABORH, ANTIS ####[place] [address] Polychrom Slight Normal [facility] ([place]) Comment on above: Performed By: #### C BC, ADIFF, ANEU, GFR, CMP, TROPI, APTT, PRO, ERDS, ABORH, ANTIS ####[place] [address] .NEUABSon 04-24-2017 Neutrophils 13.90 10 3/mcL High 2.25-8.10 [facility] ([place]) Comment on above: Performed By: #### C BC, ADIFF, ANEU, GFR, CMP, TROPI, APTT, PRO, ERDS, ABORH, ANTIS ####[place] [address] BMPon 04-24-2017 Chloride 100 mmol/L Normal 98-110 [facility] ([place]) Comment on above: Performed By: #### C BC, ADIFF, ANEU, GFR, CMP, TROPI, APTT, PRO, ERDS, ABORH, ANTIS ####[place] [address] Electrolyte Balance 10.0 mEq/L Normal 4.0-15.0 [facility] ([place]) Comment on above: Performed By: #### C BC, ADIFF, ANEU, GFR, CMP, TROPI, APTT, PRO, ERDS, ABORH, ANTIS ####[place] [address] Sodium 140 mmol/L Normal 136-145 [facility] ([place]) Comment on above: Performed By: #### C BC, ADIFF, ANEU, GFR, CMP, TROPI, APTT, PRO, ERDS, ABORH, ANTIS ####[place] [address] BUN/Creatinine Ratio 24.3 ratio High 10.0-22.0 [facility] ([place]) Comment on above: Performed By: #### C BC, ADIFF, ANEU, GFR, CMP, TROPI, APTT, PRO, ERDS, ABORH, ANTIS ####[place] [address] Calcium 8.6 mg/dL Normal 8.4-10.1 [facility] ([place]) Comment on above: Performed By: #### C BC, ADIFF, ANEU, GFR, CMP, TROPI, APTT, PRO, ERDS, ABORH, ANTIS ####[place] [address] CO2 30 mmol/L Normal 22-32 [facility] ([place]) Comment on above: Performed By: #### C BC, ADIFF, ANEU, GFR, CMP, TROPI, APTT, PRO, ERDS, ABORH, ANTIS ####[place] [address] Creatinine 0.74 mg/dL Normal 0.60-1.40 [facility] ([place]) Comment on above: Performed By: #### C BC, ADIFF, ANEU, GFR, CMP, TROPI, APTT, PRO, ERDS, ABORH, ANTIS ####[place] [address] Glucose mass conc 116 mg/dL High 70-110 [facility] ([place]) Comment on above: Performed By: #### C BC, ADIFF, ANEU, GFR, CMP, TROPI, APTT, PRO, ERDS, ABORH, ANTIS ####[place] [address] Potassium molar conc 3.9 mmol/L Normal 3.5-5.0 [facility] ([place]) Comment on above: Performed By: #### C BC, ADIFF, ANEU, GFR, CMP, TROPI, APTT, PRO, ERDS, ABORH, ANTIS ####[place] [address] Urea nitrogen 18.0 mg/dL Normal 8.0-22.0 [facility] ([place]) Comment on above: Performed By: #### C BC, ADIFF, ANEU, GFR, CMP, TROPI, APTT, PRO, ERDS, ABORH, ANTIS ####[place] [address] CBCon 04-24-2017 Erythrocyte distribution width Auto Ratio (RBC) 14.7 % Normal 11.5-15.5 [facility] ([place]) Comment on above: Performed By: #### C BC, ADIFF, ANEU, GFR, CMP, TROPI, APTT, PRO, ERDS, ABORH, ANTIS ####[place] [address] Erythrocytes (RBC) 3.36 10 6/mcL Low 4.50-6.00 [facility] ([place]) Comment on above: Performed By: #### C BC, ADIFF, ANEU, GFR, CMP, TROPI, APTT, PRO, ERDS, ABORH, ANTIS ####[place] [address] Hematocrit (HCT) 30.7 % Low 40.0-52.0 [facility] ([place]) Comment on above: Performed By: #### C BC, ADIFF, ANEU, GFR, CMP, TROPI, APTT, PRO, ERDS, ABORH, ANTIS ####[place] [address] Hemoglobin mass conc (Bld) 10.3 G/dL Low 13.0-17.5 [facility] ([place]) Comment on above: Performed By: #### C BC, ADIFF, ANEU, GFR, CMP, TROPI, APTT, PRO, ERDS, ABORH, ANTIS ####[place] [address] MCH 30.6 pg Normal 27.0-33.0 [facility] ([place] Comment on above: Performed By: #### C BC, ADIFF, ANEU, GFR, CMP, TROPI, APTT, PRO, ERDS, ABORH, ANTIS ####[place] [address] MCHC mass conc (RBC) 33.6 G/dL Normal 32.0-36.0 [facility] ([place]) Comment on above: Performed By: #### C BC, ADIFF, ANEU, GFR, CMP, TROPI, APTT, PRO, ERDS, ABORH, ANTIS ####[place] [address] MCV 91.3 fL Normal 81.0-100.0 [facility] ([place]) Comment on above: Performed By: #### C BC, ADIFF, ANEU, GFR, CMP, TROPI, APTT, PRO, ERDS, ABORH, ANTIS ####[place] [address] Platelet mean volume (PMV) 7.4 fL Normal 6.4-10.5 [facility] ([place]) Comment on above: Performed By: #### C BC, ADIFF, ANEU, GFR, CMP, TROPI, APTT, PRO, ERDS, ABORH, ANTIS ####[place] [address] Platelets 259 10 3/mcL Normal 150-450 [facility] ([place]) Comment on above: Performed By: #### C BC, ADIFF, ANEU, GFR, CMP, TROPI, APTT, PRO, ERDS, ABORH, ANTIS ####[place] [address] WBC (Leukocytes) 17.50 10 3/mcL High 4.50-10.80 [facility] ([place]) Comment on above: Result Comment: Capi llary or microtainer specimen received. Performed By: #### C BC, ADIFF, ANEU, GFR, CMP, TROPI, APTT, PRO, ERDS, ABORH, ANTIS ####[place] [id number] [address] [place] [address] Consultation Noteon 04-24-20 17 Consultation Note Normal [facility] ([place]) Neurology Progress Noteon Neurology Progress Note Normal [facility] ([place]) Orthopedic Progress Noteon 0 04-24-2017 Orthopedic Progress Note Normal [facility] ([place]) Surgical Progress Noteon Surgical Progress Note Normal [facility] ([place] Surgical Progress Note Normal [facility] [place] XR ABDOMEN COMPLETE W/DECUB/ ERECTon 04-24-2017 XR ABDOMEN COMPLETE W/DECUB/ERECT ORIGINALXR ABDOMEN COMPLETE W/DECUB/ERECT CLINICAL STATEMENT: nausea/vomiting COMPARISON: CT of the abdomen and pelvis 04/17/2017 FINDINGS: Supine images were acquired. Decubitus or upright views could not be obtained due to patient's injuries and recent hip surgery. There are gas-filled segments of small and large bowel demonstrated, favoring an ileus pattern. There is a paucity of rectal gas. A large bore enteric tube terminates in the stomach. Compression screws traverse a left femoral neck fracture. IMPRESSION: Gas filled small and large bowel segments, favor an ileus pattern. Interpreted By: Clara Gonzales MDPreliminary Report By: Clara Gonzales MDElectronically Signed By: Clara Gonzales MD Dictated Date: 04/24/2017 6:01:03 AM Prelim Date: 04/24/2017 6:01:03 AM Sign Date: 04/24/2017 6:03:55 AM Normal [facility]) Senior Asic Engineer Progress Noteon 04-23-2017 Senior Asic Engineer Progress Note Normal [facility] ([place]) Orthopedic Progress Noteon 0 04-23-2017 Orthopedic Progress Note Normal [facility]) Senior Asic Engineer Progress Noteon 04-22-2017 Senior Asic Engineer Progress Note Normal [facility]) Neurology Consultationon Neurology Consultation Normal [facility]) Orthopedic Progress Noteon 0 04-22-2017 Orthopedic Progress Note Normal [facility] ([place]) Surgical Progress Noteon Surgical Progress Note Normal [facility]) Senior Asic Engineer Progress Noteon 04-21-2017 Senior Asic Engineer Progress Note Normal [facility] ([place] Orthopedic Progress Noteon 0 04-21-2017 Orthopedic Progress Note Normal [facility] ([place] Surgical Progress Noteon Surgical Progress Note Normal [facility] ([place]) XR CHEST 2 VIEWSon 7 XR CHEST 2 VIEWS ORIGINALClinical history: Follow-up pneumothorax after removal of chest tube. COMPARISON: Chest x-ray on 04/20/2017. AP and lateral radiographs of the chest were obtained. The left chest tube has been removed. There is no pneumothorax. There is a small amount of left pleural fluid and mild atelectasis at both lung bases. Interpreted By: Bill Henriquezreliminary Report By: Bill Henriquez MDElectronically Signed By: Bill Henriquez MD Dictated Date: 04/21/2017 7:20:02 AM Prelim Date: 04/21/2017 7:20:02 AM Sign Date: 04/21/2017 7:21:11 AM Normal [facility] ([place]) .Auto Diffon 04-20-2017 Basophils Auto #/vol (Bld) 0.00 10 3/mcL Normal 0.00-0.27 [facility] ([place]) Comment on above: Performed By: #### C BC, ADIFF, ANEU, GFR, CMP, TROPI, APTT, PRO, ERDS, ABORH, ANTIS ####[address] [address] Basophils/100 WBC Auto (Bld) 0.2 % Normal 0.0-2.5 [facility] ([place]) Comment on above: Performed By: #### C BC, ADIFF, ANEU, GFR, CMP, TROPI, APTT, PRO, ERDS, ABORH, ANTIS ####[address] [address] Eosinophils 0.00 10 3/mcL Normal 0.00-0.65 [facility] ([place]) Comment on above: Performed By: #### C BC, ADIFF, ANEU, GFR, CMP, TROPI, APTT, PRO, ERDS, ABORH, ANTIS ####[address] [address] Eosinophils/100 leukocytes 0.3 % Normal 0.0-6.0 [facility] ([place]) Comment on above: Performed By: #### C BC, ADIFF, ANEU, GFR, CMP, TROPI, APTT, PRO, ERDS, ABORH, ANTIS ####[address] [address] Lymphocytes 1.60 10 3/mcL Normal 0.90-4.32 [facility] ([place]) Comment on above: Performed By: #### C BC, ADIFF, ANEU, GFR, CMP, TROPI, APTT, PRO, ERDS, ABORH, ANTIS ####[address] [address] Lymphocytes/100 leukocytes 13.2 % Low 20.0-40.0 [facility] ([place]) Comment on above: Performed By: #### C BC, ADIFF, ANEU, GFR, CMP, TROPI, APTT, PRO, ERDS, ABORH, ANTIS ####[address] [address] Monocytes 0.80 10 3/mcL Normal 0.09-1.40 [facility] ([place]) Comment on above: Performed By: #### C BC, ADIFF, ANEU, GFR, CMP, TROPI, APTT, PRO, ERDS, ABORH, ANTIS ####[address] [address] Monocytes/100 leukocytes 6.7 % Normal 2.0-13.0 [facility] ([place] Comment on above: Performed By: #### C BC, ADIFF, ANEU, GFR, CMP, TROPI, APTT, PRO, ERDS, ABORH, ANTIS ####[address] [address] Neutrophils/100 WBC Auto (Bld) 79.6 % High 50.0-75.0 [facility] ([place] Comment on above: Performed By: #### C BC, ADIFF, ANEU, GFR, CMP, TROPI, APTT, PRO, ERDS, ABORH, ANTIS ####[address] [address] .NEUABSon 04-20-2017 Neutrophils 9.50 10 3/mcL High 2.25-8.10 [facility] ([place]) Comment on above: Performed By: #### C BC, ADIFF, ANEU, GFR, CMP, TROPI, APTT, PRO, ERDS, ABORH, ANTIS ####[address] [address] [facility] 04-[facility]2017 BUN/Creatinine Ratio 17.0 ratio Normal 10.0-22.0 [facility] ([place]) Comment on above: Performed By: #### C BC, ADIFF, ANEU, GFR, CMP, TROPI, APTT, PRO, ERDS, ABORH, ANTIS ####[place] [address] Calcium 8.0 mg/dL Low 8.4-10.1 [facility] ([place]) Comment on above: Performed By: #### C BC, ADIFF, ANEU, GFR, CMP, TROPI, APTT, PRO, ERDS, ABORH, ANTIS ####[place] [address] Chloride 99 mmol/L Normal 98-110 [facility] ([place] Comment on above: Performed By: #### C BC, ADIFF, ANEU, GFR, CMP, TROPI, APTT, PRO, ERDS, ABORH, ANTIS ####[place] [address] CO2 32 mmol/L Normal 22-32 [facility] ([place] Comment on above: Performed By: #### C BC, ADIFF, ANEU, GFR, CMP, TROPI, APTT, PRO, ERDS, ABORH, ANTIS ####[place] [address] Creatinine 0.94 mg/dL Normal 0.60-1.40 [facility] ([place] Comment on above: Performed By: #### C BC, ADIFF, ANEU, GFR, CMP, TROPI, APTT, PRO, ERDS, ABORH, ANTIS ####[place] [address] Electrolyte Balance 5.0 mEq/L Normal 4.0-15.0 [facility] ([place]) Comment on above: Performed By: #### C BC, ADIFF, ANEU, GFR, CMP, TROPI, APTT, PRO, ERDS, ABORH, ANTIS ####[place] [address] Glucose mass conc 148 mg/dL High 70-110 [facility] ([place] Comment on above: Performed By: #### C BC, ADIFF, ANEU, GFR, CMP, TROPI, APTT, PRO, ERDS, ABORH, ANTIS ####[place] [address] Potassium molar conc 4.0 mmol/L Normal 3.5-5.0 [facility] ([place]) Comment on above: Performed By: #### C BC, ADIFF, ANEU, GFR, CMP, TROPI, APTT, PRO, ERDS, ABORH, ANTIS ####[place] [address] Sodium 136 mmol/L Normal 136-145 [facility] ([place]) Comment on above: Performed By: #### C BC, ADIFF, ANEU, GFR, CMP, TROPI, APTT, PRO, ERDS, ABORH, ANTIS ####[place] [address] Urea nitrogen 16.0 mg/dL Normal 8.0-22.0 [facility] ([place]) Comment on above: Performed By: #### C BC, ADIFF, ANEU, GFR, CMP, TROPI, APTT, PRO, ERDS, ABORH, ANTIS ####[place] [address] CBCon 04-20-2017 Erythrocyte distribution width Auto Ratio (RBC) 14.5 % Normal 11.5-15.5 [facility] ([place]) Comment on above: Performed By: #### C BC, ADIFF, ANEU, GFR, CMP, TROPI, APTT, PRO, ERDS, ABORH, ANTIS ####[place] [address] Erythrocytes (RBC) 3.07 10 6/mcL Low 4.50-6.00 [facility] ([place]) Comment on above: Performed By: #### C BC, ADIFF, ANEU, GFR, CMP, TROPI, APTT, PRO, ERDS, ABORH, ANTIS ####[place] [address] Hematocrit (HCT) 28.1 % Low 40.0-52.0 [facility] ([place]) Comment on above: Performed By: #### C BC, ADIFF, ANEU, GFR, CMP, TROPI, APTT, PRO, ERDS, ABORH, ANTIS ####[place] [address] Hemoglobin mass conc (Bld) 9.5 G/dL Low 13.0-17.5 [facility] ([place]) Comment on above: Performed By: #### C BC, ADIFF, ANEU, GFR, CMP, TROPI, APTT, PRO, ERDS, ABORH, ANTIS ####[place] [address] MCH 30.8 pg Normal 27.0-33.0 [facility] ([place] Comment on above: Performed By: #### C BC, ADIFF, ANEU, GFR, CMP, TROPI, APTT, PRO, ERDS, ABORH, ANTIS ####[place] [address] MCHC mass conc (RBC) 33.8 G/dL Normal 32.0-36.0 [facility] ([place]) Comment on above: Performed By: #### C BC, ADIFF, ANEU, GFR, CMP, TROPI, APTT, PRO, ERDS, ABORH, ANTIS ####[place] [address] MCV 91.3 fL Normal 81.0-100.0 [facility] ([place] Comment on above: Performed By: #### C BC, ADIFF, ANEU, GFR, CMP, TROPI, APTT, PRO, ERDS, ABORH, ANTIS ####[place] [address] Platelet mean volume (PMV) 7.5 fL Normal 6.4-10.5 [facility] ([place]) Comment on above: Performed By: #### C BC, ADIFF, ANEU, GFR, CMP, TROPI, APTT, PRO, ERDS, ABORH, ANTIS ####[place] [id number] [place] [address] Platelets 152 10 3/mcL Normal 150-450 [facility] ([place]) Comment on above: Performed By: #### C BC, ADIFF, ANEU, GFR, CMP, TROPI, APTT, PRO, ERDS, ABORH, ANTIS ####[place] [address] WBC (Leukocytes) 11.90 10 3/mcL High 4.50-10.80 [facility] ([place]) Comment on above: Performed By: #### C BC, ADIFF, ANEU, GFR, CMP, TROPI, APTT, PRO, ERDS, ABORH, ANTIS ####[place] [address] Senior Asic Engineer Progress Noteon 04-20-2017 Senior Asic Engineer Progress Note Normal [facility] ([place]) Senior Asic Engineer Progress Note Normal [facility] ([place]) GFRon 04-20-2017 eGFR (non-black) mL/min/{1.73_m2} Normal [facility] ([place]) Comment on above: Result Comment: GFR Population mean for , Non- Americans Ages 20-29 = 116 mL/min/1.73 sq.m. Ages 30-39 = 107 mL/min/1.73 sq.m. Ages 40-49 = 99 mL/min/1.73 sq.m. Ages 50-59 = 93 mL/min/1.73 sq.m. Ages 60-69 = 85 mL/min/1.73 sq.m. Ages 70+ = 75 mL/min/1.73 sq.m.Chronic Kidney Disease: Less than 60 mL/min/1.73 square metersEnd Stage Renal Disease: Less than 15 mL/min/1.73 square meters Performed By: #### C BC, ADIFF, ANEU, GFR, CMP, TROPI, APTT, PRO, ERDS, ABORH, ANTIS ####[address] [address] Operative Noteon 04-20-2017 Operative Note Normal [facility] ([place]) Orthopedic Progress Noteon 0 04-20-2017 Orthopedic Progress Note Normal [facility] ([place]) Surgical Progress Noteon Surgical Progress Note Normal [facility] ([place]) XR CHEST 1 VIEWon 04-20-2017 XR CHEST 1 VIEW ORIGINALClinical history: Follow-up chest trauma. Left chest tube in place. COMPARISON: Chest x-ray on 04/19/2017. Portable AP radiograph of the chest was obtained at 7:15 AM. Left chest tube is unchanged in position. The sidehole is outside of the pleural space. There is no significant infiltrate. No pneumothorax or pleural fluid is detected. IMPRESSION: Left chest tube is unchanged in position with sidehole outside of the pleural space. No pneumothorax or acute findings. Interpreted By: Bill Henriquezreliminary Report By: Bill Henriquez MDElectronically Signed By: Bill Henriquez MD Dictated Date: 04/20/2017 8:00:43 AM Prelim Date: 04/20/2017 8:00:43 AM Sign Date: 04/20/2017 8:02:20 AM Normal [facility] ([place]) .Auto Diffon 04-19-2017 Basophils Auto #/vol (Bld) 0.00 10 3/mcL Normal 0.00-0.27 [facility] ([place]) Comment on above: Performed By: #### C BC, ADIFF, ANEU, GFR, CMP, TROPI, APTT, PRO, ERDS, ABORH, ANTIS ####[address] [address] Basophils/100 WBC Auto (Bld) 0.2 % Normal 0.0-2.5 [facility] ([place]) Comment on above: Performed By: #### C BC, ADIFF, ANEU, GFR, CMP, TROPI, APTT, PRO, ERDS, ABORH, ANTIS ####[address] [address] Eosinophils 0.00 10 3/mcL Normal 0.00-0.65 [facility] ([place]) Comment on above: Performed By: #### C BC, ADIFF, ANEU, GFR, CMP, TROPI, APTT, PRO, ERDS, ABORH, ANTIS ####[address] [address] Eosinophils/100 leukocytes 0.2 % Normal 0.0-6.0 [facility] ([place] Comment on above: Performed By: #### C BC, ADIFF, ANEU, GFR, CMP, TROPI, APTT, PRO, ERDS, ABORH, ANTIS ####[address] [address] Lymphocytes 1.90 10 3/mcL Normal 0.90-4.32 [facility] ([place]) Comment on above: Performed By: #### C BC, ADIFF, ANEU, GFR, CMP, TROPI, APTT, PRO, ERDS, ABORH, ANTIS ####[address] [address] Lymphocytes/100 leukocytes 13.2 % Low 20.0-40.0 [facility] ([place] Comment on above: Performed By: #### C BC, ADIFF, ANEU, GFR, CMP, TROPI, APTT, PRO, ERDS, ABORH, ANTIS ####[address] [address] Monocytes 1.40 10 3/mcL Normal 0.09-1.40 [facility] ([place] Comment on above: Performed By: #### C BC, ADIFF, ANEU, GFR, CMP, TROPI, APTT, PRO, ERDS, ABORH, ANTIS ####[address] [address] Monocytes/100 leukocytes 9.5 % Normal 2.0-13.0 [facility] ([place] Comment on above: Performed By: #### C BC, ADIFF, ANEU, GFR, CMP, TROPI, APTT, PRO, ERDS, ABORH, ANTIS ####[address] [address] Neutrophils/100 WBC Auto (Bld) 76.9 % High 50.0-75.0 [facility] ([place]) Comment on above: Performed By: #### C BC, ADIFF, ANEU, GFR, CMP, TROPI, APTT, PRO, ERDS, ABORH, ANTIS ####[address] [address] .NEUABSon 04-19-2017 Neutrophils 11.10 10 3/mcL High 2.25-8.10 [facility] ([place]) Comment on above: Performed By: #### C BC, ADIFF, ANEU, GFR, CMP, TROPI, APTT, PRO, ERDS, ABORH, ANTIS ####[address] [address] BMPon 04-19-2017 BUN/Creatinine Ratio 18.8 ratio Normal 10.0-22.0 [facility] ([place]) Comment on above: Performed By: #### C BC, ADIFF, ANEU, GFR, CMP, TROPI, APTT, PRO, ERDS, ABORH, ANTIS ####[place] [address] Calcium 8.4 mg/dL Normal 8.4-10.1 [facility] ([place]) Comment on above: Performed By: #### C BC, ADIFF, ANEU, GFR, CMP, TROPI, APTT, PRO, ERDS, ABORH, ANTIS ####[place] [address] Chloride 99 mmol/L Normal 98-110 [facility] ([place] Comment on above: Performed By: #### C BC, ADIFF, ANEU, GFR, CMP, TROPI, APTT, PRO, ERDS, ABORH, ANTIS ####[place] [address] CO2 30 mmol/L Normal 22-32 [facility] ([place] Comment on above: Performed By: #### C BC, ADIFF, ANEU, GFR, CMP, TROPI, APTT, PRO, ERDS, ABORH, ANTIS ####[place] [address] Creatinine 1.01 mg/dL Normal 0.60-1.40 [facility] ([place]) Comment on above: Performed By: #### C BC, ADIFF, ANEU, GFR, CMP, TROPI, APTT, PRO, ERDS, ABORH, ANTIS ####[place] [address] Electrolyte Balance 7.0 mEq/L Normal 4.0-15.0 [facility] ([place]) Comment on above: Performed By: #### C BC, ADIFF, ANEU, GFR, CMP, TROPI, APTT, PRO, ERDS, ABORH, ANTIS ####[place] [address] Glucose mass conc 132 mg/dL High 70-110 [facility] ([place] Comment on above: Performed By: #### C BC, ADIFF, ANEU, GFR, CMP, TROPI, APTT, PRO, ERDS, ABORH, ANTIS ####[place] [address] Potassium molar conc 4.4 mmol/L Normal 3.5-5.0 [facility] ([place]) Comment on above: Performed By: #### C BC, ADIFF, ANEU, GFR, CMP, TROPI, APTT, PRO, ERDS, ABORH, ANTIS ####[place] [address] Sodium 136 mmol/L Normal 136-145 [facility] ([place]) Comment on above: Performed By: #### C BC, ADIFF, ANEU, GFR, CMP, TROPI, APTT, PRO, ERDS, ABORH, ANTIS ####[place] [address] Urea nitrogen 19.0 mg/dL Normal 8.0-22.0 [facility] ([place]) Comment on above: Performed By: #### C BC, ADIFF, ANEU, GFR, CMP, TROPI, APTT, PRO, ERDS, ABORH, ANTIS ####[place] [address] CBCon 04-19-2017 Erythrocyte distribution width Auto Ratio (RBC) 14.8 % Normal 11.5-15.5 [facility] ([place]) Comment on above: Performed By: #### C BC, ADIFF, ANEU, GFR, CMP, TROPI, APTT, PRO, ERDS, ABORH, ANTIS ####[place] [address] Erythrocytes (RBC) 3.69 10 6/mcL Low 4.50-6.00 [facility] ([place]) Comment on above: Performed By: #### C BC, ADIFF, ANEU, GFR, CMP, TROPI, APTT, PRO, ERDS, ABORH, ANTIS ####[place] [address] Hematocrit (HCT) 34.0 % Low 40.0-52.0 [facility] ([place] Comment on above: Performed By: #### C BC, ADIFF, ANEU, GFR, CMP, TROPI, APTT, PRO, ERDS, ABORH, ANTIS ####[place] [address] Hemoglobin mass conc (Bld) 11.5 G/dL Low 13.0-17.5 [facility] ([place] Comment on above: Performed By: #### C BC, ADIFF, ANEU, GFR, CMP, TROPI, APTT, PRO, ERDS, ABORH, ANTIS ####[place] [address] MCH 31.2 pg Normal 27.0-33.0 [facility] ([place] Comment on above: Performed By: #### C BC, ADIFF, ANEU, GFR, CMP, TROPI, APTT, PRO, ERDS, ABORH, ANTIS ####[place] [address] MCHC mass conc (RBC) 33.9 G/dL Normal 32.0-36.0 [facility] ([place]) Comment on above: Performed By: #### C BC, ADIFF, ANEU, GFR, CMP, TROPI, APTT, PRO, ERDS, ABORH, ANTIS ####[place] [address] MCV 92.1 fL Normal 81.0-100.0 [facility] ([place] Comment on above: Performed By: #### C BC, ADIFF, ANEU, GFR, CMP, TROPI, APTT, PRO, ERDS, ABORH, ANTIS ####[place] [address] Platelet mean volume (PMV) 7.5 fL Normal 6.4-10.5 [facility] ([place]) Comment on above: Performed By: #### C BC, ADIFF, ANEU, GFR, CMP, TROPI, APTT, PRO, ERDS, ABORH, ANTIS ####[place] [id number] [place] [address] Platelets 156 10 3/mcL Normal 150-450 [facility] ([place]) Comment on above: Performed By: #### C BC, ADIFF, ANEU, GFR, CMP, TROPI, APTT, PRO, ERDS, ABORH, ANTIS ####[place] [address] WBC (Leukocytes) 14.50 10 3/mcL High 4.50-10.80 [facility] ([place]) Comment on above: Performed By: #### C BC, ADIFF, ANEU, GFR, CMP, TROPI, APTT, PRO, ERDS, ABORH, ANTIS ####[place] [address] Senior Asic Engineer Progress Noteon 04-19-2017 Senior Asic Engineer Progress Note Normal [facility] ([place]) Critical Care Progress Notes on 04-19-2017 Critical Care Progress Notes Normal [facility]) GFRon 04-19-2017 eGFR (non-black) mL/min/{1.73_m2} Normal [facility] ([place]) Comment on above: Result Comment: GFR Population mean for , Non- Americans Ages 20-29 = 116 mL/min/1.73 sq.m. Ages 30-39 = 107 mL/min/1.73 sq.m. Ages 40-49 = 99 mL/min/1.73 sq.m. Ages 50-59 = 93 mL/min/1.73 sq.m. Ages 60-69 = 85 mL/min/1.73 sq.m. Ages 70+ = 75 mL/min/1.73 sq.m.Chronic Kidney Disease: Less than 60 mL/min/1.73 square metersEnd Stage Renal Disease: Less than 15 mL/min/1.73 square meters Performed By: #### C BC, ADIFF, ANEU, GFR, CMP, TROPI, APTT, PRO, ERDS, ABORH, ANTIS ####[place] [address] Orthopedic Progress Noteon 0 04-19-2017 Orthopedic Progress Note Normal [facility] ([place]) Surgical Progress Noteon Surgical Progress Note Normal [facility] ([place]) XR CHEST 1 VIEWon 04-19-2017 XR CHEST 1 VIEW ORIGINALClinical history: Follow-up chest trauma. Chest tube in place. COMPARISON: Chest x-ray on 04/18/2017. Portable AP radiograph of the chest was obtained at 6:30 AM. The left chest tube is unchanged in position. The sidehole of the left chest tube is outside of the pleural space. There is no pneumothorax. No significant pleural fluid is present. There is mild atelectasis at both lung bases. IMPRESSION: Sidehole of the left chest tube is outside of the pleural space. No pneumothorax. Interpreted By: Bill Henriquezreliminary Report By: Bill Henriquez MDElectronically Signed By: Bill Henriquez MD Dictated Date: 04/19/2017 7:31:41 AM Prelim Date: 04/19/2017 7:31:41 AM Sign Date: 04/19/2017 7:33:11 AM Normal [facility] ([place]) .Auto Diffon 04-18-2017 Basophils Auto #/vol (Bld) 0.00 10 3/mcL Normal 0.00-0.27 [facility] ([place]) Comment on above: Performed By: #### C BC, ADIFF, ANEU, GFR, CMP, TROPI, APTT, PRO, ERDS, ABORH, ANTIS ####[address] [address] Basophils/100 WBC Auto (Bld) 0.0 % Normal 0.0-2.5 [facility] ([place]) Comment on above: Performed By: #### C BC, ADIFF, ANEU, GFR, CMP, TROPI, APTT, PRO, ERDS, ABORH, ANTIS ####[address] [address] Eosinophils 0.00 10 3/mcL Normal 0.00-0.65 [facility] ([place]) Comment on above: Performed By: #### C BC, ADIFF, ANEU, GFR, CMP, TROPI, APTT, PRO, ERDS, ABORH, ANTIS ####[address] [address] Eosinophils/100 leukocytes 0.0 % Normal 0.0-6.0 [facility] ([place] Comment on above: Performed By: #### C BC, ADIFF, ANEU, GFR, CMP, TROPI, APTT, PRO, ERDS, ABORH, ANTIS ####[address] [address] Lymphocytes 1.10 10 3/mcL Normal 0.90-4.32 [facility] ([place] Comment on above: Performed By: #### C BC, ADIFF, ANEU, GFR, CMP, TROPI, APTT, PRO, ERDS, ABORH, ANTIS ####[address] [address] Lymphocytes/100 leukocytes 6.7 % Low 20.0-40.0 [facility] ([place] Comment on above: Performed By: #### C BC, ADIFF, ANEU, GFR, CMP, TROPI, APTT, PRO, ERDS, ABORH, ANTIS ####[address] [address] Monocytes 1.50 10 3/mcL High 0.09-1.40 [facility] ([place]) Comment on above: Performed By: #### C BC, ADIFF, ANEU, GFR, CMP, TROPI, APTT, PRO, ERDS, ABORH, ANTIS ####[address] [address] Monocytes/100 leukocytes 9.1 % Normal 2.0-13.0 [facility] ([place] Comment on above: Performed By: #### C BC, ADIFF, ANEU, GFR, CMP, TROPI, APTT, PRO, ERDS, ABORH, ANTIS ####[address] [address] Neutrophils/100 WBC Auto (Bld) 84.2 % High 50.0-75.0 [facility] ([place]) Comment on above: Performed By: #### C BC, ADIFF, ANEU, GFR, CMP, TROPI, APTT, PRO, ERDS, ABORH, ANTIS ####[address] [address] .Manual Diffon 04-18-2017 Bands 6.0 % High 0.0-5.0 [facility] ([place] Comment on above: Performed By: #### C BC, ADIFF, ANEU, GFR, CMP, TROPI, APTT, PRO, ERDS, ABORH, ANTIS ####[place] [address] Basophil %, Manual 0.0 % Normal 0.0-2.5 [facility] ([place]) Comment on above: Performed By: #### C BC, ADIFF, ANEU, GFR, CMP, TROPI, APTT, PRO, ERDS, ABORH, ANTIS ####[place] [address] Basophil, Abs Manual 0.00 10 3/mcL Normal 0.00-0.27 [facility] ([place]) Comment on above: Performed By: #### C BC, ADIFF, ANEU, GFR, CMP, TROPI, APTT, PRO, ERDS, ABORH, ANTIS ####[place] [address] Cells Counted 100 Normal [facility] ([place]) Comment on above: Performed By: #### C BC, ADIFF, ANEU, GFR, CMP, TROPI, APTT, PRO, ERDS, ABORH, ANTIS ####[place] [address] Eosinophil, Abs Manual 0.00 10 3/mcL Normal 0.00-0.65 [facility] ([place]) Comment on above: Performed By: #### C BC, ADIFF, ANEU, GFR, CMP, TROPI, APTT, PRO, ERDS, ABORH, ANTIS ####[place] [address] Lymphocyte %, Manual 3.0 % Low 20.0-40.0 [facility] ([place]) Comment on above: Performed By: #### C BC, ADIFF, ANEU, GFR, CMP, TROPI, APTT, PRO, ERDS, ABORH, ANTIS ####[place] [id number] Lymphocyte, Abs Manual 0.69 10 3/mcL Low 0.90-4.32 [facility] ([place]) Comment on above: Performed By: #### C BC, ADIFF, ANEU, GFR, CMP, TROPI, APTT, PRO, ERDS, ABORH, ANTIS ####[address] [address] Metamyelocytes/100 leukocytes 1.0 % Normal [facility] ([place]) Comment on above: Performed By: #### C BC, ADIFF, ANEU, GFR, CMP, TROPI, APTT, PRO, ERDS, ABORH, ANTIS ####[address] [address] Monocyte %, Manual 6.0 % Normal 2.0-13.0 [facility] ([place]) Comment on above: Result Comment: 0.0 Performed By: #### C BC, ADIFF, ANEU, GFR, CMP, TROPI, APTT, PRO, ERDS, ABORH, ANTIS ####[place] [id number] Monocyte, Abs Manual 1.37 10 3/mcL Normal 0.09-1.40 [facility] ([place]) Comment on above: Performed By: #### C BC, ADIFF, ANEU, GFR, CMP, TROPI, APTT, PRO, ERDS, ABORH, ANTIS ####[place] [address] Myelocyte 2.0 % Normal [facility] ([place]) Comment on above: Performed By: #### C BC, ADIFF, ANEU, GFR, CMP, TROPI, APTT, PRO, ERDS, ABORH, ANTIS ####[address] [address] Neutrophil %, Manual 82.0 % High 50.0-75.0 [facility] ([place]) Comment on above: Performed By: #### C BC, ADIFF, ANEU, GFR, CMP, TROPI, APTT, PRO, ERDS, ABORH, ANTIS ####[address] [address] Neutrophil, Abs Manual 20.15 10 3/mcL High 2.25-8.10 [facility] ([place]) Comment on above: Performed By: #### C BC, ADIFF, ANEU, GFR, CMP, TROPI, APTT, PRO, ERDS, ABORH, ANTIS ####[place] [address] .Morphon 04-18-2017 Erythrocyte morphology Normal Normal [facility] ([place]) Comment on above: Performed By: #### C BC, ADIFF, ANEU, GFR, CMP, TROPI, APTT, PRO, ERDS, ABORH, ANTIS ####[place] [address] Platelets Normal Normal [facility] ([place]) Comment on above: Performed By: #### C BC, ADIFF, ANEU, GFR, CMP, TROPI, APTT, PRO, ERDS, ABORH, ANTIS ####[place] [address] .NEUABSon 04-18-2017 Neutrophils 14.20 10 3/mcL High 2.25-8.10 [facility] ([place]) Comment on above: Performed By: #### C BC, ADIFF, ANEU, GFR, CMP, TROPI, APTT, PRO, ERDS, ABORH, ANTIS ####[place] [address] BGon 04-18-2017 Barometric Pressure 736 mmHg Normal [facility] ([place]) Comment on above: Order Comment: clott ed please [id number]/20/2017 04:31:08 EDT Performed By: #### C BC, ADIFF, ANEU, GFR, CMP, TROPI, APTT, PRO, ERDS, ABORH, ANTIS ####[place] [address] Base excess 3.8 mmol/L Normal [facility] ([place]) Comment on above: Order Comment: clott ed please /20/2017 04:31:08 EDT Performed By: #### C BC, ADIFF, ANEU, GFR, CMP, TROPI, APTT, PRO, ERDS, ABORH, ANTIS ####[place] [address] Bicarbonate (HCO3) 29.4 mmol/L High 21.0-29.0 [facility] ([place]) Comment on above: Order Comment: clott ed please [email or web address]/20/2017 04:31:08 EDT Performed By: #### C BC, ADIFF, ANEU, GFR, CMP, TROPI, APTT, PRO, ERDS, ABORH, ANTIS ####[address] [address] CO2 30.9 mmol/L High 22.0-30.0 [facility] ([place]) Comment on above: Order Comment: clott ed please [email or web address]/20/2017 04:31:08 EDT Performed By: #### C BC, ADIFF, ANEU, GFR, CMP, TROPI, APTT, PRO, ERDS, ABORH, ANTIS ####[address] [address] CO2 48.6 mmHg High 32.0-46.0 [facility] ([place]) Comment on above: Order Comment: clott ed please [email or web address]/20/2017 04:31:08 EDT Performed By: #### C BC, ADIFF, ANEU, GFR, CMP, TROPI, APTT, PRO, ERDS, ABORH, ANTIS ####[address] [address] O2 saturation 92.8 % Normal 92.0-96.0 [facility] ([place]) Comment on above: Order Comment: clott ed please [email or web address]/20/2017 04:31:08 EDT Performed By: #### C BC, ADIFF, ANEU, GFR, CMP, TROPI, APTT, PRO, ERDS, ABORH, ANTIS ####[address] [address] Oxygen in arterial blood 67.7 mm[Hg] Low 74.0-108.0 [facility] ([place]) Comment on above: Order Comment: clott ed please /20/2017 04:31:08 EDT Performed By: #### C BC, ADIFF, ANEU, GFR, CMP, TROPI, APTT, PRO, ERDS, ABORH, ANTIS ####[address] [address] pH of blood 7.400 [pH] Normal 7.380-7.460 [facility] ([place]) Comment on above: Order Comment: clott ed please [email or web address]/20/2017 04:31:08 EDT Performed By: #### C BC, ADIFF, ANEU, GFR, CMP, TROPI, APTT, PRO, ERDS, ABORH, ANTIS ####[place] [address] Barometric Pressure 732 mmHg Normal [facility] ([place]) Comment on above: Performed By: #### C BC, ADIFF, ANEU, GFR, CMP, TROPI, APTT, PRO, ERDS, ABORH, ANTIS ####[place] [address] Base excess -5.2 mmol/L Normal [facility] ([place]) Comment on above: Performed By: #### C BC, ADIFF, ANEU, GFR, CMP, TROPI, APTT, PRO, ERDS, ABORH, ANTIS ####[place] [address] Bicarbonate (HCO3) 20.1 mmol/L Low 21.0-29.0 [facility] ([place]) Comment on above: Performed By: #### C BC, ADIFF, ANEU, GFR, CMP, TROPI, APTT, PRO, ERDS, ABORH, ANTIS ####[place] [address] CO2 38.6 mmHg Normal 32.0-46.0 [facility] ([place]) Comment on above: Performed By: #### C BC, ADIFF, ANEU, GFR, CMP, TROPI, APTT, PRO, ERDS, ABORH, ANTIS ####[place] [address] CO2 21.3 mmol/L Low 22.0-30.0 [facility] ([place]) Comment on above: Performed By: #### C BC, ADIFF, ANEU, GFR, CMP, TROPI, APTT, PRO, ERDS, ABORH, ANTIS ####[place] [address] O2 saturation 97.7 % High 92.0-96.0 [facility] ([place]) Comment on above: Performed By: #### C BC, ADIFF, ANEU, GFR, CMP, TROPI, APTT, PRO, ERDS, ABORH, ANTIS ####[place] [address] Oxygen in arterial blood 110.8 mm[Hg] High 74.0-108.0 [facility] ([place]) Comment on above: Performed By: #### C BC, ADIFF, ANEU, GFR, CMP, TROPI, APTT, PRO, ERDS, ABORH, ANTIS ####[place] [address] pH of blood 7.335 [pH] Low 7.380-7.460 [facility] ([place]) Comment on above: Performed By: #### C BC, ADIFF, ANEU, GFR, CMP, TROPI, APTT, PRO, ERDS, ABORH, ANTIS ####[place] [address] BMPon 04-18-2017 CO2 26 mmol/L Normal 22-32 [facility] ([place]) Comment on above: Performed By: #### C BC, ADIFF, ANEU, GFR, CMP, TROPI, APTT, PRO, ERDS, ABORH, ANTIS ####[place] [address] Electrolyte Balance 10.0 mEq/L Normal 4.0-15.0 [facility] ([place]) Comment on above: Performed By: #### C BC, ADIFF, ANEU, GFR, CMP, TROPI, APTT, PRO, ERDS, ABORH, ANTIS ####[place] [address] BUN/Creatinine Ratio 19.1 ratio Normal 10.0-22.0 [facility] ([place]) Comment on above: Performed By: #### C BC, ADIFF, ANEU, GFR, CMP, TROPI, APTT, PRO, ERDS, ABORH, ANTIS ####[place] [address] Calcium 8.3 mg/dL Low 8.4-10.1 [facility] ([place]) Comment on above: Performed By: #### C BC, ADIFF, ANEU, GFR, CMP, TROPI, APTT, PRO, ERDS, ABORH, ANTIS ####[address] [address] Chloride 103 mmol/L Normal 98-110 [facility] ([place]) Comment on above: Performed By: #### C BC, ADIFF, ANEU, GFR, CMP, TROPI, APTT, PRO, ERDS, ABORH, ANTIS ####[place] [address] Creatinine 1.36 mg/dL Normal 0.60-1.40 [facility] ([place]) Comment on above: Performed By: #### C BC, ADIFF, ANEU, GFR, CMP, TROPI, APTT, PRO, ERDS, ABORH, ANTIS ####[place] [address] Glucose mass conc 192 mg/dL High 70-110 [facility] ([place]) Comment on above: Performed By: #### C BC, ADIFF, ANEU, GFR, CMP, TROPI, APTT, PRO, ERDS, ABORH, ANTIS ####[place] [address] Potassium molar conc 4.5 mmol/L Normal 3.5-5.0 [facility] ([place]) Comment on above: Performed By: #### C BC, ADIFF, ANEU, GFR, CMP, TROPI, APTT, PRO, ERDS, ABORH, ANTIS ####[place] [address] Sodium 139 mmol/L Normal 136-145 [facility] ([place]) Comment on above: Performed By: #### C BC, ADIFF, ANEU, GFR, CMP, TROPI, APTT, PRO, ERDS, ABORH, ANTIS ####[place] [address] Urea nitrogen 26.0 mg/dL High 8.0-22.0 [facility] ([place]) Comment on above: Performed By: #### C BC, ADIFF, ANEU, GFR, CMP, TROPI, APTT, PRO, ERDS, ABORH, ANTIS ####[place] [address] CBCon 04-18-2017 Erythrocyte distribution width Auto Ratio (RBC) 14.4 % Normal 11.5-15.5 [facility] ([place]) Comment on above: Performed By: #### C BC, ADIFF, ANEU, GFR, CMP, TROPI, APTT, PRO, ERDS, ABORH, ANTIS ####[place] [address] Erythrocytes (RBC) 4.15 10 6/mcL Low 4.50-6.00 [facility] ([place]) Comment on above: Performed By: #### C BC, ADIFF, ANEU, GFR, CMP, TROPI, APTT, PRO, ERDS, ABORH, ANTIS ####[place] [address] Hematocrit (HCT) 38.2 % Low 40.0-52.0 [facility] ([place] Comment on above: Performed By: #### C BC, ADIFF, ANEU, GFR, CMP, TROPI, APTT, PRO, ERDS, ABORH, ANTIS ####[place] [address] Hemoglobin mass conc (Bld) 12.5 G/dL Low 13.0-17.5 [facility] ([place]) Comment on above: Performed By: #### C BC, ADIFF, ANEU, GFR, CMP, TROPI, APTT, PRO, ERDS, ABORH, ANTIS ####[place] [address] MCH 30.2 pg Normal 27.0-33.0 [facility] ([place] Comment on above: Performed By: #### C BC, ADIFF, ANEU, GFR, CMP, TROPI, APTT, PRO, ERDS, ABORH, ANTIS ####[place] [address] MCHC mass conc (RBC) 32.8 G/dL Normal 32.0-36.0 [facility] ([place]) Comment on above: Performed By: #### C BC, ADIFF, ANEU, GFR, CMP, TROPI, APTT, PRO, ERDS, ABORH, ANTIS ####[address] [address] MCV 91.9 fL Normal 81.0-100.0 [facility] ([place] Comment on above: Performed By: #### C BC, ADIFF, ANEU, GFR, CMP, TROPI, APTT, PRO, ERDS, ABORH, ANTIS ####[address] [address] Platelet mean volume (PMV) 7.2 fL Normal 6.4-10.5 [facility] ([place]) Comment on above: Performed By: #### C BC, ADIFF, ANEU, GFR, CMP, TROPI, APTT, PRO, ERDS, ABORH, ANTIS ####[address] [address] Platelets 205 10 3/mcL Normal 150-450 [facility] ([place]) Comment on above: Performed By: #### C BC, ADIFF, ANEU, GFR, CMP, TROPI, APTT, PRO, ERDS, ABORH, ANTIS ####[address] [address] WBC (Leukocytes) 16.90 10 3/mcL High 4.50-10.80 [facility] ([place]) Comment on above: Performed By: #### C BC, ADIFF, ANEU, GFR, CMP, TROPI, APTT, PRO, ERDS, ABORH, ANTIS ####[address] [address] GFRon 04-18-2017 eGFR (non-black) 54 ml/min/1.73sqm Normal [facility] ([place]) Comment on above: Result Comment: GFR Population mean for , Non- Americans Ages 20-29 = 116 mL/min/1.73 sq.m. Ages 30-39 = 107 mL/min/1.73 sq.m. Ages 40-49 = 99 mL/min/1.73 sq.m. Ages 50-59 = 93 mL/min/1.73 sq.m. Ages 60-69 = 85 mL/min/1.73 sq.m. Ages 70+ = 75 mL/min/1.73 sq.m.Chronic Kidney Disease: Less than 60 mL/min/1.73 square metersEnd Stage Renal Disease: Less than 15 mL/min/1.73 square meters Performed By: #### C BC, ADIFF, ANEU, GFR, CMP, TROPI, APTT, PRO, ERDS, ABORH, ANTIS ####[address] [address] eGFR (non-black) mL/min/{1.73_m2} Normal [facility] ([place]) Comment on above: Result Comment: GFR Population mean for , Non- Americans Ages 20-29 = 116 mL/min/1.73 sq.m. Ages 30-39 = 107 mL/min/1.73 sq.m. Ages 40-49 = 99 mL/min/1.73 sq.m. Ages 50-59 = 93 mL/min/1.73 sq.m. Ages 60-69 = 85 mL/min/1.73 sq.m. Ages 70+ = 75 mL/min/1.73 sq.m.Chronic Kidney Disease: Less than 60 mL/min/1.73 square metersEnd Stage Renal Disease: Less than 15 mL/min/1.73 square meters Performed By: #### C BC, ADIFF, ANEU, GFR, CMP, TROPI, APTT, PRO, ERDS, ABORH, ANTIS ####[address] [address] LACon 04-18-2017 Lactic Acid Lvl 4.8 mmol/L High 0.2-2.0 [facility] ([place]) Comment on above: Performed By: #### C BC, ADIFF, ANEU, GFR, CMP, TROPI, APTT, PRO, ERDS, ABORH, ANTIS ####[address] [address] Progress Noteon 04-18-2017 Progress Note Normal [facility] ([place]) Pulmonology Consultationon 0 04-18-2017 Pulmonology Consultation Normal [facility] ([place]) RBC (Product)on 04-18-2017 Erythrocytes (RBC) RBC Ready for Pickup Normal [facility] ([place]) Comment on above: Performed By: #### C BC, ADIFF, ANEU, GFR, CMP, TROPI, APTT, PRO, ERDS, ABORH, ANTIS ####[place] [id number] Surgical Progress Noteon Surgical Progress Note Normal [facility] ([place]) TROPIon 04-18-2017 Troponin I.cardiac mass conc ng/mL Normal 0.000-0.040 [facility] ([place]) Comment on above: Result Comment: Trop onin I reference ranges (05/07/14): 0.00-0.040 ng/mL Negative and non-diagnostic. >0.040 ng/mL Consistent with cardiac damage, increased clinical risk and possibility of myocardial infarction. Serial measurements, a rise & fall in test results, clinical history, appropriate symptoms and/or ECG changes may help assess possibility of NE. *Other non-acute coronary syndrome conditions such as CHF, myocarditis, pulmonary emboli, sepsis and cardiac surgery could result in myocardial damage and increased troponin levels. Performed By: #### C BC, ADIFF, ANEU, GFR, CMP, TROPI, APTT, PRO, ERDS, ABORH, ANTIS ####[place] [id number] XR CHEST 1 VIEWon 04-18-2017 XR CHEST 1 VIEW ORIGINALClinical history: Dyspnea. Left chest tube in place. COMPARISON: Chest x-ray on 04/17/[address] scan of the chest on 04/17/2017. Portable AP radiograph of the chest was obtained at 5:15 AM. Left chest tube is unchanged in position. There is no sign of pneumothorax. There is increased atelectasis at both lung bases. A small amount of left pleural fluid is suspected. IMPRESSION: Hypoventilatory findings with bilateral basilar atelectasis. Small left pleural effusion. No pneumothorax. Interpreted By: Bill Henriquez MDPreliminary Report By: Bill Henriquez MDElectronically Signed By: Bill Henriquez MD Dictated Date: 04/18/2017 6:37:16 AM Prelim Date: 04/18/2017 6:37:16 AM Sign Date: 04/18/2017 6:39:37 AM Normal [facility] ([place]) XR CHEST 1 VIEW ORIGINALXR CHEST 1 V IEW Upright portable view of the chest was obtained at 9:11 PM. CLINICAL STATEMENT: Diminished breath sounds on the right side, left-sided chest tube COMPARISON: Chest radiograph 04/17/2017 at 2:11 PM, and CT thorax 04/17/2017 FINDINGS: The study is limited due to patient body habitus and portable technique. A tube extending from the left chest wall projects towards the left apex and may represent the patient's chest tube versus monitoring line which is poorly evaluated. The cardiomediastinal silhouette is stable. No apical pneumothorax is seen. No consolidation, effusion, or vascular congestion is seen. IMPRESSION: Limited exam secondary to patient body habitus and portable technique. No definite apical pneumothorax visualized. Changes to the preliminary report were discussed with the SICU nurse at time of final interpretation. I have personally reviewed the images of this examination and agree with the resident's findings and interpretation. Interpreted By: Annie SaenzPreliminary Report By: Kenton Monique DOElectronically Signed By: Annie Saenz Dictated Date: 04/17/2017 9:17:03 PM Prelim Date: 04/17/2017 9:22:03 PM Sign Date: 04/17/2017 10:00:51 PM Normal [facility] ([place]) .Auto Diffon 04-17-2017 Basophils Auto #/vol (Bld) 0.10 10 3/mcL Normal 0.00-0.27 [facility] ([place]) Comment on above: Performed By: #### C BC, ADIFF, ANEU, GFR, CMP, TROPI, APTT, PRO, ERDS, ABORH, ANTIS ####[address] [address] Basophils/100 WBC Auto (Bld) 0.3 % Normal 0.0-2.5 [facility] ([place]) Comment on above: Performed By: #### C BC, ADIFF, ANEU, GFR, CMP, TROPI, APTT, PRO, ERDS, ABORH, ANTIS ####[address] [address] Eosinophils 0.10 10 3/mcL Normal 0.00-0.65 [facility] ([place]) Comment on above: Performed By: #### C BC, ADIFF, ANEU, GFR, CMP, TROPI, APTT, PRO, ERDS, ABORH, ANTIS ####[address] [address] Eosinophils/100 leukocytes 0.4 % Normal 0.0-6.0 [facility] ([place]) Comment on above: Performed By: #### C BC, ADIFF, ANEU, GFR, CMP, TROPI, APTT, PRO, ERDS, ABORH, ANTIS ####[address] [address] Lymphocytes 3.60 10 3/mcL Normal 0.90-4.32 [facility] ([place]) Comment on above: Performed By: #### C BC, ADIFF, ANEU, GFR, CMP, TROPI, APTT, PRO, ERDS, ABORH, ANTIS ####[address] [address] Lymphocytes/100 leukocytes 18.7 % Low 20.0-40.0 [facility] ([place] Comment on above: Performed By: #### C BC, ADIFF, ANEU, GFR, CMP, TROPI, APTT, PRO, ERDS, ABORH, ANTIS ####[address] [address] Monocytes 1.30 10 3/mcL Normal 0.09-1.40 [facility] ([place]) Comment on above: Performed By: #### C BC, ADIFF, ANEU, GFR, CMP, TROPI, APTT, PRO, ERDS, ABORH, ANTIS ####[address] [address] Monocytes/100 leukocytes 7.0 % Normal 2.0-13.0 [facility] ([place] Comment on above: Performed By: #### C BC, ADIFF, ANEU, GFR, CMP, TROPI, APTT, PRO, ERDS, ABORH, ANTIS ####[address] [address] Neutrophils/100 WBC Auto (Bld) 73.6 % Normal 50.0-75.0 [facility] ([place]) Comment on above: Performed By: #### C BC, ADIFF, ANEU, GFR, CMP, TROPI, APTT, PRO, ERDS, ABORH, ANTIS ####[place] [address] .NEUABSon 04-17-2017 Neutrophils 13.90 10 3/mcL High 2.25-8.10 [facility] ([place]) Comment on above: Performed By: #### C BC, ADIFF, ANEU, GFR, CMP, TROPI, APTT, PRO, ERDS, ABORH, ANTIS ####[place] [address] APTTon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 quantitative Natalie Sanchez MD Work Phone: Start: 11-16-2023 ETHYL GLUCURONIDE SC REEN, URINE Natalie Sanchez MD Work Phone: Start: 11-16-2023 Lipid panel Natalie chen MD Work Phone: Start: 11-16-2023 MEDICATION ASSISTED TREATMENT PANEL Natalie Sanchez MD Work Phone: Start: 11-16-2023 Ecg routine ecg w/le ast 12 lds trcg only w/o i&r Natalie Sanchez MD Work Phone: Start: 11-16-2023 Lipid 1996 panel - S madelyn or Plasma Seymour Benito DO Work Phone: Start: 11-16-2023 Assay of lactate Vicki Douglas PA-C Work Phone: Start: 11-15-2023 Radiologic exam ches t single view Vicki Crohenrique PA-C Work Phone: Start: 11-15-2023 End: 11-15-2023 Basic metabolic panel calcium total Vicki Crock PA-C Work Phone: Start: 11-15-2023 Drug test def 1-7 classes Natalie Sanchez MD Work Phone: Start: 11-15-2023 Ecg routine ecg w/le ast 12 lds trcg only w/o i&r Seymour A Jigna DO Work Phone: Start: 10-15-2023 Glucose quantitative blood xcpt reagent strip Joe wali DO Work Phone: Start: 10-15-2023 Comprehensive metabo lic panel Kavon Patterson DIGITAL CONTENT SPECIALIST - ASSISTANT SCIENTIST Work Phone: Start: 10-15-2023 Manual differential performed [Presence] in Blood Kavon Patterson DIGITAL CONTENT SPECIALIST - ASSISTANT SCIENTIST Work Phone: Start: 10-14-2023 Glucose quantitative blood xcpt reagent strip Joe wali DO Work Phone: Start: 10-14-2023 Glucose quantitative blood xcpt reagent strip Joe wali DO Work Phone: Start: 10-14-2023 Glucose quantitative blood xcpt reagent strip Joe Cardenas DO Work Phone: Start: 10-14-2023 End: 10-14-2023 Assay of lactate Kavon Jara PRN - ASSISTANT SCIENTIST Work Phone: Start: 10-14-2023 Comprehensive metabo lic panel Kavon Patterson DIGITAL CONTENT SPECIALIST - ASSISTANT SCIENTIST Work Phone: Start: 10-14-2023 Manual differential performed [Presence] in Blood Андрей aKy DIGITAL CONTENT SPECIALIST - ASSISTANT SCIENTIST Work Phone: Start: 10-14-2023 PATHOLOGY REVIEW Timgagan randy Vivek Jaynasurya DIGITAL CONTENT SPECIALIST - ASSISTANT SCIENTIST Work Phone: Start: 10-13-2023 Glucose quantitative blood xcpt reagent strip Urban Cruz MD Work Phone: Start: 10-13-2023 Glucose quantitative blood xcpt reagent strip Urban Cruz MD Work Phone: Start: 10-13-2023 Ct upper extremity w/contrast material Kavon Patterson DIGITAL CONTENT SPECIALIST - ASSISTANT SCIENTIST Work Phone: Start: 10-13-2023 Radiologic exam ches t single view Kavon Patterson DIGITAL CONTENT SPECIALIST - ASSISTANT SCIENTIST Work Phone: Start: 10-13-2023 End: 10-13-2023 Procalcitonin (pct) Salena Fowler Work Phone: Start: 10-13-2023 Comprehensive metabo lic panel Kavon Patterson DIGITAL CONTENT SPECIALIST - ASSISTANT SCIENTIST Work Phone: Start: 10-13-2023 Manual differential performed [Presence] in Blood Андрей Vivek Kay DIGITAL CONTENT SPECIALIST - ASSISTANT SCIENTIST Work Phone: Start: 10-12-2023 Glucose quantitative blood xcpt reagent strip Americo Klein MD Work Phone: Start: 10-12-2023 Glucose quantitative blood xcpt reagent strip Americo Klein MD Work Phone: Start: 10-12-2023 Glucose quantitative blood xcpt reagent strip Americo Klein MD Work Phone: Start: 10-12-2023 Glucose quantitative blood xcpt reagent strip Americo Klein MD Work Phone: Start: 10-12-2023 Comprehensive metabo lic panel Kavon Patterson DIGITAL CONTENT SPECIALIST - [facility] Work Phone: Start: 10-12-2023 Manual differential performed [Presence] in Blood Андрей Doyle Rahul DIGITAL CONTENT SPECIALIST - ASSISTANT SCIENTIST Work Phone: Start: 10-11-2023 Glucose quantitative blood xcpt reagent strip Daneila Ibarra DO Work Phone: Start: 10-11-2023 Mri lower extrem oth /thn jt w/o & w/contr matr Justin Vernon MD Work Phone: Start: 10-11-2023 Glucose quantitative blood xcpt reagent strip Daniela Ibarra DO Work Phone: Start: 10-11-2023 Glucose quantitative blood xcpt reagent strip Daniela Ibarra DO Work Phone: Start: 10-11-2023 Comprehensive metabo lic panel Kavon Patterson DIGITAL CONTENT SPECIALIST - [facility] Work Phone: Start: 10-11-2023 Manual differential performed [Presence] in Blood Андрей Dorantessurya DIGITAL CONTENT SPECIALIST - [facility] Work Phone: Start: 10-10-2023 Glucose quantitative blood xcpt reagent strip Daniela Ibarra DO Work Phone: Start: 10-10-2023 Glucose quantitative blood xcpt reagent strip Daniela Ibarra DO Work Phone: Start: 10-10-2023 Radiologic examinati on eye detect foreign body Brittaney Ng WOOD PROCESSING WORKER Work Phone: Start: 10-10-2023 Dup-scan xtr veins complete bilateral study Ashutosh Velazquez MD Work Phone: Start: 10-10-2023 Radex hand minimum 3 views Freeman Saenz MD Work Phone: Start: 10-10-2023 Insj non-tunneled ce ntral venous cath age 5 yr/> Brittaney Ng WOOD PROCESSING WORKER Work Phone: Start: 10-10-2023 Hemoglobin glycosyla spencer a1c Giuliana Nascimento MD Work Phone: Start: 10-10-2023 Hepatitis b surf ant ibody hbsab Giuliana Nascimento MD Work Phone: Start: 10-10-2023 Iaad ia hepatitis b surface antigen Giuliana Nascimento MD Work Phone: Start: 10-10-2023 Radiologic exam ches t single view Brittaney Ng WOOD PROCESSING WORKER Work Phone: Start: 10-10-2023 Radiologic exam abdo men 1 view Citlali Estefani Jerardo DO Work Phone: Start: 10-10-2023 XR FOREARM 2 VIEWS BILATERAL Justin Vernon MD Work Phone: Start: 10-10-2023 Comprehensive metabo lic panel Kavon Patterson DIGITAL CONTENT SPECIALIST [employer] [facility] Work Phone: Start: 10-10-2023 Drug screen quantita tive vancomycin Americo Jones MD Work Phone: Start: 10-10-2023 Manual differential performed [Presence] in Blood Андрей Kay DIGITAL CONTENT SPECIALIST - [facility] Work Phone: Start: 10-09-2023 ABO and Rh group [Ty pe] in Blood by Confirmatory method Андрей Kay DIGITAL CONTENT SPECIALIST - [facility] Work Phone: Start: 10-09-2023 Blood typing serologic abo Андрей Kay DIGITAL CONTENT SPECIALIST - [facility] Work Phone: Start: 10-09-2023 Creatine kinase total M stephanie Jones MD Work Phone: Start: 10-09-2023 E Ag [Presence] on R ed Blood Cells Андрей Kay DIGITAL CONTENT SPECIALIST - ASSISTANT SCIENTIST Work Phone: Start: 10-09-2023 little c Ag [Presenc e] on Red Blood Cells Андрей Kay DIGITAL CONTENT SPECIALIST - [facility] Work Phone: Start: 10-09-2023 Bacteria identified in Blood by Culture Rosa Isela Pizarro MD Work Phone: Start: 10-09-2023 Comprehensive metabo lic panel Americo Jones MD Work Phone: Start: 10-09-2023 Drug screen quantita tive vancomycin Americo Jones MD Work Phone: Start: 10-08-2023 Glucose quantitative blood xcpt reagent strip Americo Jones MD Work Phone: Start: 10-08-2023 TTE w or wo fol wcon,Doppler Americo Jones MD Work Phone: Start: 10-08-2023 Radiologic examinati on tibia & fibula 2 views Americo Jones MD Work Phone: Start: 10-08-2023 Assay of lactate Brandee Gaines PA Work Phone: Start: 10-08-2023 Comprehensive metabo lic panel Americo Jones MD Work Phone: Start: 10-08-2023 Drug screen quantita tive vancomycin Americo Jones MD Work Phone: Start: 10-08-2023 Assay of lactate Brandee L Janas PA Work Phone: Start: 10-07-2023 End: 10-07-2023 Culture bacterial any source anaerobic iso&id Андрей Kay DIGITAL CONTENT SPECIALIST - ASSISTANT SCIENTIST Work Phone: Start: 10-07-2023 AEROBIC AND ANAEROBI C CULTURE WITH STAIN Андрей Kay DIGITAL CONTENT SPECIALIST - ASSISTANT SCIENTIST Work Phone: Start: 10-07-2023 End: 10-07-2023 Assay of lactate Brandee L Janas PA Work Phone: Start: 10-07-2023 Ct abdomen & pelvis w/contrast material Brandee L Janas PA Work Phone: Start: 10-07-2023 Ct angiography chest w/contrast/noncontrast Davon Montague MD Work Phone: Start: 10-07-2023 End: 10-07-2023 Creatinine other source Americo Jones MD Work Phone: Start: 10-07-2023 Drug tst prsmv instr mnt chem analyzers pr date Brandee SERRATO Work Phone: Start: 10-07-2023 Urinalysis complete panel - Urine Brandee SERRATO Work Phone: Start: 10-07-2023 End: 10-07-2023 Urnls dip stick/tablet reagent auto microscopy Brandee SERRATO Work Phone: Start: 10-07-2023 Dup-scan xtr veins complete bilateral study Davon Montague MD Work Phone: Start: 10-07-2023 Blood gases any combination ph pco2 po2 co2 hco3 Davon Montague MD Work Phone: Start: 10-07-2023 US scan of abdominal aorta Davon Montague MD Work Phone: Start: 10-07-2023 HC CUL TYP ID BLD PT HGN 6+ TRGT Brandee SERRATO Work Phone: Start: 10-07-2023 End: 10-07-2023 Bacteria identified in Blood by Culture Brandee SERRATO Work Phone: Start: 10-07-2023 Comprehensive metabo lic panel Brandee SERRATO Work Phone: Start: 10-07-2023 Ecg routine ecg w/le ast 12 lds trcg only w/o i&r Brandee SERRATO Work Phone: Start: 10-07-2023 Radiologic exam ches t single view Brandee SERRATO Work Phone: Start: 10-07-2023 HC SARSCOV2&INF A&B& RSV AMP PRB Brandee SERRATO Work Phone: Start: 10-07-2023 Respiratory pathogen s DNA and RNA panel - Nasopharynx by AROLDO with non-probe detection Андрей Kay DIGITAL CONTENT SPECIALIST - ASSISTANT SCIENTIST Work Phone: Start: 12-31-2022 Glucose quantitative blood xcpt reagent strip Martha Berger MD Work Phone: Start: 12-31-2022 Glucose quantitative blood xcpt reagent strip Martha Berger MD Work Phone: Start: 12-30-2022 Glucose quantitative blood xcpt reagent strip Martha Berger MD Work Phone: Start: 12-30-2022 Glucose quantitative blood xcpt reagent strip Martha Berger MD Work Phone: Start: 12-30-2022 Glucose quantitative blood xcpt reagent strip Martha Berger MD Work Phone: Start: 12-29-2022 Glucose quantitative blood xcpt reagent strip Martha Berger MD Work Phone: Start: 12-29-2022 Glucose quantitative blood xcpt reagent strip Martha Berger MD Work Phone: Start: 12-29-2022 Glucose quantitative blood xcpt reagent strip Martha Berger MD Work Phone: Start: 12-27-2022 Comprehensive metabo lic panel Urban Cruz MD Work Phone: Start: 12-27-2022 Ecg routine ecg w/le ast 12 lds trcg only w/o i&r Sim Ho MD Work Phone: Start: 12-26-2022 Drug test def 1-7 classes Urban Cruz MD Work Phone: Start: 12-26-2022 ETHYL GLUCURONIDE SC REEN, URINE Urban Cruz MD Work Phone: Start: 12-26-2022 Comprehensive metabo lic panel Sim Ho MD Work Phone: Start: 12-26-2022 Thyrotropin [Units/v olume] in Serum or Plasma Sim Ho MD Work Phone: Start: 12-25-2022 AMPHETAMINE CONFIRMATION Urban Cruz MD Work Phone: Start: 12-25-2022 Drug tst prsmv instr mnt chem analyzers pr date Grover Mungiua MD Work Phone: Start: 12-25-2022 Urinalysis complete panel - Urine Grover Munguia MD Work Phone: Start: 12-25-2022 Urnls dip stick/tabl et rgnt auto w/o microscopy Grover Munguia MD Work Phone: Start: 12-25-2022 Ct head/brain w/o co ntrast material Grover Munguia MD Work Phone: Start: 12-25-2022 Comprehensive metabo lic panel Grover Munguia MD Work Phone: Start: 12-25-2022 Drug test def 1-7 classes Grover Munguia MD Work Phone: Start: 12-25-2022 Ecg routine ecg w/le ast 12 lds trcg only w/o i&r Grover Munguia MD Work Phone: Start: 10-14-2022 Glucose quantitative blood xcpt reagent strip Alex Mcguire MD Work Phone: Start: 10-14-2022 Glucose quantitative blood xcpt reagent strip Alex Mcguire MD Work Phone: Start: 10-14-2022 Glucose quantitative blood xcpt reagent strip Alex Mcguire MD Work Phone: Start: 10-14-2022 Basic metabolic pane l calcium total Alex Mcguire MD Work Phone: Start: 10-13-2022 Glucose quantitative blood xcpt reagent strip Alex Mcguire MD Work Phone: Start: 10-13-2022 Glucose quantitative blood xcpt reagent strip Alex Mcguire MD Work Phone: Start: 10-13-2022 Glucose quantitative blood xcpt reagent strip Alex Mcguire MD Work Phone: Start: 10-12-2022 End: 10-12-2022 Glucose quantitative blood xcpt reagent strip Alex Mcguire MD Work Phone: Start: 10-12-2022 Basic metabolic pane l calcium total Brittaney Braga MD Work Phone: Start: 10-11-2022 Glucose quantitative blood xcpt reagent strip Alex Mcguire MD Work Phone: Start: 10-11-2022 Glucose quantitative blood xcpt reagent strip Alex Mcguire MD Work Phone: Start: 10-11-2022 Glucose quantitative blood xcpt reagent strip Alex Mcguire MD Work Phone: Start: 10-11-2022 End: 10-11-2022 Culture bacterial any source anaerobic iso&id Bertrand Ly MD Work Phone: Start: 10-11-2022 End: 10-11-2022 Incision & drainage abscess simple/single Bertrand Ly MD Work Phone: Start: 10-11-2022 Glucose quantitative blood xcpt reagent strip Alex Mcguire MD Work Phone: Start: 10-11-2022 Basic metabolic pane l calcium total Brittaney Braga MD Work Phone: Start: 10-10-2022 Glucose quantitative blood xcpt reagent strip Alex Mcguire MD Work Phone: Start: 10-10-2022 Glucose quantitative blood xcpt reagent strip Alex Mcguire MD Work Phone: Start: 10-10-2022 Glucose quantitative blood xcpt reagent strip Alex Mcguire MD Work Phone: Start: 10-10-2022 TTE w or wo fol wcon,Doppler Brittaney Braga MD Work Phone: Start: 10-10-2022 Glucose quantitative blood xcpt reagent strip Alex Mcguire MD Work Phone: Start: 10-10-2022 Blood count complete auto&auto difrntl wbc Brittaney Braga MD Work Phone: Start: 10-09-2022 Glucose quantitative blood xcpt reagent strip Alex Mcguire MD Work Phone: Start: 10-09-2022 Glucose quantitative blood xcpt reagent strip Alex Mcguire MD Work Phone: Start: 10-09-2022 Glucose quantitative blood xcpt reagent strip Jurgen G Rosemaryheim DO Work Phone: Start: 10-09-2022 Basic metabolic pane l calcium total Brittaney Braga MD Work Phone: Start: 10-09-2022 Blood count complete auto&auto difrntl wbc Erma Helms Kana DIGITAL CONTENT SPECIALIST - ASSISTANT SCIENTIST Work Phone: Start: 10-09-2022 Dup-scan xtr veins complete bilateral study Brittaney Braga MD Work Phone: Start: 10-09-2022 Glucose quantitative blood xcpt reagent strip Jurgen G Rosemaryheim DO Work Phone: Start: 10-09-2022 Ecg routine ecg w/le ast 12 lds trcg only w/o i&r Jurgen G Nesheim DO Work Phone: Start: 10-09-2022 Radiologic exam ches t single view Jurgen G Nesheim DO Work Phone: Start: 10-09-2022 Bacteria identified in Blood by Culture Jurgen G Nesheim DO Work Phone: Start: 10-09-2022 Comprehensive metabo lic panel Jurgen G Nesheim DO Work Phone: Start: 10-09-2022 Lipid panel Brtitaney barnes MD Work Phone: Start: 10-09-2022 Radex hand minimum 3 views Jurgen G Nesheim DO Work Phone: Start: 10-09-2022 Lipid 1996 panel - S madelyn or Plasma Grover Munguia MD Work Phone: Start: 02-16-2022 Ecg routine ecg w/le ast 12 lds w/i&r Jaylene Verduzco MD Work Phone: Start: 02-15-2022 ADD ON LAB TEST Alycia Jones DO Work Phone: Start: 02-15-2022 POCT COVID-19, ANTIGEN Alyciagemini Jones DO Work Phone: Start: 02-15-2022 Drug tst prsmv instr mnt chem analyzers pr date Alyciagemini Jones DO Work Phone: Start: 02-15-2022 Urnls dip stick/tabl et rgnt auto w/o microscopy Alyciagemini Jones DO Work Phone: Start: 02-15-2022 ADD ON LAB TEST Alycia Jones DO Work Phone: Start: 02-15-2022 Assay of ethanol Ralph Verduzco MD Work Phone: Start: 02-15-2022 Basic metabolic pane l calcium total Jaylene Verduzco MD Work Phone: Start: 02-15-2022 Hepatic function panel Jaylene Verduzco MD Work Phone: Start: 02-15-2022 Ct abdomen & pelvis w/o contrast material Jaylene Verduzco MD Work Phone: Start: 02-15-2022 Ct head/brain w/o co ntrast material Jaylene Verduzco MD Work Phone: Start: 07-15-2021 COVID-19 J Chitra Milan MD Work Phone: Start: 07-15-2021 ADD ON LAB TEST Leoncio SERRATO Work Phone: Start: 07-15-2021 Comprehensive metabo lic panel Leoncio SERRATO Work Phone: Start: 07-15-2021 Drug screen class list a Leoncio SERRTAO Work Phone: Start: 07-15-2021 ETHANOL. SERUM Leoncio SERRATO Work Phone: Start: 07-15-2021 POCT COVID-19, ANTIGEN Leoncio SERRATO Work Phone: Start: 07-15-2021 Urnls dip stick/tabl et rgnt auto w/o microscopy Leoncio SERRATO Work Phone: Start: 06-18-2020 Drug screen class list a Brittaney Maher Work Phone: Start: 06-18-2020 Urnls dip stick/tabl et rgnt auto w/o microscopy Brittaney Maher Work Phone: Start: 06-18-2020 Ecg routine ecg w/le ast 12 lds w/i&r Brittaney Maher Work Phone: Start: 06-18-2020 Assay of ethanol Brittaney Maher Work Phone: Start: 06-18-2020 Assay of troponin quantitative Brittaney Maher Work Phone: Start: 06-18-2020 Blood count complete auto&auto difrntl wbc Brittaney Maher Work Phone: Start: 06-18-2020 Comprehensive metabo lic panel Brittaney Maher Work Phone: Start: 06-18-2020 COVID-19 Brittaney sullivan Work Phone: Start: 06-18-2020 Creatine kinase total D corby Maher Work Phone: Start: 07-04-2019 Ct head/brain w/o co ntrast material Jan R Ritu Work Phone: Start: 07-04-2019 Radiologic exam ches t single view Jan R Ritu Work Phone: Start: 07-01-2019 Radex hand 2 views Casimiro Lazo Work Phone: Start: 07-01-2019 Radex shoulder compl ete minimum 2 views Casimiro Lazo Work Phone: Start: 07-01-2019 Radiologic exam ches t single view Casimiro Lazo Work Phone: Start: 07-01-2019 Ct cervical spine w/ o contrast material Casimiro Lazo Work Phone: Start: 07-01-2019 Ct head/brain w/o co ntrast material Casimiro Lazo Work Phone: Start: 06-26-2019 Non-invasive physiol ogic study extremity 3 levls Ana JaraJosy Torres Work Phone: Start: 06-10-2019 Antibody screen Comment on above: Performed By: #### A #### [place] [id number] Start: 06-08-2019 Radiologic examinati on knee 3 views Brittaney Maher Work Phone: Start: 06-07-2019 Assay of troponin quantitative Brittaney Maher Work Phone: Start: 06-07-2019 Blood count complete auto&auto difrntl wbc Brittaney Maher Work Phone: Start: 06-07-2019 C-reactive protein Tobias Maher Work Phone: Start: 06-07-2019 Comprehensive metabo lic panel Brittaney Maher Work Phone: Start: 06-07-2019 Sedimentation rate r bc automated Brittaney Maher Work Phone: Start: 06-07-2019 Radiologic exam ches t single view Brittaney Maher Work Phone: Start: 06-01-2019 Gluc bld gluc mntr d ev cleared fda spec home use Mone Campbell Work Phone: Start: 06-01-2019 Assay of magnesium Darren Green Work Phone: Start: 06-01-2019 BASIC METABOLIC PANE L W/ REFLEX TO MG FOR LOW K Griselda Green Work Phone: Start: 06-01-2019 Blood count complete auto&auto difrntl wbc Griselda Green Work Phone: Start: 05-31-2019 Gluc bld gluc mntr d ev cleared fda spec home use Mone Campbell Work Phone: Start: 05-31-2019 Gluc bld gluc mntr d ev cleared fda spec home use Jan Chaney Work Phone: Start: 05-31-2019 Assay of magnesium Mone Campbell Work Phone: Start: 05-31-2019 Basic metabolic pane l calcium total Mone Campbell Work Phone: Start: 05-31-2019 Drug screen quantita tive vancomycin Mone Campbell Work Phone: Start: 05-31-2019 Blood count complete auto&auto difrntl wbc Griselda Green Work Phone: Start: 05-31-2019 Hemoglobin glycosyla spencer a1c Griselda Figueroa Peter Work Phone: Start: 05-30-2019 BASIC METABOLIC PANE L W/ REFLEX TO MG FOR LOW K Griselda Green Work Phone: Start: 05-30-2019 Blood count complete auto&auto difrntl wbc Griselda Green Work Phone: Start: 05-29-2019 Ct angiography chest w/contrast/noncontrast Jan R Ritu Work Phone: Start: 05-29-2019 Dup-scan xtr veins complete bilateral study Brittaney Maher Work Phone: Start: 05-29-2019 Assay of troponin quantitative Brittaney Maher Work Phone: Start: 05-29-2019 Blood count complete auto&auto difrntl wbc Brittaney Maher Work Phone: Start: 05-29-2019 C-reactive protein Tobias Maher Work Phone: Start: 05-29-2019 Comprehensive metabo lic panel Brittaney Maher Work Phone: Start: 05-29-2019 Culture bacterial bl ood aerobic w/id isolates Brittaney Maher Work Phone: Start: 05-29-2019 Natriuretic peptide Shon yulil Marisel Work Phone: Start: 05-29-2019 Sedimentation rate r bc automated Brittaney Marisel Work Phone: Start: 05-29-2019 Ecg routine ecg w/le ast 12 lds w/i&r Brittaney Marisel Work Phone: Start: 05-29-2019 Radiologic exam ches t single view Brittaney Marisel Work Phone: Start: 05-29-2019 Radiologic examinati on tibia & fibula 2 views Brittaney Marisel Work Phone: Start: 05-29-2019 End: 05-29-2019 NEBULIZER TX INTERMITTENT Brittaney Marisel Work Phone: Plan of Treatment Date Care Activity Detail Author Start: 06-10-2029 DTaP/Tdap/Td vaccine (3 - Td or Tdap) DTaP/Tdap/Td vaccine (3 - Td or Tdap) [facility] Start: 06-10-2029 DTaP/Tdap/Td vaccine (3 - Td) DTaP/Tdap/Td vaccine (3 - Td) [place] Start: 06-10-2029 DTaP/Tdap/Td Vaccines (3 - Td or Tdap) DTaP/Tdap/Td Vaccines (3 - Td or Tdap) [facility] Start: 06-10-2029 [facility] Start: 11-06-2025 Creatinine measurement Creatinine Level [facility] Start: 11-06-2025 Diabetes: Estimated Glomerular Filtration Rate for Kidney Health Diabetes: Estimated Glomerular Filtration Rate for Kidney Health [facility] Start: 11-06-2025 Potassium measurement Potassium Level [facility] Start: 2025 Pneumococcal 0-64 years Vaccine (2 of 2 - PPSV23) Pneumococcal 0-64 years Vaccine (2 of 2 - PPSV23) [facility] Start: 07-22-2025 Creatinine measurement Creatinine Level [facility] Start: 07-22-2025 Diabetes: Estimated Glomerular Filtration Rate for Kidney Health Diabetes: Estimated Glomerular Filtration Rate for Kidney Health [facility] Start: 07-22-2025 Potassium measurement Potassium Level [facility] Start: 03-01-2025 ambulatory Ambulatory Facility:[facility] Start: 01-26-2025 Glaucoma screening Diabetes: Retinopathy Screening [facility] Start: 11-17-2024 Creatinine measurement Creatinine Level [facility] Start: 11-17-2024 Diabetes: Estimated Glomerular Filtration Rate for Kidney Health Diabetes: Estimated Glomerular Filtration Rate for Kidney Health [facility] Start: 11-17-2024 Potassium measurement Potassium Level [facility] Start: 11-15-2024 Lipid panel Lipid Panel [facility] Start: 11-07-2024 Creatinine measurement Creatinine Level [facility] Start: 11-07-2024 Potassium measurement Potassium Level [facility] Start: 11-06-2024 End: 11-06-2024 Patient encounter procedure [facility] Start: 11-04-2024 Creatinine measurement Creatinine Level [facility] Start: 11-04-2024 Potassium measurement Potassium Level [facility] Start: 11-01-2024 End: 11-01-2024 Patient encounter procedure 11/01/2024 1:30 PM EST Office Visit [facility] [address] [place] [address] [place] [address] Clara Judge MD [address] [place] [address] [address] [place] [address] [facility] Start: 10-31-2024 Creatinine measurement Creatinine Level [facility] Start: 10-31-2024 Potassium measurement Potassium Level [facility] Start: 10-29-2024 Creatinine measurement Creatinine Level [facility] Start: 10-29-2024 Potassium measurement Potassium Level [facility] Start: 10-27-2024 Creatinine measurement Creatinine Level [facility] Start: 10-27-2024 Potassium measurement Potassium Level [facility] Start: 10-22-2024 Creatinine measurement Creatinine Level [facility] Start: 10-22-2024 Potassium measurement Potassium Level [facility] Start: 10-20-2024 Creatinine measurement Creatinine Level [facility] Start: 10-20-2024 Potassium measurement Potassium Level [facility] Start: 10-18-2024 Creatinine measurement Creatinine Level [facility] Start: 10-18-2024 Potassium measurement Potassium Level [facility] Start: 10-16-2024 Creatinine measurement Creatinine Level [facility] Start: 10-16-2024 Potassium measurement Potassium Level [facility] Start: 10-15-2024 Creatinine measurement [facility] Start: 10-15-2024 Potassium measurement [facility] Start: 10-10-2024 Hemoglobin A1c measurement [facility] Start: 10-08-2024 Echocardiography Echocardiogram [facility] Start: 10-08-2024 [facility] Start: 08-30-2024 Medicare Advantage Annual Wellness Visit Medicare Advantage Annual Wellness Visit [facility] Start: 2024 End: 2024 Patient encounter procedure 2024 2:30 PM EST Office Visit [facility] [place] [address] [place] [phone] Ilsa Araiza, PAHoneyC 1 [facility] [address] [place] [address] [facility] Start: 2024 End: 08-08-2025 XR Knee - right 1 or 2 Views [facility] Work Phone: Comment on above: Expected: 2024, Expires: 5 Once for 1 Occurrenc es starting 2024 until 2024 Start: 2024 End: 08-08-2025 XR knees anteroposterior standing bilateral [facility] Comment on above: Expected: 2024, Expires: 5 Once for 1 Occurrenc es starting 2024 until 2024 Start: 07-21-2024 End: 07-21-2024 Admission to same day surgery center 07/21/2024 11:30 AM EST - 07/21/2024 1:30 PM EST Surgery [facility] MAIN OR [address] [place] [address] Clara Judge MD 1 [facility] [address] [place] [address] RIGHT TOTAL KNEE ARTHROPLASTY [61897 (CPT )] [facility] OR Comment on above: RIGHT TOTAL KNEE ARTHROPLASTY [66493 (CP T )] Start: 07-21-2024 End: 07-21-2024 Anesthesia consultation 07/21/2024 11:30 AM EST Anesthesia Event [facility] MAIN OR [address] [place] [address] Jack Marquez MD [address] [place] [id number] [facility] MAIN OR Start: 07-21-2024 End: 07-21-2024 Arthrp kne condyle&platu medial&lat compartments TOTAL KNEE REPLACEMENT Unilateral primary osteoarthritis, right knee 07/21/2024 11:30 AM EST [facility] Operating Room Start: 07-21-2024 Subsequent hospital visit by physician 07/21/2024 11:30 AM EST Hospital Encounter [facility] MAIN OR [address] [place] [phone] Clara Judge MD 1 [facility] [address] [place] [id number] [facility] MAIN OR Start: 07-17-2024 End: 07-17-2024 Patient encounter procedure 07/17/2024 9:00 AM EST Appointment [facility] CT Imaging [address] [place] [phone] Clara Judge MD 1 [facility] [address] [place] [id number] [facility] CT Imaging Start: 07-14-2024 End: 07-14-2024 Admission to establishment 07/14/2024 9:00 AM EST Pre-Admission Testing [facility] Pre-Admit Testing [address] [place] [address] [facility] Pre-Admit Testing Start: 06-28-2024 End: 06-28-2025 CBC panel - Blood by Automated count CBC Lab Routine Hyperglycemia Expected: 06/28/2024 (Approximate), Expires: 06/28/2025 [facility] Comment on above: Expected: 06/28/2024 (Approximate), Expi res: 06/28/2025 Start: 06-28-2024 End: 06-28-2025 Comprehensive metabolic 1998 panel - Serum or Plasma Comprehensive metabolic panel Lab Routine Hyperglycemia Expected: 06/28/2024 (Approximate), Expires: 06/28/2025 [facility] Comment on above: Expected: 06/28/2024 (Approximate), Expi res: 06/28/2025 Start: 06-28-2024 End: 06-28-2025 CT Spine lumbosacral junction CT knee right wo IV contrast Imaging Routine Primary localized osteoarthrosis of the knee, left Right knee pain, unspecified chronicity Arthritis of right knee Hyperglycemia Expected: 06/28/2024, Expires: 06/28/2025 [facility] Comment on above: Expected: 06/28/2024, Expires: Start: 06-28-2024 End: 06-28-2025 Hemoglobin A1c measurement Hemoglobin A1c Lab Routine Hyperglycemia Expected: 06/28/2024 (Approximate), Expires: 06/28/2025 [facility] Comment on above: Expected: 06/28/2024 (Approximate), Expi res: 06/28/2025 Start: 06-28-2024 End: 06-28-2025 XR Knee - right 1 or 2 Views [facility] Work Phone: Comment on above: Expected: 06/28/2024, Expires: Once for 1 Occurrenc es starting 06/28/2024 until 06/28/2024 Start: 06-28-2024 End: 06-28-2025 XR knees anteroposterior standing bilateral [facility] Comment on above: Expected: 06/28/2024, Expires: Once for 1 Occurrenc es starting 06/28/2024 until 06/28/2024 Start: 06-28-2024 End: 06-28-2024 Patient encounter procedure 06/28/2024 1:45 PM EDT Office Visit [facility] [place] [address] [place] [address] [place] [address] Clara Judge MD [address] [place] [address] [place] [id number] [facility] [place] Start: 04-30-2024 COVID-19 Vaccine ( season) COVID-19 Vaccine () [facility] Start: 04-30-2024 COVID-19 Vaccine () COVID-19 Vaccine () [facility] Start: 04-30-2024 Influenza vaccination [facility] Start: 04-05-2024 End: 04-05-2024 Patient encounter procedure 04/05/2024 9:45 AM EDT Office Visit [facility] [address] [place] [phone] Clara Judge MD 1 [facility] [address] [place] [address] [facility] Start: 02-06-2024 DTaP/Tdap/Td vaccine (2 - Td) DTaP/Tdap/Td vaccine (2 - Td) [place], [place] Start: 02-02-2024 End: 02-01-2025 CBC panel - Blood by Automated count CBC Lab Routine Left knee pain, unspecified chronicity Primary localized osteoarthrosis of the knee, left Expected: 02/02/2024 (Approximate), Expires: 02/01/2025 [facility] Work Phone: Comment on above: Expected: 02/02/2024 (Approximate), Expi res: 02/01/2025 Start: 02-02-2024 End: 02-01-2025 Comprehensive metabolic 1998 panel - Serum or Plasma Comprehensive metabolic panel Lab Routine Left knee pain, unspecified chronicity Primary localized osteoarthrosis of the knee, left Expected: 02/02/2024 (Approximate), Expires: 02/01/2025 [facility] Comment on above: Expected: 02/02/2024 (Approximate), Expi res: 02/01/2025 Start: 02-02-2024 End: 02-01-2025 Hemoglobin A1c measurement Hemoglobin A1c Lab Routine Left knee pain, unspecified chronicity Primary localized osteoarthrosis of the knee, left 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, unspecified whether group home insulin use (HCC) Expected: 02/02/2024 (Approximate), Expires: 02/01/2025 [facility] Comment on above: Expected: 02/02/2024 (Approximate), Expi res: 02/01/2025 Start: 02-02-2024 End: 02-01-2025 XR Femur - left 2 Views [facility] Comment on above: Expected: 02/02/2024, Expires: Once for 1 Occurrenc es starting 02/02/2024 until 02/02/2024 Start: 02-02-2024 End: 01-24-2025 XR Knee - left 1 or 2 Views XR knee 1 or 2 views left Imaging Routine Left knee pain, unspecified chronicity Expected: 02/02/2024, Expires: 01/24/2025 [facility] Work Phone: Comment on above: Expected: 02/02/2024, Expires: Start: 02-02-2024 End: 02-01-2025 XR Knee - left 4 Views [facility] Comment on above: Expected: 02/02/2024, Expires: Once for 1 Occurrenc es starting 02/02/2024 until 02/02/2024 Start: 02-02-2024 End: 01-24-2025 XR knees anteroposterior standing bilateral XR knees anteroposterior standing bilateral Imaging Routine Left knee pain, unspecified chronicity Expected: 02/02/2024, Expires: 01/24/2025 [facility] Comment on above: Expected: 02/02/2024, Expires: Start: 02-02-2024 End: 02-02-2024 Patient encounter procedure [facility] Start: 01-14-2024 End: 01-14-2024 Patient encounter procedure 01/14/2024 9:45 AM EDT Office Visit [facility] [address] [place] [address] [place] [phone] [facility] Start: 01-10-2024 End: 01-09-2025 XR Knee - bilateral 2 Views XR knee 1-2 views bilateral Imaging Routine Acute pain of right knee Acute pain of left knee Expected: 01/10/2024, Expires: 01/09/2025 [facility] Comment on above: Expected: 01/10/2024, Expires: Start: 01-10-2024 End: 01-09-2025 XR knees anteroposterior standing bilateral XR knees anteroposterior standing bilateral Imaging Routine Acute pain of right knee Acute pain of left knee Expected: 01/10/2024, Expires: 01/09/2025 [facility] Work Phone: Comment on above: Expected: 01/10/2024, Expires: Start: 12-17-2023 Subsequent hospital visit by physician 12/17/2023 2:20 PM EDT Hospital Encounter [facility] [address] [place] [address] Mone Campbell MD [address] [place] [address] [facility] Start: 11-25-2023 End: 11-17-2024 Basic metabolic 1998 panel - Serum or Plasma Basic metabolic panel Lab Routine Acute on chronic heart failure with preserved ejection fraction (HCC) Expected: 11/25/2023 (Approximate), Expires: 11/17/2024 [facility] Comment on above: Expected: 11/25/2023 (Approximate), Expi res: 11/17/2024 Start: 11-15-2023 End: 11-15-2023 Patient encounter procedure 11/15/2023 2:40 PM EDT Office Visit [facility] [address] [place] [address] Kimberly Garcia APRN [address] [place] [address] [facility] Start: 10-09-2023 Lipid panel [facility] Start: 07-01-2023 Depression Monitoring Depression Monitoring [facility] Start: 07-01-2023 Depresssion Monitoring Depresssion Monitoring [facility] Start: 07-01-2023 [facility] Start: 04-30-2023 COVID-19 Vaccine ( season) COVID-19 Vaccine ( season) [facility] Start: 04-30-2023 Influenza vaccination [facility] Start: 04-30-2023 [facility] Start: 01-06-2023 Hemoglobin A1c measurement Diabetes: Hemoglobin A1C [facility] Start: 07-15-2022 Creatinine measurement Creatinine monitoring [facility] Start: 07-15-2022 Potassium monitoring Potassium monitoring [facility] Start: 04-30-2022 Influenza vaccination [facility] Start: 10-06-2021 Creatinine measurement Creatinine monitoring [place] Start: 10-06-2021 Potassium monitoring Potassium monitoring [place] Start: 07-22-2021 Depression Monitoring Depression Monitoring [facility] Start: 06-18-2021 Creatinine measurement Creatinine monitoring [place] Start: 06-18-2021 Potassium monitoring Potassium [place] Start: 04-30-2021 Influenza vaccination Flu vaccine (#1) [facility] Start: 10-17-2020 COVID-19 Vaccine (2 - Moderna series) COVID-19 Vaccine (2 - Moderna series) [facility] Start: 09-02-2020 End: 09-02-2020 Office Visit 09/02/2020 Office Visit Family Medicine Juve Martinez MD [address] [place] [address] [phone] [facility] Start: 2020 Hepatitis B Vaccines (1 of 3 - Risk 3-dose series) Hepatitis B Vaccines (1 of 3 - Risk 3-dose series) [facility] Start: 2020 RSV Immunization aged 60 or older (1 - 1-dose 60+ series) RSV Immunization aged 60 or older (1 - 1-dose 60+ series) [facility] Start: 2020 RSV Immunization for Adults (1 - Risk 60-74 years 1-dose series) RSV Immunization for Adults (1 - Risk 60-74 years 1-dose series) [facility] Start: 2020 [facility] Start: 06-07-2020 Creatinine monitoring Creatinine monitoring [place], [place] Start: 06-07-2020 Potassium monitoring Potassium [place] Start: 06-06-2020 Influenza vaccination Flu vaccine (#1) [place] Comment on above: Postponed from 04/30/2019 (Patient Refus ed) Start: 06-01-2020 Creatinine monitoring Creatinine monitoring [place] Start: 06-01-2020 Potassium monitoring Potassium [place] Start: 05-31-2020 A1C test (Diabetic or Prediabetic) A1C test (Diabetic or Prediabetic) [place] Start: 05-31-2020 HbA1c (Bld) [Mass fraction] A1C test (Diabetic or Prediabetic) [place] Start: 05-31-2020 Hemoglobin A1c measurement A1C test (Diabetic or Prediabetic) [facility] Start: 05-30-2020 Creatinine monitoring Creatinine monitoring [place] Start: 05-30-2020 Potassium monitoring Potassium [place] Start: 04-30-2020 Influenza vaccination Flu vaccine (#1) [place] Start: 03-15-2020 Hepatitis A vaccine (1 of 2 - Risk 2-dose series) Hepatitis A vaccine (1 of 2 - Risk 2-dose series) [place] Comment on above: Postponed from 1961 (Patient Refus ed) Start: 12-04-2019 End: 12-04-2019 Office Visit 12/04/2019 Office Visit Family Medicine Bartolo Cao MD [address] [place] [address] [phone] [facility] Start: 11-15-2019 Hepatitis B Vaccine (1 of 3 - Risk 3-dose series) Hepatitis B Vaccine (1 of 3 - Risk 3-dose series) [place] Comment on above: Postponed from 1979 (Patient Refus ed) Start: 10-10-2019 End: 10-10-2019 Patient encounter procedure 10/10/2019 Office Visit Family Medicine Mariah Ray DO [address] [place] [address] [phone] [facility] Start: 08-07-2019 End: 08-07-2019 Office Visit 08/07/2019 Office Visit Family Medicine Mariah Ray DO [address] [place] [address] [phone] [facility] Start: 06-26-2019 End: 06-26-2019 Appointment 06/26/2019 Appointment [facility] Start: 06-21-2019 End: 06-21-2019 Office Visit 06/21/2019 Office Visit Family Medicine Shanna Rowan MD [address] [place] [address] [phone] [facility] Start: 06-06-2019 Annual Wellness Visit (AWV) Annual Wellness Visit (AWV) [facility] Start: 04-30-2019 Influenza vaccination Flu vaccine (#1) [place] Start: 02-05-2019 Prostate specific antigen measurement Prostate Specific Antigen (PSA) Screening or Monitoring [facility] Start: 12-08-2018 A1C test (Diabetic or Prediabetic) A1C test (Diabetic or Prediabetic) [place] Start: 12-02-2018 Lipid panel [facility] Start: 12-02-2018 Lipid screen Lipid screen [place] Start: 02-05-2015 Pneumococcal 0-64 years Vaccine (2 - PCV) Pneumococcal 0-64 years Vaccine (2 - PCV) [facility] Start: 02-05-2015 Pneumococcal Vaccine: 50+ Years (2 of 2 - PCV) Pneumococcal Vaccine: 50+ Years (2 of 2 - PCV) [facility] Start: 02-05-2015 Pneumococcal Vaccine: Pediatrics (0 to 5 Years) and At-Risk Patients (6 to 64 Years) (2 - PCV) Pneumococcal Vaccine: Pediatrics (0 to 5 Years) and At-Risk Patients (6 to 64 Years) (2 - PCV) [facility] Start: 02-05-2015 Pneumococcal Vaccine: Pediatrics (0 to 5 Years) and At-Risk Patients (6 to 64 Years) (2 of 2 - PCV) Pneumococcal Vaccine: Pediatrics (0 to 5 Years) and At-Risk Patients (6 to 64 Years) (2 of 2 - PCV) [facility] Start: 02-05-2015 [facility] Start: 2010 Colon cancer screen colonoscopy Colon cancer screen colonoscopy [place] Start: 2010 Screening for malignant neoplasm of colon Colon cancer screen colonoscopy [place] Start: 2010 Shingles Vaccine (1 of 2) Shingles Vaccine (1 of 2) [facility] Start: 2010 Zoster Vaccines (1 of 2) Zoster Vaccines (1 of 2) [facility] Start: 2010 [facility] Start: 2005 Screening for malignant neoplasm of colon [facility] Start: 1979 Hepatitis A Vaccines (1 of 2 - Risk 2-dose series) Hepatitis A Vaccines (1 of 2 - Risk 2-dose series) [facility] Start: 1979 Hepatitis B vaccine (1 of 3 - Risk 3-dose series) Hepatitis B vaccine (1 of 3 - Risk 3-dose series) [place] Start: 1979 Urine screening for protein Diabetes: Urine Protein Screening [facility] Start: 1979 [facility] Start: 1978 Diabetes: Estimated Glomerular Filtration Rate for Kidney Health Diabetes: Estimated Glomerular Filtration Rate for Kidney Health [facility] Start: 1978 Diabetes: Urine Albumin-Creatinine Ratio for Kidney Health Diabetes: Urine Albumin-Creatinine Ratio for Kidney Health [facility] Start: 1978 Diabetic microalbuminuria test Diabetic microalbuminuria test [facility] Start: 1978 Diabetic retinal exam Diabetic retinal exam [facility] Start: 1978 Urine screening for protein Diabetic microalbuminuria test [facility] Start: 1972 COVID-19 Vaccine (1) COVID-19 Vaccine (1) [facility] Start: 1972 Depression Screening Depression Screening [facility] Start: 1972 Depresssion Monitoring Depresssion Monitoring [facility] Start: 1970 [object Object] Diabetic foot exam [place] Start: 1970 Diabetic foot examination [facility] Start: 1970 Diabetic retinal exam Diabetic retinal exam [facility] Start: 1970 Glaucoma screening [facility] Start: 1970 Preventive dental service [facility] Start: 1965 COVID-19 Vaccine (1) COVID-19 Vaccine (1) [facility] Start: 1961 Hepatitis A Vaccines (1 of 2 - Risk 2-dose series) Hepatitis A Vaccines (1 of 2 - Risk 2-dose series) [facility] Start: 1961 MMR Vaccines (1 of 1 - Standard series) MMR Vaccines (1 of 1 - Standard series) [facility] Start: 1961 [facility] Start: 1960 Annual Wellness Visit (AWV) Annual Wellness Visit (AWV) [facility] Start: 1960 HIV screening HIV Screening [facility] Start: 1960 Medicare Annual Wellness (AWV) Medicare Annual Wellness (AWV) [facility] Start: 1960 Screening for malignant neoplasm of colon [facility] Start: 1960 [facility] Aerobic and Anaerobi c Culture with Stain [employer] [facility] Work Phone: Comment on above: Release Upon Ordering for 1 Occurrences starting 10/11/2022 [employer] P Respiratory Care Routine QHS until discontinued starting 05/30/2019 [employer] [place] [employer] [employer] Comment on above: QHS until discontinued starting 05/30/20 19 Bacteria identified in Unspecified specimen by Anaerobe culture Anaerobic culture Microbiology Routine Abscess of hand including fingers, left 10/11/2022 9:41 AM EST [employer] Basic Metabolic Pane l w/ Reflex to MG Basic Metabolic Panel w/ Reflex to MG Lab Routine Daily until discontinued starting 05/30/2019, 2 completed [employer] Comment on above: Daily until discontinued starting 2018, 2 completed End: 11-17-2023 Blood gases, arterial measurement Blood Gas, Arterial Lab Routine Once (Lab) for 1 Occurrences starting 11/17/2023 until 11/17/2023 [facility] Work Phone: Comment on above: Once (Lab) for 1 Occurrences starting until 11/17/2023 End: 10-07-2023 Blood gases, venous measurement [facility] Work Phone: CBC auto differential CBC auto d ifferential Lab Routine Daily until discontinued starting 05/30/2019, 3 completed [employer] Comment on above: Daily until discontinued starting 2018, 3 completed Complete PFT study Complete PFT study PFT Routine History of pulmonary embolism HARISH (obstructive sleep apnea) Cor pulmonale (HCC) Ordered: 11/18/2023 [facility] Comment on above: Ordered: 11/18/2023 End: 07-17-2024 CT Spine lumbosacral junction [facility] Work Phone: Comment on above: Once for 1 Occurrences starting 07/17/20 24 until 07/17/2024 Culture Blood #1 Culture Blood # 1 Microbiology STAT 05/29/2019 5:07 PM EDT [place] Culture Blood #2 Culture Blood # 2 Microbiology STAT 05/29/2019 5:07 PM EDT [place] EKG 12 Lead - Chest Pain EKG 12 Lead - Chest Pain ECG STAT 07/04/2019 3:51 PM EST [place] End: 05-31-2019 HbA1c (Bld) [Mass fraction] Hemoglobin A1C Lab Add-On One Time for 1 Occurrences starting 05/31/2019 until 05/31/2019 [place] Comment on above: One Time for 1 Occurrences starting 09/2018 until 05/31/2019 HHN Treatment [place] Comment on above: 0600, 1000, 1400, 1800, 2200 until disco ntinued starting 05/29/2019, 5 completed 0600, 1000, 1400, 18 00, 2200 until discontinued starting 06/07/2019 Initiate Oxygen Ther apy Protocol Initiate Oxygen Therapy Protocol Respiratory Care Routine Daily until discontinued starting 05/29/2019 [place] Comment on above: Daily until discontinued starting 2018 Methylmalonate [Moles/volume] in Serum or Plasma Methylmalonic acid, serum Lab Routine 12/27/2022 12:22 PM EDT [facility] Work Phone: OUTSIDE PROCEDURE SCAN OUTSIDE P ROCEDURE SCAN Procedures Ordered: 12/16/2023 [facility] Comment on above: Ordered: 12/16/2023 POCT GLUCOSE POCT GLUCOSE Poi nt of Care Testing Routine 4X Daily (AC & HS) until discontinued starting 05/31/2019 [place] Comment on above: 4X Daily (AC & HS) until discontinued st arting 05/31/2019 Polysomnography [facility] Wound ostomy eval an d treat Wound ostomy eval and treat Wound Ostomy Routine Daily until discontinued starting 05/30/2019 [place] Comment on above: Daily until discontinued starting 2018 Immunizations Immunization Date Immunization Notes Care Provider Fa liliana 09-19-2020 Moderna SARS-CoV-2 Vaccination Clara Judge MD Work Phone: [facility] 06-10-2019 tetanus toxoid, redu chio diphtheria toxoid, and acellular pertussis vaccine, adsorbed Mone Campbell [facility] 05-04-2017 tuberculin skin test ; purified protein derivative solution, intradermal Clara Judge MD Work Phone: [facility] 04-30-2014 influenza virus vacc ine, unspecified formulation Marielena Adryan [employer] - ASSISTANT SCIENTIST Work Phone: [facility] 02-05-2014 pneumococcal polysaccharide vaccine, 23 valent Jan Ritu [facility] 02-05-2014 tetanus toxoid, redu chio diphtheria toxoid, and acellular pertussis vaccine, adsorbed [facility] [place] 05-30-2013 influenza virus vacc ine, unspecified formulation Clara Judge MD Work Phone: [facility] 05-30-2013 pneumococcal polysaccharide vaccine, 23 valent Clara Judge MD Work Phone: [facility] 05-30-2013 pneumococcal vaccine , unspecified formulation Clara Judge MD Work Phone: [facility] 05-24-2009 influenza virus vacc ine, unspecified formulation Clara Judge MD Work Phone: [facility] 08-03-2000 influenza virus vacc ine, unspecified formulation Clara Judge MD Work Phone: [facility] Payers Date Payer Category Payer Self-pay 2024 Medicare HMO [employer] JULISA URIBE [id number] 2024 Medicare [id number] 2024 Medicaid MEDICAID - [facility] [id number] 2019 Medicare MEDICARE MEDICAR E PART A AND B xxxxxxxxxxx 2019-Present [phone] [address] [address] [place] [address] xxxxxxxxxxx [id number] 2019 Medicare [id number] 2019 Medicare MEDICARE MEDICAR E A AND B [id number] 2019-Present [place] Medicare [id number] 2019 Medicare [id number] 2017 Medicaid [id number] 2016 Medicaid xxxxxxxxxxxx [id number] 2000 Unknown MILITAR Y GENERIC [id number] 2000-Present Indemnity [id number] Unknown [id number] Unknown [id number] Unknown [id number] Unknown [id number] Unknown [id number] Unknown [id number] Unknown [id number] Unknown [id number] Social History Date Type Detail Facility Start: 05-30-2019 End: 12-06-2024 Tobacco smoking status NHIS Former smoker [facility] End: 06-01-1981 History of tobacco use Current smoker [place], [place] End: 06-01-1981 History of tobacco use Cigarette Smoker [place], [place] Start: 05-30-2019 End: 11-04-2024 Cigarettes smoked current (pack per day) - Reported [facility] Start: 05-30-2019 End: 11-04-2024 Alcohol intake No [facility] Start: 12-27-2017 Tobacco Comment only smoke for 6 mon th [place], [place] Start: 1960 Sex Assigned At Not on file [place], [place] Start: 06-21-2019 End: 07-04-2019 Tobacco smoking status NHIS Never smoker [facility] Start: 07-10-2019 End: 11-04-2024 Alcohol intake Current non-drinker of alcohol (finding) [place] Start: 09-07-2019 History SDOH Education 21 [facility] Work Phone: Start: 09-07-2019 End: 10-09-2022 History SDOH Financial 1 [facility] Work Phone: Start: 09-07-2019 History SDOH Food Worry 3 [facility] Work Phone: Start: 09-07-2019 End: 10-09-2022 History SDOH Transport Med 2 [facility] Work Phone: Start: 06-21-2019 End: 06-18-2020 Tobacco use and exposure Never used [employer] Start: 02-05-2022 End: 12-25-2022 Exposure to SARS-CoV-2 (event) Not sure [employer] Start: 08-22-2019 Alcohol intake Ex-drinker (finding) [facility] Start: 08-21-2019 [facility] Start: 12-27-2017 Tobacco Comment only smoke for 6 wed [employer] Work Phone: How often to you hav e a drink containing alcohol? Never [facility] How many standard drinks containing alcohol do you have on a typical day? [facility] [place] In the past 12 month s, was there a time when you were not able to pay the mortgage or rent on time? No [facility] [place] Start: 03-30-2022 Sex Male (finding) [facility] Do you feel stress - tense, restless, nervous, or anxious, or unable to sleep at night because your mind is troubled all the time - these days [OSQ] Not at all [facility] (I/We) worried wheth er (my/our) food would run out before (I/we) got money to buy more. Never true [facility] [place] Start: 1960 Sex assigned at Male [facility] Start: 11-04-2024 Gender identity Identifies as male gender (finding) [facility] Start: 11-04-2024 Sexual orientation Heterosexual (genia prakash) [facility] Medical Equipment Procedure Code Equipment Code Equipment Original Text Equipment Identifier Dates [id number] Start: 09-01-2019 Comment on above: Use twice daily as i nstructed Cement Bone Simplex P Full - [id number] Start: 07-21-2024 Kit Prp Prpim Hi p Plg Brsh - [id number] Start: 07-21-2024 Triathlon Total Knee [place] Tibial Baseplate [id number] Start: 07-21-2024 Comp Tib Tri Ts+ X3 Sz7 9mm E - [id number] Start: 07-21-2024 Augment Fem Tri Sz8 10mm - [id number], [id number] FDA Start: 07-21-2024 Augment Fem Tri Sz8 5mm - [id number] ()[id number], [id number] FDA Start: 07-21-2024 Comp Fem Tri Ts Cement Sz8 Rt - [id number] ()[id number], [id number] FDA Start: 07-21-2024 Comp Patella Tri Asym 38x11m E - [id number] ()[id number], [id number] FDA Start: 07-21-2024 Comp Ext Fem Cement Tri 12x50 - [id number] ()[id number], [id number] FDA Start: 07-21-2024 Comp Ext Fem Cement Tri 15x50 - [id number] ()[id number], [id number] FDA Start: 07-21-2024 Comp Fem Tri Ts Cement Sz8 Rt - [id number] Start: 07-21-2024 Goals Date Patient Goal Desired Activity /State Comment on above: Formatting of this n ote might be different from the original. -Avoid illicit drug use -Better compliance with medications Barriers: lack of motivation and stress Plan for overcoming my barriers: Fix home life situation with ex. Confidence: 12/07 Anticipated Goal Completion Date: Unknown Functional Status Date Assessment Result Facility 11-07-2024 Are you deaf, or do you have serious difficulty hearing No 11/07/2024 12:03 PM Katie Tidwell, RN No [facility] [place] 11-07-2024 Are you blind, or do you have serious difficulty seeing, even when wearing glasses No 11/07/2024 12:03 PM Katie Tidwell RN No [facility] 11-07-2024 Do you have serious difficulty walking or climbing stairs No 11/07/2024 12:03 PM Katie Tidwell RN No [facility] 11-07-2024 Do you have difficul ty dressing or bathing No 11/07/2024 12:03 PM Katie Tidwell RN No [facility] 11-07-2024 Because of a physica l, mental, or emotional condition, do you have difficulty doing errands alone such as visiting a physician's office or shopping No 11/07/2024 12:03 PM Katie Tidwell RN No [facility] 10-09-2022 Are you deaf, or do you have serious difficulty hearing No 10/09/2022 3:07 PM Dawn Angulo RN No [facility] 10-09-2022 Are you blind, or do you have serious difficulty seeing, even when wearing glasses No 10/09/2022 3:07 PM Dawn Angulo RN No [facility] 10-09-2022 Do you have serious difficulty walking or climbing stairs Yes 10/09/2022 3:07 PM Dawn Angulo RN Yes [facility] 10-09-2022 Do you have difficul ty dressing or bathing No 10/09/2022 3:07 PM Dawn Angulo RN No [facility] 10-09-2022 Because of a physica l, mental, or emotional condition, do you have difficulty doing errands alone such as visiting a physician's office or shopping No 10/09/2022 3:07 PM Dawn Angulo RN No [facility] Mental Status Date Assessment Result Facility 11-07-2024 Because of a physica l, mental, or emotional condition, do you have serious difficulty concentrating, remembering, or making decisions No 11/07/2024 12:03 PM Katie Tidwell RN No [facility] 10-09-2022 Because of a physica l, mental, or emotional condition, do you have serious difficulty concentrating, remembering, or making decisions No 10/09/2022 3:07 PM Dawn Angulo, SREE No [facility] Clinical Notes 08-22-2019 to 01-12-2025 Note Date & Type Note Facility 01-12-2025 Procedure note [facility] 12-06-2024 Evaluation note Diagnosis Onset Date Resolution Hypoxemia acute December 06 8:59am HARISH (obstructive sleep apnea) acute December 06, 2024 8:59am Shortness of breath acute December 06, 2024 8:59am Diarrhea acute December 06 9:56am Upper abdominal pain acute Apri l 2024 9:56am [facility] Work Phone: 1(414) 368-565104-09-2025 Evaluation note* Diagnosis Onset Date Resolution Status Admit Date Hypoxemia acute December 06 8:59am HARISH (obstructive sleep apnea) acute December 06, 2024 8:59am Shortness of breath acute December 06, 2024 8:59am Diarrhea acute December 06 9:56am Upper abdominal pain acute Apri l 2024 9:56am Hypoxemia acute February 16 8:26am HARISH (obstructive sleep apnea) acute February 16, 2025 8:26am Shortness of breath acute February 16, 2025 8:26am [facility] Work Phone: 1(276) 600-561603-11-2025 Nurse Note* Katie Ha RN - 11/07/2024 4:19 PM EDT 1620 called report to Emilee Estrella RN patient ready to go back to rehab denies needs [id number] Nurse Note* Katie Ha RN - 11/07/2024 4:19 PM EDT 1620 called report to Emilee Estrella RN patient ready to go back to rehab denies needs documented [facility]SW[facility] [id number] NoteHospitalist Discharge Summary Hyacinth Hurst : 1960 Admit date: 11/03/2024 Discharge date: 11/07/2024 Admitting Physician: Martha Cormier MD Primary Care Physician: Shanna Thompson DO Code Status: DNR-CCA Discharge Diagnoses: Gastric emphysema Gastroenteritis Ileus Hypokalemia History of DVT Hypertension Dyslipidemia Hospital Course: Hyacinth is a 64 y.o. male with history of DVT, obesity, diabetes mellitus, asthma, COPD, CAD sleep apnea, GERD, hep C, underlying psychiatric issues [facility] comes into hospital with complaints of 2-week onset of nausea, vomiting and diarrhea and increased abdominal distention. He had left knee replacement approximately 4 weeks ago also. He had KUB done which was concerning and so sent to ER. CT abdomen was done in ER and noted to have gastric emphysema. Kept n.p.o. and consultation placed to surgery. Seen by surgery and recommended conservative treatment only. Having loose BM, GI PCR negative. Stool for C. difficile negative. Gradually patient condition improved. Tolerating diet at this time. Agreeable with going back to [facility]. Denies any nausea or vomiting. Consults: Surgery Discharge Instructions: Diet: Dietary Orders (From admission, onward) Start Ordered 11/06/24 0956 Adult diet Regular Diet effective now Question: Diet type Answer: Regular 11/06/24 0955 Activity: as tolerated Recommended Outpatient Tests: Disposition: Patient discharged in stable condition to SNF. Greater than 31 minutes spent discharging the patient and coming up with patient discharge plan. Vitals: BP 133/86 Pulse 62 Temp 36.2 ?C (97.2 ?F) (Temporal) Resp 16 Ht 6' 1 (1.854 m) Wt (!) 330 lb (150 kg) SpO2 94% BMI 43.54 kg/m? Pulse Ox: SpO2 Av % Min: 94 % Max: 96 % Supplemental O2: O2 Flow Rate (L/min): 4 L/min Physical Exam Cardiovascular: Rate and Rhythm: Normal rate and regular rhythm. Pulmonary: Effort: Pulmonary effort is normal. Breath sounds: Normal breath sounds. Neurological: General: No focal deficit present. Mental Status: He is oriented to person, place, and time. Discharge Medications: Medication List CONTINUE taking these medications albuterol 108 (90 Base) MCG/ACT inhaler apixaban 2.5 MG tablet Commonly known as: Eliquis Take 1 tablet (2.5 mg) by mouth 2 times daily. ARIPiprazole 20 MG tablet Commonly known as: Abilify atorvastatin 10 MG tablet Commonly known as: Lipitor cyclobenzaprine 5 MG tablet Commonly known as: Flexeril folic acid 1 MG tablet Commonly known as: Folvite gabapentin 100 MG capsule Commonly known as: Neurontin lisinopril 5 MG tablet Melatonin 10 MG capsule pantoprazole 20 MG EC tablet Commonly known as: Protonix Take 1 tablet (20 mg) by mouth every morning (before breakfast). Do not crush, chew, or split. Take 1 time a day. sodium chloride 1 g tablet tiotropium 18 MCG inhalation capsule Commonly known as: Spiriva Place 1 capsule (18 mcg) into inhaler and inhale in the morning. umeclidinium 62.5 MCG/ACT inhalation Commonly known as: Incruse Ellipta Recommended Follow-up: No follow-up provider specified. Complexity of Follow up: [] Moderate Complexity: follow up within 7-14 calendar days (47903) [x] Severe Complexity: follow up within 7 calendar days (36127) Follow up Testing, Pending results or Referrals at Transitional Care Visit: [x] yes [] no Instructions to MA: Please call patient on day after discharge (must document patient contacted within 2 business days of discharge). Follow up questions for MA: 1. Did you get medications filled and taking them as instructed from discharge? 2. Are you following your discharge instructions from your hospital stay? 3. Please confirm patient is scheduled for a follow up appointment within the above time frame. Signed: Martha Berger MD Division of Hospitalist Medicine Acute Care [facility] 11/07/2024, 3:05 [facility] [id number] Hospital course Narrative* Martha Cormier MD - 11/07/2024 3:05 PM EDT Hospitalist Discharge Summary Hyacinth Hurst : 1960 Admit date: 11/03/2024 Discharge date: 11/07/2024 Admitting Physician: Martha Cormier MD Primary Care Physician: Shanna Thompson DO Code Status: DNR-CCA Discharge Diagnoses: Gastric emphysema Gastroenteritis Ileus Hypokalemia History of DVT Hypertension Dyslipidemia Hospital Course: Hyacinth is a 64 y.o. male with history of DVT, obesity, diabetes mellitus, asthma, COPD, CAD sleep apnea, GERD, hep C, underlying psychiatric issues [facility] comes into hospital with complaints of 2-week onset of nausea, vomiting and diarrhea and increased abdominal distention. He had left knee replacement approximately 4 weeks ago also. He had KUB done which was concerning and so sent to ER. CT abdomen was done in ER and noted to have gastric emphysema. Kept n.p.o. and consultation placed to surgery. Seen by surgery and recommended conservative treatment only. Having loose BM, GI PCR negative. Stool for C. difficile negative. Gradually patient condition improved. Tolerating diet at this time. Agreeable with going back to [facility]. Denies any nausea or vomiting. Consults: Surgery Discharge Instructions: Diet: Dietary Orders (From admission, onward) Start Ordered 11/06/24 0956 Adult diet Regular Diet effective now Question: Diet type Answer: Regular 11/06/24 0964 Activity: as tolerated Recommended Outpatient Tests: Disposition: Patient discharged in stable condition to SNF. Greater than 31 minutes spent discharging the patient and coming up with patient discharge plan. Vitals: BP 133/86 Pulse 62 Temp 36.2 C (97.2 F) (Temporal) Resp 16 Ht 6' 1 (1.854 m) Wt (!) 330 lb (150 kg) SpO2 94% BMI 43.54 kg/m Pulse Ox: SpO2 Av % Min: 94 % Max: 96 % Supplemental O2: O2 Flow Rate (L/min): 4 L/min Physical Exam Cardiovascular: Rate and Rhythm: Normal rate and regular rhythm. Pulmonary: Effort: Pulmonary effort is normal. Breath sounds: Normal breath sounds. Neurological: General: No focal deficit present. Mental Status: He is oriented to person, place, and time. Discharge Medications: Medication List CONTINUE taking these medications albuterol 108 (90 Base) MCG/ACT inhaler apixaban 2.5 MG tablet Commonly known as: Eliquis Take 1 tablet (2.5 mg) by mouth 2 times daily. ARIPiprazole 20 MG tablet Commonly known as: Abilify atorvastatin 10 MG tablet Commonly known as: Lipitor cyclobenzaprine 5 MG tablet Commonly known as: Flexeril folic acid 1 MG tablet Commonly known as: Folvite gabapentin 100 MG capsule Commonly known as: Neurontin lisinopril 5 MG tablet Melatonin 10 MG capsule pantoprazole 20 MG EC tablet Commonly known as: Protonix Take 1 tablet (20 mg) by mouth every morning (before breakfast). Do not crush, chew, or split. Take1 time a day. sodium chloride 1 g tablet tiotropium 18 MCG inhalation capsule Commonly known as: Spiriva Place 1 capsule (18 mcg) into inhaler and inhale in the morning. umeclidinium 62.5 MCG/ACT inhalation Commonly known as: Incruse Ellipta Recommended Follow-up: No follow-up provider specified. Complexity of Follow up: [] Moderate Complexity: follow up within 7-14 calendar days (99048) [x] Severe Complexity: follow up within 7 calendar days (10732) Follow up Testing, Pending results or Referrals at Transitional Care Visit: [x] yes [] no Instructions to MA: Please call patient on day after discharge (must document patient contacted within 2 business days of discharge). Follow up questions for MA: 1. Did you get medications filled and taking them as instructed from discharge? 2. Are you following your discharge instructions from your hospital stay? 3. Please confirm patient is scheduled for a follow up appointment within the above time frame. Signed: Martha Berger MD Division of Hospitalist Medicine [facility] 11/07/2024, 3:05 PM documented in this [facility]03-11-2025 [email or web address][[id number]] Respiratory Therapy Home O2 Progress Note O2 saturation at rest on room air: 89% (If resting saturation was 88% or less, enter NA for the next two values) O2 saturation with exertion on room air: 84% (NA if not evaluated) O2 saturation on O2 at 3 LPM with exertion: 95% (NA if not evaluated) Patient meets criteria for home O2 Y/N = Y Patient mobile at home Y/N = Y DME Notified YES [facility]03-11-2025 History of Present illness Narrative* Nikki Bolanos - 11/07/2024 1:39 PM EDT Images from the original note were not included. [email or web address][[id number]] Respiratory Therapy Home O2 Progress Note O2 saturation at rest on room air: 89% (If resting saturation was 88% or less, enter NA for the next two values) O2 saturation with exertion on room air: 84% (NA if not evaluated) O2 saturation on O2 at 3 LPM with exertion: 95% (NA if not evaluated) Patient meets criteria for home O2 Y/N = Y Patient mobile at home Y/N = Y DME Notified YES * Dania Zavala RD - 11/06/2024 3:38 PM EDT Low Risk Nutrition Note Nutrition Assessment: Pt referred to RD for NPO/CLD x3 days. Pt now on General diet and tolerating meals w/o difficulty. Pt endorses decreased appetite ~1 week BULK SAUSAGE CASING TIER OFF, however now back to baseline. No significant wt change. Labs and skin reviewed. RD available upon request if further nutrition concerns arise. DT will continue to follow. Current Nutrition Therapies: Adult diet Regular Diagnosis: No nutrition diagnosis at this time. Monitoring and Evaluation: Patient will be monitored per nutrition standards of care. Consult Dietitian if nutrition intervention essential to patient care is needed. Discharge Planning: No needs Contact: [phone] * Martha Cormier MD - 11/06/2024 12:01 PM EDT Hospitalist Progress Note 11/06/2024 Subjective: Admit Date: 11/03/2024 PCP: Shanna Thompson DO Room#: N5-565/N5-562 A Interval History: Hyacinth is a 64 y.o. male with history of DVT, obesity, diabetes mellitus, asthma, COPD, CAD sleep apnea, GERD, hep C, underlying psychiatric issues [facility] with complaints of 2-week onset of nausea, vomiting and diarrhea and increased abdominal distention. He had left knee replacement approximately 4 weeks ago also. He had KUB done which was concerning and so sent to ER. CT abdomen was done in ER and noted to have gastric emphysema. Kept n.p.o. and consultation placed to surgery. Seen by surgery and recommended conservative treatment only. Having loose BM, GI PCR negative. Stool for C. difficile negative. 11/06: Patient alert, chart reviewed, feeling better, still having diarrhea. Wants to eat regular diet. Objective: Vitals: BP 140/76 (BP Location: Left arm, Patient Position: Lying) Pulse 58 Temp 36.8 C (98.2 F) (Temporal) Resp 18 Ht 6' 1 (1.854 m) Wt (!) 330 lb (150 kg) SpO2 91% BMI 43.54 kg/m Pulse Ox: SpO2 Av % Min: 91 % Max: 95 % Supplemental O2: O2 Flow Rate (L/min): 4 L/min Pertinent physical exam: Physical Exam Constitutional: Appearance: He is obese. Cardiovascular: Rate and Rhythm: Normal rate and regular rhythm. Pulmonary: Effort: Pulmonary effort is normal. Breath sounds: Normal breath sounds. Abdominal: General: There is distension. Palpations: Abdomen is soft. Musculoskeletal: General: Swelling present. Neurological: General: No focal deficit present. Mental Status: He is alert and oriented to person, place, and time. Assessment Acute, acute on chronic, unstable/uncontrolled chronic problems: Gastric emphysema Gastroenteritis Ileus Hypokalemia Stable chronic problems affecting care, new non-acute diagnoses: History of DVT Hypertension Dyslipidemia MDM/Plan Continue with conservative treatment, seen by his general surgery. Will advance diet to regular, continue to monitor closely Potassium replaced Continue anticoagulation Blood pressure controlled - DVT prophylaxis: encourage ambulation and already anticoagulated Total time spent (which include face to face and non face to face encounters) : minutes Toxic drug monitoring/narrow therapeutic index drug monitoring : # Drug name : # Route administered : # Method of monitoring : Advance Directive: DNR-CCA Anticipated Discharge - Date - hopefully by 11/07 - Pending the following -clinical progress/placement - Location -[facility] Adult diet Regular 24HR INTAKE/OUTPUT: Intake/Output Summary (Last 24 hours) at 11/06/2024 1201 Last data filed at 11/05/2024 1647 Gross per 24 hour Intake 970 ml Output -- Net 970 ml LABS: CBC: Recent Labs 11/04/24 0612 11/05/24 0536 11/06/24 0622 WBC 11.0* 8.1 10.9* RBC 5.38 4.83 4.85 HGB 15.5 14.1 14.1 HCT 50.0 45.3 45.4 MCV 92.9 93.8 93.6 RDW 13.6 13.5 13.2 PLT 222 195 186 BMP: Recent Labs 11/04/24 0612 11/05/24 0536 11/06/24 06 NA 137 142 139 K 3.2* 3.4* 3.8 CL 103 104 106 CO2 27 31 26 BUN 11 8* 6* CREATININE 0.79 0.68* 0.71* GLUCOSE 121* 94 98 CALCIUM 8.8 8.4* 8.8 ANIONGAP 7 7 7 LIVER PROFILE: Recent Labs 11/04/2461111/05/24 0536 11/06/24 0631 AST 17 14 21 ALT 13 9 13 BILITOT 0.5 0.7 0.6 ALKPHOS 90 76 74 PROT 7.2 6.4 6.2* PT/INR: No results for input(s): PROTIME, INR in the last 72 hours. CARDIAC ENZYMES: No results for input(s): TROPONINI in the last 72 hours. Procalcitonin: No results found for: PROCAL Medications: Scheduled apixaban, 2.5 mg, Oral, BID ARIPiprazole, 20 mg, Oral, Daily atorvastatin, 10 mg, Oral, Daily folic acid, 1 mg, Oral, Daily gabapentin, 300 mg, Oral, TID insulin lispro, 0-6 Units, SubCUTAneous, TID WC And insulin lispro, 0-6 Units, SubCUTAneous, Nightly lisinopril, 5 mg, Oral, Daily melatonin, 10 mg, Oral, Nightly pantoprazole (ProtoNix) 40 mg in sodium chloride (PF) 0.9 % 10 mL injection, 40 mg, IntraVENous, qAM AC sodium chloride, 1 g, Oral, TID tiotropium, 2 puff, Inhalation, Daily PRN PRN medications: acetaminophen OR acetaminophen, albuterol, cyclobenzaprine, dextrose, dextrose, glucagon (rDNA), glucose, HYDROmorphone, naloxone, ondansetron ODT OR ondansetron Extended Emergency Contact Information Primary Emergency Contact: Yas Gonzáles Mobile Relation: Child Secondary Emergency Contact: Maeve Arreguin Relation: Legal Guardian Martha Berger MD Division of Hospitalist Medicine Acute [facility] * Martha Cormier MD - 11/05/2024 1:43 PM EDT Hospitalist Progress Note 11/05/2024 Subjective: Admit Date: 11/03/2024 PCP: Shanna Thompson, Room#: N5-565/N5-565 A Interval History: Hyacinth is a 64 y.o. male with history of DVT, obesity, diabetes mellitus, asthma, COPD, CAD sleep apnea, GERD, hep C, underlying psychiatric issues [facility] with complaints of 2-week onset of nausea, vomiting and diarrhea and increased abdominal distention. He had left knee replacement approximately 4 weeks ago also. He had KUB done which was concerning and so sent to ER. CT abdomen was done in ER and noted to have gastric emphysema. Kept n.p.o. and consultation placed to surgery. 11/05: Patient alert, chart reviewed, feeling better, seen by surgery and recommended conservative treatment only. Having loose BM, GI PCR negative. Stool for C. difficile negative. Objective: Vitals: BP 123/77 Pulse 62 Temp 36.1 C (96.9 F) (Temporal) Resp 20 Ht 6' 1 (1.854 m) Wt (!) 330 lb (150 kg) SpO2 92% BMI 43.54 kg/m Pulse Ox: SpO2 Av % Min: 92 % Max: 94 % Supplemental O2: O2 Flow Rate (L/min): 5 L/min Pertinent physical exam: Physical Exam Cardiovascular: Rate and Rhythm: Normal rate and regular rhythm. Pulmonary: Effort: Pulmonary effort is normal. Breath sounds: Normal breath sounds. Abdominal: General: There is distension. Palpations: Abdomen is soft. Neurological: General: No focal deficit present. Mental Status: He is oriented to person, place, and time. Assessment Acute, acute on chronic, unstable/uncontrolled chronic problems: Gastric emphysema Gastroenteritis Ileus Hypokalemia Stable chronic problems affecting care, new non-acute diagnoses: History of DVT Hypertension Dyslipidemia MDM/Plan Continue with conservative treatment, seen by his general surgery. Slowly advance diet to full liquids today. Monitor clinically. Replace potassium, will give IV Kcl Resume anticoagulation Blood pressure controlled - DVT prophylaxis: encourage ambulation and already anticoagulated Total time spent (which include face to face and non face to face encounters) : minutes Toxic drug monitoring/narrow therapeutic index drug monitoring : # Drug name : # Route administered : # Method of monitoring : Advance Directive: DNR-CCA Anticipated Discharge - Date - hopefully by 11/07 - Pending the following -clinical progress - Location -half-way Adult diet Full liquid 24HR INTAKE/OUTPUT: Intake/Output Summary (Last 24 hours) at 11/05/2024 1343 Last data filed at 11/05/2024 0448 Gross per 24 hour Intake 2092.5 ml Output -- Net 2092.5 ml LABS: CBC: Recent Labs 11/03/24161711/04/24 0612 11/05/24 0536 WBC 14.1* 11.0* 8.1 RBC 5.63 5.38 4.83 HGB 16.5 15.5 14.1 HCT 52.0 50.0 45.3 MCV 92.4 92.9 93.8 RDW 13.7 13.6 13.5 PLT 234 222 195 BMP: Recent Labs 11/03/24161711/04/24 0612 11/05/24 0536 NA 143 137 142 K 3.9 3.2* 3.4* CL 105 103 104 CO2 25 27 31 BUN 13 11 8* CREATININE 0.91 0.79 0.68* GLUCOSE 156* 121* 94 CALCIUM 9.4 8.8 8.4* ANIONGAP 13 7 7 LIVER PROFILE: Recent Labs 11/03/24161711/04/24 0612 11/05/24 0536 AST 34* 17 14 ALT 17 13 9 BILITOT 0.5 0.5 0.7 ALKPHOS 88 90 76 PROT 8.1 7.2 6.4 PT/INR: No results for input(s): PROTIME, INR in the last 72 hours. CARDIAC ENZYMES: No results for input(s): TROPONINI in the last 72 hours. Procalcitonin: No results found for: PROCAL Medications: Scheduled [Held by provider] apixaban, 2.5 mg, Oral, BID ARIPiprazole, 20 mg, Oral, Daily atorvastatin, 10 mg, Oral, Daily folic acid, 1 mg, Oral, Daily gabapentin, 300 mg, Oral, TID insulin lispro, 0-6 Units, SubCUTAneous, TID WC And insulin lispro, 0-6 Units, SubCUTAneous, Nightly lisinopril, 5 mg, Oral, Daily melatonin, 10 mg, Oral, Nightly pantoprazole (ProtoNix) 40 mg in sodium chloride (PF) 0.9 % 10 mL injection, 40 mg, IntraVENous, qAM AC potassium chloride, 40 mEq, IntraVENous, Once sodium chloride, 1 g, Oral, TID tiotropium, 2 puff, Inhalation, Daily PRN PRN medications: acetaminophen OR acetaminophen, albuterol, cyclobenzaprine, dextrose, dextrose, glucagon (rDNA), glucose, HYDROmorphone, naloxone, ondansetron ODT OR ondansetron Extended Emergency Contact Information Primary Emergency Contact: Yas Gonzáles Mobile Relation: Child Secondary Emergency Contact: Maeve Arreguin Relation: Legal Guardian Martha Berger MD Division of Hospitalist Medicine [facility] * Denisse Crain - 11/05/2024 1:10 PM EDT .Nutrition rescreen completed. Patient is NPO/Clear liquid >3 days. Refer to Dietitian. STAN Wolfe documented in this [facility]03-11-2025 Note* Care Coordination - Suzanne Orozco - 11/07/2024 12:39 PM EDT Confirmed pickup time of 4:30pm by transport [employer] Eduardo Medley at phone number . Location of facility drop off is [facility] . Facility notified via REVENTIVECrystal notified on secure chat. [id number]* Care Coordination - Suzanne Orozco - 11/07/2024 12:39 PM EDT Confirmed pickup time of 4:30pm by transport [employer] Eduardo Medley at phone number . Location of facility drop off is [facility] . Facility notified via RE[facility]IVE Crystal Greg notified on secure chat. [id number] Miscellaneous Notes* Care Coordination - Suzanne Orozco - 11/07/2024 12:39 PM EDT Confirmed pickup time of 4:30pm by transport [employer] Eduardo Medley at phone number . Location of facility drop off is [facility] . Facility notified via REVENTIVECrystal notified on secure chat. * Care Coordination - Suzanne Orozco - 11/07/2024 12:37 PM EDT MAR & Discharge med list transmitted to [facility] via [facility] per TCC request. * Care Coordination - Suzanne Orozco - 11/07/2024 12:34 PM EDT Transport requested in Roundtrip. Awaiting time confirmation. * Care Plan - Katie Ha RN - 11/07/2024 12:20 PM EDT Problem: Safety - Adult Goal: Free from fall injury Outcome: Progressing Flowsheets (Taken 11/07/2024 1220) Free from fall injury: Instruct family/caregiver on patient safety Based on caregiver fall risk screen, instruct family/caregiver to ask for assistance with transferring if caregiver noted to have fall risk factors Problem: Gastrointestinal - Adult Goal: Minimal or absence of nausea and vomiting Outcome: Progressing Flowsheets (Taken 11/07/2024 1220) Minimal or absence of nausea and vomiting: Administer IV fluids as ordered to ensure adequate hydration Advance diet as tolerated, if ordered Provide nonpharmacologic comfort measures as appropriate Nutrition consult to assist patient with adequate nutrition and appropriate food choices Problem: Gastrointestinal - Adult Goal: Maintains or returns to baseline bowel function Outcome: Progressing Flowsheets (Taken 11/07/2024 1220) Maintains or returns to baseline bowel function: Assess bowel function Administer ordered medications as needed Administer IV fluids as ordered to ensure adequate hydration Encourage oral fluids to ensure adequate hydration * Care Coordination - Crystal Garza RN - 11/07/2024 12:17 PM EDT Discharge order noted. CM portion of [facility] updated. Task sent to [facility] to send discharge paperwork to [facility]. SW and RN aware. and [facility] arranging transport. * Care Coordination - Crystal Garza RN - 11/07/2024 9:12 AM EDT Care Management Progress Note [facility], from there, checking to see if bedhold and no auth to return. Will follow. Length of Stay (Days): 0 GMLOS: No GMLOS Documented * Care Plan - Rina Meyer RN - 11/07/2024 6:37 AM EDT Problem: Pain - Adult Goal: Verbalizes/displays adequate comfort level or baseline comfort level Outcome: Progressing * Care Plan - Santosh Martinez RN - 11/06/2024 7:15 PM EDT Problem: Pain - Adult Goal: Verbalizes/displays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 lateral Grant test negative. External Notes No pertinent interval updates Labs Lab Results Component Value Date HGBA1C 5.8 (H) 10/10/2023 Lab Results Component Value Date CREATININE 0.45 (L) 11/18/2023 Imaging Images reviewed with patient today I have personally reviewed the images pertinent to the appointment today EMG/NCT N/A Procedure Procedure completed today, details below Procedure Note: We discussed risks and precautions including infection, bleeding, hypopigmentation, fat atrophy vanessa 1-2% chance of a steroid flare. Verbal and written consent was obtained. The right knee injection site was located, confirmed and marked, it was prepped in the usual fashion with betadine and isopropyl alcohol. 2 cc of Betamethasone (6mg/ml) and 4 cc of 1% lidocaine were placed in the, intra-articular, intracondylar space using a inferior lateral approach. The procedurewas tolerated well. There were no complications with the injection. The injection site was bandaged. Assessment Diagnosis Plan 1. Acute pain of right knee XR knees anteroposterior standing bilateral XR knee 1-2 views bilateral 2. Acute pain of left knee XR knees anteroposterior standing bilateral XR knee 1-2 views bilateral Plan We discussed osteoarthritis of the knee. We reviewed the spectrum of 1. Pills - everything from Tylenol, ibuprofen, Aleve, and pain medicines. We also discussed glucosamine/chondroitin combinations and how to perform a glucosamine trial. Additionally Tumeric can be supplemented, it is likely similar to ibuprofen and is generally safe for most people to take. Glucosamine Trial: As a treatment for arthritis, we discussed a trial of glucosamine, [id number]. We talked about using a good quality glucosamine source as the testing agent. Cosamin DS or [employer] Flex would be two of the options to pick from. Write down, using as many numbers as possible, a description of when the arthritis is symptomatic (i.e. I can go up 1 flight of stairs before my knee hurts, I can sleep 4 hours before my knee wakes me, my knee begins to hurt me at 2 p.m. on a work day ). This documentation will be kept for comparison in 3-4 months. Take the glucosamine twice daily for 3-4 months. Comparing your symptoms sheet, and see if there is improvement. Glucosamine will work in approximately 60-65% of people. If it is helping continue the supplementation. If there is no improvement you can stop the glucosamine. 2. Physical therapy - formal physical therapy and braces. The benefits of strengthening, endurance,flexibility, balancing, and proprioception. The combination of all of these to decrease joint pain. 3. Shots - corticosteroid, hyaluronic acid, and investigational injections. We discussed the episodic nature, and Band-Aid nature of cortisone. No more frequent than every 3-4 months, the potential for cortisone to soften articular cartilage with repetitive use. And the use as a bridge agent. We also discussed hyaluronic acid injection series and the potential benefits of lubrication, nourishing the cartilage, re-booting the knee capsule and the potential for 1 year of improvement. 4. Surgery - cleanup procedures as well as total joint replacement. We discussed the need to progress through conservative measures before this is a viable option. All treatment options were discussed. All questions were answered. We will continue with prn oral medication, a glucosamine trial and a HEP. We will recheck as outlined to alter therapy as needed. No follow-ups on file. Erma Meyers, PINKY 01/14/2024 9:54 AM Please note that portions of this note may have been completed with voice recognition software. Documentation reviewed prior to signing but minor errors in baby nurse may have occurred. documented in this [facility]05-17-2024 Instructions* Patient Instructions* Maeve Perez MD - 01/14/2024 9:45 AM EDT Images from the original note were not included. documented in this encounterSWooster Community [id number] Telephone encounter Note* Telephone Encounter - Kailee Hernandez - 01/07/2024 8:14 AM EDT Disc was delivered to [facility] and was scanned in by radiology. Disc is up front to be returned. [id number] Miscellaneous Notes* Telephone Encounter - Kailee Hernandez - 01/07/2024 8:14 AM EDT Disc was delivered to [facility] and was scanned in by radiology. Disc is up front to be returned. * Telephone Encounter - Angelina Wilson - 01/04/2024 11:35 AM EDT Spoke with the half-way and informed them of the x-ray views we will need for his appointment. Daniela voiced understanding. Gave address to have them send x-ray disc to. * Telephone Encounter - Angelina Wilson - 12/31/2023 4:13 PM EDT Attempted to call half-way. There was no answer. * Telephone Encounter - Maeve Perez MD - 12/31/2023 1:55 PM EDT Standing AP bilateral knees, standing PA flex bilateral knees, lateral view of each knee, sunrise view patella each knee * Telephone Encounter - Margaret Saunders - 12/31/2023 1:11 PM EDT Patient is a sit to stand lavell lift. [facility] does the mobile Xrs for facility. Asking if you want B/L knee Xrs done with them to have CD mailed prior to apt 01/14/24 in office? ext [phone] for Daniela. Please call to advise what views, they will have them done and mail CD to office for upload so theycan be viewed at time of appointment. Side note, aware to bring someone with him for duration of visit. documented in this encounterSWooster Community [id number] Telephone encounter Note* Telephone Encounter - Angelina Wilson - 01/04/2024 11:35 AM EDT Spoke with the half-way and informed them of the x-ray views we will need for his appointment. Daniela voiced understanding. Gave address to have them send x-ray disc to. [id number] Miscellaneous Notes* Telephone Encounter - Angelina Wilson - 01/04/2024 11:35 AM EDT Spoke with the half-way and informed them of the x-ray views we will need for his appointment. Daniela voiced understanding. Gave address to have them send x-ray disc to. * Telephone Encounter - Angelina Wilson - 12/31/2023 4:13 PM EDT Attempted to call half-way. There was no answer. * Telephone Encounter - Maeve Perez MD - 12/31/2023 1:55 PM EDT Standing AP bilateral knees, standing PA flex bilateral knees, lateral view of each knee, sunrise view patella each knee * Telephone Encounter - Margaret Saunders - 12/31/2023 1:11 PM EDT Patient is a sit to stand lavell lift. [facility] does the mobile Xrs for facility. Asking if you want B/L knee Xrs done with them to have CD mailed prior to apt 01/14/24 in office? ext [phone] for Daniela. Please call to advise what views, they will have them done and mail CD to office for upload so theycan be viewed at time of appointment. Side note, aware to bring someone with him for duration of visit. documented in this encounterSWooster Community [id number] Telephone encounter Note* Telephone Encounter - Angelina Wilson - 12/31/2023 4:13 PM EDT Attempted to call half-way. There was no answer. [id number] Miscellaneous Notes* Telephone Encounter - Angelina Wilson - 12/31/2023 4:13 PM EDT Attempted to call half-way. There was no answer. * Telephone Encounter - Maeve Perez MD - 12/31/2023 1:55 PM EDT Standing AP bilateral knees, standing PA flex bilateral knees, lateral view of each knee, sunrise view patella each knee * Telephone Encounter - Margaret Saunders - 12/31/2023 1:11 PM EDT Patient is a sit to stand lavell lift. [facility] does the mobile Xrs for facility. Asking if you want B/L knee Xrs done with them to have CD mailed prior to apt 01/14/24 in office? ext [phone] for Daniela. Please call to advise what views, they will have them done and mail CD to office for upload so theycan be viewed at time of appointment. Side note, aware to bring someone with him for duration of visit. documented in this encounterSWooster Community [id number] Telephone encounter Note* Telephone Encounter - Maeve Perez MD - 12/31/2023 1:55 PM EDT Standing AP bilateral knees, standing PA flex bilateral knees, lateral view of each knee, sunrise view patella each knee [facility] Rehabilitation[facility] Reply Phone: [phone] Telephone encounter Note* Telephone Encounter - Margaret Saunders - 12/31/2023 1:11 PM EDT Patient is a sit to stand lavell lift. [facility] does the mobile Xrs for facility. Asking if you want B/L knee Xrs done with them to have CD mailed prior to apt 01/14/24 in office? ext [phone] for Daniela. Please call to advise what views, they will have them done and mail CD to office for upload so theycan be viewed at time of appointment. Side note, aware to bring someone with him for duration of visit. [facility] [id number] Telephone encounter Note* Telephone Encounter - Salena Meier - 11/23/2023 2:38 PM EDT Patient is scheduled at [facility] on Wednesday12/17/2023 at 2:20 pm for PFT Could not leave voicemail Prep: The day of testing: Please allow approximately 1 hour for testing If you are not pre-registered, please arrive 20 minutes before your scheduled appointment time to get registered. Registration is located on the ground floor of each testing location. No inhalers or aerosol treatments 4 hours before your test Please avoid caffeine at least 6 hours before your test No smoking for at least 1 hour before your test No alcohol consumption at least 4 hours before your test Wear comfortable, non-restrictive clothing Please remain on any prescribed oxygen [id number] Miscellaneous Notes* Telephone Encounter - Salena Meier - 11/23/2023 2:38 PM EDT Patient is scheduled at [facility] on Wednesday12/17/2023 at 2:20 pm for PFT Could not leave voicemail Prep: The day of testing: Please allow approximately 1 hour for testing If you are not pre-registered, please arrive 20 minutes before your scheduled appointment time to get registered. Registration is located on the ground floor of each testing location. No inhalers or aerosol treatments 4 hours before your test Please avoid caffeine at least 6 hours before your test No smoking for at least 1 hour before your test No alcohol consumption at least 4 hours before your test Wear comfortable, non-restrictive clothing Please remain on any prescribed oxygen * Telephone Encounter - Quoc Bills - 11/23/2023 11:39 AM EDT FYI Order for PFT scheduled for 12.17.23 documented in this encounterSWooster Community HospitalOpggrw06-02-0934 Telephone encounter Note* Telephone Encounter - Quoc Bills - 11/23/2023 11:39 AM EDT FYI Order for PFT scheduled for 12.17.23 [id number] Note* Care Coordination - LENNOX Miller - 11/18/2023 3:50 PM EDT S/W, Transport Patient discharged back to [facility]. Transport set via [facility] at rail operations controller provided report number. Facility notified via [facility] of time. I did call patient Legal Guardian Maeve Zelaya law Office to notify, [place] indicated she will notify Maeve. I did task WORK ORDER CLERK to send over DC info. [id number] Note* Care Coordination - LENNOX Miller - 11/18/2023 3:50 PM EDT S/W, Transport Patient discharged back to [facility]. Transport set via [facility] at 5p rail operations controller provided report number. Facility notified via [facility]port of time. I did call patient Legal Guardian Maeve Zelaya law Office to notify, [place] indicated she will notify Maeve. I did task WORK ORDER CLERK to send over DC info. [id number] Miscellaneous Notes* Care Coordination - LENNOX Miller - 11/18/2023 3:50 PM EDT S/W, Transport Patient discharged back to [facility]. Transport set via [facility] at 5p rail operations controller provided report number. Facility notified via [facility]port of time. I did call patient Legal Guardian Maeve Zelaya law Office to notify, [place] indicated she will notify Maeve. I did task WORK ORDER CLERK to send over DC info. * Care Coordination - Angela Hernandez - 11/18/2023 3:42 PM EDT Discharge med list transmitted to return back to [facility] via [facility] per TCC request. * Care Coordination - Sydnee Cruz RN - 11/18/2023 11:18 AM EDT Care Managment Initial Assessment Date: 11/18/2023 Patient Name: Hyacinth Hurst : 1960 Patient Information Source of Information: Patient (some from patient, some from SNF staff.) Cognition/Language: Impaired, Other (Comment) (patient answers some question appropriately, some not. Does have a legal guardian.) Permission given to speak with patient arborist representative/caregiver as indicated: Yes (Maeve Arreguin Legal Guardian [phone]) Confirmation of Payer with patient/family: Yes Payer Name: Medicare A&B [place]: No Confirmation of Primary Care Physician: Confirmed PCP Name: Shanna Rai. Seen in last 2 years?: Yes (per patient no, but SNF says has seen PCP.) Primary Caregiver: Other (Comment) (SNF) If assistance needed, confirmed caregiver ready, willing and able to care for patient at discharge: Confirmed with: Living Arrangements Current Residence: Number of Floors Number of Entry Steps: Bed/Bath Levels: Facility: Nursing Facility Skilled Facility Name: [facility] Plan to Return: Yes Lives with: Friends Support Systems: Children, Comments (Other) (legal guardian) Activities of Daily Living Ambulation: Assistance (walker) Bathing/Dressing: Assistance Elimination/Continence/Toileting: Assistance Feeding: Independent Who Assists with Activities of Daily Living: SNF staff Instrumental Activities of Daily Living Prescription Coverage: Yes Pharmacy Used: [facility] Medication Management: Assistance Type: Dose packaging system Who assists with medication securing and setup?: SNF staff Transportation/Shopping: Assistance Provider Transportation/Shopping Assistance Provider Name: unsure Transportation Mode: Needs Assistance with Transportation at Discharge: No (SW will arrange transportation back to [facility]) Meal Preparation: Assistance Provider Meal Prep Assistance Provider Name: [facility] staff Laundry/Cleaning: Assistance Provider Laundry/Cleaning Assistance Provider Name: [facility] staff Finances/Bill Paying: Assistance Provider Finances/Bill Payer Assistance Provider Name: Legal guardian Communication: Independent Types of Care Services/Equipment Utilized Care Services: Dialysis Type: NA Durable Medical Equipment: Walker, Other (Comment) (fortino system for glucose monitoring.) Patient's Goal/Discharge Plan Patient expects to be discharged to: SNF Discharge Planning Actions: Continue to follow Patient's Choice Rights and [employer] and Collaborative Relationships Disclosed as Indicated for Post-Acute Care: Interdisciplinary Team Engagement: Social Work Referral for: Additional Information: Spoke with patient at bedside, also spoke with staff from [facility], left for legal guardian. Introduced self and role. Discharge planning needs discussed. Patient in hospital due to chest pain. All tests negative. From [facility] and may return no auth needed. Patient has legal guardian who will make decisions. Spoke with patient who was able to answer some questions, but not all appropriately. Patient stateshe drives, but according to SNF staff he is dependent for almost everything. HIPAA compliant VM left for legal guardian to see if patient to go back to [facility]. Patient states he wants to go somewhere else, but does not make his own decisions. Secure chat received from , explained patient to go back to [facility] and then legal guardian can help patient decide if they want to change. TCC will continue to follow. Sydnee Cruz RN * Care Coordination - Sydnee Cruz RN - 11/17/2023 12:53 PM EDT Attempted to do IA with legal guardian. HIPAA compliant message left with return phone number. TCC will continue to follow. * Care Coordination - LENNOX Miller - 11/16/2023 1:19 PM EDT S/W, bedded ED patient Patient in from [facility] with chest pain. Return referral placed via [facility] to [facility], inquiring on needs to return. S/W/TCC team to follow. documented in this [place] [id number] Nurse Note* Iesha Waldron RN - 11/18/2023 3:46 PM EDT Pt discharged back to facility. PIV's removed from RA and LA, catheters intact, DSD's applied. Telemonitor removed, cleaned per protocol and returned to drawer. Transport setup for 1700. [id number] Nurse Note* Iesha Waldron RN - 11/18/2023 3:46 PM EDT Pt discharged back to facility. PIV's removed from RA and LA, catheters intact, DSD's applied. Telemonitor removed, cleaned per protocol and returned to drawer. Transport setup for 1700. documented in this [place] [id number] Note* Care Coordination - Angela Hernandez - 11/18/2023 3:42 PM EDT Discharge med list transmitted to return back to [facility] via [facility] per [facility] request. [id number] Note* Care Coordination - Angela Hernandez - 11/18/2023 3:42 PM EDT Discharge med list transmitted to return back to [facility] via [facility] per TCC request. [id number] History of Present illness Narrative* Linette Jimenez PTA - 11/18/2023 3:03 PM EDT Images from the original note were not included. PHYSICAL THERAPY [facility] Name/MRN: Hyacinth Hurst ([id number]) Date: 11/18/2023 Pt on hold for DVT study. Will continue to follow and treat as medically stable. Linette Jimenez, MERCEDEZ * Karthik Eddy, LEARNING DISABILITIES RESOURCE TEACHER - 11/18/2023 12:20 PM EDT Images from the original note were not included. OCCUPATIONAL THERAPY [facility] Treatment Note Name/MRN: Hyacinth Hurst ([id number]) Date of : 1960 Age: 63 y.o. Room/Bed: [facility]250/[facility]250 B Visit #: 1 out of 8 visits Discharge Recommendation: [facility] Equipment Needed: No (TBD at next level of care) Prior Level of Function ADL Assistance: Independent Ambulation Assistance: Independent Transfer Assistance: Independent Assessment Pt attempted bed mobility this date with maxAx2 with increased pain in BLE. Supine to side lying atmaxAx2 with extended time. Return to supine with pt deferring any activity OOB. BUE exercises performed in supine with focus on strengthening and activity tolerance for increased endurance for ADL completion. Pt is limited by pain, weakness, balance, and fatigue. Pt is functioning below baseline and would benefit from skilled OT services to maximize safety and independence with ADLs and functional mobility. Rec SNF. Subjective Agreeable for OT this date. Per RNmarcell for tx Pain: 0-10 pain scale: 9/10 Location: RLE Medical Precautions: No active isolations Proper PPE donned/doffed in accordance with facility standards. Fall Risk: [place] Fall Risk Score: 100 (High Risk) Precautions/Restrictions: N/A Family/Caregiver Present: none Objective Bed Mobility Supine to sit: Max Assist, x2 Person Assist Pt attempted bed mobility at MaxA x2 for elevation with pt stating increased pain in LE with movement. Cuing for hand placement for increased support and activity pacing for decreased pain with poor carryover. Pt deferred all activity out of supine. Exercise Type of ROM/Therapeutic Exercise: AROM Comment: Pt completed one set of 10 reps with focus on BUE ROM in all planes, abdominal strengthening, and ankle pumps with pt deferring any other LE movement. Pt completed all exercises in supine totarget strength, endurance, and activity tolerance. Pt required min verbal/visual cues for form. Plan Continue acute OT per plan of care. Safety/Education Safety Safety Devices in place: All fall risk precautions in place, call light within reach, left in bed, and nurse notified Restraints: No Education Education Given To: patient Education Provided: OT Role, Plan of Care, and Benefits of Increasing Activity Education Method: Verbal and Teach Back Barriers to Learning: None Education Outcome: Verbalized Understanding, Demonstrated Understanding, and Continued Education Needed AM-PAC AM-PAC Inpatient Daily Activity Raw Score: 12 ADL Inpatient CMS G-Code Modifier: CL Goals Patient Stated Goal: to return independence Encounter Problems Encounter Problems (Active) Balance Patient will maintain static sitting balance for 8 minutes with supervision in order to demonstrateimproved postural control and prepare for out of bed mobility. (Not Addressed) Start: 11/16/23 Expected End: 11/24/23 Dressing Upper Extremities Patient will complete upper body dressing with SBA (Not Addressed) Start: 11/16/23 Expected End: 11/24/23 Toileting Patient will complete toileting tasks at bedside commode with mod assist. (Not Addressed) Start: 11/16/23 Expected End: 11/24/23 Transfers Patient will complete functional transfer with least restrictive device with max assist in order toprepare for ambulation. (Not Addressed) Start: 11/16/23 Expected End: 11/24/23 Patient will perform bed mobility with mod assist in order to improve independence and prepare for out of bed mobility. (Slowly Progressing) Start: 11/16/23 Expected End: 11/24/23 Therapy Time Individual Co-treatment Time In 1134 Time Out 1157 Minutes 23 Timed Code Treatment Minutes: 23 Minutes (1 TA, 1 EX) MEE Murillo * Krystal Barr MD - 11/18/2023 9:35 AM EDT Seen personally. I attest that I have reviewed the resident notes and exam and agree with their findings unless noted otherwise on my note. Reviewed lab and imaging and configuration consultant notes. I reviewed the patients care plan with the patient and answered their questions Pt admitted with atypical cp. Known cad and stents. Neg trops and no stemi on EKG Past hx meth use and smoking-last 3 mo ago also past AUD. Pt had strep bacteremia 3 mo ago and has had debility and is in snif Stress echo no acute change-EKG portion good but slow recovery of HR but pt was on betablocker. Bp low normal-holding some of his bp meds. Pt has hfpef and doesn't need all gdmt meds (no evidenceof past hfref) Ready for discharge, but has debility and needs snif placement * Marina Macias MD - 11/18/2023 9:18 AM EDT Images from the original note were not included. Medical Teaching Service Progress Note Patient: Hyacinth Hurst : 1960 Acct: [id number] PCP: Shanna Rai MD Admitting Physician: Mone Campbell MD Admission Date: 11/15/2023 Admitting Diagnosis: Other chest pain [R07.89] Chest pain [R07.9] Unit/Bed: B2-250/B2-250 B Hospital Day: 2 Code Status: Full Code Hospital Course: Patient 63 y.o. male presented to the ED from [facility] with chest pain, received nitroglycerin x1 from EMS prior to ED presentation. PMHx of HFpEF, COPD, HARISH with likely OHS, remote DVT treated with AOC for 6 months, HTN, DMII, polysubstance abuse, Group C strep bacteremia treatment. Subjective: Overnight events: Patient had pain in the lower legs, oxycodone, Tylenol, melatonin, gabapentin regimen and patient was able to sleep. Patient seen this morning seen the morning, was sleeping in bed. States bilateral leg pain usually comes and goes, not increased more than normal. R calf pain worse then left. He said the pain meds have helped him with the pain and helped him sleep throughout the night. Denies any other complaints,shortness of breath and or nausea or vomiting. Objective: Vitals: 11/17/23 1953 11/17/23 2246 11/18/23 0358 11/18/23 0821 BP: 111/71 113/80 133/78 135/82 BP Location: Left arm Patient Position: Lying Pulse: 82 78 75 75 Resp: 18 18 18 18 Temp: 36.7 C (98 F) 36.4 C (97.6 F) 36.8 C (98.3 F) (!) 35.4 C (95.7 F) TempSrc: Temporal Temporal Temporal Temporal SpO2: 93% 95% 95% 93% Weight: Height: Temp (24hrs), Av.4 C (97.6 F), Min:35.4 C (95.7 F), Max:36.8 C (98.3 F) Intake/Output Summary (Last 24 hours) at 11/18/2023 0918 Last data filed at 11/18/2023 0821 Gross per 24 hour Intake 700 ml Output 1490 ml Net -790 ml Physical Exam Constitutional: General: He is not in acute distress. Appearance: Normal appearance. He is normal weight. He is not ill-appearing. HENT: Mouth/Throat: Mouth: Mucous membranes are moist. Pharynx: Oropharynx is clear. No oropharyngeal exudate or posterior oropharyngeal erythema. Eyes: Conjunctiva/sclera: Conjunctivae normal. Pupils: Pupils are equal, round, and reactive to light. Cardiovascular: Rate and Rhythm: Normal rate and regular rhythm. Pulses: Normal pulses. Heart sounds: Normal heart sounds. No murmur heard. No friction rub. No gallop. Pulmonary: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 including errors in grammar, punctuation, and spelling, as well as words and phrases that may be inappropriate. If there are any questions or concerns please feel freeto contact the dictating provider for clarification.) Seymour Benito DO [employer] Seymour Benito DO 11/15/23 [address] [facility] [employer] Phone: [phone] History of Present illness Narrative* LUC Gates CNP - 11/05/2023 1:18 PM EST Patient seen by me at [facility]. Complete documentation including history with assessment and plan were documented in [facility]. This encounter is for billing only. documented in this [facility]03-06-2024 History of Present illness Narrative* LUC Gates CNP - 11/03/2023 1:42 PM EST Patient seen by me at [facility]. Complete documentation including history with assessment and plan were documented in [facility] EMR. This encounter is for billing only. documented in this [facility]03-01-2024 History of Present illness Narrative* Margaret Albert PA-C - 10/29/2023 2:58 PM EST Patient seen at [facility] on 10/29/23 HEIDI Ayala, PA-C documented in this [facility]02-29-2024 History of Present illness Narrative* NASIM AyalaC - 10/28/2023 11:51 AM EST Patient seen at [facility] on 10/28/23 HEIDI Ayala, PA-C documented in this [facility]02-28-2024 History of Present illness Narrative* AMA Ayala-C - 10/27/2023 9:58 AM EST Patient seen at [facility] on 10/27/23 HEIDI Ayala, PA-C documented in this [facility]02-27-2024 History of Present illness Narrative* NASIM AyalaC - 10/26/2023 10:01 AM EST Pt seen at [facility] on 10/26/23 Margaret Albert MMS, PA-C documented in this [facility]02-23-2024 History of Present illness Narrative* AMA Ayala-C - 10/22/2023 9:54 AM EST Pt seen at [facility] on 10/22/23 Margaret Albert MMS, PA-C documented in this [facility]02-22-2024 History of Present illness Narrative* Margaret Albert PA-C - 10/21/2023 10:50 AM EST Pt seen at [facility] on 10/21/23 EHIDI Ayala PA-C documented in this [address]22-2024 History of Present illness Narrative* Bety Salinas MD - 10/21/2023 8:13 AM EST [facility] consult on 10/20/23 documented in this [facility]02-21-2024 History of Present illness Narrative* Maeve Bingham MD - 10/20/2023 11:59 PM EST [facility] documented in this [facility]02-21-2024 History of Present illness Narrative* Margaret Albert PA-C - 10/20/2023 2:41 PM EST Pt seen at [facility] on 10/20/23 HEIDI Ayala PA-C documented in this [address]20-2024 History of Present illness Narrative* Margaret Albert PA-C - 10/19/2023 2:50 PM EST Pt seen at [facility] on 10/19/23 HEIDI Ayala PA-C documented in this [facility]02-20-2024 Telephone encounter Note* Telephone Encounter - Jeniffer Wing - 10/19/2023 12:07 PM EST Name of caller requesting page: Crystal Delvalle Phone number of caller: [phone] Facility requesting page: 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 Crystal can be reached at [phone] Provider paged: Dr. Bingham Practice name of paged provider: [facility] Pul[facility]- Page placed to #: Secured Chat Time page was sent or provider contacted: 12:05p Method of contact: Secured chat Page content: WOOD PROCESSING WORKER Crystal cortes patient is in room #238 and has increased work of breathing, patchy and bilateral lungs. Crystal can be reached at [phone] [id number] Miscellaneous Notes* Telephone Encounter - Jeniffer Wing - 10/19/2023 12:07 PM EST Name of caller requesting page: Crystal Delvalle Phone number of caller: [phone] Facility requesting page: [facility] Reason for page: WOOD PROCESSING WORKER Crystal cortes patient is in room #238 and has increased work of breathing, patchy and bilateral lungs. Crystal can be reached at [phone] Provider paged: Dr. Bingham Practice name of paged provider: Pulmonary- Page placed to #: Secured Chat Time page was sent or provider contacted: 12:05p Method of contact: Secured chat Page content: WOOD PROCESSING WORKER Crystal cortes patient is in room #238 and has increased work of breathing, patchy and bilateral lungs. Crystal can be reached at [phone] documented in this [facility] [id number] History of Present illness Narrative* Margaret Albert PA-C - 10/18/2023 1:02 PM EST [facility] at [facility] on 10/18/23 HEIDI Ayala PA-C documented in this [facility]02-16-2024 Nurse Note* Analia Kim RN - 10/15/2023 7:06 PM EST Cleaned for incontinent stool. New foam placed. Eduardo Gutierrez at bedside to take to [facility] * Analia Kim RN - 10/15/2023 3:47 PM EST Report called to Nayeli at [facility] * Analia Kim RN - 10/15/2023 12:20 PM EST Patient hoyered back to bed. Renae care completed for stool.l Patient really would not have been incontinent but was in chair and difficult to place bedpan. Dr Cardenas up to see patient. Ok to [facility]. Social work aware. Call light in reach * Analia Kim RN - 10/15/2023 9:12 AM EST I reviewed Lingling assessment and changes made. He is able to move bilateral feet but is weak. * Analia Kim RN - 10/15/2023 8:49 AM EST Patient awakens for assessment. He is currently alert and oriented x3. Denies shortness of breath. Does state generalized pain. All extremities swollen, red. Call light in reach * Kee Johnson RN - 10/12/2023 9:11 PM EST Called MRI to schedule bringing patient down to image his left hand/wrist. MRI stated yesterday when imaged his leg they assessed to see if he would tolerate having his arm above his head and he did not. I went in and asked the patient to lift his arm and he was unable to do so even with assistanceof this RN. Message placed to orthopedic resident who said that plastics is following for his hand/wrist. Message sent to plastics residents and they stated if the patient is unable to put his arm above his head there is nothing we can do, the imaging has been pending for some time now and doesn'tseem to be emergent. Attending Dr. Tay notified. * Destiny Monique RN - 10/12/2023 7:09 PM EST MRI w & w/o contrast of LUE originally scheduled for 1730, 24 hours after receiving contrast from previous MRI per protocol. Originally ordered 10/10/23. This RN was notified at 1750 that MRI was too busy to take pt at this time and will need to re-schedule for later in the evening. SREE Dorman notified in shift handoff of the delay. * Dilia Melendez RN - 10/09/2023 10:54 PM EST [facility] to [facility], departed unit at 2245. Dilia CHAIREZ RN 10/09/23 2257 * Dilia Melendez RN - 10/09/2023 10:27 PM EST Transfer handoff called to Amanda BALBUENA in T3 at [facility]. Dilia CHAIREZ RN 10/09/237 documented in this [facility]02-16-2024 Miscellaneous Notes* Care Coordination - Unknown Case Management - 10/15/2023 1:20 PM EST Patient Choice Patient Name: HYACINTH HURST Date of : 1960 All Providers Sent Referral Name: [facility] Phone: [phone] Address: [address] [place], [place] [id number] * Care Coordination - Nancy Amor - 10/15/2023 1:19 PM EST [facility] Await review and response regarding ability to accept. TCC notified. * Care Coordination - Rian Zheng RN - 10/15/2023 1:04 PM EST Discharge order noted. [facility] lia[facility] aware and are able to accept pt today. messaged to complete [place]. SW messaged for transport set up. TCC tasked WORK ORDER CLERK to put in referral, send orders and MAR to [facility]. Transporty set up for 6PM. * Care Coordination - LENNOX Wiggins - 10/15/2023 12:51 PM EST Transportation scheduled for 6:00 via [employer] to discharge to [facility]. Notified TCC,bedside nurse, and [facility]ia[facility]. LENNOX left message with estate attorney Kallie [phone] regarding discharge. * Care Coordination - Rian Zheng RN - 10/15/2023 9:00 AM EST Images from the original note were not included. Care Management Progress Note Remains on 1C. NC 2L Remains on ABX with ID following. Therapy recommending SNF. Plan is [facility] following and willing to accept. Liaison wanting to know ADOD. Messaged MD Awaiting reply. Discharge Milestones and Delays Expected Date/Time: 10/18/[address] discharge order Complete med reconciliation Case mgmt discharge readiness Clinical Stability Diagnsotic Workup Expected Discharge History Expected Date/Time Set By Reviewed At 10/18/2023 Rian Zheng RN 10/15/2023 7:15 AM TCC est 10/20/2023 Rian Zheng RN 10/14/2023 7:23 AM 10/20/2023 Carrie Perry, SREE 10/13/2023 8:59 AM 10/16/2023 Carrie Perry, SREE 10/12/2023 8:16 AM 10/16/2023 Carrie Perry, SREE 10/11/2023 1:09 PM 10/16/2023 LENNOX Miller 10/08/2023 10:15 AM 10/16/2023 Americo Jones MD 10/07/2023 5:14 PM 10/16/2023 Americo Jones MD 10/07/2023 4:16 PM Length of Stay (Days): 8 GMLOS: No GMLOS Documented * Care Coordination - Rian Zheng RN - 10/14/2023 11:08 AM EST [facility] following pt. Pt remains on ABX. ID following. NC 2 L. WBC's elevated. Plastic following. Recommended no surgical intervention at this time. Awaiting clinical improvement and recommendations. TCC to follow. * Care Plan - Yuri Martino RN - 10/13/2023 9:54 PM EST Problem: Knowledge Deficit Goal: Patient/family/caregiver demonstrates understanding of disease process, treatment plan, medications, and discharge instructions 10/13/20232153 by Yuri Martino RN Outcome: Not Progressing Problem: Potential for Compromised Skin Integrity Goal: Skin Integrity is Maintained or Improved 10/13/20232153 by Yuri Martino RN Outcome: Not Progressing Problem: Potential for Compromised Skin Integrity Goal: Nutritional status is improving 10/13/20232153 by Yuri Martino RN Outcome: Not Progressing Problem: Urinary Incontinence Goal: Perineal skin integrity is maintained or improved 10/13/20232153 by Yuri Martino RN Outcome: Not Progressing 10/13/20232152 by Yuri Martino RN Outcome: Progressing * Significant Event - LUC Voss CNP - 10/13/2023 5:40 PM EST Family Communication Number Called: bedside Name of Designated Family Tile Ditcher: Yas Gonzáles Relationship: daughter Phone Call Outcome: I spoke with the individual listed above. Family Tile Ditcher Updated on the Following: clinical updates * Care Coordination - LUC Vega CNP - 10/13/2023 1:23 PM EST Palliative care continues to follow peripherally. Patient up for floor transfer. Likely sign off in coming days. Signed, Vicki Austin APRN, CNP Palliative Care/Hospice #[id number] * Significant Event - LUC Voss CNP - 10/13/2023 10:28 AM EST ICU Transfer Checklist Transfer Med Reconciliation (resume home meds if able, convert to PO if able) Complete Antibiotics (name, indication, duration, convert to PO if able) Yes, addressed in today's progress note Steroid (indication, duration, convert to PO if able) None Anticipated [place] Medications (ICU initiated) or Dose Changes and Indication No Permanently Discontinued Home Medications and Reason for medication contraindication No Chinchilla Catheter (please remove if able. Note: place DC order) DC order placed today Central Line (please remove if able. Note: place DC order) Yes, indication poor access, cellulitic arms Transfer Discussed with: Dr Cruz [facility] If additional questions for ICU team within 24 hours of ICU transfer, page [phone] for clarifications. * Care Coordination - LUC Christie CNP - 10/13/2023 7:09 AM EST ICU Liberation - Multidisciplinary Rounds Analgesia Assess Pain Score: 10 - Worst possible pain (10/13/23 0319) 2 Pain Score: 10 - Worst possible pain Prevent Acetaminophen, prn Narcotics, (prn) Manage Pain well controlled?: Yes Choice of Analgesia and Sedation Consults Code Status RASS [place] Agitation Sedation Scale (RASS): Alert & Calm-Spontaneously pays attention to caregiver (10/12/231999) Goal RASS Alert and Calm (0) to Drowsy (-1) Pain/Sedation Management NA Consults IP CONSULT TO INFECTIOUS DISEASES IP CONSULT TO PALLIATIVE CARE IP CONSULT TO INFECTIOUS DISEASES IP CONSULT TO PLASTIC SURGERY IP CONSULT TO SOCIAL WORK IP WOUND CARE NURSE CONSULT TO EVAL Code Status DNR-CCA Early Mobility Mobility Goal Up to Chair PT/OT Pt Eval And Treat Oct 09, 2023 8:47 Am Est Ot Eval And Treat Oct 09, 2023 8:47 Am Est Invasive Lines / Tubes / Drains CVC Triple Lumen 10/10/23 Non-tunneled Right Internal jugular (Active) Number of days: 2 Urethral Catheter Straight-tip 16 Fr. (Active) Number of days: 5 Central Line Indication: Inadequate peripheral access despite documented ultrasound attempts AND unable to place extended dwell PIV Does patient have a PIV in addition to a central line?: No. The patient does not have any PIVs Chinchilla Indications: Hourly I&Os (Critical Care ONLY) - RN to remove if able to today * Patient Care Conference - MARIAH Castellanos - 10/12/2023 10:49 AM EST Palliative Care Interdisciplinary Team Note: Diagnosis: Principal Problem: Sepsis due to other etiology ([facility]) Chief Complaint: Hyacinth Hurst is a 63 y.o. male with chief complaint of: cellulitis and sepsis Reason Palliative Following: Goals of Care Plan: Follow Peripherally Code Status: DNR-CCA Medications: Palliative Care Not Managing any Medications Nursing: Correction Care and Skin Integrity Social Work: Floor SW Following Spiritual Care: No Unmet Needs Pharmacy: No Unmet Needs Psychology/Psychiatry: No Unmet Needs * Care Coordination - LUC Christie CNP - 10/12/2023 6:50 AM EST ICU Liberation - Multidisciplinary Rounds Analgesia Assess Pain Score: 3 (10/12/23 0034) 2 Pain Score: 3 Prevent Acetaminophen, prn Narcotics, (prn) Manage Pain well controlled?: Yes Choice of Analgesia and Sedation Consults Code Status RASS [place] Agitation Sedation Scale (RASS): Alert & Calm-Spontaneously pays attention to caregiver (10/11/231999) Goal RASS Alert and Calm (0) to Drowsy (-1) Pain/Sedation Management NA Consults IP CONSULT TO INFECTIOUS DISEASES IP CONSULT TO PALLIATIVE CARE IP CONSULT TO INFECTIOUS DISEASES IP CONSULT TO PLASTIC SURGERY IP CONSULT TO SOCIAL WORK Code Status DNR-CCA Early Mobility Mobility Goal Up to Chair PT/OT Pt Eval And Treat Oct 09, 2023 8:47 Am Est Ot Eval And Treat Oct 09, 2023 8:47 Am Est Invasive Lines / Tubes / Drains CVC Triple Lumen 10/10/23 Non-tunneled Right Internal jugular (Active) Number of days: 0 Urethral Catheter Straight-tip 16 Fr. (Active) Number of days: 3 Central Line Indication: Inadequate peripheral access despite documented ultrasound attempts AND unable to place extended dwell PIV Does patient have a PIV in addition to a central line?: No. The patient does not have any PIVs Chinchilla: RN to remove after MRI * Care Plan - Kee Johnson RN - 10/12/2023 1:57 AM EST Problem: Knowledge Deficit Goal: Patient/family/caregiver demonstrates understanding of disease process, treatment plan, medications, and discharge instructions Outcome: Progressing Problem: Potential for Compromised Skin Integrity Goal: Skin Integrity is Maintained or Improved Outcome: Progressing Goal: Nutritional status is improving Outcome: Progressing Problem: Urinary Incontinence Goal: Perineal skin integrity is maintained or improved Outcome: Progressing Problem: Problem Interventions Goal: Promote nutritional intake Outcome: Progressing Problem: Skin/Tissue Integrity - Adult Goal: Incisions, wounds, or drain sites healing without S/S of infection Outcome: Progressing * Care Plan - Renetta Drummond RN - 10/11/2023 6:32 PM EST Problem: Urinary Incontinence Goal: Perineal skin integrity is maintained or improved Outcome: Progressing Problem: Problem Interventions Goal: Promote nutritional intake Outcome: Progressing * Care Coordination - Carrie Perry RN - 10/11/2023 10:15 AM EST Images from the original note were not included. Care Management Progress Note Transferred from [place] ~ on RA - needs MRI. Plastics following - bilateral hand edema and L hand erythema - no acute surgical intervention indicated, follow up MRI. ID following - follow repeat blood cultures, agree with ERICA, Ortho following -waiting MRI. Palliative Care following. Reviewed notes - has legal guardian Maeve Arreguin (found on the [place] Probate site) - willneed placement - per notes [facility] - TCC and SW cont to follow. Updated SW in rounds. Discharge Milestones and Delays Expected Date/Time: 10/16/[address] discharge order Complete med reconciliation Case mgmt discharge readiness Clinical Stability Diagnsotic Workup Expected Discharge History Expected Date/Time Set By Reviewed At 10/16/2023 LENNOX Miller 10/08/2023 10:15 AM 10/16/2023 Americo Jones MD 10/07/2023 5:14 PM 10/16/2023 Americo Jones MD 10/07/2023 4:16 PM Length of Stay (Days): 4 GMLOS: No GMLOS Documented * Care Coordination - Daniela Diaz APRN - ASSISTANT SCIENTIST - 10/11/2023 7:47 AM EST ICU Liberation - Multidisciplinary Rounds Analgesia Assess Pain Score: 0 - No pain (10/11/23 0620) 2 Pain Score: 0 - No pain Prevent Acetaminophen, prn Narcotics, (prn) Manage Pain well controlled?: Yes Choice of Analgesia and Sedation Consults Code Status RASS [place] Agitation Sedation Scale (RASS): Alert & Calm-Spontaneously pays attention to caregiver (10/10/23 1700) Goal RASS Alert and Calm (0) to Drowsy (-1) Pain/Sedation Management NA Consults PHARMACY TO DOSE VANCO IP CONSULT TO INFECTIOUS DISEASES IP CONSULT TO PALLIATIVE CARE IP CONSULT TO INFECTIOUS DISEASES IP CONSULT TO PLASTIC SURGERY IP CONSULT TO SOCIAL WORK Code Status DNR-CCA Early Mobility Mobility Goal Up to Chair PT/OT Pt Eval And Treat Oct 09, 2023 8:47 Am Est Ot Eval And Treat Oct 09, 2023 8:47 Am Est Invasive Lines / Tubes / Drains CVC Triple Lumen 10/10/23 Non-tunneled Right Internal jugular (Active) Number of days: 0 Urethral Catheter Straight-tip 16 Fr. (Active) Number of days: 3 Central Line Indication: Inadequate peripheral access despite documented ultrasound attempts AND unable to place extended dwell PIV Does patient have a PIV in addition to a central line?: No. The patient does not have any PIVs Chinchilla Indications: Hourly I&Os (Critical Care ONLY) * Care Plan - Renetta Drummond RN - 10/10/2023 6:27 PM EST Problem: Potential for Compromised Skin Integrity Goal: Skin Integrity is Maintained or Improved Outcome: Progressing Goal: Nutritional status is improving Outcome: Progressing Problem: Skin/Tissue Integrity - Adult Goal: Incisions, wounds, or drain sites healing without S/S of infection Outcome: Not Progressing Flowsheets (Taken 10/10/2023 182) Incisions, wounds, or drain sites healing without sign and symptoms of infection: ADMISSION and DAILY: Assess and document risk factors for pressure ulcer development TWICE DAILY: Assess and document skin integrity Implement wound care per orders Problem: Skin/Tissue Integrity - Adult Goal: Incisions, wounds, or drain sites healing without S/S of infection Outcome: Not Progressing Flowsheets (Taken 10/10/2023 1826) Incisions, wounds, or drain sites healing without sign and symptoms of infection: ADMISSION and DAILY: Assess and document risk factors for pressure ulcer development TWICE DAILY: Assess and document skin integrity Implement wound care per orders * Significant Event - Brittaney Ng NP - 10/10/2023 5:15 PM EST Spoke to Daughter Yas. 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 Recently, patient has had relations with people who have used methamphetamines. Tested positive on initial drug screen. Patient also had a history of living at hotels, [place], and friends houses. Informed us that patient has also had a history of manic episodes both happy and agitated. * Care Coordination - Taylor Murdock RN - 10/08/2023 2:35 PM EST Care Managment Initial Assessment Date: 10/08/2023 Patient Name: Hyacinth Hurst : 1960 Patient Information Source of Information: Patient Tile Ditcher Name/Contact Information: Legal Guardian Maeve Kallie Cognition/Language: Impaired (Patient is currently septic and withdrawing from meth) Permission given to speak with patient arborist representative/caregiver as indicated: Yes Confirmation of Payer with patient/family: Yes Payer Name: [facility] : No Confirmation of Primary Care Physician: Confirmed PCP Name: Dr. Shanna Rai Seen in last 2 years?: Yes Primary Caregiver: Self If assistance needed, confirmed caregiver ready, willing and able to care for patient at discharge:No Confirmed with: Per LG, patient will need [facility] [place] Maeve to liquidate assets and applyfor [facility] Living Arrangements Current Residence: (House divided into [facility]) Number of Floors 2 Number of Entry Steps: 2 Bed/Bath Levels: Both second floor Facility: Facility Name: Plan to Return: Lives with: Alone Support Systems: Children, Comments (Other) (Legal Guardian Maeve) Activities of Daily Living Ambulation: Independent Bathing/Dressing: Independent Elimination/Continence/Toileting: Independent Feeding: Independent Who Assists with Activities of Daily Living: Instrumental Activities of Daily Living Prescription Coverage: Yes Pharmacy Used: [facility] in [place] Medication Management: Prescription pick-up Who assists with medication securing and setup?: Patrica Murphy picks up meds, patient is noncompliant with meds Transportation/Shopping: Assistance Provider Transportation/Shopping Assistance Provider Name: Katherine Transportation Mode: Car Needs Assistance with Transportation at Discharge: Yes (INTERVENTIONAL TECHNOLOGIST to set up transport to SNF or [facility]) Meal Preparation: Assistance Provider Meal Prep Assistance Provider Name: Patient has no assistance, hasn't eaten in days Laundry/Cleaning: Assistance Provider Laundry/Cleaning Assistance Provider Name: Does not have assistance Finances/Bill Paying: Assistance Provider Finances/Bill Payer Assistance Provider Name: Meave Communication: Independent Types of Care Services/Equipment Utilized Care Services: Dialysis Type: Durable Medical Equipment: DME Provider: No DME Patient's Goal/Discharge Plan Patient expects to be discharged to: [facility] Discharge Planning Actions: Continue to follow, [place] Facility referral indicated [place] of choice: [place] of choice discussed, Choice list provided (Discussed with Maeve, will call him when patient is more stable. Patient is traditional [facility] and can go anywhere) Patient's Choice Rights and [employer] and Collaborative Relationships Disclosed as Indicated for Post-Acute Care: Yes Interdisciplinary Team Engagement: PT/OT, Skilled Nursing Acute Care Hospital, Addiction Medicine Social Work Referral for: Additional Information: IA completed over the telephone with Legal Guardian Maeve Arreguin. Patient has not been able to care for himself for awhile now, LG states that patient needs placed for now to give him time to liquidate assets and start the DONNA process for nurse general duty placement. Introduced self and role. Patient is admitted to ICU for sepsis from cellulitis on both legs. Patient has notbeen caring for himself, has not been eating or taking meds for awhile. Patient lives alone. INTERVENTIONAL TECHNOLOGIST to set up transport to [facility]. Sees Dr Shanna Rai (PCP) routinely. Has insurance and prescription coverage, uses [facility] in [place]. Patient denies any financial difficulties. [place] [facility] to [facility] vs [facility] when medically stable. Patient verbalizes understanding and is in agreement with POC. Taylor Murdock RN * ED Procedure Note - Davon Montague MD - 10/07/2023 3:48 PM ESTAssociated Order(s): [facility] ORDER Procedure [facility] ORDER Performed by: Davon Montague MD Authorized by: Davon Montague MD Indications for Ultrasound: Cardiac Credentialed Provider Attestation: Are you an Ultrasound Credentialed Provider?: Yes Does PoC US immage meet quality guidelines?: Adequate Is PoC US Chargeable?: $Charge$ Signed: Davon Montague Comments: Said parasternal long axis, parasternal short axis, apical four- chamber, subxiphoid. Limited views secondary to body habitus No obvious significant right heart strain or significant reducedejection fraction. Davon Montague MD 10/07/23 1548 documented in this [facility]02-16-2024 Hospital course Narrative* Joe Cardenas DO - 10/15/2023 1:09 PM EST Images from the original note were not included. Hospitalist Discharge Summary Hyacinth Hurst : 1960 Admit date: 10/07/2023 Discharge date: 10/15/2023 Admitting Physician: Rafael Valladares MD Primary Care Physician: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 Kay APRN - SEVERINO, 5 mg at 10/12/23 1016 pantoprazole (ProtoNix) 40 mg in sodium chloride (PF) 0.9 % 10 mL injection, 40 mg, IntraVENous, q AM, Americo Jones MD, 40 mg at 10/12/23 1006 polyethylene glycol (PEG) 3350 (Miralax) packet 17 g, 17 g, Oral, Daily, Kavon Patterson APRN -ASSISTANT SCIENTIST, 17 g at 10/12/23 1010 potassium chloride (Klor-Con) packet 40 mEq, 40 mEq, Oral, BID, LUC Voss CNP, 40 mEq at 10/12/23 1006 senna-docusate sodium (Senokot-S) 8.6-50 MG tablet 2 tablet, 2 tablet, Oral, BID, LUC Voss CNP, 2 tablet at 10/12/23 1006 sodium chloride 0.9% (NS) flush 5-40 mL, 5-40 mL, IntraCATHeter, q8h, Brittaney Ng NP, 10 mL at 10/12/23 1019 sodium chloride 0.9% (NS) flush 5-40 mL, 5-40 mL, IntraVENous, PRN, Brittaney Ng NP thiamine (Vitamin B1) injection 100 mg, 100 mg, IntraVENous, Daily, Americo Jones MD, 100 mg at 10/12/23 1007 ALLERGIES: Patient has no known allergies. SOCIAL HISTORY: Social History Socioeconomic History Marital status: Spouse name: Not on file Number of children: Not on file Years of education: Not on file Highest education level: Not on file Occupational History Not on file Tobacco Use Smoking status: Never Smokeless tobacco: Never Tobacco comments: Quit smoking: only smoke for 6 month Substance and Sexual Activity Alcohol use: No Drug use: Not Currently Types: Marijuana Sexual activity: Not on file Other Topics Concern Not on file Social History Narrative Not on file Social Determinants of Health Financial Resource Strain: Not on file Food Insecurity: Not on file Transportation Needs: Unmet Transportation Needs (10/09/2022) PRAPARE - Transportation Lack of Transportation (Medical): Yes Lack of Transportation (Non-Medical): Yes Physical Activity: Not on file Stress: Not on file Social Connections: Not on file Intimate Partner Violence: Not on file Housing Stability: Low Risk (12/26/2022) Housing Stability Vital Sign Unable to Pay for Housing in the Last Year: No Number of Places Lived in the Last Year: 1 Unstable Housing in the Last Year: No FAMILY HISTORY: Family History Problem Relation Name Age of Onset Arthritis Mother Arthritis Father High Blood Pressure Father Substance Abuse Father Heart disease Father Arthritis Sister Early natural Brother Depression Father Cancer Brother Further Family History is noncontributory to this injury. REVIEW OF SYSTEMS: Review of Systems - General ROS: negative for - chills, fatigue, fever, malaise or night sweats Psychological ROS: negative Ophthalmic ROS: negative ENT ROS: negative for - headaches or sore throat Hematological and Lymphatic ROS: negative for - bleeding problems or blood clots Respiratory ROS: no cough, shortness of breath, or wheezing Cardiovascular ROS: no chest pain or dyspnea on exertion Gastrointestinal ROS: negative Musculoskeletal ROS: See HPI Neurological ROS: negative for - bowel and bladder control changes, gait disturbance or numbness/tingling All other systems reviewed and are negative VITALS: Vitals: 10/12/23 0800 10/12/23 0830 10/12/23 0900 10/12/23 1000 BP: 107/61 92/59 (!) 128/108 BP Location: Patient Position: Pulse: 77 74 80 Resp: 18 19 22 Temp: 36.6 C (97.8 F) TempSrc: Axillary SpO2: 98% 96% 100% Weight: Height: PHYSICAL EXAM: GENERAL: Patient is well developed/well nourished in NAD. MOOD AND AFFECT: Calm appropriate to situation GAIT AND STATION: Patient is in bed COORDINATION and BALANCE: Patient is grossly coordinated LYMPHADENOPATHY: none on examination of the affected extremity(s) LLE INSPECTION SKIN: Erythema appreciated about the left lower extremity distal to the knee. Erythema has receded from previous line of demarcation. Lower extremity is warm to touch. NEUROLOGICAL: SILT intact to +Saphenous/Superficial Peroneal/Deep Peroneal/Tibial/Sural distributions MOTOR: +Dorsiflexion/Plantarflexion/Great toe extension VASCULAR: Capillary refill to all 5 lower extremity digits was brisk and all digits were warm to touch. Bilateral lower extremities LABS: CBC: Lab Results Component Value Date WBC 26.1 (H) 10/12/2023 RBC 4.07 (L) 10/12/2023 BMP: Lab Results Component Value Date GLUCOSE 111 (H) 10/12/2023 CO2 26 10/12/2023 BUN 27 (H) 10/12/2023 CREATININE 0.86 10/12/2023 CALCIUM 8.1 (L) 10/12/2023 PT/INR: Lab Results Component Value Date INR 1.0 10/10/2023 APTT 26.2 10/10/2023 Type and Screen: Lab Results Component Value Date RH POS 10/09/2023 RH POS 10/09/2023 CRP: No results found for: CRP ESR: No results found for: SEDRATE HgBA1c: No components found for: LABA1C The above labs were reviewed by me. Assessment Hyacinth is a 63 y.o.male with left lower extremity cellulitis Plan -No acute surgical intervention -Left lower extremity MRI dated demonstrates findings consistent with cellulitis; recommend medical management -Continued care of bilateral upper extremities per plastic surgery. -Weightbearing as tolerated BLE -Up with assist -Neuro/skin checks -Ice/elevate -Follow-up outpatient with PCP for left lower extremity cellulitis -Medical management, pain control, dvt prophylaxis per primary -Orthopaedic surgery will sign off. Please page power house control room operator orthopaedic resident for questions or concerns. * Mary Flower PT - 10/12/2023 9:20 AM EST Images from the original note were not included. PHYSICAL THERAPY [facility] Name/MRN: Hyacinth Hurst ([id number]) Date: 10/12/2023 PT orders received. Attempted to see pt this AM. Pt very lethargic and minimally following commands. Reported severe pain everywhere. Reported need to have BM. X3 assist with nursing to roll and don bed elias. Poor candidate for PT at this time, will continue to follow. Mary Flower, PT * Kavon Patterson, DIGITAL CONTENT SPECIALIST - ASSISTANT SCIENTIST - 10/12/2023 7:43 AM EST Images from the original note were not included. Critical Care Medicine ICU Progress Note Admission Summary: 63M hx morbid obesity, HFpEF, COPD, HARISH with likely OHS, remote DVT, HTN, DMII, polysubstance abusewho was admitted to [facility] for sepsis due to cellulitis, FRANCISCO J, rhabdomyolysis, and acute respiratory failure due to RSV requiring NIV. Found to have Group C Strep bacteremia. Developed LE pain and concern for compartment syndrome and was transferred to [facility] 10/09 for further management and ortho/plasticsevaluation. Interval history: Having pain all over this morning. MRI of LE negative for osteomyelitis or abscess. MRI upper extremity pending Medications: Scheduled Meds: ARIPiprazole, 20 mg, Oral, Daily aspirin, 81 mg, Oral, Daily [Held by provider] carvedilol, 6.25 mg, Oral, BID WC ceFAZolin, 2,000 mg, IntraVENous, q8h clindamycin, 900 mg, IntraVENous, q8h enoxaparin, 40 mg, SubCUTAneous, q24h folic acid, 1 mg, Oral, Daily insulin lispro, 0-6 Units, SubCUTAneous, TID WC And insulin lispro, 0-6 Units, SubCUTAneous, Nightly ipratropium-albuterol, 3 mL, Nebulization, 4x daily miconazole, , Topical, BID pantoprazole (ProtoNix) 40 mg in sodium chloride (PF) 0.9 % 10 mL injection, 40 mg, IntraVENous, q AM sodium chloride 0.9%, 5-40 mL, IntraCATHeter, q8h thiamine, 100 mg, IntraVENous, Daily PRN Meds: PRN medications: acetaminophen OR acetaminophen OR acetaminophen, albuterol, dextrose, dextrose, diphenhydrAMINE, glucagon (rDNA), glucose, hydrALAZINE, HYDROmorphone OR HYDROmorphone, naloxone, ondansetron ODT OR ondansetron, oxyCODONE OR oxyCODONE, polyethylene glycol (PEG) 3350, sodium chloride 0.9% OBJECTIVE: Vitals: BP 138/80 (BP Location: Right arm, Patient Position: Lying) Pulse 77 Temp 37.1 C (98.8 F) (Axillary) Resp 17 Ht 1.829 m (6') Wt (!) 171 kg (376 lb 1.7 oz) SpO2 100% BMI 51.01 kg/m 24h Tmax: 100.8F Intake/Output Summary (Last 24 hours) at 10/12/2023 0743 Last data filed at 10/12/2023 0500 Gross per 24 hour Intake 200 ml Output 1950 ml Net -1750 ml Lines: 10/10 R IJ CVC 10/07 Chinchilla EXAM: PHYSICAL EXAM: General Appearance: []No acute distress ill appearing, in pain [x]Obese []Cachectic []Thin [x]ill Skin: Temperature [x]Warm []Cool Rash [x]Yes []No Tattoo(s) []Yes []No Erythema LUE, RUE, LLE, upper R chest Neck: Supple [x]Yes []No Thyromegaly []Yes [x]No Crepitus []Present [x]Absent Jvd []Present [x]Absent Lungs: [x]Clear []Crackles []Wheezes []Rhonchi Respiratory effort [x]Labored tachypneic []Non-Labored Equal chest rise [x]Yes []No Trachea midline [x]Yes []No Heart: Rate [x]Regular []Irregular []Tachycardia []Bradycardia Rhythm [x]Sinus []Irregular Murmur []Present [x]Absent Capillary Refill [x]<2 sec []>2 sec Peripheral Pulses [x]Strong []Weak []Absent Abdomen: [x]Soft Bowel Sounds []Present []Absent []Tender [x]Non-Tender []Distended [x]Non-distended Hernia []Present [x]Absent Organomegaly []Present [x]Absent Mass []Present [x]Absent Extremities: Cyanosis []Present [x]Absent MAHMOOD ([x]RUE [x]RLE [x]LUE [x]LLE) Clubbing []Yes [x]No Edema [x]Yes diffuse generalized []No Neurologic: Alert [x]yes []no Oriented []x0 []x1 []x2 [x]x3 CHINIK []Yes [x]No Follows Commands [x]Yes []No []Unresponsive to verbal [x]Cranial nerves grossly intact [x]Sensation grossly intact Psych: Affect [x]Normal []Flat []Agitated [x]Anxious []Calm []Sedated Hallucinations []Yes [x]No Results: Today's labs individually interpreted by me. CBC: Recent Labs 10/10/23610/11/2345710/12/23306 WBC 23.3* 22.6* 26.1* HGB 13.2 12.7* 12.4* HCT 40.3 38.4* 36.7* MCV 89.9 90.2 90.2 PLT 94* 102* 143 BMP: Recent Labs 10/10/23610/11/2345710/12/23306 NA 128* 130* 130* K 3.7 3.3* 3.4* CL 95* 98 97* CO2 23 25 26 PHOS 2.2* 3.3 3.9 BUN 24* 25* 27* CREATININE 1.04 0.93 0.86 MG 1.6 1.9 1.9 LIVER PROFILE: Recent Labs 10/10/23610/11/2345710/12/23306 AST 128* 125* 68* ALT 57* 42 41 BILITOT 1.1 0.9 0.9 ALKPHOS 67 162* 124 PT/INR: Recent Labs 10/10/23 000 PROTIME 10.3 INR 1.0 APTT: Recent Labs 10/10/236 APTT 26.2 Cultures: 10/07 RVP -- RSV+ 10/07 BC -- Strep dysgalactiae (Group C/G) 10/07 UAg negative 10/07 MRSA PCR MSSA+ 10/07 LLE wound cx -- NGTD 10/09 BC -- NGTD Diagnostics: 10/11 MRI LLE Impression: Cellulitis. Minimal distal soleus myositis. No evidence of acute osteomyelitis, a drainable abscess, fasciitis, or soft tissue gas. 10/10 CXR: Reviewed by me. IMPRESSION: 1. Central venous catheter placement as described. 2. Slight improvement of pulmonary vascular congestion/interstitial edema. 3. No other acute process or interval change. 10/10 XR Hand IMPRESSION: Diffuse dorsal wrist soft tissue swelling. No radiographic evidence of osteomyelitis. Mild left first CMC osteoarthritis. 10/08 Echo: Left Ventricle: Not well visualized. Left ventricle size is normal. Normal wall thickness. Low normal left ventricular systolic function. EF by 2D Simpsons Biplane is 53%. Mild hypokinesis of the following segments: apical inferior and apical lateral. Right Ventricle: Not well visualized. Right ventricle is moderately dilated. RV basal diameter is 4.2 cm. RV mid diameter is 4.2 cm. Normal systolic function. Aorta: Not well visualized. Normal sized sinuses of Valsalva. Moderately dilated ascending aorta. Ao ascending diameter is 3.9 cm. Technically difficult study. The valves are not well visualized. If high suspicion for IE, consider ERICA. Assessment: Severe sepsis Group C/G Strep bacteremia due to cellulitis of multiple extremities LLE cellulitis/myositis RSV infection COPD, HARISH DMII Transaminitis Normocytic anemia Hyponatremia Hypokalemia Mood disorder Polysubstance abuse Protein calorie malnutrition, unspecified severity Morbid obesity Resolved Acute hypoxic respiratory failure Rhabdomyolysis Plan: Severe sepsis due to cellulitis WBC up-trending with significant persistent bandemia Procal down-trending -- continues with low-grade fever intermittently LLE MRI negative for osteomyelitis or abscess, noted myositis -- ortho signed off Plastics following for upper extremity cellulitis -- non-operative management for now, MRI pending ID following, continue cefazolin/clinda. Appreciate recs Repeat BC NGTD, thus far no sign of persistent bacteremia -- no ERICA Rhabdomyolysis improving gradually -- repeat CK, if continues to trend down, will consider this resolved RSV managed with supportive care, on RA, continue BiPAP at HS LFTs down-trending, asymptomatic, follow clinically Sodium stable at 130 Add bowel regimen FEN: replace K, thiamine/folate, diet as tolerated Prophylaxis: PPI, lovenox Continues to appear ill enough to warrant ICU level of care. Plan discussed with Dr Klein. CHETAN [facility] [phone] Time spent preparing to see the patient, obtaining/reviewing separately obtained history, completing an appropriate medical examination of the patient, ordering medications/tests/procedures, documenting clinical information on the EMR, and/or coordinating care is a subsequent visit: 50 minutes (Level III). * Cristine Mo MD - 10/12/2023 7:40 AM EST Images from the original note were not included. [facility] - Infectious Diseases Attending Progress Note Subjective: Following for cellulitis of 4 limbs with Grp C/G Strep BSI-- LUE and LLE are the worst. + BMI 52. He remains in ICU. Afebrile. MRI L tib-fib showed cellulitis and minimal distal soleus myositis; noevidence of abscess, fasciitis, tissue gas. WBC is uptrending at 26.1. MRI L hand is not yet completed. Blood cx are clearing. Tm 100.8F. Erythema is fading from all limbs. Objective: Vitals: Patient Vitals for the past 24 hrs: BP Temp Temp src Pulse Resp SpO2 Weight 10/12/23 0513 -- -- -- -- -- -- (!) 171 kg (376 lb 1.7 oz) 10/12/23 0432 -- -- -- 77 -- 100 % -- 10/12/23 0400 138/80 37.1 C (98.8 F) Axillary 78 17 100 % -- 10/12/23 0300 112/77 -- -- 76 15 100 % -- 10/12/23 0200 122/72 -- -- 79 14 99 % -- 10/12/23 0100 120/72 -- -- 78 15 95 % -- 10/12/23 0000 116/73 37.1 C (98.7 F) Axillary 79 13 94 % -- 10/11/23 2300 121/71 -- -- 78 17 100 % -- 10/11/23 2200 116/74 -- -- 80 17 100 % -- 10/11/23 2100 130/79 -- -- 79 18 100 % -- 10/11/23 2000 120/65 37.5 C (99.5 F) Axillary 82 19 100 % -- 10/11/23 1900 119/74 -- -- 80 18 100 % -- 10/11/23 1800 -- -- -- 82 17 99 % -- 10/11/23 1754 -- (!) 38.2 C (100.8 F) Axillary -- -- -- -- 10/11/23 1500 105/65 -- -- 81 23 (!) 89 % -- 10/11/23 1400 108/64 -- -- 81 19 94 % -- 10/11/23 1300 106/63 37.7 C (99.8 F) Axillary 83 23 93 % -- 10/11/23 1200 101/63 -- -- 83 18 92 % -- 10/11/23 1000 105/71 -- -- 83 15 94 % -- 10/11/23 0915 -- -- -- 82 18 99 % -- 10/11/23 0900 119/78 -- -- 82 20 99 % -- 10/11/23 0843 -- -- -- 80 18 96 % -- 10/11/23 0800 121/70 37.4 C (99.4 F) Axillary 87 15 94 % -- Physical Exam Vitals and nursing note reviewed. Constitutional: Appearance: He is ill-appearing. HENT: Head: Normocephalic. Right Ear: External ear normal. Left Ear: External ear normal. Nose: Nose normal. Mouth/Throat: Mouth: Mucous membranes are moist. Eyes: General: No scleral icterus. Extraocular Movements: Extraocular movements intact. Cardiovascular: Rate and Rhythm: Normal rate and regular rhythm. Pulmonary: Breath sounds: No wheezing. Comments: Coarse BS Abdominal: General: There is no distension. Palpations: Abdomen is soft. Tenderness: There is no abdominal tenderness. Musculoskeletal: Comments: Erythema is fading a bit from BUE- still with a more focused area of erythema on the dorsum of the L hand/ wrist. LLE with purplish discoloration and less swelling with wrinkle in skin; RLEwith fading erythema; + onychomycosis Neurological: Mental Status: He is oriented to person, place, and time. Labs: Lab Results Component Value Date/Time NA 130 (L) 10/12/2023 0307 K 3.4 (L) 10/12/2023 030 CL 97 (L) 10/12/2023 0307 CO2 26 10/12/2023 030 BUN 27 (H) 10/12/2023306 CREATININE 0.86 10/12/2023 030 CREATININE 1.25 03/16/2022 0649 GLUCOSE 111 (H) 10/12/2023306 CALCIUM 8.1 (L) 10/12/2023 030 PROT 5.9 (L) 10/12/2023 0307 BILITOT 0.9 10/12/2023 0307 ALKPHOS 124 10/12/2023 030 AST 68 (H) 10/12/2023 0307 ALT 41 10/12/2023 030 PROCAL 4.56 (H) 10/12/2023 0307 PROCAL 8.03 (H) 10/10/2023 0909 PROCAL 9.55 (H) 10/10/2023 0007 Lab Results Component Value Date/Time WBC 26.1 (H) 10/12/2023 0307 HGB 12.4 (L) 10/12/2023 0307 HCT 36.7 (L) 10/12/2023 0307 PLT 143 10/12/2023 0307 GRANULOCYTES 55.0 03/16/2022 0649 LYMPHOPCT 3 (L) 10/12/2023 0307 LYMPHOPCT 1.6 (L) 10/09/2023 0539 MONOPCT 2 10/12/2023 030 MONOPCT 1.6 (L) 10/09/2023 0539 LABEOS 2.3 03/16/2022 0649 BASOPCT 0 10/11/2023 0458 BASOPCT 0.1 10/09/2023 0539 NEUTROABS 14.4 (H) 10/09/2023 0539 Micro: 10/09- blood cx- NGTD 10/07- L wound leg cx- NGTD 10/07- nasal PCR- + MSSA 10/07- Legionella and Strep urine Ag- negative 10/07- blood cx- 10/01 Grp C/G Strep 10/07- COVID/ flu/ RSV PCR- negative 10/07- RVP- + RSV Lines: RIJ TLC (10/10) Radiography/Echo/Other: 10/11- MRI L tib-fib- Mild metallic artifact from distal femoral intramedullary john and fixation screws. Tricompartmental degenerative change of the knee. Degenerative change of the proximal tibiofibular joint. No acute fracture. No evidence of acute osteomyelitis. Diffuse subcutaneous edema and skin thickening. No deep fascial edema. Minimal edema in the distal aspect of the soleus muscle. There appears to be a small knee joint effusion. The knee joint was incompletely imaged. Suspected tear of the lateral meniscus, suboptimally evaluated. No evidence of a drainable abscess in the soft tissues. No appreciable soft tissue gas. IMPRESSION: Impression: Cellulitis. Minimal distal soleus myositis. No evidence of acute osteomyelitis, a drainable abscess, fasciitis, or soft tissue gas. 10/10- BLUE venous US- Acute, non-occlusive superficial vein thrombosis in the basilic vein of the right upper arm No evidence of acute deep vein thrombosis in the right upper extremity. No evidence of acute deep vein thrombosis in the left upper extremity. No evidence of acute superficial vein thrombosis in the left upper extremity. 10/10- TTE- Left Ventricle: Not well visualized. Left ventricle size is normal. Normal wall thickness. Low normal left ventricular systolic function. EF by 2D Simpsons Biplane is 53%. Mild hypokinesis of the following segments: apical inferior and apical lateral. Right Ventricle: Not well visualized. Right ventricle is moderately dilated. RV basal diameter is 4.2 cm. RV mid diameter is 4.2 cm. Normal systolic function. Aorta: Not well visualized. Normal sized sinuses of Valsalva. Moderately dilated ascending aorta. Ao ascending diameter is 3.9 cm. Technically difficult study. The valves are not well visualized. If high suspicion for IE, consider ERICA. 10/10- B hand XR- Diffuse dorsal wrist soft tissue swelling. No radiographic evidence of osteomyelitis. Mild left first CMC osteoarthritis. 10/10- CXR- An AP portable view is compared to the prior examination of 10/07/2023. The examination is underpenetrated. The patient is rotated to the left. There is a new right internal jugular central venous catheter with the tip near the confluence of the superior vena cava and right atrium. There the cardiac s ilhouette is upper limits of normal in size but may be accentuated by rotation and AP portable technique. There is slightly improved pulmonary vascular congestion/interstitial edema. No pleural effusion, raj pulmonary edema, focal consolidation or pneumothorax is seen. There is mild left lung base atelectasis. IMPRESSION: 1. Central venous catheter placement as described. 2. Slight improvement of pulmonary vascular congestion/interstitial edema. 3. No other acute process or interval change. 10/08- L tib-fib XR- FINDINGS: No evidence of acute fracture or dislocation. Severe degenerative changes are seen in themedial lateral compartments of the left knee. Diffuse soft tissue swelling. IMPRESSION: No evidence of acute osseous abnormality. 10/07- CT abd/pelvis- 1. Extremely limited exam due to multiple artifacts, as above. 2. There are abnormal appearing lymph nodes along the left groin and left iliac chain as well as retroperitoneum measuring up to 2.1 cm which may be due to an infectious/inflammatory process, malignancy cannot be excluded. There is stranding along the left iliac chain fatty tissue. Consider furtherevaluation with ultrasound and/or tissue sampling. Also recommend clinical evaluation of the left lower extremity. 3. There is limited evaluation of the venous system. There is a questionable distention of the leftiliac vein and although this is a nondedicated exam, a venous thrombus cannot be completely excluded, recommend venous ultrasound for complete evaluation. 4. The bowel gas pattern is nonspecific and nonobstructive. 5. Limited evaluation of the bladder due to a Chinchilla catheter and poor distention. 10/07- CTA chest- Extremely limited exam due to multiple artifacts, as above. There is no confluent consolidation. There is no main or proximal pulmonary artery embolus. Suspect pulmonary vascular congestion. 10/07- BLE venous US- negative Antimicrobials, Start/End Dates: Clindamycin (10/10-present) Cefazolin (10/11-present) Vancomycin (10/07-10/11) Zosyn (10/07-10/11) Impression: Group C/G Strep BSI arising from 4 limbs cellulitis (worst with LLE and LUE) as well as L distal soleus myositis - TTE is suboptimal - blood cx are clearing from 10/09 Leukemoid reaction Fevers Rhabdomyolysis- ? Myositis RSV infection FRANCISCO J BMI 52 LLE inguinal LAD-reactive to #1 Plan: Continue cefazolin. Continue clindamycin for toxin inhibition with Streptococcal infection. Follow clearance blood cx- clearing thus far. Await MRI imaging of LUE. Plastics is following and no indication of necrotizing fasciitis/ compartment syndrome thus far. No deeper infection in the LLE to require any procedures. Droplet isolation for RSV- supportive care. Palliative Care is consulted for GOC. Would hold off on ERICA at this point. Based on diagnoses and management, combination of acute and chronic problems, exacerbations and/or acuity, this visit should be considered to be of high complexity. Cristine Mo MD * Salena Acevedo MD - 10/12/2023 7:23 AM EST Department of Plastic & Reconstructive Surgery Progress Note S: leukocytosis increasing, procal improving. MRI UE still pending. LE last evening was negative. O: BP 138/80 (BP Location: Right arm, Patient Position: Lying) Pulse 77 Temp 37.1 C (98.8 F) (Axillary) Resp 17 Ht 6' (1.829 m) Wt (!) 376 lb 1.7 oz (171 kg) SpO2 100% BMI 51.01 kg/m I/O last 3 completed shifts: In: 1206 (7.1 mL/kg) [I.V.:1006 (5.9 mL/kg); IV Piggyback:200] Out: 2900 (17 mL/kg) [Urine:2900 (0.5 mL/kg/hr)] Weight: 170.6 kg No intake/output data recorded. GEN: NAD CV: non-tachycardic PULM: breathing non-labored on CPAP EXT: LUE cellulitis throughout entire extremity from hand to axilla (erythema, edema, minimal blistering) within previously drawn lines-stable; no fluctuance; moderately TTP NEURO: AAO ASSESSMENT: 63 y.o. M with BUE edema, L hand cellulitis & bacteremia. Clinical exam stable, leukocytosis slightly increased this AM but procal improving. PLAN: -Continue non-operative management at this time -elevation BUE -abx per ID -MRI pending -procal improvin.56 from 8 D/w Dr. Linda Acevedo MD Plastic Surgery Fellow Pager: [phone] * Severiano Collins MD - 10/12/2023 4:31 AM EST Orthopaedic Surgery Plan of Care Update: MRI read confirmed that there is no evidence of acute osteomyelitis or abscess at this time. Cellulitis appreciated. No plans for surgery. Recommend medical management of patient's cellulitis. Remainder of plan of care per consult note. Orthopaedic surgery to sign off. Severiano Collins MD Orthopaedic Surgery, PGY-2 10/12/2023 4:33 AM * Americo Wayne MD - 10/11/2023 8:29 PM EST Ortho plan of care update: MRI reviewed. No evidence of deep abscess or osteomyelitis to the left tibia/fibula. Consistent with severe cellulitis. No plan for operative intervention at this time. Continue medical management and conservative care. Will follow-up formal radiology read and addend plan as needed. Will continue to follow peripherally. Continued care of bilateral upper extremities per plastic surgery. Americo Wayne MD Orthopaedic Surgery, PGY4 [facility] [phone] * Rabia Pfeiffer [facility] - 10/11/2023 12:51 PM EST Vancomycin therapy has been discontinued by Dr. Cristine Mo on 10/11/23. Thank you for the consult. Pharmacy signing off for vancomycin dosing. Rabia Pfeiffer [facility], Date: 10/11/23 Time: 12:49 PM * Kavon Patterson, DIGITAL CONTENT SPECIALIST - ASSISTANT SCIENTIST - 10/11/2023 9:05 AM EST Images from the original note were not included. Critical Care Medicine ICU Progress Note Admission Summary: 63M hx morbid obesity, HFpEF, COPD, HARISH with likely OHS, remote DVT, HTN, DMII, polysubstance abusewho was admitted to [facility] for sepsis due to cellulitis, FRANCISCO J, rhabdomyolysis, and acute respiratory failure due to RSV requiring NIV. Found to have Group C Strep bacteremia. Developed LE pain and concern for compartment syndrome and was transferred to [facility] 10/09 for further management and ortho/plasticsevaluation. Interval history: No events overnight. Glad of the outcome of the superbowl. Overall clinically improving slightly but still with significant cellulitis and associated pain. Awaiting MRIs. Medications: Scheduled Meds: ARIPiprazole, 20 mg, Oral, Daily aspirin, 81 mg, Oral, Daily [Held by provider] carvedilol, 6.25 mg, Oral, BID WC ceFAZolin, 2,000 mg, IntraVENous, q8h clindamycin, 900 mg, IntraVENous, q8h enoxaparin, 40 mg, SubCUTAneous, q24h folic acid, 1 mg, Oral, Daily insulin lispro, 0-6 Units, SubCUTAneous, TID WC And insulin lispro, 0-6 Units, SubCUTAneous, Nightly ipratropium-albuterol, 3 mL, Nebulization, 4x daily miconazole, , Topical, BID pantoprazole (ProtoNix) 40 mg in sodium chloride (PF) 0.9 % 10 mL injection, 40 mg, IntraVENous, q AM potassium chloride, 40 mEq, Oral, Once sodium chloride 0.9%, 5-40 mL, IntraCATHeter, q8h thiamine, 100 mg, IntraVENous, Daily PRN Meds: PRN medications: acetaminophen OR acetaminophen OR acetaminophen, albuterol, dextrose, dextrose, diphenhydrAMINE, gadobutrol, glucagon (rDNA), glucose, hydrALAZINE, HYDROmorphone OR HYDROmorphone, naloxone, ondansetron ODT OR ondansetron, oxyCODONE OR oxyCODONE, polyethylene glycol (PEG) 3350, sodium chloride 0.9% OBJECTIVE: Vitals: BP 105/65 Pulse 81 Temp 37.4 C (99.4 F) (Axillary) Resp 23 Ht 1.829 m (6') Wt (!) 174 kg (382 lb 11.5 oz) SpO2 (!) 89% BMI 51.91 kg/m 24h Tmax: 100.6F Intake/Output Summary (Last 24 hours) at 10/11/2023 1624 Last data filed at 10/11/2023 1435 Gross per 24 hour Intake 2606 ml Output 1575 ml Net 1031 ml Lines: 10/10 R IJ CVC 10/07 Chinchilla EXAM: PHYSICAL EXAM: General Appearance: [x]No acute distress [x]Obese []Cachectic []Thin []ill Skin: Temperature [x]Warm []Cool Rash []Yes [x]No Tattoo(s) []Yes [x]No L arm, LLE erythema suggestive of cellulitis -- no obvious purulence, not extending beyond demarcation HEENT: Pupils round and react [x]Yes []No Sclera []Icteric [x]Non-Icteric Conjunctiva [x]Normal []Pale Pinnae [x]Normal []Other Dentition [x]Venetie Teeth []Dentures []Edentulous Oral Mucosa [x]Hepburn [x]Moist []Dry Oral ETT []Present [x]Absent Neck: Supple [x]Yes []No Thyromegaly []Yes [x]No Crepitus []Present [x]Absent Jvd []Present [x]Absent Lungs: [x]Clear []Crackles []Wheezes []Rhonchi Respiratory effort []Labored [x]Non-Labored Equal chest rise [x]Yes []No Trachea midline [x]Yes []No Heart: Rate [x]Regular []Irregular []Tachycardia []Bradycardia Rhythm [x]Sinus []Irregular Murmur []Present [x]Absent Capillary Refill [x]<2 sec []>2 sec Peripheral Pulses [x]Strong []Weak []Absent Abdomen: [x]Soft Bowel Sounds []Present []Absent []Tender [x]Non-Tender []Distended [x]Non-distended Hernia []Present [x]Absent Organomegaly []Present [x]Absent Mass []Present [x]Absent Extremities: Cyanosis []Present [x]Absent MAHMOOD ([x]RUE [x]RLE [x]LUE [x]LLE) Clubbing []Yes [x]No Edema [x]Yes []No Neurologic: Alert [x]yes []no Oriented []x0 []x1 []x2 [x]x3 CHINIK []Yes [x]No Follows Commands [x]Yes []No []Unresponsive to verbal [x]Cranial nerves grossly intact [x]Sensation grossly intact Psych: Affect []Normal [x]Flat []Agitated []Anxious [x]Calm []Sedated Hallucinations []Yes [x]No Results: Today's labs individually interpreted by me. CBC: Recent Labs 10/09/2353810/10/23610/11/23457 WBC 14.9* 23.3* 22.6* HGB 13.5 13.2 12.7* HCT 40.3 40.3 38.4* MCV 87.9 89.9 90.2 PLT 94* 94* 102* BMP: Recent Labs 10/09/2353810/10/23610/11/23457 NA 129* 128* 130* K 3.3* 3.7 3.3* CL 99 95* 98 CO2 22 23 25 PHOS 2.3* 2.2* 3.3 BUN 20 24* 25* CREATININE 0.98 1.04 0.93 MG 1.8 1.6 1.9 LIVER PROFILE: Recent Labs 10/09/2353810/10/23610/11/23457 AST 177* 128* 125* ALT 62* 57* 42 BILITOT 1.0 1.1 0.9 ALKPHOS 62 67 162* PT/INR: Recent Labs 10/09/2353810/10/236 PROTIME 10.4 10.3 INR 0.9 1.0 APTT: Recent Labs 10/09/23538 09/11/24 0007 APTT 33.6* 26.2 Cultures: 10/07 RVP -- RSV+ 10/07 BC -- Strep dysgalactiae (Group C/G) 10/07 UAg negative 10/07 MRSA PCR MSSA+ 10/07 LLE wound cx -- NGTD 10/09 BC -- NGTD Diagnostics: 10/10 CXR: Reviewed by me. IMPRESSION: 1. Central venous catheter placement as described. 2. Slight improvement of pulmonary vascular congestion/interstitial edema. 3. No other acute process or interval change. 10/10 XR Hand IMPRESSION: Diffuse dorsal wrist soft tissue swelling. No radiographic evidence of osteomyelitis. Mild left first CMC osteoarthritis. 10/08 Echo: Left Ventricle: Not well visualized. Left ventricle size is normal. Normal wall thickness. Low normal left ventricular systolic function. EF by 2D Simpsons Biplane is 53%. Mild hypokinesis of the following segments: apical inferior and apical lateral. Right Ventricle: Not well visualized. Right ventricle is moderately dilated. RV basal diameter is 4.2 cm. RV mid diameter is 4.2 cm. Normal systolic function. Aorta: Not well visualized. Normal sized sinuses of Valsalva. Moderately dilated ascending aorta. Ao ascending diameter is 3.9 cm. Technically difficult study. The valves are not well visualized. If high suspicion for IE, consider ERICA. Assessment: Severe sepsis Group C/G Strep bacteremia due to cellulitis of multiple extremities +/- abscess Rhabdomyolysis RSV infection COPD, HARISH DMII Transaminitis Normocytic anemia Hyponatremia Hypokalemia Mood disorder Polysubstance abuse Protein calorie malnutrition, unspecified severity Morbid obesity Resolved Acute hypoxic respiratory failure Plan: Severe sepsis due to cellulitis +/- abscess Ortho, plastics following -- no acute indication for OR in the way of nec fasc or compartment syndrome MRIs pending of LLE, L wrist ID following, continue cefazolin/clinda, DC'd vanco. Appreciate ID recs Repeat BC pending, thus far no sign of persistent bacteremia, will defer ERICA for now Rhabdomyolysis improving gradually RSV managed with supportive care, on RA, continue BiPAP at HS LFTs stable, asymptomatic, follow clinically Sodium stable at 130 FEN: replace K, thiamine/folate, diet as tolerated Prophylaxis: PPI, lovenox Will likely be stable for transfer tomorrow. Plan of care discussed with Dr. Wilbert Arita. CHETAN [facility] [phone] Time spent preparing to see the patient, obtaining/reviewing separately obtained history, completing an appropriate medical examination of the patient, ordering medications/tests/procedures, documenting clinical information on the EMR, and/or coordinating care is a subsequent visit: 50 minutes (Level III). * Michelle Stephens [facility] - 10/11/2023 8:59 AM EST Pharmacy to Dose Vancomycin - Progress Note Recent Labs 10/09/23 0539 10/10/23 0007 10/11/23 0458 BUN 20 24* 25* CREATININE 0.98 1.04 0.93 No results found for: VANCOTROUGH Doses, serum creatinine, and vancomycin levels interfaced automatically to [employer] and data has been analyzed and interpreted. Assessment: Current regimen vancomycin 2000 mg every 8 hours, predicted AUC = 544 mg/L*hr (goal 400-600 mg/L*hr). Plan: AUC therapeutic. Continue current dosing at this time. Next level due 10/14 unless any acute changesoccur beforehand. Will follow. Trend serum creatinine. Trend AUC using Bayesian Modeling. Orders placed. DATE: 10/11/23 TIME: 8:57 AM Michelle Stephens [facility] Clinical Pharmacist Available via Snaps * Cristine Mo MD - 10/11/2023 7:19 AM EST Images from the original note were not included. [facility] - Infectious Diseases Attending Progress Note Subjective: Following for cellulitis of 4 limbs with Grp C/G Strep BSI-- LUE and LLE are the worst. + BMI 52. He remains in ICU. Unable to provide much history. Tm 100.6F yesterday and has since defervesced. Surgery is following. Awaiting MRI of LLE and L hand/ wrist. Unable to provide much history. Objective: Vitals: Patient Vitals for the past 24 hrs: BP Temp Temp src Pulse Resp SpO2 Weight 10/11/23 0504 -- -- -- -- -- -- (!) 174 kg (382 lb 11.5 oz) 10/11/23 0400 -- 36.8 C (98.2 F) Axillary 83 -- 96 % -- 10/11/23 0200 105/62 -- -- 83 17 96 % -- 10/11/23 0100 112/69 -- -- 80 14 95 % -- 10/11/23 0000 120/67 37.1 C (98.7 F) Axillary 81 16 97 % -- 10/10/23 2300 126/66 -- -- 80 17 99 % -- 10/10/23 2200 113/67 -- -- 80 14 95 % -- 10/10/23 2100 109/65 -- -- 82 15 98 % -- 10/10/238 -- -- -- 83 -- 97 % -- 10/10/232017 -- -- -- 82 18 95 % -- 10/10/23 2000 135/73 36.8 C (98.3 F) Axillary 83 19 94 % -- 10/10/23 1900 112/77 -- -- 76 17 95 % -- 10/10/23 1700 109/65 37.7 C (99.8 F) Axillary 82 14 97 % -- 10/10/23 1600 130/70 -- -- 84 21 96 % -- 10/10/23 1526 -- -- -- 82 20 95 % -- 10/10/23 1500 116/76 -- -- 71 18 95 % -- 10/10/23 1400 116/76 -- -- 83 20 95 % -- 10/10/23 1310 128/77 -- -- 82 20 93 % -- 10/10/23 1214 -- 37.8 C (100 F) -- 90 (!) 26 96 % -- 10/10/23 1200 119/72 -- -- 89 22 93 % -- 10/10/23 1100 114/70 -- -- 86 23 93 % -- 10/10/23 1000 134/74 -- -- 88 22 93 % -- 10/10/23 0900 115/68 -- -- 94 23 97 % -- 10/10/23 0800 116/63 (!) 38.1 C (100.6 F) Axillary 83 21 96 % -- Physical Exam Vitals and nursing note reviewed. Constitutional: Appearance: He is ill-appearing. HENT: Head: Normocephalic. Right Ear: External ear normal. Left Ear: External ear normal. Nose: Nose normal. Mouth/Throat: Mouth: Mucous membranes are dry. Eyes: General: No scleral icterus. Extraocular Movements: Extraocular movements intact. Cardiovascular: Rate and Rhythm: Normal rate and regular rhythm. Pulmonary: Breath sounds: No wheezing. Comments: Coarse BS Abdominal: General: There is no distension. Palpations: Abdomen is soft. Tenderness: There is no abdominal tenderness. Musculoskeletal: Comments: Erythema as marked with margins on BUE and BLE-- no progression beyond margins; + tenderness over dorsum of L wrist; forearm compartments appear soft Neurological: Comments: drowsy Labs: Lab Results Component Value Date/Time NA 130 (L) 10/11/2023 0458 K 3.3 (L) 10/11/2023 0458 CL 98 10/11/2023 0458 CO2 25 10/11/2023 0458 BUN 25 (H) 10/11/2023 0458 CREATININE 0.93 10/11/2023 0458 CREATININE 1.25 03/16/2022 0649 GLUCOSE 112 (H) 10/11/2023 0458 CALCIUM 8.2 (L) 10/11/2023 0458 PROT 5.8 (L) 10/11/2023 0458 BILITOT 0.9 10/11/2023 0458 ALKPHOS 162 (H) 10/11/2023 0458 AST 125 (H) 10/11/2023 0458 ALT 42 10/11/2023 0458 PROCAL 8.03 (H) 10/10/2023 0909 PROCAL 9.55 (H) 10/10/2023 0007 PROCAL 19.57 (H) 10/07/2023 1404 Lab Results Component Value Date/Time WBC 22.6 (H) 10/11/2023457 HGB 12.7 (L) 10/11/2023457 HCT 38.4 (L) 10/11/2023457 PLT 102 (L) 10/11/2023457 GRANULOCYTES 55.0 03/16/2022 0649 LYMPHOPCT 2 (L) 10/10/2023 000 LYMPHOPCT 1.6 (L) 10/09/2023538 MONOPCT 2 10/10/2023 000 MONOPCT 1.6 (L) 10/09/2023538 LABEOS 2.3 03/16/2022 0649 BASOPCT 0.1 10/09/2023538 NEUTROABS 14.4 (H) 10/09/2023538 Micro: 10/09- blood cx- NGTD 10/07- L wound leg cx- NGTD 10/07- nasal PCR- + MSSA 10/07- Legionella and Strep urine Ag- negative 10/07- blood cx- 10/01 Grp C/G Strep 10/07- COVID/ flu/ RSV PCR- negative 10/07- RVP- + RSV Lines: RIJ TLC (10/10) Radiography/Echo/Other: 10/10- BLUE venous US- Acute, non-occlusive superficial vein thrombosis in the basilic vein of the right upper arm No evidence of acute deep vein thrombosis in the right upper extremity. No evidence of acute deep vein thrombosis in the left upper extremity. No evidence of acute superficial vein thrombosis in the left upper extremity. 10/10- TTE- Left Ventricle: Not well visualized. Left ventricle size is normal. Normal wall thickness. Low normal left ventricular systolic function. EF by 2D Simpsons Biplane is 53%. Mild hypokinesis of the following segments: apical inferior and apical lateral. Right Ventricle: Not well visualized. Right ventricle is moderately dilated. RV basal diameter is 4.2 cm. RV mid diameter is 4.2 cm. Normal systolic function. Aorta: Not well visualized. Normal sized sinuses of Valsalva. Moderately dilated ascending aorta. Ao ascending diameter is 3.9 cm. Technically difficult study. The valves are not well visualized. If high suspicion for IE, consider ERICA. 10/10- B hand XR- Diffuse dorsal wrist soft tissue swelling. No radiographic evidence of osteomyelitis. Mild left first CMC osteoarthritis. 10/10- CXR- An AP portable view is compared to the prior examination of 10/07/2023. The examination is underpenetrated. The patient is rotated to the left. There is a new right internal jugular central venous catheter with the tip near the confluence of the superior vena cava and right atrium. There the cardiac s ilhouette is upper limits of normal in size but may be accentuated by rotation and AP portable technique. There is slightly improved pulmonary vascular congestion/interstitial edema. No pleural effusion, raj pulmonary edema, focal consolidation or pneumothorax is seen. There is mild left lung base atelectasis. IMPRESSION: 1. Central venous catheter placement as described. 2. Slight improvement of pulmonary vascular congestion/interstitial edema. 3. No other acute process or interval change. 10/08- L tib-fib XR- FINDINGS: No evidence of acute fracture or dislocation. Severe degenerative changes are seen in themedial lateral compartments of the left knee. Diffuse soft tissue swelling. IMPRESSION: No evidence of acute osseous abnormality. 10/07- CT abd/pelvis- 1. Extremely limited exam due to multiple artifacts, as above. 2. There are abnormal appearing lymph nodes along the left groin and left iliac chain as well as retroperitoneum measuring up to 2.1 cm which may be due to an infectious/inflammatory process, malignancy cannot be excluded. There is stranding along the left iliac chain fatty tissue. Consider furtherevaluation with ultrasound and/or tissue sampling. Also recommend clinical evaluation of the left lower extremity. 3. There is limited evaluation of the venous system. There is a questionable distention of the leftiliac vein and although this is a nondedicated exam, a venous thrombus cannot be completely excluded, recommend venous ultrasound for complete evaluation. 4. The bowel gas pattern is nonspecific and nonobstructive. 5. Limited evaluation of the bladder due to a Chinchilla catheter and poor distention. 10/07- CTA chest- Extremely limited exam due to multiple artifacts, as above. There is no confluent consolidation. There is no main or proximal pulmonary artery embolus. Suspect pulmonary vascular congestion. 10/07- BLE venous US- negative Antimicrobials, Start/End Dates: Vancomycin (10/07-present) Zosyn (10/07-present) Clindamycin (10/10-present) Impression: Group C/G Strep BSI arising from 4 limbs cellulitis (worst with LLE and LUE) - TTE is suboptimal - blood cx are clearing from 10/09 Leukemoid reaction Fevers Rhabdomyolysis- ? Myositis RSV infection FRANCISCO J BMI 52 LLE inguinal LAD-reactive to #1 Plan: Stop vancomycin as no evidence of MRSA. Change zosyn to cefazolin 2g IV q8h. Continue clindamycin for toxin inhibition with Streptococcal infection. Follow clearance blood cx. Await MRI imaging of LLE and LUE. Plastics is following and no indication of necrotizing fasciitis/compartment syndrome thus far. Droplet isolation for RSV- supportive care. Palliative Care is consulted for [facility]. Would hold off on ERICA at this point. Total critical care time provided was 35 minutes. This time is exclusive of time spent performing procedures. Cristine Mo MD * Esperanza Roger MD - 10/11/2023 7:17 AM EST Department of Plastic & Reconstructive Surgery Progress Note SUBJECTIVE : Continues to have significant LLE and LUE pain. OBJECTIVE Physical LUE: Diffuse edema, induration, no improvement from prior markings but has not progressed. No palpable fluid collection. Generalized edema through the hand and wrist and moderate tenderness to palpation. No signs of flexor tenosynovitis. ASSESSMENT AND PLAN: Patient is a 63 y/o male with bilateral hand edema and left hand erythema. On exam no drainable fluid collection noted to left hand. He has a downtrending procalcitonin levelbut did have an acute spike in his WBC. CRP and ESR are also elevated. Currently on vanc and zosyn with ID following. Blood cultures on 10/07 showed Group C strep Plan: - No acute surgical intervention indicated at this time - follow up MRI of left hand and wrist - continue antibiotics - please elevate bilateral upper extremities above the level of the heart at all times. - we will continue to closely monitor his condition. Esperanza Roger MD Plastic and Reconstructive Surgery Fellow Pager: [phone] * Severiano Collins MD - 10/10/2023 11:59 PM EST Images from the original note were not included. Ortho Recheck LLE: Compartments (Ant/Lat/Post): Swollen but compressible Foot: +DP/PT palpable pulses Sensation intact to Saphenous/Superficial Peroneal/Deep Peroneal/Tibal/Sural distributions Foot/toes are warm and well perfused Pt able to wiggle toes and plantarflex/dorsiflex ankle Minimal pain with passive stretch of EHL/FHL Erythema is stable at previously demarcated line. Assessment: Severe Cellulitis in 3 extremities with critical labs. -Ortho to follow for MRI LLE -Continue aggressive elevation of all extremities above level of the heart -Rest of plan per Consult note -Please page ortho resident power house control room operator with any further concerns. Severiano Collins MD Orthopaedic Surgery, PGY-2 10/11/2023 12:02 AM * Yimi Mcneill MD - 10/10/2023 2:12 PM EST Brief Orthopedic Progress Note Ortho Recheck RUE: Swollen with stable erythema and pruritic reaction, most around the posterior elbow SILT R/M/U Motor intact AIN/PIN/U Palpable radial pulse LUE: Swollen with stable erythema and pruritic reaction, most around the wrist SILT R/M/U Motor intact AIN/PIN/U Palpable radial pulse Compartments (Ant/Lat/Post): Swollen but compressible Foot: +DP/PT palpable pulses Sensation intact to Saphenous/Superficial Peroneal/Deep Peroneal/Tibal/Sural distributions Foot/toes are warm and well perfused Pt able to wiggle toes Erythema has advanced minimally beyond previously demarcated line. Assessment: Severe Cellulitis in 3 extremities with critical labs. -Still awaiting MRI LLE -Continue aggressive elevation of all extremities above level of the heart -PRS consult for bilateral hand swelling and erythema with Dr. Mckeon -Rest of plan per Consult note -Please page ortho resident power house control room operator with any further concerns. * Ashutosh Velazquez MD - 10/10/2023 10:35 AM EST Ortho recheck RUE: Swollen with stable erythema and pruritic reaction pictured below, most around the posterior elbow SILT R/M/U Motor intact AIN/PIN/U Palpable radial pulse LUE Swollen with stable erythema and pruritic reaction pictured below, most around the wrist SILT R/M/U Motor intact AIN/PIN/U Palpable radial pulse Compartments (Ant/Lat/Post): Swollen but compressible Foot: +DP/PT palpable pulses Sensation intact to Saphenous/Superficial Peroneal/Deep Peroneal/Tibal/Sural distributions Foot/toes are warm and well perfused Pt able to wiggle toes Minimal pain with passive stretch of EHL/FHL Erythema is stable at previously demarcated line. Assessment: Severe Cellulitis in 3 extremities with critical labs. -Plan for recheck at 1400 -Still awaiting MRI LLE -Continue aggressive elevation of all extremities above level of the heart -PRS consult for bilateral hand swelling and erythema with Dr. Mckeon -Rest of plan per Consult note -Please page ortho resident power house control room operator with any further concerns. Ashutosh Velazquez MD PGY-4 Orthopedic Surgery Pager [phone] * Justin Vernon MD - 10/10/2023 8:18 AM EST Discussed patient with ICU team and infectious disease team. Infectious disease doctor believes that much of the pruritic rash on bilateral upper extremities is toxin mediated. She also stated that there does not currently appear to be any definitive area that would need surgery for source control,but we have MRIs of the left lower extremity as well as the left wrist pending to rule out any organ ization of this Group C strep. Orthopedics will continue to check this patient as this is very serious infection. As of now after discussion with ICU and ID, there is no surgical target for us to debride. If that changes given clinical picture or with MRI results, orthopedics will be available for any sort of debridement. If patient's left hand/wrist MRI is revealing of a fluid collection/abscess, will recommend plastics consult for any surgical debridement as they are on hand call this weekend. We are available for any questions or concerns that may arise, please page on- call resident Justin Vernon MD Orthopaedic Surgery PGY3 10/10/2023 8:22 AM * Brittaney Ng NP - 10/10/2023 8:08 AM EST ICU Progress Note Name: Hyacinth Hurst : 1960(63 y.o.) Date: 10/10/23 Team: MICU Attending: Dr. Funes Subjective: Hospital Summary: Patient is a 63 year old male with a PMH of DM2, HARISH, CAD, HFpEF (53% 09/2023), carotid artery stenosis, HTN, HARISH, COPD, Hepatitis C ab positive, h/o acute DVTs was admitted [facility] on 10/07 with chief complaint of generalized feeling unwell, fevers, chills, SOB, weakness and diffuse body pain. He was found to have severe sepsis 2/2 cellulitis, RSV. Patient was started on Zosyn, given IVF Bolus and NIV for increased WOB. He was found to be bacteremic (group C/G Strep). Concern for compartment syndrome/ nec fasc of LLE, CK initially elevated. Pulses in LLE were not able to be dopplered. LLE US -no DVT. Decision was made to transfer patient to [facility] so he could be evaluated by Ortho. Interval Events: Patient having generalized pain. Redness in 3 extremities (RUE, LUE, LLE) concerning for cellulitis. LLE pulse able to be palpated. Ortho, ID at bedside to evaluate. With no localized source, ortho is not planning any intervention. ID to add Clindamycin. Central line placed. Patient tolerating 2L NC. Venous US revealed RUE superficial thrombosis in his basilic vein. Scheduled Meds:aspirin, 81 mg, Oral, Daily [Held by provider] carvedilol, 6.25 mg, Oral, BID WC clindamycin, 900 mg, IntraVENous, q8h enoxaparin, 40 mg, SubCUTAneous, q24h folic acid, 1 mg, Oral, Daily ipratropium-albuterol, 3 mL, Nebulization, 4x daily miconazole, , Topical, BID pantoprazole (ProtoNix) 40 mg in sodium chloride (PF) 0.9 % 10 mL injection, 40 mg, IntraVENous, q AM piperacillin-tazobactam, 4,500 mg, IntraVENous, q6h sodium chloride 0.9%, 5-40 mL, IntraCATHeter, q8h thiamine, 100 mg, IntraVENous, Daily vancomycin, 2,000 mg, IntraVENous, q8h Continuous Infusions: Objective: Last Vitals: BP MAP 109/65 (10/10/231699) 78 (10/10/231699) Arterial BP MAP Temp 37.7 C (99.8 F) (10/10/231699) Pulse 82 (10/10/231699) Resp 14 (10/10/231699) SpO2 97 % (10/10/231699) Weight (!) 166 kg (365 lb 15.4 oz) (10/10/23551) BMI Body mass index is 49.63 kg/m . I/O: 10/09 0700 - 10/10 0659 In: 3202 [P.O.:2745; I.V.:457] Out: 4500 [Urine:4485] +1992 Oxygen Delivery: O2 Flow Rate (L/min): 2 L/min Invasive Lines / Tubes / Drains: CVC Triple Lumen 10/10/23 Non-tunneled Right Internal jugular (Active) Number of days: 0 Urethral Catheter Straight-tip 16 Fr. (Active) Number of days: 3 Central Line Indication: Inadequate peripheral access despite documented ultrasound attempts AND unable to place extended dwell PIV and business administration program chair antibiotic therapy Chinchilla Indications: Hourly I&Os (Critical Care ONLY) Restraints: NA - patient is not restrained. Wounds: Wound/Incision 10/11/22 Incision Hand Anterior;Left (Active) Date First Assessed/Time First Assessed: 10/11/22 1000 Primary Wound Type: Incision Location: Hand Wound Location Orientation: Anterior;Left Wound/Incision 12/26/22 Pretibial Distal;Right (Active) Date First Assessed: 12/26/22 Present on Hospital Admission: Yes Location: Pretibial Wound LocationOrientation: Distal;Right Wound Outcome: Unknown (No longer present) Constitutional: General Appearance []WDWN [x]Obese []Cachectic []Thin []Ill Eyes: Inspection of Pupils/Irises Pupils round and react: [x]Yes []No Sclera: []Icteric [x]Non-Icteric Inspection of Conjunctiva/Lids Conjunctiva: []Injected []Non-Injected Lids: [x]Intact []Lesion Present ENT/Mouth: External Inspection of ears/nose [x] Normal [] Scar/Lesion/Mass Inspection of teeth/lips/gums Dentition: [x][place] Teeth []Dentures Lips/Gums: [x]Intact []Lesion Present Mucosa: [x]Hepburn [x]Moist []Dry Neck: External Appearance Overall Appearance: [x]Normal []Lesion/Mass/Crepitus Present Trachea midline: [x]Yes []No Thyroid []Normal []Enlarged []Tender []Mass []Absent Respiratory: Respiratory effort []Labored [x]Non-Labored [] Mechanically-Ventilated Auscultation [x]Clear []Crackles []Wheezes []Rhonchi Cardiovascular: Auscultation Rate: [x]Regular []Irregular []Tachycardia []Bradycardia Rhythm: [x]Regular []Irregular Murmur: []Present [x]Absent Extremities Peripheral Edema: [x]Present []Absent Varicosities: []Present []Absent Gastrointestinal: Abdomen Palpation: [x]Soft []Firm []Tender [x]Non-Tender []Distended [x]Non-distended Mass: []Present [x]Absent Bowel Sounds: [x]Present []Absent Hernia: []Present [x]Absent Liver/Spleen: []Hepatosplenomegaly []Organomegaly Absent Musculoskeletal: Inspection of Digits and Nails Cyanosis: []Present [x]Absent Clubbing: []Present [x]Absent Ischemia: []Present [x]Absent Infection: []Present [x]Absent Extremities MAHMOOD Equally: Except ([x]RUE []RLE [x]LUE [x]LLE)-pain Strength/Tone: Intact and Normal ([x]RUE []RLE [x]LUE []LLE) Skin: Redness RUE, LUE, LLE Inspection []Normal []Rash []Lesion []Ulcer Palpation [x]Warm []Cool [x]Dry []Clammy []Nodules []Induration []Skin-tightening Cap-Refill: [x] <3 sec [] >3 seconds (delayed) Neurologic: GCS EYE: 4 - Opens spontaneously GCS MOTOR: 6 - Obeys commands for movement GCS VERBAL: 5 - Oriented to person, place, time Total GCS: 15 [x] Sensation grossly intact Psych: Mental Status Alert: [x]Yes [] No Oriented: []x0 []X1 []X2 [x]x3 Mood/Affect [x]Normal []Flat []Agitated []Depressed []Anxious []Calm []Sedated []NAD Select Labs within last 24 hours- BMP: Recent Labs 10/08/2330910/09/2353810/10/236 NA 129* 129* 128* K 3.8 3.3* 3.7 CL 100 99 95* CO2 18* 22 23 BUN 33* 20 24* CREATININE 1.43* 0.98 1.04 CALCIUM 7.7* 8.1* 8.2* MG 1.6 1.8 1.6 PHOS 4.0 2.3* 2.2* LFTs: Recent Labs 10/08/2330910/09/2353810/10/236 AST 300* 177* 128* ALT 67* 62* 57* PROT 6.5 6.2* 6.2* ALBUMIN 3.1* 2.9* 3.0* BILITOT 1.2 1.0 1.1 ALKPHOS 51 62 67 Glucose: Recent Labs 10/07/23201710/08/2330910/08/23193910/09/2353810/10/236 GLUCOSE -- 94 -- 102* 108* POCGLU 111* -- 131* -- -- Procal: Recent Labs 10/10/23610/10/23908 PROCAL 9.55* 8.03* CBC: Recent Labs 10/08/2330910/09/2353810/10/236 WBC 14.2* 14.9* 23.3* HGB 14.4 13.5 13.2 HCT 43.3 40.3 40.3 PLT 123* 94* 94* MCV 89.2 87.9 89.9 RDW 14.0 13.9 13.8 ABGs: No results for input(s): PHART, ZUN4JJL, PO2ART, XCU8VAZ, SO2ART, X8MBMUPL in thelast 72 hours. Lactic Acid: Recent Labs 10/07/23204010/08/23 0055 10/08/23 0607 LACTATE 2.1* 2.4* 1.9 INR: Recent Labs 10/08/23 0310 10/09/23 0539 10/10/23 0007 INR 1.2* 0.9 1.0 Cardiac Injury Profile: Recent Labs 10/07/23204310/08/23 0310 10/09/23 0539 10/09/23 2103 CKTOTAL -- 11,736* 2,978* 1,165* TROPONINI 0.244* 0.202* -- -- Labs in Last 3 months: Lab Results Component Value Date TSH 2.342 10/07/2023 INR 1.0 10/10/2023 Microbiology- 10/07 resp PCR: RSV 10/07 BC 10/01: Streptococcus dysgalactiae (group C/G) 10/07 Urine antigens: Negative 10/07 MRSA PCR: MSSA 10/07 wound cultures: NGTD 10/09 BC 10/01: NGTD Imaging- CT chest angiogram w and/or wo IV contrast 10/07 ABDOMEN/PELVIS: 1. Extremely limited exam due to multiple artifacts, as above. 2. There are abnormal appearing lymph nodes along the left groin and left iliac chain as well as retroperitoneum measuring up to 2.1 cm which may be due to an infectious/inflammatory process, malignancy cannot be excluded. There is stranding along the left iliac chain fatty tissue. Consider furtherevaluation with ultrasound and/or tissue sampling. Also recommend clinical evaluation of the left lower extremity. 3. There is limited evaluation of the venous system. There is a questionable distention of the leftiliac vein and although this is a nondedicated exam, a venous thrombus cannot be completely excluded, recommend venous ultrasound for complete evaluation. 4. The bowel gas pattern is nonspecific and nonobstructive. 5. Limited evaluation of the bladder due to a Chinchilla catheter and poor distention. Assessment and Plan: Principal Problem: Sepsis due to other etiology (HCC) Assessment: Severe Sepsis 2/2 Cellulitis LLE, Strep Bacteremia group C,G -repeat BC 10/09-NGTD -if negative may need PICC for long-term antibiotic therapy -LA resolved, procalcitonin elevated but trending down -continue Vancomycin, Zosyn, now Clindamycin -will obtain MRI LLE -ortho, plastics, ID following -reddened areas marked -WBC increasing to 23.3 -febrile, T-Max 100.6 -possible organized abscess in left hand? Previous abscess approximately 2 years ago -CK trending down, CRP >270 -elevate effected extremities Acute Respiratory Failure 2/2 RSV; Hx HARISH, COPD -resolved -tolerating NC during day, Bipap HS Hyponatremia -129 -has been low entire admission -will assess after PO intake increases -daily CMP Transaminitis -improving daily -likely related to liver congestion-previous FRANCISCO J -daily CMP Thrombocytopenia -Platelets 94, down from 140 on admission -likely 2/2 acute illness -Daily CBC Hx DM2 -carb control diet -SSI low dose -HgbA1c 5.8 Hx CAD, HFpEF (53% 09/2023), carotid artery stenosis, HTN -hold Coreg, likely restart tomorrow Hx Polysubstance abuse, Mood disorder -+Amphetamines on admission -unclear if ETOH -monitor for signs of withdrawal -continue Abilify GI Prophylaxis: Pantoprazole IV DVT Prophylaxis: Lovenox 40 q 24hr - creatinine clearance >30 Disposition: Remain in ICU Status Code Status: DNR-CCA/ DNI Discussed plan with Dr. Funes Critical Care Time: 60 Total critical care time caring for this patient with life threatening, unstable organ failure, including direct patient contact, management of life support systems, review of data including imaging and labs, discussions with other team members and physicians, excluding procedures. * Justin Vernon MD - 10/10/2023 7:19 AM EST Images from the original note were not included. Ortho recheck RUE: Swollen with stable erythema and pruritic reaction pictured below, most around the posterior elbow SILT R/M/U Motor intact AIN/PIN/U Palpable radial pulse LUE Swollen with stable erythema and pruritic reaction pictured below, most around the wrist SILT R/M/U Motor intact AIN/PIN/U Palpable radial pulse Compartments (Ant/Lat/Post): Swollen but compressible Foot: +DP/PT palpable pulses Sensation intact to Saphenous/Superficial Peroneal/Deep Peroneal/Tibal/Sural distributions Foot/toes are warm and well perfused Pt able to wiggle toes Minimal pain with passive stretch of EHL/FHL Erythema is stable at previously demarcated line. Assessment: Severe Cellulitis in 3 extremities with critical labs. -Plan for recheck at Noon. -Still awaiting MRI LLE -Continue aggressive elevation of all extremities above level of the heart -Rest of plan per Consult note -Please page ortho resident power house control room operator with any further concerns. Justin Vernon MD Orthopaedic Surgery PGY3 10/10/2023 7:19 AM * Laina Rivera MD - 10/10/2023 3:34 AM EST LLE Compartment Check: Compartments (Ant/Lat/Post): Swollen but compressible Foot: +DP/PT palpable pulses Sensation intact to Saphenous/Superficial Peroneal/Deep Peroneal/Tibal/Sural distributions Foot/toes are warm and well perfused Pt able to wiggle toes Minimal pain with passive stretch of EHL/FHL Erythema is stable at previously demarcated line. Plan for recheck at 6am. Please page ortho resident power house control room operator with any further concerns. Laina Rivera MD PGY-2 Orthopaedic Surgery * Citlali Kurtz DO - 10/09/2023 11:59 PM EST Images from the original note were not included. ICU Progress Note Name: Hyacinth Hurst : 1960(63 y.o.) Date: 10/10/23 Team: MICU Attending: Dr. Rafael Curtis Subjective: Hospital Summary: Patient transferred from [facility] on 10/10 for concerned for compartment syndrome. Patient accepted by Dr. Curtis for Severe sepsis due to cellulitis LLE, Strep bacteremia, RSV LRTI, Rhabdomyolysis, acute respiratory failure, Lactic acidosis, Demand ischemia, elevated trop, Mood disorder, Transaminitis. Upon arrival patient with 2+ pulses on dorsalis pedis and posterior tibial bilaterally. Upon Assessment by Ortho recommended MRI to r/o abscess and plan to observe. Ortho not concerned for compartment syndrome at this time. Continue current orders along with neurovascular checks. On vanc and zosyn. Scheduled Meds:aspirin, 81 mg, Oral, Daily [Held by provider] carvedilol, 6.25 mg, Oral, BID WC enoxaparin, 40 mg, SubCUTAneous, q24h folic acid, 1 mg, Oral, Daily ipratropium-albuterol, 3 mL, Nebulization, 4x daily miconazole, , Topical, BID pantoprazole (ProtoNix) 40 mg in sodium chloride (PF) 0.9 % 10 mL injection, 40 mg, IntraVENous, q AM piperacillin-tazobactam, 3,375 mg, IntraVENous, q8h thiamine, 100 mg, IntraVENous, Daily vancomycin, 2,000 mg, IntraVENous, q8h Continuous Infusions: Objective: Last Vitals: BP MAP 112/72 (10/09/232323) 85 (10/09/232323) Arterial BP MAP Temp 37.9 C (100.2 F) (10/09/232323) Pulse 76 (10/09/232323) Resp 18 (10/09/232323) SpO2 98 % (10/09/232323) Weight (!) 156 kg (343 lb 7.6 oz) (10/09/23343) BMI Body mass index is 46.58 kg/m . I/O: 10/09 0700 - 10/10 0659 In: 2790 [P.O.:2745; I.V.:45] Out: 4000 [Urine:3985] Ventilator: Resp Rate (Set): 4 FiO2 (%): 40 % Inspiratory Time (sec): 0.8 sec Oxygen Delivery: O2 Flow Rate (L/min): 6 L/min Invasive Lines / Tubes / Drains: Auto Hauler Peripheral IV 10/07/23 Right Cephalic vein Expires 11/06/2023 (Active) Number of days: 2 Urethral Catheter Straight-tip 16 Fr. (Active) Number of days: 2 Central Line Indication: NA - patient does not have a central line Chinchilla Indications: Neurogenic bladder or chronic urinary retention Restraints: NA - patient is not restrained. Wounds: Wound/Incision 10/11/22 Incision Hand Anterior;Left (Active) Date First Assessed/Time First Assessed: 10/11/22 1000 Primary Wound Type: Incision Location: Hand Wound Location Orientation: Anterior;Left Wound/Incision 12/26/22 Pretibial Distal;Right (Active) Date First Assessed: 12/26/22 Present on Hospital Admission: Yes Location: Pretibial Wound LocationOrientation: Distal;Right Wound Outcome: Unknown (No longer present) Constitutional: General Appearance []WDWN [x]Obese []Cachectic []Thin []Ill Eyes: Inspection of Pupils/Irises Pupils round and react: [x]Yes []No Sclera: []Icteric [x]Non-Icteric Inspection of Conjunctiva/Lids Conjunctiva: []Injected [x]Non-Injected Lids: [x]Intact []Lesion Present ENT/Mouth: External Inspection of ears/nose [x] Normal [] Scar/Lesion/Mass Inspection of teeth/lips/gums Dentition: [x]Venetie Teeth []Dentures Lips/Gums: [x]Intact []Lesion Present Mucosa: []Hepburn []Moist [x]Dry Neck: External Appearance Overall Appearance: [x]Normal []Lesion/Mass/Crepitus Present Trachea midline: [x]Yes []No Thyroid [x]Normal []Enlarged []Tender []Mass []Absent Respiratory: Respiratory effort []Labored [x]Non-Labored [] Mechanically-Ventilated Auscultation []Clear []Crackles []Wheezes [x]Rhonchi Cardiovascular: Auscultation Rate: [x]Regular []Irregular []Tachycardia []Bradycardia Rhythm: [x]Regular []Irregular Murmur: []Present [x]Absent Extremities Peripheral Edema: [x]Present []Absent Varicosities: []Present [x]Absent Gastrointestinal: Abdomen Palpation: [x]Soft []Firm []Tender []Non-Tender []Distended [x]Non-distended Mass: []Present [x]Absent Bowel Sounds: [x]Present []Absent Hernia: []Present []Absent Liver/Spleen: []Hepatosplenomegaly []Organomegaly Absent Musculoskeletal: Inspection of Digits and Nails Cyanosis: []Present []Absent Clubbing: []Present []Absent Ischemia: []Present []Absent Infection: [x]Present []Absent Extremities MAHMOOD Equally: Except ([]RUE []RLE []LUE []LLE) Strength/Tone: Intact and Normal ([]RUE []RLE []LUE []LLE) Skin: Inspection []Normal [x]Rash []Lesion []Ulcer Palpation [x]Warm []Cool []Dry []Clammy []Nodules []Induration []Skin-tightening Cap-Refill: [x] <3 sec [] >3 seconds (delayed) TTP bilaterally up and lower extremities Dorsalis pedis and posterior tibial pulses 2+ See photo below Neurologic: GCS EYE: 4 - Opens spontaneously GCS MOTOR: 6 - Obeys commands for movement GCS VERBAL: 5 - Oriented to person, place, time Total GCS: 15 [x] Sensation grossly intact Psych: Mental Status Alert: [x]Yes [] No Oriented: []x0 []X1 []X2 [x]x3 Mood/Affect [x]Normal []Flat []Agitated []Depressed []Anxious []Calm []Sedated []NAD Select Labs within last 24 hours- BMP: Recent Labs 10/07/23 1404 10/08/23 0310 10/09/23 0539 NA 129* 129* 129* K 4.2 3.8 3.3* CL 96* 100 99 CO2 23 18* 22 BUN 42* 33* 20 CREATININE 1.66* 1.43* 0.98 CALCIUM 8.2* 7.7* 8.1* MG -- 1.6 1.8 PHOS -- 4.0 2.3* LFTs: Recent Labs 10/07/23 1404 10/07/23 1621 10/08/23 0310 10/09/23 0539 AST 235* -- 300* 177* ALT 48 -- 67* 62* PROT 6.9 -- 6.5 6.2* ALBUMIN 3.4* -- 3.1* 2.9* BILITOT 1.2 -- 1.2 1.0 BILIRUBINU -- Negative -- -- ALKPHOS 43 -- 51 62 Glucose: Recent Labs 10/07/23 1404 10/07/23201710/08/2330910/08/23193910/09/23 0539 GLUCOSE 124* -- 94 -- 102* POCGLU -- 111* -- 131* -- Procal: Recent Labs 10/07/23 140 PROCAL 19.57* CBC: Recent Labs 10/07/23140310/08/2330910/09/23 0539 WBC 15.7* 14.2* 14.9* HGB 14.5 14.4 13.5 HCT 43.4 43.3 40.3 PLT 140 123* 94* MCV 89.0 89.2 87.9 RDW 14.1 14.0 13.9 ABGs: No results for input(s): PHART, NOG6GIL, PO2ART, EUW5MMD, SO2ART, L3WRZJGQ in thelast 72 hours. Lactic Acid: Recent Labs 10/07/23204010/08/23 0055 10/08/23 0607 LACTATE 2.1* 2.4* 1.9 INR: Recent Labs 10/08/2330910/09/23 0539 INR 1.2* 0.9 Cardiac Injury Profile: Recent Labs 10/07/23 1717 10/07/23204310/08/2330910/09/23 0539 10/09/23 2103 CKTOTAL -- -- 11,736* 2,978* 1,165* TROPONINI 0.293* 0.244* 0.202* -- -- Labs in Last 3 months: Lab Results Component Value Date TSH 2.342 10/07/2023 INR 0.9 10/09/2023 Microbiology- Urine Cx: No results found for: URINECX Blood Cx: Lab Results Component Value Date BLOODCX Blood culture incubation started 10/09/2023 BLOODCX Blood culture incubation started 10/09/2023 Sputum Cx: No results found for: RESPCULT Gram Stain: Lab Results Component Value Date LABGRAM No polymorphonuclear leukocytes seen 10/07/2023 LABGRAM No organisms seen 10/07/2023 PNA PCR: Lab Results Component Value Date HUMANMETAPNE Not Detected 10/07/2023 COVID19: Lab Results Component Value Date COVID19 Negative 03/16/2022 Legionella Ag: No results found for: LEGIONELLAPN Strep Ag: No results for input(s): STREPPNEUMO in the last 72 hours. Imaging- 10/08/22: XR tibia fibular No evidence of acute osseous abnormality Assessment and Plan: Principal Problem: Sepsis due to other etiology (HCC) Continue current management along with q4 hr neuro checks. Ortho consulted, appreciate recs Assessment: Severe sepsis due to cellulitis LLE- improved. Strep bacteremia RSV LRTI FRANCISCO J, resolved, Cr back to baseline Rhabdomyolysis, improving CK Acute respiratory failure on NIV-- primarily for work of breathing. On NC day time Lactic acidosis improved Demand ischemia, elevated trop --> could be due to the CK elevation , no signs of ECG change Mood disorder Transaminitis Chronic issues -non obstructive CAD -COPD with cor pulmonale -HTN -Hx DVT, completed 6 months AC -HARISH, likely OHS -Obesity, class 3 BMI 47 -GERD -history of substance abuse disorder Medical noncompliance Plan: day switch to nocturnal BiPAP On vanco and zosyn, follow up final cultures, wound culture ID consultation appreciated. Follow up blood cultures sent today Stop IVF Start Coreg for BP, PRN hydralazine Supportive care for RSV ON thiamine and folate May need ERICA if persistent bacteremia. Consider re starting Abilify and Depakote once acute issues resolve GI Prophylaxis: Pantoprazole IV DVT Prophylaxis: Lovenox 40 q 24hr - creatinine clearance >30 Disposition: Remain in ICU Status Critical Care Time: Total critical care time caring for this patient with life threatening, unstable organ failure, including direct patient contact, management of life support systems, review of data including imaging and labs, discussions with other team members and physicians, excluding procedures. * Justin Vernon MD - 10/09/2023 10:46 PM EST Discussed patient's care with Андрей Kay, plan for patient transfer to [facility] for close monitoring and evaluation of a rule-out compartment syndrome. Please have patient transferred as quickly as possible and let orthopedics know when patient arrives to [facility]. Justin Vernon MD Orthopaedic Surgery PGY3 10/09/2023 10:49 PM * LUC Graham CNP - 10/09/2023 10:27 PM EST Family Communication Number Called: [phone] Name of Designated Family Tile Ditcher: Katherine Gonzáles Relationship: sister Phone Call Outcome: I spoke with the individual listed above. Family Tile Ditcher Updated on the Following: Updated on hospitalization. Plan for transfer to [facility]. * LUC Graham CNP - 10/09/2023 8:57 PM EST Images from the original note were not included. CTSP re: unable to palpate pulses. Patient complains of pain all over but does endorse more pain to the left leg. Also reports paresthesia to left leg. On exam the left calf is significantly more swollen than the right leg. They are equal in warmth, equal color, no cyanosis, he does have sensation to b/l legs. Left leg is significantly more tender in the calf region. Able to doppler a right PT pulse, unable to doppler any pulses on left. Sent typeand screen and CK. Concern for compartment syndrom. D/w Ortho resident Dr. Rivera, D/w Dr. Valladares. Will transfer to [facility]. * Americo Jones MD - 10/09/2023 8:18 AM EST ICU Progress Note Name: Hyacinth Hurst : 1960(63 y.o.) Date: 10/09/23 Team: MICU Attending: Robert Subjective: Hospital Summary: This is a 63 year old M who presented from home for a variety of non specific complaints including general unwell, fever chills, SOB, weakness and severe diffuse body pain. EMS was called by the patient's friend as he was in poor condition and not taking care of himself. He stateshe radford snot regularly seek medical care. In the Ed patient was given vanc zosyn 2 liter fluid, start ed on NIV due to significant work of breathing. Patient found to have sepsis, severe due to cellulitis. Admitted to ICU for further management. Interval Events: Overnight remained on NIV Sleeping this AM Noted to be hypertensive on monitor over 190 systolic. On IVF, good PO intake Scheduled Meds:aspirin, 81 mg, Oral, Daily carvedilol, 6.25 mg, Oral, BID WC enoxaparin, 40 mg, SubCUTAneous, q24h folic acid, 1 mg, Oral, Daily ipratropium-albuterol, 3 mL, Nebulization, 4x daily pantoprazole (ProtoNix) 40 mg in sodium chloride (PF) 0.9 % 10 mL injection, 40 mg, IntraVENous, q AM piperacillin-tazobactam, 3,375 mg, IntraVENous, q8h potassium chloride, 40 mEq, Oral, Once thiamine, 100 mg, IntraVENous, Daily vancomycin, 2,000 mg, IntraVENous, q8h Continuous Infusions: Objective: Last Vitals: BP MAP (!) 195/84 (10/09/23802) 106 (10/09/23802) Arterial BP MAP Temp 37.7 C (99.8 F) (10/09/23328) Pulse 88 (10/09/23802) Resp 22 (10/09/23802) SpO2 99 % (10/09/23802) Weight (!) 156 kg (343 lb 7.6 oz) (10/09/234) BMI Body mass index is 46.58 kg/m . I/O: 10/08 0700 - 10/09 658 In: 4171.5 [P.O.:500; I.V.:3307.5] Out: 2200 [Urine:2200] Ventilator: Resp Rate (Set): 4 FiO2 (%): 40 % Inspiratory Time (sec): 0.8 sec Oxygen Delivery: O2 Flow Rate (L/min): 5 L/min Invasive Lines / Tubes / Drains: Skilled Nursing Peripheral IV 10/07/23 Right Cephalic vein Expires 11/06/2023 (Active) Number of days: 0 Urethral Catheter Straight-tip 16 Fr. (Active) Number of days: 0 Central Line Indication: NA - patient does not have a central line Chinchilla Indications: Hourly I&Os (Critical Care ONLY) Restraints: NA - patient is not restrained. Wounds: Wound/Incision 10/11/22 Incision Hand Anterior;Left (Active) Date First Assessed/Time First Assessed: 10/11/22 1000 Primary Wound Type: Incision Location: Hand Wound Location Orientation: Anterior;Left Wound/Incision 12/26/22 Pretibial Distal;Right (Active) Date First Assessed: 12/26/22 Present on Hospital Admission: Yes Location: Pretibial Wound LocationOrientation: Distal;Right Wound Outcome: Unknown (No longer present) Constitutional: General Appearance []WDWN [x]Obese []Cachectic []Thin [x]Ill Eyes: Inspection of Pupils/Irises Pupils round and react: [x]Yes []No Sclera: []Icteric [x]Non-Icteric Inspection of Conjunctiva/Lids Conjunctiva: []Injected [x]Non-Injected Lids: [x]Intact []Lesion Present ENT/Mouth: External Inspection of ears/nose [x] Normal [] Scar/Lesion/Mass Inspection of teeth/lips/gums Dentition: []Venetie Teeth []Dentures Lips/Gums: []Intact []Lesion Present Mucosa: []Hepburn [x]Moist []Dry Neck: External Appearance Overall Appearance: [x]Normal []Lesion/Mass/Crepitus Present Trachea midline: [][x]Yes No Thyroid [x]Normal []Enlarged []Tender []Mass []Absent Respiratory: Respiratory effort [x]Labored []Non-Labored [] Mechanically-Ventilated Auscultation []Clear []Crackles []Wheezes [x]Rhonchi Cardiovascular: Auscultation Rate: [x]Regular []Irregular []Tachycardia []Bradycardia Rhythm: [x]Regular []Irregular Murmur: []Present [x]Absent Extremities Peripheral Edema: [x]Present []Absent Varicosities: []Present []Absent Gastrointestinal: Abdomen Palpation: [x]Soft []Firm []Tender [x]Non-Tender []Distended [x]Non-distended Mass: []Present [x]Absent Bowel Sounds: [x]Present []Absent Hernia: []Present []Absent Liver/Spleen: []Hepatosplenomegaly []Organomegaly Absent Musculoskeletal: Inspection of Digits and Nails Cyanosis: []Present Absent Clubbing: []Present [x][]Absent Ischemia: []Present [x]Absent Infection: [x]Present []Absent Extremities MAHMOOD Equally: Except ([]RUE []RLE []LUE []LLE) Strength/Tone: Intact and Normal ([]RUE []RLE []LUE []LLE) Skin: Inspection []Normal []Rash [x]Lesion [x]Ulcer Palpation [x]Warm []Cool []Dry []Clammy []Nodules []Induration []Skin-tightening Cap-Refill: [x] <3 sec [] >3 seconds (delayed) Neurologic: GCS EYE: 4 - Opens spontaneously GCS MOTOR: 6 - Obeys commands for movement GCS VERBAL: 5 - Oriented to person, place, time Total GCS: 15 [x] Sensation grossly intact Psych: Mental Status Alert: [x]Yes [] No Oriented: []x0 []X1 []X2 [x]x3 Mood/Affect []Normal []Flat []Agitated [x]Depressed []Anxious [x]Calm []Sedated []NAD [facility] within last 24 hours- BMP: Recent Labs 10/07/23 1404 10/08/23 0310 10/09/23 0539 NA 129* 129* 129* K 4.2 3.8 3.3* CL 96* 100 99 CO2 23 18* 22 BUN 42* 33* 20 CREATININE 1.66* 1.43* 0.98 CALCIUM 8.2* 7.7* 8.1* MG -- 1.6 1.8 PHOS -- 4.0 2.3* LFTs: Recent Labs 10/07/23 1404 10/07/23 1621 02/0930910/09/23 0539 AST 235* -- 300* 177* ALT 48 -- 67* 62* PROT 6.9 -- 6.5 6.2* ALBUMIN 3.4* -- 3.1* 2.9* BILITOT 1.2 -- 1.2 1.0 BILIRUBINU -- Negative -- -- ALKPHOS 43 -- 51 62 Glucose: Recent Labs 10/07/23 14010/07/23201710/08/2330910/08/23193910/09/23 0539 GLUCOSE 124* -- 94 -- 102* POCGLU -- 111* -- 131* -- Procal: Recent Labs 10/07/231403 PROCAL 19.57* CBC: Recent Labs 10/07/23140310/08/2330910/09/23 0539 WBC 15.7* 14.2* 14.9* HGB 14.5 14.4 13.5 HCT 43.4 43.3 40.3 PLT 140 123* 94* MCV 89.0 89.2 87.9 RDW 14.1 14.0 13.9 ABGs: No results for input(s): PHART, PKC4XBT, PO2ART, MAO2SCZ, SO2ART, V3ZENPKM in thelast 72 hours. Lactic Acid: Recent Labs 10/07/23204010/08/23 0055 10/08/23 0607 LACTATE 2.1* 2.4* 1.9 INR: Recent Labs 10/08/2330910/09/23 0539 INR 1.2* 0.9 Cardiac Injury Profile: Recent Labs 10/07/23 1404 10/07/23 1717 10/07/23204310/08/2330910/09/23 0539 CKTOTAL 11,362* -- -- 11,736* 2,978* TROPONINI 0.313* 0.293* 0.244* 0.202* -- Labs in Last 3 months: Lab Results Component Value Date TSH 2.342 10/07/2023 INR 0.9 10/09/2023 Microbiology- Urine Cx: No results found for: URINECX Blood Cx: Lab Results Component Value Date BLOODCX Gram-positive cocci (AA) 10/07/2023 Sputum Cx: No results found for: RESPCULT Gram Stain: Lab Results Component Value Date LABGRAM No polymorphonuclear leukocytes seen 10/07/2023 LABGRAM No organisms seen 10/07/2023 PNA PCR: Lab Results Component Value Date HUMANMETAPNE Not Detected 10/07/2023 COVID19: Lab Results Component Value Date COVID19 Negative 03/16/2022 Legionella Ag: No results found for: LEGIONELLAPN Strep Ag: No results for input(s): STREPPNEUMO in the last 72 hours. Imaging- Personally reviewed CTA chest- no PE. Atelectasis. Tib Fib x ray yesterday no gas. Soft tissue swelling. Assessment and Plan: Principal Problem: Sepsis due to other etiology (HCC) Assessment: Severe sepsis due to cellulitis LLE- improved. Strep bacteremia RSV LRTI FRANCISCO J, resolved, Cr back to baseline Rhabdomyolysis, improving CK Acute respiratory failure on NIV-- primarily for work of breathing. On NC day time Lactic acidosis improved Demand ischemia, elevated trop --> could be due to the CK elevation , no signs of ECG change Mood disorder Transaminitis Chronic issues -non obstructive CAD -COPD with cor pulmonale -HTN -Hx DVT, completed 6 months AC -HARISH, likely OHS -Obesity, class 3 BMI 47 -GERD -history of substance abuse disorder Medical noncompliance Plan: day switch to nocturnal BiPAP tonight. On vanco and zosyn, follow up final cultures, wound culture ID consultation appreciated. Follow up blood cultures sent today Stop IVF Start Coreg for BP, PRN hydralazine Supportive care for RSV ON thiamine and folate May need ERICA if persistent bacteremia. Consider re starting Abilify and Depakote once acute issues resolve GI Prophylaxis: Pantoprazole PO DVT Prophylaxis: Lovenox 40 q 24hr - creatinine clearance >30 Disposition: Remain in ICU Status * Bartolo Soto [facility] - 10/09/2023 6:31 AM EST Pharmacy Vancomycin Consult Follow-Up Note Non-SYNTHETIC FILAMENT SPINNER Patients Current Dosinmg LD ->1250mg q12 CREATININE Date Value Ref Range Status 10/09/2023 0.98 0.66 - 1.25 mg/dL Final 03/16/2022 1.25 0.52 - 1.25 mg/dL Final UREA NITROGEN Date Value Ref Range Status 10/09/2023 20 9 - 20 mg/dL Final Auto WBC Date Value Ref Range Status 10/09/2023 14.9 (H) 3.6 - 10.7 10*3/uL Final Ht Readings from Last 1 Encounters: 10/08/23 1.829 m (6') Wt Readings from Last 1 Encounters: 10/09/23 (!) 156 kg (343 lb 7.6 oz) Body mass index is Body mass index is 46.58 kg/m . Random: 6.9 mcg/ml drawn 10/09 at 0539 Calculated AUC: 218 mg/L.hr Assessment/Plan: Calculated AUC is 218 mg/L.hr, subtherapeutic. Renal function has improved over last 48hrs. Will increase dose to 2000mg q8hr based on predicted AUC of 522 and check random level tomorrow morning with am labs. * Guanako Morales MD - 10/09/2023 6:14 AM EST Images from the original note were not included. Medical Teaching Service Progress Note Patient: Hyacinth Hurst : 1960 Acct: [id number] PCP: Shanna Rai MD Admitting Physician: Americo Jones MD Admission Date: 10/07/2023 Admitting Diagnosis: Hypoxia [R09.02] Elevated troponin [R79.89] Cellulitis of left lower extremity [L03.116] Non-traumatic rhabdomyolysis [M62.82] Sepsis due to other etiology (HCC) [A41.89] Localized swelling of both lower legs [R22.43] Patient's noncompliance with other medical treatment and regimen due to unspecified reason [Z91.199] Unit/Bed: 222-10/222-10 A Hospital Day: 2 Code Status: Full Code Subjective: Overnight events: No significant overnight events. Patient examined at bedside this AM, no family present. Patient was resting comfortably and was awoken to name for exam. Denies any N/V, CP or palpitations. Reports his pain is relatively well controlled and that his breathing is improved. No other questions or concerns at this time. Objective: Vitals: 10/09/23 0320 10/09/23 0329 10/09/23 0344 10/09/23 0422 BP: 152/85 145/83 BP Location: Left arm Patient Position: Lying Pulse: 83 81 84 Resp: 18 15 Temp: 37.7 C (99.8 F) TempSrc: Oral SpO2: 100% 100% 100% Weight: (!) 343 lb 7.6 oz (156 kg) Height: Temp (24hrs), Av.3 C (99.2 F), Min:36.9 C (98.5 F), Max:37.7 C (99.8 F) Intake/Output Summary (Last 24 hours) at 10/09/2023 0614 Last data filed at 10/09/2023 0329 Gross per 24 hour Intake 4171.5 ml Output 2200 ml Net 1971.5 ml Physical Exam Vitals reviewed. Constitutional: General: He is not in acute distress. Appearance: He is obese. He is ill-appearing. HENT: Head: Normocephalic and atraumatic. Mouth/Throat: Mouth: Mucous membranes are moist. Pharynx: Oropharynx is clear. Eyes: Extraocular Movements: Extraocular movements intact. Conjunctiva/sclera: Conjunctivae normal. Pupils: Pupils are equal, round, and reactive to light. Cardiovascular: Rate and Rhythm: Normal rate and regular rhythm. Heart sounds: No murmur heard. Pulmonary: Effort: No respiratory distress. Breath sounds: Rhonchi present. No wheezing or rales. Comments: Increased WOB Abdominal: General: Abdomen is flat. Bowel sounds are normal. There is no distension. Palpations: Abdomen is soft. Tenderness: There is no abdominal tenderness. Musculoskeletal: Cervical back: Neck supple. No rigidity. Right lower leg: Edema present. Left lower leg: Edema present. Skin: Capillary Refill: Capillary refill takes less than 2 seconds. Findings: Lesion present. Neurological: General: No focal deficit present. Mental Status: He is oriented to person, place, and time. Sensory: No sensory deficit. 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 PIV R cephalic vein placed 10/07 Intubated: No Diet: Adult diet Regular; No Added Salt (3-4 gm) Medications: aspirin, 81 mg, Oral, Daily enoxaparin, 40 mg, SubCUTAneous, q24h folic acid, 1 mg, Oral, Daily ipratropium-albuterol, 3 mL, Nebulization, 4x daily pantoprazole (ProtoNix) 40 mg in sodium chloride (PF) 0.9 % 10 mL injection, 40 mg, IntraVENous, q AM piperacillin-tazobactam, 3,375 mg, IntraVENous, q8h thiamine, 100 mg, IntraVENous, Daily vancomycin, 1,250 mg, IntraVENous, q12h Continuous Infusions: lactated Ringer's, 150 mL/hr, Last Rate: 150 mL/hr (10/08/23 1852) PRN Meds: PRN medications: acetaminophen OR acetaminophen OR acetaminophen, albuterol, HYDROmorphone OR HYDROmorphone, naloxone, ondansetron ODT OR ondansetron, oxyCODONE OR oxyCODONE, polyethylene glycol (PEG) 3350 Labs: CBC: Results from last 7 days Lab Units 10/09/23 0539 10/08/23 03110/07/23 1404 WBC AUTO 10*3/uL 14.9* 14.2* 15.7* HEMOGLOBIN g/dL 13.5 14.4 14.5 HEMATOCRIT % 40.3 43.3 43.4 PLATELETS AUTO 10*3/uL 94* 123* 140 NEUTROS PCT AUTO % 96.6* 95.8* 96.3* LYMPHS PCT AUTO % 1.6* 1.8* 1.1* MONOS PCT AUTO % 1.6* 2.1 2.4 EOS PCT AUTO % 0.1* 0.1* 0.0* BMP: Results from last 7 days Lab Units 10/08/23 03110/07/23 1404 SODIUM mmol/L 129* 129* POTASSIUM mmol/L 3.8 4.2 CHLORIDE mmol/L 100 96* CO2 mmol/L 18* 23 BUN mg/dL 33* 42* CREATININE mg/dL 1.43* 1.66* GLUCOSE mg/dL 94 124* CALCIUM mg/dL 7.7* 8.2* LIVER PROFILE: Results from last 7 days Lab Units 10/08/23 0310 10/07/23 1404 ALK PHOS U/L 51 43 BILIRUBIN TOTAL mg/dL 1.2 1.2 PROTEIN TOTAL g/dL 6.5 6.9 ALT U/L 67* 48 AST U/L 300* 235* PT/INR: Results from last 7 days Lab Units 10/09/23 0539 10/08/23309 APTT s 33.6* 31.6* INR 0.9 1.2* CARDIAC ENZYMES: Results from last 7 days Lab Units 10/08/23 0310 10/07/23 2044 10/07/23 1717 10/07/23 1404 CK TOTAL U/L 11,736* -- -- 11,362* TROPONIN I ng/mL 0.202* 0.244* 0.293* 0.313* Procalcitonin: Lab Results Component Value Date PROCAL 19.57 (H) 10/07/2023 Glucose: Results from last 7 days Lab Units 10/08/23 1940 10/07/23 2018 POCT GLUCOSE mg/dL 131* 111* Patient Active Problem List Diagnosis Date Noted Sepsis due to other etiology ([facility]) 10/07/2023 Lightheadedness 12/25/2022 Abscess of left hand 10/11/2022 Psychosis ([facility]) 04/16/2022 Benign essential hypertension 02/10/2021 Erectile dysfunction 02/10/2021 Cannabis abuse 02/10/2021 Methamphetamine dependence ([facility]) 02/10/2021 Adjustment disorder with mixed disturbance of emotions and conduct 02/10/2021 Gastroesophageal reflux disease 02/10/2021 Depressive disorder 02/10/2021 Benign prostatic hyperplasia with urinary retention 12/04/2019 Class 3 severe obesity with body mass index (BMI) of 60.0 to 69.9 in adult ([facility]) 10/10/2019 Allergic rhinitis 10/10/2019 Type 2 diabetes mellitus with diabetic peripheral angiopathy without gangrene, without long-term current use of insulin ([facility]) 08/25/2019 Substance abuse ([facility]) ([facility]) 08/12/2019 HARISH (obstructive sleep apnea) 06/01/2019 History of pulmonary embolism 04/26/2018 (HFpEF) heart failure with preserved ejection fraction (HCC) 04/17/2018 Cor pulmonale (HCC) 04/15/2018 Hepatitis C antibody positive in blood 03/30/2017 ASSESSMENT/PLAN: #Severe sepsis 2/2 LLE Cellulitis #Strep bacteremia MRSA PCR (+) for MSSA, Resp PCR (+) for RSV, Legionella / strep antigen (-), EKG: QTC 499, 10/08/2023EF: 53% -mIVF LR @ 150cc/hr -Pain management -Tylenol 650 mg as needed -Dilaudid 0.5 mg IV q4h PRN for moderate pain -Dilaudid 1 mg IV q4h PRN for severe pain -Daily labs -CBC with differential -CMP -Mg -Phos -PT for 3 days -PTT for 3 days -weights -Imaging -Bladder scans -CRP once -ESR once -Bcx: G(+) cocci -Abx -Zosyn 3,375 mg IV q8h -Vancomycin 1250 mg IV BID -Symptom management -Zofran 4 mg q8h ODT PRN -Pantoprazole 40 mg IV daily -Miralax 17 g daily PRN -Consults -ID, appreciate recs -Folic acid 1 mg daily -Thiamine 100 mg IV daily -Diet: Regular no added salt -CAUTI Precautions -Continuous SpO2 -I/Os -Vitals #Acute Respiratory failure on NIV (night) and NC (day) #RSV PNA -NIV (IPAP 12, EPAP 5, RR 4, FiO2 50%), NC when able -albuterol nebulizer q4h PRN -Duo-Nebs QID #Rhabdomyolysis #Troponemia Trop: 0.202, CK: 11,736, LA: 1.9 - IVF as above #FRANCISCO J -IVF as above -Daily CMP -Avoid nephrotoxic agents #Transaminitis - Monitor daily CMP - Avoid hepatotoxic agents FEN/GI/DVT IVF: LR @ 150 ml / hr Electrolytes: Monitor and replace per protocols Diet: General - No added salt GI PPX: Protonix 40 mg daily DVT Prophylaxis: Lovenox Telemetry: Currently on Telemetry / Reason: Sepsis ICU DISPOSITION: Remains in ICU for IV Abx and monitoring of oxygen status. Guanako Morales MD Family Medicine, PGY-II 10/09/23 6:14 AM * Guanako Morales MD - 10/08/2023 8:48 PM EST Images from the original note were not included. Medical Teaching Service Progress Note Patient: Hyacinth Hurst : 1960 Acct: [id number] PCP: Shanna Rai MD Admitting Physician: Americo Jones MD Admission Date: 10/07/2023 Admitting Diagnosis: Hypoxia [R09.02] Elevated troponin [R79.89] Cellulitis of left lower extremity [L03.116] Non-traumatic rhabdomyolysis [M62.82] Sepsis due to other etiology (HCC) [A41.89] Localized swelling of both lower legs [R22.43] Patient's noncompliance with other medical treatment and regimen due to unspecified reason [Z91.199] Unit[facility]Bed: [facility] A Hospital Day: 1 Code Status: Full Code Subjective: Overnight events: No significant overnight events. Patient is a 63 y/o M with PMHX of LLE DVT, cor pulmonale, HARISH, Hep C, who presented with fever, chills, fatigue, SOB and generalized weakness with pain in his joint for weeks. Patient was tachypneic and tachycardic with leukocytosis, lactic acidosis, FRANCISCO J and elevated CK on admission. Given 2L IVF and started on Vanc/Zosyn and NIV 2/2 significantly increased WOB. Objective: Vitals: 10/08/23 1800 10/08/23 1901 10/08/23194710/08/232029 BP: 148/78 (!) 179/80 (!) 163/85 BP Location: Left arm Patient Position: Lying Pulse: 95 93 94 98 Resp: Temp: 37.3 C (99.1 F) TempSrc: Oral SpO2: 96% 96% 100% 98% Weight: Height: Temp (24hrs), Av C (98.6 F), Min:36.4 C (97.5 F), Max:37.4 C (99.3 F) Intake/Output Summary (Last 24 hours) at 10/08/2023 2216 Last data filed at 10/08/20232014 Gross per 24 hour Intake 4171.5 ml Output 3175 ml Net 996.5 ml Physical Exam Vitals reviewed. Constitutional: General: He is not in acute distress. Appearance: He is obese. He is ill-appearing. HENT: Head: Normocephalic and atraumatic. Mouth/Throat: Mouth: Mucous membranes are moist. Pharynx: Oropharynx is clear. Eyes: Extraocular Movements: Extraocular movements intact. Conjunctiva/sclera: Conjunctivae normal. Pupils: Pupils are equal, round, and reactive to light. Cardiovascular: Rate and Rhythm: Normal rate and regular rhythm. Heart sounds: No murmur heard. Pulmonary: Effort: No respiratory distress. Breath sounds: Rhonchi present. No wheezing or rales. Comments: Increased WOB Abdominal: General: Abdomen is flat. Bowel sounds are normal. There is no distension. Palpations: Abdomen is soft. Tenderness: There is no abdominal tenderness. Musculoskeletal: Cervical back: Neck supple. No rigidity. Right lower leg: Edema present. Left lower leg: Edema present. Skin: Capillary Refill: Capillary refill takes less than 2 seconds. Findings: Lesion present. Neurological: General: No focal deficit present. Mental Status: He is oriented to person, place, and time. Sensory: No sensory deficit. Comments: GCS 15 Chinchilla: Yes - placed 2/8 Drains: No Central Line/Port: halfway PIV R cephalic vein placed 2/8 Intubated: No Diet: Adult diet Regular; No Added Salt (3-4 gm) Medications: aspirin, 81 mg, Oral, Daily enoxaparin, 40 mg, SubCUTAneous, q24h folic acid, 1 mg, Oral, Daily ipratropium-albuterol, 3 mL, Nebulization, 4x daily pantoprazole (ProtoNix) 40 mg in sodium chloride (PF) 0.9 % 10 mL injection, 40 mg, IntraVENous, q AM piperacillin-tazobactam, 3,375 mg, IntraVENous, q8h thiamine, 100 mg, IntraVENous, Daily vancomycin, 1,250 mg, IntraVENous, q12h Continuous Infusions: lactated Ringer's, 150 mL/hr, Last Rate: 150 mL/hr (10/08/231851) PRN Meds: PRN medications: acetaminophen OR acetaminophen OR acetaminophen, albuterol, HYDROmorphone OR HYDROmorphone, naloxone, ondansetron ODT OR ondansetron, oxyCODONE OR oxyCODONE, polyethylene glycol (PEG) 3350 Labs: CBC: Results from last 7 days Lab Units 10/08/23 03110/07/23 1404 WBC AUTO 10*3/uL 14.2* 15.7* HEMOGLOBIN g/dL 14.4 14.5 HEMATOCRIT % 43.3 43.4 PLATELETS AUTO 10*3/uL 123* 140 NEUTROS PCT AUTO % 95.8* 96.3* LYMPHS PCT AUTO % 1.8* 1.1* MONOS PCT AUTO % 2.1 2.4 EOS PCT AUTO % 0.1* 0.0* BMP: Results from last 7 days Lab Units 10/08/2330910/07/23 1404 SODIUM mmol/L 129* 129* POTASSIUM mmol/L 3.8 4.2 CHLORIDE mmol/L 100 96* CO2 mmol/L 18* 23 BUN mg/dL 33* 42* CREATININE mg/dL 1.43* 1.66* GLUCOSE mg/dL 94 124* CALCIUM mg/dL 7.7* 8.2* LIVER PROFILE: Results from last 7 days Lab Units 10/08/2330910/07/23 1404 ALK PHOS U/L 51 43 BILIRUBIN TOTAL mg/dL 1.2 1.2 PROTEIN TOTAL g/dL 6.5 6.9 ALT U/L 67* 48 AST U/L 300* 235* PT/INR: Results from last 7 days Lab Units 10/08/23309 APTT s 31.6* INR 1.2* CARDIAC ENZYMES: Results from last 7 days Lab Units 10/08/2330910/07/23 2044 10/07/23 1717 10/07/23 1404 CK TOTAL U/L 11,736* -- -- 11,362* TROPONIN I ng/mL 0.202* 0.244* 0.293* 0.313* Procalcitonin: Lab Results Component Value Date PROCAL 19.57 (H) 10/07/2023 Glucose: Results from last 7 days Lab Units 10/08/23 193910/07/232017 POCT GLUCOSE mg/dL 131* 111* Patient Active Problem List Diagnosis Date Noted Sepsis due to other etiology ([facility]) 10/07/2023 Lightheadedness 12/25/2022 Abscess of left hand 10/11/2022 Psychosis ([facility]) 04/16/2022 Benign essential hypertension 02/10/2021 Erectile dysfunction 02/10/2021 Cannabis abuse 02/10/2021 Methamphetamine dependence ([facility]) 02/10/2021 Adjustment disorder with mixed disturbance of emotions and conduct 02/10/2021 Gastroesophageal reflux disease 02/10/2021 Depressive disorder 02/10/2021 Benign prostatic hyperplasia with urinary retention 12/04/2019 Class 3 severe obesity with body mass index (BMI) of 60.0 to 69.9 in adult ([facility]) 10/10/2019 Allergic rhinitis 10/10/2019 Type 2 diabetes mellitus with diabetic peripheral angiopathy without gangrene, without long-term current use of insulin ([facility]) 08/25/2019 Substance abuse ([facility]) ([facility]) 08/12/2019 HARISH (obstructive sleep apnea) 06/01/2019 History of pulmonary embolism 04/26/2018 (HFpEF) heart failure with preserved ejection fraction ([facility]) 04/17/2018 Cor pulmonale ([facility]) 04/15/2018 Hepatitis C antibody positive in blood 03/30/2017 ASSESSMENT/PLAN: Severe sepsis 2/2 LLE Cellulitis Strep bacteremia MRSA PCR (+) for MSSA, Resp PCR (+) for RSV, Legionella / strep antigen (-), EKG: QTC 499, 10/08/2023EF: 53% -Admission to ICU -mIVF LR @ 150cc/hr -Pain management -Tylenol 650 mg as needed -Dilaudid 0.5 mg IV q4h PRN for moderate pain -Dilaudid 1 mg IV q4h PRN for severe pain -Daily labs -CBC with differential -CMP -Mg -Phos -PT for 3 days -PTT for 3 days -weights -Imaging -Bladder scans -CRP once -ESR once -Bcx: G(+) cocci -Abx -Zosyn 3,375 mg IV q8h -Vancomycin 1250 mg IV BID -Symptom management -Zofran 4 mg q8h ODT PRN -Pantoprazole 40 mg IV daily -Miralax 17 g daily PRN -Consults -ID, appreciate recs -Folic acid 1 mg daily -Thiamine 100 mg IV daily -Diet: Regular no added salt -CAUTI Precautions -Continuous SpO2 -I/Os -Vitals Acute Respiratory failure on NIV (night) and NC (day) RSV PNA -NIV (IPAP 12, EPAP 5, RR 4, FiO2 50%), NC when able -albuterol nebulizer q4h PRN -Duo-Nebs QID Rhabdomyolysis Troponemia Trop: 0.202 CK: 11,736 LA: 1.9 - IVF as above FRANCISCO J -IVF as above -Daily CMP -Avoid nephrotoxic agents Transaminitis - Monitor daily CMP - Avoid hepatotoxic agents FEN/GI/DVT IVF: LR @ 150 ml / hr Electrolytes: Monitor and replace per protocols Diet: General - No added salt GI PPX: Protonix 40 mg daily DVT Prophylaxis: Lovenox Telemetry: Currently on Telemetry / Reason: Sepsis ICU DISPOSITION: Remains in ICU for IV Abx and monitoring of oxygen status. Guanako Morales MD Family Medicine, PGY-II 10/08/23 10:44 PM * Kandice Cunningham, RD - 10/08/2023 4:04 PM EST Nutrition Assessment Type and Reason for Visit: Initial (ICU admit) Nutrition Recommendations/Plan: Per MNT protocol: Added [id number] to Regular diet +Ensure Max protein BID (+130 kcal, 30 g protein, 330 mL/serving) Continue folic acid, thiamine supplementation. Assist patient in room-service participation to assure he is ordering adequate protein and caloriesdaily to support increased needs Please record % meals and oral nutrition supplements consumed in flow-sheet for most accurate nutrient intake assessment. RDN to continue to monitor weekly: fluid accumulation, weight, skin integrity, trends in lab values, tolerance of diet and ability to meet > 75% estimated nutrition needs, improvement in clinical status, discharge planning. Malnutrition Assessment: Malnutrition Status: At risk for malnutrition (Comment) (not taking care of self BULK SAUSAGE CASING TIER OFF (medications, doctor visits, eating), +increased needs d/t sepsis and BLE cellulitis) Context: Social/Environmental Circumstances Findings of the 6 clinical characteristics of malnutrition: Energy Intake: Less than 75% estimated energy requirements for 3 months or longer Weight Loss: No significant weight loss Body Fat Loss: No significant body fat loss Muscle Mass Loss: Mild muscle mass loss Temples (temporalis), Clavicles (pectoralis & deltoids) Fluid Accumulation: Severe Extremities 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 Presented to [facility] ED with general malaise, shortness of breath, chills and subjective fever. Further endorses not caring for self or eating well BULK SAUSAGE CASING TIER OFF for a while .Significant labs on admit: troponin(0.313), BNP(4940), WBC(15.7), Na+(129), BUN(42), Creatinine(1.66), AST(235), Lactic Acid(2.7), TMax(101.3*F). +RSV on respiratory PCR. +UDS for amphetamines. Admitted to ICU under sepsis protocol due to severe cellulitis of bilateral legs. ID consulted and following for streptococcus bacteremia due to cellulitis of left lower extremity, +RSV. Recommending MRI of left lower leg as TTE did not visualize valves well. Continues on zosyn and vanco. Restingin bed at time of assessment- reports minimal intake BULK SAUSAGE CASING TIER OFF, though not specific as to why. Unable to obtain accurate weight due to +4 edema to bilateral legs. Consent obtained and NFPE completed. Agreeable to Ensure BID Estimated Daily Nutrient Needs: Energy Requirements Based On: Kcal/kg Weight Used for Energy Requirements: Current Weight for Energy Calculation (kg): 156 kg Total Energy Requirements (kcals/day): 9752-0294 (11-14 kcal/kg CBW) Weight Used for Protein Requirements: [place] Weight in Kg Used for Protein Requirements: 81 kg Estimated Total Protein (g/day): 122-162 (1.5-2.0 g protien/kg IBW) Estimated Daily Total Fluid (ml/day): per MD Nutrition Related Findings: +4 BLE edema noted. Delgado score=13. +bm 2/7 with bowel sounds. Meds and labs reviewed Wound Type: Multiple (bilateral lower leg cellulits) Current Nutrition Therapies: Adult diet Regular; No Added Salt (3-4 gm) Current Oral Intake Average Meal Intake: 51-75% Average Supplements Intake: None Ordered Anthropometric Measures: Height: 182.9 cm (6') Current Body Weight: 156 kg (344 lb) Weight Source: Not Specified Admission Body Weight: 146 kg (322 lb 12.1 oz) (bed) Usual Body Weight: 155 kg (341 lb) (341# 01/21/23; 315.6# standing weight 01/17/23; 295.8# 10/18/22) % Weight Change (Calculated): 0.9 [place] Body Weight (lbs) (Calculated): 178 lbs [place] Body Weight (Kg) (Calculated): 81 kg % [place] Body Weight (Calculated): 193.3 % BMI (kg/m2) (Calculated): 46.6 Weight Adjustment For: No Adjustment BMI Categories: Obese Class 3 (BMI 40.0 or greater) Nutrition Diagnosis: Increased nutrient needs related to increase demand for energy/nutrients as evidenced by wounds Inadequate protein-energy intake related to inadequate protein-energy intake as evidenced by (poor PO BULK SAUSAGE CASING TIER OFF, social circumstances) Nutrition Interventions: Nutrition Education/Counseling: Education not indicated Coordination of Nutrition Care: Continue to monitor while inpatient Plan of Care discussed with: Dr Jones, RN, patient Goals: Goals: other (specify) Specify Other Goals: [place] to meet > 75% estimated needs (minimum of 1465 kcal and 107 g protein/day) Nutrition Monitoring and Evaluation: Behavioral-Environmental Outcomes: None Identified Food/Nutrient Intake Outcomes: Food and Nutrient Intake, Supplement Intake Physical Signs/Symptoms Outcomes: Biochemical Data, Chewing or Swallowing, GI Status, Nausea or Vomiting, Weight, Skin, Nutrition Focused Physical Findings, Meal Time Behavior, Hemodynamic Status, Fluid Status or Edema Discharge Planning: Continue Oral Nutrition Supplement, Continue current diet Kandice Cunningham RDN, LDN, Contact: *[phone] * Americo Jones MD - 10/08/2023 6:58 AM EST ICU Progress Note Name: Hyacinth Hurst : 1960(63 y.o.) Date: 10/08/23 Team: MICU Attending: Robert Subjective: Hospital Summary: This is a 63 year old M who presented from home for a variety of non specific complaints including general unwell, fever chills, SOB, weakness and severe diffuse body pain. EMS was called by the patient's friend as he was in poor condition and not taking care of himself. He stateshe radford snot regularly seek medical care. In the Ed patient was given vanc zosyn 2 liter fluid, start ed on NIV due to significant work of breathing. Patient found to have sepsis, severe due to cellulitis. Admitted to ICU for further management. Interval Events: Overnight remained on NIV Noted to have positive blood cultures. Also RSV positive. CK remains elevated Scheduled Meds:aspirin, 81 mg, Oral, Daily enoxaparin, 40 mg, SubCUTAneous, q24h folic acid, 1 mg, Oral, Daily ipratropium-albuterol, 3 mL, Nebulization, 4x daily pantoprazole (ProtoNix) 40 mg in sodium chloride (PF) 0.9 % 10 mL injection, 40 mg, IntraVENous, q AM piperacillin-tazobactam, 3,375 mg, IntraVENous, q8h thiamine (Vitamin B1) 100 mg in sodium chloride 0.9 % 100 mL IVPB, 100 mg, IntraVENous, q24h vancomycin, 1,250 mg, IntraVENous, q12h Continuous Infusions:lactated Ringer's, 150 mL/hr, Last Rate: 150 mL/hr (10/08/23 0012) Objective: Last Vitals: BP MAP (!) 172/82 (10/08/23 0321) 96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 07/10/24 Clara Judge MD 1 [facility] [address] [place] [address] Orthopedic Surgery 07/24/24 10/21/24 Sql Etl Developer Relationship Specialty Start Date End Date Shanna Thompson DO [address] [place] [address] PCP - General Internal Medicine 07/17/24 Madeleine Mcgee RN Nurse Navigator Orthopedic Surgery 07/10/24 Clara Judge MD 1 [facility] [address] [place] [address] Orthopedic Surgery 07/24/24 10/21/24 Sql Etl Developer Relationship Specialty Start Date End Date Shanna Thompson DO [address] [place], [place] [id number] PCP - General Internal Medicine 07/17/24 Madeleine Mcgee, SREE Nurse Navigator Orthopedic Surgery 07/10/24 Clara Judge MD 1 [facility] [address] [place], [place] [address] Orthopedic Surgery 07/24/24 10/21/24 Sql Etl Developer Relationship Specialty Start Date End Date Shanna Thompson DO [address] [place] [address] PCP - General Internal Medicine 07/17/24 Madeleine Mcgee RN Nurse Navigator Orthopedic Surgery 07/10/24 Clara Judge MD [address] [address] Orthopedic Surgery 07/24/24 10/21/24 Sql Etl Developer Relationship Specialty Start Date End Date Shanna Thompson DO [address] [place] [address] PCP - General Internal Medicine 07/17/24 Sql Etl Developer Relationship Specialty Start Date End Date Shanna Thompson DO [address] [place] [address] PCP - General Internal Medicine 07/17/24 Sql Etl Developer Relationship Specialty Start Date End Date Shanna Thompson DO [address] [place] [address] PCP - General Internal Medicine 07/17/24 Team Status: Active Member Role Status Dates Dr. Shanna Thompson DO Primary Care Provider Active Team Status: Inactive Member Role Status Dates Joann Crowe NP-C Attending Provider Active Start: December 06, 2024 End: December 06, 2024 Dr. Shanna Thompson DO Primary Care Provider Active Start: December 06, 2024 End: December 06, 2024 Dr. Shanna Thompson DO Referring Provider Active Start: December 06, 2024 End: December 06, 2024 Team Status: Inactive Member Role Status Dates Dr. Shanna Thompson DO Primary Care Provider Active Start: December 06, 2024 End: December 06, 2024 Dr. Shanna Thompson DO Referring Provider Active Start: December 06, 2024 End: December 06, 2024 Erma Rascon NP-C Attending Provider Active Start: December 06, 2024 End: December 06, 2024 Team Status: Inactive Member Role Status Dates Dr. Shanna Thompson DO Primary Care Provider Active Start: December 22, 2024 End: December 22, 2024 Joann Crowe NP-Sarbjit Attending Provider Active Start: December 22, 2024 End: December 22, 2024 Joann Crowe NP-Sarbjit Referring Provider Active Start: December 22, 2024 End: December 22, 2024 Team Status: Inactive Member Role Status Dates Dr. Shanna Thompson DO Primary Care Provider Active Start: January 09, 2025 End: January 09, 2025 Joann Crowe NP-Sarbjit Attending Provider Active Start: January 09, 2025 End: January 09, 2025 Joann Crowe NP-Sarbjit Referring Provider Active Start: January 09, 2025 End: January 09, 2025 Team Status: Active Member Role Status Dates Dr. Shanna Thompson DO Primary Care Provider Active Start: January 12, 2025 CONNER Phelps Referring Provider Active Start: January 12, 2025 CONNER Phelps Other Provider Active St art: January 12, 2025 Dr. Lyle Araiza DO Attending Provider Active S tart: January 12, 2025 Team Status: Inactive Member Role Status Dates Dr. Shanna Thompson DO Primary Care Provider Active Start: February 16, 2025 End: February 16, 2025 Dr. Shanna Thompson DO Referring Provider Active Start: February 16, 2025 End: February 16, 2025 Joann Crowe NP-C Attending Provider Active Start: February 16, 2025 End: February 16, 2025 Scheduled Active and Recently Administ ered Medications (unrecognized section and content) Medication Order 02/15/2022 02/16/2022 02/17/2022 haloperidol lactate (HALDOL) injection 5 mg (COMPLETED) 5 mg, IntraMUSCular, ONCE, 1 dose, On 02/15/22 at 1544, IM route of administration preferred. Because of the risk of TdP and QT prolongation, ECG monitoring is recommended if haloperidol is given IV. 1912 (Given - Provider: Louis Barboza, SREE) ketamine (KETALAR) injection 500 mg (COMPLETED) 500 mg, IntraMUSCular, ONCE, 1 dose, On 02/15/22 at 1544 1555 (Given - Provider: Louis Barboza, SREE) LORazepam (ATIVAN) injection 2 mg 2 mg, IntraVENous, ONCE, 1 dose, On 02/15/22 at 2121 2121 (Due) Scheduled Medication Order 12/29/2022 12/30/2022 12/31/2022 ceFAZolin (Ancef) 1,000 mg in sodium chloride 0.9 % 50 mL IVPB (CANCELED) 1,000 mg, IntraVENous, at 100 mL/hr, Administer over 30 Minutes, Every 8 hours, First dose on Colerain 12/27/22 at 1000, For 7 days, Mini-Bag Plus bag, Suspected Indication (Select all that apply): Skin and Soft Tissue Infection 0425 (New Bag - Provider: Clara Darling RN)0455 (Stopped - Provider: Clara Darling RN)0905 (New Bag - Provider: Jammie Reyes RN)0935 (Stopped - Provider: Jammie Reyes RN)1749 (New Bag - Provider: Jammie Reyes RN)1819 (Stopped - Provider: Jammie Reyes RN) 0144 (New Bag - Provider: Lola Hector RN)0214 (Stopped - Provider: Lola Hector, SREE)0936 (New Bag - Provider: Ilsa Baron RN)1006 (Stopped - Provider: Ilsa Baron RN)1720 (New Bag - Provider: Ilsa Baron RN)1750 (Stopped - Provider: Lola Hector, SREE) 0201 (New Bag - Provider: Lola Hector RN)0231 (Stopped - Provider: Lola Hector RN)0932 (New Bag - Provider: Ivonne Hsieh, SREE)1005 (Stopped - Provider: Ivonne Hsieh, SREE) cefdinir (Omnicef) capsule 300 mg 300 mg, Oral, 2 times daily, First dose on Tiara 12/31/22 at 1200, For 3 days, Suspected Indication (Select all that apply): Skin and Soft Tissue Infection 1306 (Given - Provider: Ivonne Hsieh, SREE) enoxaparin (Lovenox) syringe 30 mg 30 mg, SubCUTAneous, Every 12 hours scheduled (2 times per day), First dose on Wed12/26/22 at 0900, Indication of Use: Prophylaxis-DVT/PE 09 (Given - Provider: Jammie Reyes RN)2005 (Given - Provider: Lola Hector RN) 0936 (Given - Provider: Ilsa Baron, SREE)2013 (Given - Provider: Lola Hector RN) 0833 (Given - Provider: Ivonne Hsieh RN) folic acid (Folvite) tablet 1 mg 1 mg, Oral, Daily, First dose on Wed12/27/22 at 0900 0905 (Given - Provider: Jammie Reyes RN) 0936 (Given - Provider: Ilsa Baron RN) 0833 (Given - Provider: Ivonne Hsieh RN) lisinopril tablet 10 mg 10 mg, Oral, Daily, First dose on Wed12/28/22 at 1045 0905 (Given - Provider: Jammie Reyes RN) 0936 (Given - Provider: Ilsa Baron RN) 0832 (Given - Provider: Ivonne Hsieh RN) OLANZapine (ZyPREXA) tablet 5 mg 5 mg, Oral, Nightly, First dose on Wed12/29/22 at 1345 2005 (Given - Provider: Lola Hector RN) 2013 (Given - Provider: Lola Hector RN) sodium chloride 0.9% (NS) flush 5-40 mL 5-40 mL, IntraVENous, Every 12 hours, First dose on Wed12/25/22 at 1335, For Line Patency: Peripheral IV = 5 mL; Midline or Central Line = 10 mL/lumen. If following IV push medication, administer flush at same rate as the IV push. Flush volume is determined by type of infusion therapy being given. For non-viscous solutions use: Peripheral IV = 5 mL Midline or Central Line = 10 mL/lumen For viscous solutions (i.e. blood components, parenteral nutrition, contrast media, or after obtaining blood sample) use: Peripheral IV = 10 mL Midline or Central Line = 20 mL/lumen 0135 (Canceled Entry - Provider: Clara Darling RN)1335 (Not Given - Provider: Jammie Reyes RN - Reason: IV Fluids Infusing) 0135 (Not Given - Provider: Lola Hector RN - Reason: IV Fluids Infusing)1335 (Not Given - Provider: Ilsa Baron RN - Reason: IV Fluids Infusing) 0135 (Not Given - Provider: Lola Hector RN - Reason: IV Fluids Infusing)1306 (Given - Provider: Ivonne Hsieh RN) Thiamine Mononitrate (Vitamin B1) tablet 100 mg 100 mg, Oral, Daily, First dose on Wed12/27/22 at 0900 0905 (Given - Provider: Jammie Reyes RN) 0936 (Given - Provider: Ilsa Baron RN) 0832 (Given - Provider: Ivonne Hsieh RN) Continuous Medication Order 12/29/2022 12/30/2022 12/31/2022 sodium chloride 0.9 % infusion 50 mL/hr, IntraVENous, Continuous, Starting on Wed12/25/22 at 1335 PRN Medication Order 12/29/2022 12/30/2022 12/31/2022 acetaminophen (Tylenol) suppository 650 mg(Linked Group 1) 650 mg, Rectal, Every 6 hours PRN, mild pain (1-3), fever, For temp greater than 100.4 F (38 C), Starting on 12/26/22 at 0513, Administer if oral route cannot be used. Maximum dose of acetaminophen is 4000 mg from all sources in 24 hours. 0836 (See Alternativ e - Provider: Ivonne Hsieh RN) acetaminophen (Tylenol) tablet 650 mg(Linked Group 1) 650 mg, Oral, Every 6 hours PRN, mild pain (1-3), fever, For temp greater than 100.4 F (38 C), Starting on 12/26/22 at 0513, Maximum dose of acetaminophen is 4000 mg from all sources in 24 hours. 0836 (Given - Provid er: Ivonne Hsieh RN) hydrALAZINE (Apresoline) injection 10 mg 10 mg, IntraVENous, Every 6 hours PRN, high blood pressure, If systolic blood pressure greater than 160, Starting on 12/28/22 at 1156 LORazepam (Ativan) injection 1 mg(Linked Group 2) 1 mg, IntraVENous, Every 1 hour PRN, withdrawal, For alcohol withdrawal, Starting on 12/27/22 at 0815, For CIWA score 8 to 10. If both oral and intravenous CIWA medications ordered, use intravenous if unable to tolerate oral equivalent. Reassess CIWA one hour after each dose of medication and as needed. For IV doses dilute dose with 1ml NS. LORazepam (Ativan) injection 2 mg(Linked Group 2) 2 mg, IntraVENous, Every 1 hour PRN, withdrawal, For alcohol withdrawal., Starting on 12/27/22 at 0815, For CIWA score 11 to 15. If both oral and intravenous CIWA medications ordered, use intravenous if unable to tolerate oral equivalent. Reassess CIWA one hour after each dose of medication and as needed. For IV doses dilute dose with 1ml NS. LORazepam (Ativan) injection 3 mg(Linked Group 2) 3 mg, IntraVENous, Every 1 hour PRN, withdrawal, For alcohol withdrawal, Starting on 12/27/22 at 0815, For CIWA score 16 to 20. If both oral and intravenous CIWA medications ordered, use intravenous if unable to tolerate oral equivalent. Reassess CIWA one hour after each dose of medication and as needed. For IV doses dilute dose with 1ml NS. LORazepam (Ativan) injection 4 mg(Linked Group 2) 4 mg, IntraVENous, Every 1 hour PRN, withdrawal, For alcohol withdrawal, Starting on 12/27/22 at 0815, For CIWA score greater than 20. If both oral and intravenous CIWA medications ordered, use intravenous if unable to tolerate oral equivalent. Reassess CIWA one hour after each dose of medication and as needed. For IV doses dilute dose with 1ml NS. LORazepam (Ativan) tablet 1 mg(Linked Group 2) 1 mg, Oral, Every 1 hour PRN, other, For alcohol withdrawal, Starting on 12/27/22 at 0815, For CIWA score 8 to 10. Reassess CIWA one hour after each dose of medication and as needed. LORazepam (Ativan) tablet 2 mg(Linked Group 2) 2 mg, Oral, Every 1 hour PRN, other, For alcohol withdrawal, Starting on Wed12/27/22 at 0815, For CIWA score 11 to 15. Reassess CIWA one hour after each dose of medication and as needed. LORazepam (Ativan) tablet 3 mg(Linked Group 2) 3 mg, Oral, Every 1 hour PRN, other, For alcohol withdrawal, Starting on Wed12/27/22 at 0815, For CIWA score 16 to 20. Reassess CIWA one hour after each dose of medication and as needed. LORazepam (Ativan) tablet 4 mg(Linked Group 2) 4 mg, Oral, Every 1 hour PRN, other, For alcohol withdrawal, Starting on Wed12/27/22 at 0815, For CIWA score greater than 20. Reassess CIWA one hour after each dose of medication and as needed. OLANZapine (ZyPREXA) injection 5 mg(Linked Group 3) 5 mg, IntraMUSCular, Every 6 hours PRN, agitation, 2nd line for severe agitation, violence against self or staff. Must document reason for use., Starting on Wed12/29/22 at 1328, 2nd line for severe agitation, violence against self or staff. Must document reason for use. Each 10 mg vial to be reconstituted with 2.1 mL sterile water for injection to give a concentration of approx 5 mg/mL. Use immediately. Discard unused portion. OLANZapine (ZyPREXA) tablet 5 mg(Linked Group 3) 5 mg, Oral, 2 times daily PRN, 1st line for agitation. Please document reason for use., Starting on Wed12/29/22 at 1328, 1st line for agitation. Please document reason for use. ondansetron (Zofran) injection 4 mg(Linked Group 4) 4 mg, IntraVENous, Every 6 hours PRN, nausea, vomiting, Starting on 12/26/22 at 0513, 1st Line. Give IV if patient is unable to take orally. If inadequate response within 60 minutes, proceed to next-line agent or contact provider if no further options ordered. ondansetron ODT (Zofran-ODT) disintegrating tablet 4 mg(Linked Group 4) 4 mg, Oral, Every 8 hours PRN, nausea, vomiting, Starting on 12/26/22 at 0513, 1st Line. If inadequate response within 60 minutes, proceed to next-line agent or contact provider if no further options ordered. Patient should allow tablet to dissolve on tongue. Do not remove from blister pack until just before administering. polyethylene glycol (PEG) 3350 (Miralax) packet 17 g 17 g, Oral, Daily PRN, constipation, Starting on 12/26/22 at 0513, 1st line for treatment of constipation - give scheduled if no bowel movement in past 24 hours. sodium chloride 0.9 % infusion 5-250 mL/hr, IntraVENous, PRN, if patient receiving piggyback infusions and maintenance fluids are not ordered OR KVO fluids to protect IV site / prevent frequent line interruptions / long duration, Starting on Wed12/25/22 at 1333, For piggyback infusion, administer at same rate as piggyback for a total of 25 mL. Enter 25 mL into dose field and piggyback rate into rate field of order. If piggyback is infusing at a rate less than 100 mL/hr, enter 25 mL into dose field and 100 mL/hr into rate field of order. For KVO fluids, enter rate of 20 mL/hr or less into rate field of order. sodium chloride 0.9% (NS) flush 5-40 mL 5-40 mL, IntraVENous, PRN, line care, After every IV line use, Starting on Wed12/25/22 at 1333, For Line Patency: Peripheral IV = 5 mL; Midline or Central Line = 10 mL/lumen. If following IV push medication, administer flush at same rate as the IV push. Flush volume is determined by type of infusion therapy being given. For non-viscous solutions use: Peripheral IV = 5 mL Midline or Central Line = 10 mL/lumen For viscous solutions (i.e. blood components, parenteral nutrition, contrast media, or after obtaining blood sample) use: Peripheral IV = 10 mL Midline or Central Line = 20 mL/lumen Linked Groups Order Group 1: acetaminophen (Tylenol) tablet 650 mgJump to med 650 mg, Oral, Every 6 hours PRN, mild pain (1-3), fever, For temp greater than 100.4 F (38 C), Starting on 12/26/22 at 0513
Maximum dose of acetaminophen is 4000 mg from all sources in 24 hours.
Or acetaminophen (Tylenol) suppository 650 mgJump to med 650 mg, Rectal, Every 6 hours PRN, mild pain (1-3), fever, For temp greater than 100.4 F (38 C), Starting on 12/26/22 at 0513
Administer if oral route cannot be used. Maximum dose of acetaminophen is 4000 mg from all sources in 24 hours.
Group 2: LORazepam (Ativan) tablet 1 mgJump to med 1 mg, Oral, Every 1 hour PRN, other, For alcohol withdrawal, Starting on 12/27/22 at 0815
For CIWA score 8 to 10. Reassess CIWA one hour after each dose of medication and as needed.
Or LORazepam (Ativan) injection 1 mgJump to med 1 mg, IntraVENous, Every 1 hour PRN, withdrawal, For alcohol withdrawal, Starting on 12/27/22 at 0815
For CIWA score 8 to 10. If both oral and intravenous CIWA medications ordered, use intravenous if unable to tolerate oral equivalent. Reassess CIWA one hour after each dose of medication and as needed. For IV doses dilute dose with 1ml NS.
Or LORazepam (Ativan) tablet 2 mgJump to med 2 mg, Oral, Every 1 hour PRN, other, For alcohol withdrawal, Starting on 12/27/22 at 0815
For CIWA score 11 to 15. Reassess CIWA one hour after each dose of medication and as needed.
Or LORazepam (Ativan) injection 2 mgJump to med 2 mg, IntraVENous, Every 1 hour PRN, withdrawal, For alcohol withdrawal., Starting on 12/27/22 at 0815
For CIWA score 11 to 15. If both oral and intravenous CIWA medications ordered, use intravenous if unable to tolerate oral equivalent. Reassess CIWA one hour after each dose of medication and as needed. For IV doses dilute dose with 1ml NS.
Or LORazepam (Ativan) tablet 3 mgJump to med 3 mg, Oral, Every 1 hour PRN, other, For alcohol withdrawal, Starting on 12/27/22 at 0815
For CIWA score 16 to 20. Reassess CIWA one hour after each dose of medication and as needed.
Or LORazepam (Ativan) injection 3 mgJump to med 3 mg, IntraVENous, Every 1 hour PRN, withdrawal, For alcohol withdrawal, Starting on 12/27/22 at 0815
For CIWA score 16 to 20. If both oral and intravenous CIWA medications ordered, use intravenous if unable to tolerate oral equivalent. Reassess CIWA one hour after each dose of medication and as needed. For IV doses dilute dose with 1ml NS.
Or LORazepam (Ativan) tablet 4 mgJump to med 4 mg, Oral, Every 1 hour PRN, other, For alcohol withdrawal, Starting on 12/27/22 at 0815
For CIWA score greater than 20. Reassess CIWA one hour after each dose of medication and as needed.
Or LORazepam (Ativan) injection 4 mgJump to med 4 mg, IntraVENous, Every 1 hour PRN, withdrawal, For alcohol withdrawal, Starting on 12/27/22 at 0815
For CIWA score greater than 20. If both oral and intravenous CIWA medications ordered, use intravenous if unable to tolerate oral equivalent. Reassess CIWA one hour after each dose of medication and as needed. For IV doses dilute dose with 1ml NS.
Group 3: OLANZapine (ZyPREXA) injection 5 mgJump to med 5 mg, IntraMUSCular, Every 6 hours PRN, agitation, 2nd line for severe agitation, violence against self or staff. Must document reason for use., Starting on Wed12/29/22 at 1328
2nd line for severe agitation, violence against self or staff. Must document reason for use. Each 10 mg vial to be reconstituted with 2.1 mL sterile water for injection to give a concentration of approx 5 mg/mL. Use immediately. Discard unused portion.
Or OLANZapine (ZyPREXA) tablet 5 mgJump to med 5 mg, Oral, 2 times daily PRN, 1st line for agitation. Please document reason for use., Starting on Wed12/29/22 at 1328
1st line for agitation. Please document reason for use.
Group 4: ondansetron ODT (Zofran-ODT) disintegrating tablet 4 mgJump to med 4 mg, Oral, Every 8 hours PRN, nausea, vomiting, Starting on 12/26/22 at 0513
1st Line. If inadequate response within 60 minutes, proceed to next-line agent or contact provider if no further options ordered. Patient should allow tablet to dissolve on tongue. Do not remove from blister pack until just before administering.
Or ondansetron (Zofran) injection 4 mgJump to med 4 mg, IntraVENous, Every 6 hours PRN, nausea, vomiting, Starting on 12/26/22 at 0513
1st Line. Give IV if patient is unable to take orally. If inadequate response within 60 minutes, proceed to next-line agent or contact provider if no further options ordered.
Scheduled Medication Order 10/13/2023 10/14/2023 10/15/2023 ARIPiprazole (Abilify) tablet 20 mg 20 mg, Oral, Daily, First dose on Wed10/11/23 at 0900 0829 (Given - Provider: Dmitriy Sr RN) 0900 (Not Given - Provider: Aracely Santo RN - Reason: Other - Comment: Patient had emesis, hold per RN) 0948 (Given - Provider: Burt Curry) aspirin EC tablet 81 mg 81 mg, Oral, Daily, First dose on Wed10/08/23 at 0900, Do not crush, chew, or split. 0822 (Given - Provider: Dmitriy Sr RN) 0900 (Not Given - Provider: Aracely Santo RN - Reason: Other - Comment: Patient had emesis, hold per RN) 0948 (Given - Provider: Burt Curry) bacitracin ointment Topical, 3 times daily, First dose on Wed10/13/23 at 0930, Open wound on L inferior forearm 0930 (Given - Provider: Dmitriy Sr RN)1307 (Given - Provider: Dmitriy Sr RN)205 (Given - Provider: Yuri Martino, RN) 0947 (Given - Provider: Aracely Santo RN)1302 (Given - Provider: Aracely Santo RN)2042 (Given - Provider: Kamala Agudelo RN) 0900 (Not Given - Provider: Analia Kim RN - Reason: Medication not available)1446 (Given - Provider: Burt Curry)2100 (Canceled Entry - Provider: Automatic Discharge Provider - Comment: Automatically canceled at discontinue of medication order) carvedilol (Coreg) tablet 6.25 mg 6.25 mg, Oral, 2 times daily with meals, First dose on Wed10/09/23 at 0830, Hold for SBP<100, HR<60 0800 (Dose Auto Held - Provider: Americo Jones MD)0926 (Unheld by provider - Provider: Kavon Patterson, DIGITAL CONTENT SPECIALIST - ASSISTANT SCIENTIST)1629 (Given - Provider: Alisha Peace RN) 0800 (Not Given - Provider: Aracely Santo RN - Reason: Other - Comment: Patient had emesis, hold per RN)1616 (Given - Provider: Ania Appiah RN) 0948 (Given - Provider: Burt Crury)1636 (Given - Provider: Burt Curry) ceFAZolin in dextrose 4% (Ancef) IVPB 2,000 mg 2,000 mg, IntraVENous, Administer over 30 Minutes, Every 8 hours, First dose on Wed10/11/23 at 1300, premix bag, Suspected Indication (Select all that apply): Bloodstream Infection, Skin and Soft Tissue Infection 0547 (New Bag - Provider: Kee Johnson RN)0617 (Stopped - Provider: Kee Johnson RN)1344 (New Bag - Provider: Dmitriy Sr RN)1414 (Stopped - Provider: Dmitriy Sr RN)2115 (New Bag - Provider: Yuri Martino, RN)2145 (Stopped - Provider: Yuri Martino, RN) 0411 (New Bag - Provider: Yuri Martino RN)0441 (Stopped - Provider: Yuri Martino RN)1258 (New Bag - Provider: Aracely Santo RN)1328 (Stopped - Provider: Ania Appiah, RN)2042 (New Bag - Provider: Kamala Agudelo RN)2112 (Stopped - Provider: Kamala Agudelo RN) 0444 (New Bag - Provider: Kamala Agudelo RN)0514 (Stopped - Provider: Kamala Agudelo, SREE)1256 (New Bag - Provider: Burt Curry)1326 (Stopped - Provider: Analia Kim, SREE)2100 (Canceled Entry - Provider: Automatic Discharge Provider - Comment: Automatically canceled at discontinue of medication order) chlorhexidine (Hibiclens) 4 % liquid Topical, Daily, First dose on Wed10/15/23 at 0600 0444 (Given - Provider: Kamala Agudelo RN) clindamycin in NS (Cleocin) IVPB 900 mg (CANCELED) 900 mg, IntraVENous, at 50 mL/hr, Administer over 60 Minutes, Every 8 hours, First dose on Wed10/10/23 at 0800, Suspected Indication (Select all that apply): Bloodstream Infection, Skin and Soft Tissue Infection 0025 (Stopped - Provider: Kee Johnson RN)0727 (New Bag - Provider: Dmitriy Sr RN)0827 (Stopped - Provider: Dmitriy Sr, SREE)1629 (New Bag - Provider: Alisha Peace, SREE)1729 (Stopped - Provider: Alisha Peace, RN) 0002 (New Bag - Provider: Yuri Martino RN)0102 (Stopped - Provider: Yuri Martino, SREE)0940 (New Bag - Provider: Aracely Santo, RN)1040 (Stopped - Provider: Aracely Santo, RN)1600 (Not Given - Provider: Ania Appiah RN - Reason: Medication not available) 0016 (New Bag - Provider: Kamala Agudelo RN)0116 (Stopped - Provider: Kamala Agudelo RN)0949 (New Bag - Provider: Burt Curry)1049 (Stopped - Provider: Analia Kim, SREE) enoxaparin (Lovenox) syringe 40 mg 40 mg, SubCUTAneous, Every 24 hours, First dose on Wed10/08/23 at 0900, Indication of Use: Prophylaxis-DVT/PE, Indications: Prophylaxis of Venous Thromboembolism 0823 (Given - Provider: Dmitriy Sr RN) 0947 (Given - Provider: Aracely Santo RN) 0947 (Given - Provider: Burt Curry) folic acid (Folvite) tablet 1 mg 1 mg, Oral, Daily, First dose on Wed10/08/23 at 0900 0822 (Given - Provider: Dmitriy Sr RN) 0900 (Not Given - Provider: Aracely Santo RN - Reason: Other - Comment: Patient had emesis, hold per RN) 0948 (Given - Provider: Burt Curry) furosemide (Lasix) injection 40 mg (COMPLETED) 40 mg, IntraVENous, Once, On Wed10/13/23 at 0930, For 1 dose 1307 (Given - Provider: Dmitriy Sr RN) furosemide (Lasix) injection 40 mg (COMPLETED) 40 mg, IntraVENous, Once, On Wed10/13/23 at 1745, For 1 dose 1811 (Given - Provider: Alisha Peace RN) ipratropium-albuterol (Duo-Neb) 0.5-2.5 mg/3 mL nebulizer solution 3 mL (CANCELED) 3 mL, Nebulization, 4 times daily, First dose on Wed10/07/23 at 2000 0848 (Given - Provider: Ying Serna RCP) ipratropium-albuterol (Duo-Neb) 0.5-2.5 mg/3 mL nebulizer solution 3 mL 3 mL, Nebulization, 3 times daily, First dose (after last modification) on Wed10/13/23 at 1400 1214 (Given - Provider: Ying Serna RCP)1944 (Given - Provider: Meliza Vargas, SYNTHETIC FILAMENT SPINNER) 0800 (Not Given - Provider: Winifred White RCP - Reason: Patient/family refused - Comment: nausous)1454 (Given - Provider: Mone Quarles RCP)2145 (Given - Provider: Aishwarya Liu RCP) 0901 (Given - Provider: Giulia Nicole, SYNTHETIC FILAMENT SPINNER)1428 (Given - Provider: Giulia Nicole, OLGA)2000 (Canceled Entry - Provider: Automatic Discharge Provider - Comment: Automatically canceled at discontinue of medication order) miconazole (Micotin) 2 % powder Topical, 2 times daily, First dose on Wed10/09/23 at 2100, Admin to affected areas 0823 (Given - Provider: Dmitriy Sr RN)2099 (Given - Provider: Yuri Martino RN) 0948 (Given - Provider: Aracely Santo RN)2041 (Given - Provider: Kamaal Agudelo RN) 09 (Given - Provider: Burt Curry)2099 (Canceled Entry - Provider: Automatic Discharge Provider - Comment: Automatically canceled at discontinue of medication order) mineral oil-hydrophilic petrolatum (Aquaphor) ointment Topical, Daily, First dose on Wed10/15/23 at 0600, Apply to Left hand and BLE 0500 (Not Given - Provider: Kamala Agudelo RN - Reason: Medication not available) pantoprazole (ProtoNix) 40 mg in sodium chloride (PF) 0.9 % 10 mL injection (CANCELED) 40 mg, IntraVENous, Administer over 2 Minutes, Every morning, First dose on Wed10/08/23 at 0900, Give if unable to take by mouth or feeding tube. Reconstitute 40 mg vial with 10 ml NS. Vial expires 2 hrs after reconstitution. 0823 (Given - Provider: Dmitriy Sr RN) 0939 (Given - Provider: Aracely Santo RN) pantoprazole (ProtoNix) EC tablet 40 mg 40 mg, Oral, Daily before breakfast, First dose on Wed10/15/23 at 0700, Do not crush, chew, or split. 0444 (Given - Provider: Kamala Agudelo, SREE) polyethylene glycol (PEG) 3350 (Miralax) packet 17 g 17 g, Oral, Daily, First dose on Wed10/12/23 at 0900 0822 (Given - Provider: Dmitriy Sr RN) 0900 (Not Given - Provider: Aracely Santo, SREE - Reason: Other - Comment: Patient had emesis, hold per RN) 0948 (Given - Provider: Burt Curry) senna-docusate sodium (Senokot-S) 8.6-50 MG tablet 2 tablet 2 tablet, Oral, 2 times daily, First dose on Wed10/12/23 at 0900 0822 (Given - Provider: Dmitriy Sr RN)2103 (Given - Provider: Yuri Martino RN) 0900 (Not Given - Provider: Aracely Santo RN - Reason: Other - Comment: Patient had emesis, hold per RN)204 (Given - Provider: Kamala Agudelo, SREE) 0948 (Given - Provider: Burt Curry)2100 (Canceled Entry - Provider: Automatic Discharge Provider - Comment: Automatically canceled at discontinue of medication order) sodium chloride 0.9% (NS) flush 5-40 mL 5-40 mL, IntraCATHeter, Every 8 hours, First dose on Wed10/10/23 at 0915, For Line Patency: Peripheral IV = 5 mL; Midline or Central Line = 10 mL/lumen. If following IV push medication, administer flush at same rate as the IV push. Flush volume is determined by type of infusion therapy being given. For non-viscous solutions use: Peripheral IV = 5 mL Midline or Central Line = 10 mL/lumen For viscous solutions (i.e. blood components, parenteral nutrition, contrast media, or after obtaining blood sample) use: Peripheral IV = 10 mL Midline or Central Line = 20 mL/lumen 0115 (Given - Provider: Kee Johnson RN)0915 (Canceled Entry - Provider: Dmitriy Sr RN)1812 (Given - Provider: Alisha Peace RN) 0115 (Not Given - Provider: Yuri Martino RN - Reason: IV Fluids Infusing)0948 (Given - Provider: Aracely Santo RN)1715 (Given - Provider: Ania Appiah RN) 0016 (Given - Provider: Kamala Agudelo, SREE)0915 (Not Given - Provider: Analia Kim, SREE - Reason: IV Fluids Infusing)1715 (Not Given - Provider: Analia Kim RN - Reason: IV Fluids Infusing) thiamine (Vitamin B1) injection 100 mg (CANCELED) 100 mg, IntraVENous, Daily, First dose on Wed10/08/23 at 0900 0823 (Given - Provider: Dmitriy Sr RN) 0939 (Given - Provider: Aracely Santo RN) thiamine (Vitamin B1) tablet 100 mg 100 mg, Oral, Daily, First dose on [place] 10/14/23 at 1600 1600 (Not Given - Provider: Ania Appiah RN - Reason: Other - Comment: patient already received IV today) 0960 (Given - Provider: Burt Curry) PRN Medication Order 10/13/2023 10/14/2023 10/15/2023 Acetaminophen (Tylenol) 650 MG/20.3ML solution 650 mg(Linked Group 1) 650 mg, Oral, Every 4 hours PRN, mild pain (1-3), Starting on 10/09/23 at 1539, Give oral liquid if patient prefers or per feeding tube if present. If inadequate response within 60 minutes, proceed to next-line agent for same PRN reason or contact provider if no further options ordered. acetaminophen (Tylenol) suppository 650 mg(Linked Group 1) 650 mg, Rectal, Every 4 hours PRN, mild pain (1-3), Starting on 10/09/23 at 1539, Give OR if unable to administer by mouth or feeding tube. If inadequate response within 60 minutes, proceed to next-line agent for same PRN reason or contact provider if no further options ordered. acetaminophen (Tylenol) tablet 650 mg(Linked Group 1) 650 mg, Oral, Every 4 hours PRN, mild pain (1-3), fever, Starting on 10/09/23 at 1539, If inadequate response within 60 minutes, proceed to next-line agent for same PRN reason or contact provider if no further options ordered. albuterol (2.5 MG/3ML) 0.083% nebulizer solution 2.5 mg 2.5 mg, Nebulization, Every 4 hours PRN, wheezing, Starting on [place] 10/07/23 at 2050, Initiate RT Bronchodilator Protocol? Yes bisacodyl (Dulcolax) suppository 10 mg 10 mg, Rectal, Daily PRN, constipation, Starting on Tu10/12/23 at 0858 dextrose 5 % infusion 100 mL/hr, IntraVENous, PRN, Blood sugar less than 70mg/dL, Starting on Wed10/10/23 at 1815, Start infusion following administration of dextrose 50% or glucagon. dextrose 50 % solution 12.5 g 12.5 g, IntraVENous, PRN, low blood sugar, Blood glucose less than 70 mg/dL and patient NOT ALERT or NPO., Starting on 10/10/23 at 1815, If patient does not respond within 5 minutes, repeat dose x1. Start D5W at 100 mL/hour until ordering provider can be reached. Repeat blood glucose in 15 minutes. If blood glucose is less than 70 mg/dL, repeat treatment and recheck blood glucose in 15 minutes x2. If using Glucostabilizer, dose as instructed per system. diphenhydrAMINE (BENADryl) injection 50 mg 50 mg, IntraVENous, Every 6 hours PRN, itching, rash, Starting on 10/09/23 at 2347 glucagon (human recombinant) injection 1 mg 1 mg, IntraMUSCular, PRN, low blood sugar, Blood glucose less than 70 mg/dL and patient NOT ALERT or NPO and does not have IV access., Starting on 10/10/23 at 1815, After administration, attempt intravenous access and start D5W at 100 mL/hr. Repeat blood glucose in 15 minutes x2 and notify provider. glucose oral gel 15 g 15 g, Oral, As needed, low blood sugar, Starting on 10/10/23 at 1815, If blood glucose less than 50 mg/dL and patient ALERT and NOT NPO, give 2 tubes glucose gel. If blood glucose less than 70 mg/dL and patient ALERT and NOT NPO, give 1 tube glucose gel. Repeat blood glucose in 15 minutes. If blood glucose is less than 70 mg/dL, repeat treatment and recheck blood glucose in 15 minutes x2 and notify provider. hydrALAZINE (Apresoline) injection 10 mg 10 mg, IntraVENous, Every 4 hours PRN, high blood pressure, SBP > 180, Starting on 10/09/23 at 0815 HYDROmorphone (Dilaudid) injection 1 mg (CANCELED)(Linked Group 2) 1 mg, IntraVENous, Every 4 hours PRN, severe pain (7-10), Starting on Wed10/08/23 at 0759, If oral and IV narcotics ordered, use oral first and only use IV if oral is ineffective or cannot take oral. Do Not give oral and IV within 1 hour of each other unless specifically ordered. 5269 (Given - Provider: Kee Johnson RN)0728 (Given - Provider: Dmitriy Sr, SREE)1629 (Given - Provider: Alisha Peace, SREE) iopamidol (Isovue-370) 76 % injection 75 mL (COMPLETED) 75 mL, IntraVENous, IMG once PRN, contrast, Starting on Wed10/13/23 at 1701, For 1 dose 1703 (Given - Provider: Dru Zheng, RT (R)) naloxone (Narcan) injection 0.4 mg 0.4 mg, IntraVENous, As needed, opioid reversal, pinpoint pupils, Starting on Ti[place] 10/07/23 at 1720, administer IV PRN for oversedation, RR LESS than 10 ondansetron (Zofran) injection 4 mg(Linked Group 3) 4 mg, IntraVENous, Every 6 hours PRN, nausea, vomiting, Starting on [place] 10/07/23 at 1618, 1st Line. Give IV if patient is unable to take orally. If inadequate response within 60 minutes, proceed to next-line agent or contact provider if no further options ordered. 0341 (Given - Provider: Yuri Martino RN)0956 (Given - Provider: Ania Appiah RN)1805 (Given - Provider: Ania Appiah RN) ondansetron ODT (Zofran-ODT) disintegrating tablet 4 mg(Linked Group 3) 4 mg, Oral, Every 8 hours PRN, nausea, vomiting, Starting on [place] 10/07/23 at 1618, 1st Line. If inadequate response within 60 minutes, proceed to next-line agent or contact provider if no further options ordered. Patient should allow tablet to dissolve on tongue. Do not remove from blister pack until just before administering. 0341 (See Alternative - Provider: Yuri Martino RN)0956 (See Alternative - Provider: Ania Appiah RN)1805 (See Alternative - Provider: Ania Appiah RN) oxyCODONE (Roxicodone) immediate release tablet 2.5 mg(Linked Group 4) 2.5 mg, Oral, Every 4 hours PRN, moderate pain (4-6), Starting on Wed10/08/23 at 2139 0947 (See Alternative - Provider: Burt Curry) oxyCODONE (Roxicodone) immediate release tablet 5 mg(Linked Group 4) 5 mg, Oral, Every 4 hours PRN, severe pain (7-10), Starting on Wed10/08/23 at 2139 0947 (Given - Provider: Burt Curry) sodium chloride 0.9% (NS) flush 5-40 mL 5-40 mL, IntraVENous, PRN, line care, before and after blood draws, infusion, or medication administration, Starting on Wed10/10/23 at 0908, For Line Patency: Peripheral IV = 5 mL; Midline or Central Line = 10 mL/lumen. If following IV push medication, administer flush at same rate as the IV push. Flush volume is determined by type of infusion therapy being given. For non-viscous solutions use: Peripheral IV = 5 mL Midline or Central Line = 10 mL/lumen For viscous solutions (i.e. blood components, parenteral nutrition, contrast media, or after obtaining blood sample) use: Peripheral IV = 10 mL Midline or Central Line = 20 mL/lumen Linked Groups Order Group 1: acetaminophen (Tylenol) tablet 650 mgJump to med 650 mg, Oral, Every 4 hours PRN, mild pain (1-3), fever, Starting on 10/09/23 at 1539, If inadequate response within 60 minutes, proceed to next-line agent for same PRN reason or contact provider if no further options ordered. Or Acetaminophen (Tylenol) 650 MG/20.3ML solution 650 mgJump to med 650 mg, Oral, Every 4 hours PRN, mild pain (1-3), Starting on 10/09/23 at 1539, Give oral liquid if patient prefers or per feeding tube if present. If inadequate response within 60 minutes, proceed to next-line agent for same PRN reason or contact provider if no further options ordered. Or acetaminophen (Tylenol) suppository 650 mgJump to med 650 mg, Rectal, Every 4 hours PRN, mild pain (1-3), Starting on 10/09/23 at 1539, Give OR if unable to administer by mouth or feeding tube. If inadequate response within 60 minutes, proceed to next-line agent for same PRN reason or contact provider if no further options ordered. Group 2: HYDROmorphone (Dilaudid) injection 0.5 mg (CANCELED) 0.5 mg, IntraVENous, Every 4 hours PRN, moderate pain (4-6), Starting on Wed10/08/23 at 0759, If oral and IV narcotics ordered, use oral first and only use IV if oral is ineffective or cannot take oral. Do Not give oral and IV within 1 hour of each other unless specifically ordered. Or HYDROmorphone (Dilaudid) injection 1 mg (CANCELED)Jump to med 1 mg, IntraVENous, Every 4 hours PRN, severe pain (7-10), Starting on Wed10/08/23 at 0759, If oral and IV narcotics ordered, use oral first and only use IV if oral is ineffective or cannot take oral. Do Not give oral and IV within 1 hour of each other unless specifically ordered. Group 3: ondansetron ODT (Zofran-ODT) disintegrating tablet 4 mgJump to med 4 mg, Oral, Every 8 hours PRN, nausea, vomiting, Starting on [place] 10/07/23 at 1618, 1st Line. If inadequate response within 60 minutes, proceed to next-line agent or contact provider if no further options ordered. Patient should allow tablet to dissolve on tongue. Do not remove from blister pack until just before administering. Or ondansetron (Zofran) injection 4 mgJump to med 4 mg, IntraVENous, Every 6 hours PRN, nausea, vomiting, Starting on [place] 10/07/23 at 1618, 1st Line. Give IV if patient is unable to take orally. If inadequate response within 60 minutes, proceed to next-line agent or contact provider if no further options ordered. Group 4: oxyCODONE (Roxicodone) immediate release tablet 2.5 mgJump to med 2.5 mg, Oral, Every 4 hours PRN, moderate pain (4-6), Starting on Wed10/08/23 at 2139 Or oxyCODONE (Roxicodone) immediate release tablet 5 mgJump to med 5 mg, Oral, Every 4 hours PRN, severe pain (7-10), Starting on Wed10/08/23 at 2139 Scheduled Medication Order 11/16/2023 11/17/2023 11/18/2023 acetaminophen (Tylenol) tablet 1,000 mg 1,000 mg, Oral, Every 8 hours, First dose on [place] 11/18/23 at 0000, Maximum dose of acetaminophen is 4000 mg from all sources in 24 hours. 0000 (Given - Provider: Evelyn Fry RN)0849 (Given - Provider: Iesha Waldron, SREE)1600 (Canceled Entry - Provider: Automatic Discharge Provider - Comment: Automatically canceled at discontinue of medication order) acetaminophen (Tylenol) tablet 500 mg (COMPLETED) 500 mg, Oral, Once, On Wed11/17/23 at 2230, For 1 dose, If inadequate response within 60 minutes, proceed to next-line agent for same PRN reason or contact provider if no further options ordered. 2316 (Given - Provider: Evelyn Fry RN) ARIPiprazole (Abilify) tablet 20 mg 20 mg, Oral, Daily, First dose on Wed11/16/23 at 0800 0800 (Not Given - Provider: Michelle Ambriz RN - Reason: NPO) 0834 (Given - Provider: Iesha Waldron RN) 0846 (Given - Provider: Iesha Waldron, SREE) aspirin EC tablet 81 mg 81 mg, Oral, Daily, First dose on Wed11/16/23 at 0900, Do not crush, chew, or split. 0900 (Not Given - Provider: Michelle Ambriz RN - Reason: NPO) 0834 (Given - Provider: Iesha Waldron RN) 0846 (Given - Provider: Iesha Waldron, SREE) atorvastatin (Lipitor) tablet 10 mg 10 mg, Oral, Daily, First dose on Wed11/16/23 at 0900 0900 (Not Given - Provider: Michelle Ambriz RN - Reason: NPO) 0834 (Given - Provider: Iesha Waldron RN) 0846 (Given - Provider: Iesha Waldron, SREE) bumetanide (Bumex) tablet 1 mg 1 mg, Oral, 2 times daily with meals, First dose on Wed11/16/23 at 0800, On hold since Wed11/16/2023 at 0325 until manually unheld 0325 (Held by provider - Provider: Natalie Sanchez MD - Reason: Change in vital signs)0800 (Dose Auto Held)1700 (Dose Auto Held) 0800 (Dose Auto Held)1700 (Dose Auto Held) 0800 (Dose Auto Held)1700 (Dose Auto Held)1950 (Unheld by provider - Provider: Automatic Discharge Provider) carvedilol (Coreg) tablet 6.25 mg 6.25 mg, Oral, Daily, First dose on Wed11/16/23 at 0900, Indications: Hypertension, On hold since Wed11/16/2023 at 0325 until manually unheld 324 (Held by provider - Provider: Natalie Sanchez MD - Reason: Change in vital signs)0900 (Dose Auto Held) 0900 (Dose Auto Held) 09 (Dose Auto Held)1949 (Unheld by provider - Provider: Automatic Discharge Provider) dapagliflozin (Farxiga) tablet 5 mg 5 mg, Oral, Daily, First dose on Wed11/16/23 at 0900, Indications: Heart Failure 0900 (Not Given - Provider: Michelle Ambriz RN - Reason: NPO) 0834 (Given - Provider: Iesha Waldron RN) 0846 (Given - Provider: Iesha Waldron RN) enoxaparin (Lovenox) syringe 40 mg 40 mg, SubCUTAneous, Every 24 hours scheduled (Daily), First dose on Wed11/16/23 at 0900, Indication of Use: Prophylaxis-DVT/PE, Indications: Prophylaxis of Venous Thromboembolism 899 (Not Given - Provider: Michelle Ambriz RN - Reason: Upcoming test/procedure) 0834 (Given - Provider: Iesha Waldron RN) 0846 (Given - Provider: Iesha Waldron RN) famotidine (Pepcid) tablet 20 mg 20 mg, Oral, Daily, First dose on Wed11/16/23 at 0800 0800 (Not Given - Provider: Michelle Ambriz RN - Reason: NPO) 0834 (Given - Provider: Iesha Waldron RN) 0846 (Given - Provider: Iesha Waldron, SREE) folic acid (Folvite) tablet 1 mg 1 mg, Oral, Daily, First dose on Wed11/16/23 at 0900 0900 (Not Given - Provider: Michelle mAbriz RN - Reason: NPO) 0834 (Given - Provider: Iesha Waldron RN) 0846 (Given - Provider: Iesha Waldron RN) gabapentin (Neurontin) capsule 100 mg 100 mg, Oral, 3 times daily, First dose on Wed11/16/23 at 0900 0900 (Not Given - Provider: Michelle Ambriz RN - Reason: NPO)1506 (Given - Provider: Michelle Ambriz RN)2147 (Given - Provider: Evelyn Fry, SREE) 0834 (Given - Provider: Iesha Waldron RN)1423 (Given - Provider: Iesha Waldron RN)2027 (Given - Provider: Evelyn Fry RN) 0846 (Given - Provider: Iesha Waldron RN)1444 (Given - Provider: Iesha Waldron RN) Lidocaine 4 % patch 1 patch 1 patch, TransDERmal, Administer over 12 Hours, Daily, First dose on Wed11/18/23 at 0900, Apply patch to back. Patch may remain in place for up to 12 hours in any 24 hour period. 0846 (Medication Applied - Provider: Iesha Waldron RN)1750 (Due: Medication Removed - Provider: Automatic Discharge Provider - Comment: Time automatically adjusted from order being discontinued) lisinopril tablet 5 mg 5 mg, Oral, Daily, First dose on Wed11/16/23 at 0800 0325 (Held by provider - Provider: Natalie Sanchez MD - Reason: Change in vital signs)0800 (Dose Auto Held) 0800 (Dose Auto Held)1851 (Unheld by provider - Provider: Natalie Sanchez MD) 0846 (Given - Provider: Iesha Waldron RN) melatonin tablet 5 mg (COMPLETED) 5 mg, Oral, Once, On Wed11/17/23 at 2230, For 1 dose 2316 (Given - Provider: Evelyn Fry RN) senna-docusate sodium (Senokot-S) 8.6-50 MG tablet 2 tablet 2 tablet, Oral, 2 times daily, First dose on Wed11/16/23 at 0900 0900 (Not Given - Provider: Michelle Ambriz RN - Reason: NPO)2148 (Given - Provider: Evelyn Fry RN) 0834 (Given - Provider: Iesha Waldron RN)202 (Given - Provider: Evelyn Fry RN) 0845 (Given - Provider: Iesha Waldron RN) sodium chloride tablet 1 g 1 g, Oral, 3 times daily, First dose on Wed11/16/23 at 0900 0900 (Not Given - Provider: Michelle Ambriz RN - Reason: NPO)1506 (Given - Provider: Michlele Ambriz RN)2147 (Given - Provider: Evelyn Fry, SREE) 0834 (Given - Provider: Iesha Waldron RN)1423 (Given - Provider: Iesha Waldron, SREE)2028 (Given - Provider: Evelyn Fry, RN) 0846 (Given - Provider: Iesha Waldron, SREE)1444 (Given - Provider: Iesha Waldron RN) thiamine (Vitamin B1) tablet 100 mg 100 mg, Oral, Daily, First dose on Wed11/16/23 at 0900 0900 (Not Given - Provider: Michelle Ambriz RN - Reason: NPO) 0834 (Given - Provider: Iesha Waldron RN) 0846 (Given - Provider: Iesha Waldron RN) Continuous Medication Order 11/16/2023 11/17/2023 11/18/2023 DOBUTamine (Dobutrex) 250 mg in dextrose 5 % 250 mL infusion (premix) (CANCELED) 10 mcg/kg/min 130 kg (78 mL/hr), IntraVENous, Continuous, Starting on Wed11/16/23 at 0330, CV Procedural Medications, To be administered in Stress Lab only. Increase by 10 mcg/kg/min every 3 minutes up to a max dose of 40 mcg/kg/min. Dose Range: 10 to 40 mcg/kg/min Max dose: 40 mcg/kg/min Contact physician if max dose does not achieve desired response. When approaching therapeutic goal or weaning off, smaller titration increments of 1 mcg/kg/min, no faster than every 5 minutes may be used to maintain goal., Inotrope Criteria (select all that apply): Other, Explanatory comment: Dobutamine stress echo, Inotrope Target (select all that apply): Other, Explanatory comment: Dobutamine stress echo 1040 (New Bag - Provider: Annie Modi, SREE)1054 (Stopped - Provider: Annie Modi RN) PRN Medication Order 11/16/2023 11/17/2023 11/18/2023 acetaminophen (Tylenol) suppository 650 mg(Linked Group 1) 650 mg, Rectal, Every 6 hours PRN, mild pain (1-3), fever, For temp greater than 100.4 F (38 C), Starting on Wed11/16/23 at 0325, Administer if oral route cannot be used. Maximum dose of acetaminophen is 4000 mg from all sources in 24 hours. 2028 (See Alternative - Provider: Evelyn Fry RN) acetaminophen (Tylenol) tablet 650 mg(Linked Group 1) 650 mg, Oral, Every 6 hours PRN, mild pain (1-3), fever, For temp greater than 100.4 F (38 C), Starting on Wed11/16/23 at 0325, Maximum dose of acetaminophen is 4000 mg from all sources in 24 hours. 2028 (Given - Provider: Evelyn Fry RN) atropine syringe 1 mg 1 mg, IntraVENous, IMG once PRN, Total of 2 mg IV Atropine given during Dobutamine stress echo to help augment HR, Starting on Wed11/16/23 at 1229, For 2 doses, CV Procedural Medications 1046 (Given - Provider: Annie Modi RN - Comment: Total of 2 mg IV Atropine given to augment HR) dextrose 5 % infusion 100 mL/hr, IntraVENous, PRN, Blood sugar less than 70mg/dL, Starting on Wed11/16/23 at 0325, Start infusion following administration of dextrose 50% or glucagon. dextrose 50 % solution 12.5 g 12.5 g, IntraVENous, PRN, low blood sugar, Blood glucose less than 70 mg/dL and patient NOT ALERT or NPO., Starting on Wed11/16/23 at 0325, If patient does not respond within 5 minutes, repeat dose x1. Start D5W at 100 mL/hour until ordering provider can be reached. Repeat blood glucose in 15 minutes. If blood glucose is less than 70 mg/dL, repeat treatment and recheck blood glucose in 15 minutes x2. If using Glucostabilizer, dose as instructed per system. glucagon (human recombinant) injection 1 mg 1 mg, IntraMUSCular, PRN, low blood sugar, Blood glucose less than 70 mg/dL and patient NOT ALERT or NPO and does not have IV access., Starting on Wed11/16/23 at 0325, After administration, attempt intravenous access and start D5W at 100 mL/hr. Repeat blood glucose in 15 minutes x2 and notify provider. glucose oral gel 15 g 15 g, Oral, As needed, low blood sugar, Starting on Wed11/16/23 at 0325, If blood glucose less than 50 mg/dL and patient ALERT and NOT NPO, give 2 tubes glucose gel. If blood glucose less than 70 mg/dL and patient ALERT and NOT NPO, give 1 tube glucose gel. Repeat blood glucose in 15 minutes. If blood glucose is less than 70 mg/dL, repeat treatment and recheck blood glucose in 15 minutes x2 and notify provider. 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 Give IV if patient is unable to take orally. If inadequate response within 60 minutes, proceed to next-line agent or contact provider if no further options ordered. ondansetron ODT (Zofran-ODT) disintegrating tablet 4 mg(Linked Group 2) 4 mg, Oral, Every 8 hours PRN, nausea, vomiting, Starting on Wed11/16/23 at 0325, 1st Line. If inadequate response within 60 minutes, proceed to next-line agent or contact provider if no further options ordered. Patient should allow tablet to dissolve on tongue. Do not remove from blister pack until just before administering. oxyCODONE (Roxicodone) immediate release tablet 5 mg 5 mg, Oral, Every 6 hours PRN, severe pain (7-10), Starting on Wed11/16/23 at 0325, Indications: Chronic Pain 0406 (Given - Provider: Kenton Crain RN)2146 (Given - Provider: Evelyn Fry RN) 0845 (Given - Provider: Iesha Waldron, SREE)2027 (Given - Provider: Evelyn Fry, SREE) 0846 (Given - Provider: Iesha Waldron, SREE)1446 (Given - Provider: Iesha Waldron, SREE) perflutren protein A microsphere (Optison) 3 mL in sodium chloride (PF) 0.9 % 10 mL IV syringe (COMPLETED) 0-10 mL, IntraVENous, IMG once PRN, other, suboptimal echo image, Starting on Wed11/16/23 at 0325, For 1 dose, CV Procedural Medications, Only to be given in Echo Lab during CARDIAC STRESS TEST ONLY. Echocardiogram should first be performed without contrast and if exam is adequate then DO NOT administer the contrast. If unable to adequately visualize heart without contrast and the patient has no contraindications to echo contrast then administer the echo contrast. 1059 (Given - Provider: Annie Modi RN) polyethylene glycol (PEG) 3350 (Miralax) packet 17 g 17 g, Oral, Daily PRN, constipation, Starting on Wed11/16/23 at 0325, 1st line for treatment of constipation - give scheduled if no bowel movement in past 24 hours. Linked Groups Order Group 1: acetaminophen (Tylenol) tablet 650 mgJump to med 650 mg, Oral, Every 6 hours PRN, mild pain (1-3), fever, For temp greater than 100.4 F (38 C), Starting on Wed11/16/23 at 0325, Maximum dose of acetaminophen is 4000 mg from all sources in 24 hours. Or acetaminophen (Tylenol) suppository 650 mgJump to med 650 mg, Rectal, Every 6 hours PRN, mild pain (1-3), fever, For temp greater than 100.4 F (38 C), Starting on Wed11/16/23 at 0325, Administer if oral route cannot be used. Maximum dose of acetaminophen is 4000 mg from all sources in 24 hours. Group 2: ondansetron ODT (Zofran-ODT) disintegrating tablet 4 mgJump to med 4 mg, Oral, Every 8 hours PRN, nausea, vomiting, Starting on Wed11/16/23 at 0325, 1st Line. If inadequate response within 60 minutes, proceed to next-line agent or contact provider if no further options ordered. Patient should allow tablet to dissolve on tongue. Do not remove from blister pack until just before administering. Or ondansetron (Zofran) injection 4 mgJump to med 4 mg, IntraVENous, Every 6 hours PRN, nausea, vomiting, Starting on Wed11/16/23 at 0325, 1st Line. Give IV if patient is unable to take orally. If inadequate response within 60 minutes, proceed to next-line agent or contact provider if no further options ordered. Scheduled Medication Order 07/21/2024 07/22/2024 07/23/2024 acetaminophen (Tylenol) tablet 650 mg 650 mg, Oral, Every 6 hours, First dose on Wed07/21/24 at 1845, Phase II/On Unit 2009 (Given - Provider: Brit Stockton RN) 51 (Given - Provider: Brit Stockton RN)0656 (Given - Provider: Brit Stockton RN)1329 (Given - Provider: Merry Agudelo RN)1827 (Given - Provider: Merry Agudelo RN) 0146 (Given - Provider: Tram Ray LPN)0941 (Given - Provider: Merry Agudelo RN)1245 (Canceled Entry - Provider: Automatic Discharge Provider - Comment: Automatically canceled at discontinue of medication order) apixaban (Eliquis) tablet 2.5 mg 2.5 mg, Oral, 2 times daily, First dose on 07/22/24 at 0900, For 12 days, Phase II/On Unit, Anticoagulant, Indications: Prophylaxis of Venous Thromboembolism 0953 (Given - Provider: Merry Agudelo RN)2151 (Given - Provider: Tram Ray LPN) 0941 (Given - Provider: Merry Agudelo RN) ARIPiprazole (Abilify) tablet 20 mg 20 mg, Oral, Daily, First dose on 07/22/24 at 0800 0952 (Given - Provider: Merry Agudelo RN) 0941 (Given - Provider: Merry Agudelo RN) aspirin EC tablet 81 mg 81 mg, Oral, Daily, First dose on 07/22/24 at 0900, Do not crush, chew, or split. 0952 (Given - Provider: Merry Agudelo RN) 0941 (Given - Provider: Merry Agudelo RN) atorvastatin (Lipitor) tablet 10 mg 10 mg, Oral, Daily, First dose on 07/22/24 at 0900 0952 (Given - Provider: Merry Agudelo RN) 0941 (Given - Provider: Merry Agudelo RN) bumetanide (Bumex) tablet 1 mg 1 mg, Oral, Daily, First dose on Wed07/22/24 at 0900 0952 (Given - Provider: Merry Agudelo RN) 0941 (Given - Provider: Merry Agudelo RN) ceFAZolin (Ancef) 2,000 mg in sodium chloride 0.9 % 100 mL IVPB (COMPLETED) 2,000 mg, IntraVENous, at 200 mL/hr, Administer over 30 Minutes, Every 8 hours, First dose on Wed07/21/24 at 2100, For 2 doses, Phase II/On Unit, Mini-Bag Plus bag, Suspected Indication (Select all that apply): Surgical Prophylaxis 2004 (New Bag - Provider: Brit Stockton RN)2034 (Stopped - Provider: Brit Stockton RN) 503 (New Bag - Provider: Brit Stockton RN)05 (Stopped - Provider: Brit Stockton RN) ceFAZolin in dextrose 4% (Ancef) IVPB 2,000 mg (COMPLETED) 2,000 mg, IntraVENous, Administer over 30 Minutes, Manager Infusion to O.R., On Wed07/21/24 at 1000, For 1 dose, Preprocedure, Administer within 1 hour prior to incision. Recommend to repeat in 3-4 hours after initial dose if still intra-op. premix bag, Suspected Indication (Select all that apply): Surgical Prophylaxis 1314 (Given - Provider: Fabián Coleman CRNA)1548 (Anesthesia Volume Adjustment - Provider: Kesha Hampton APRN - DAMPENER) dapagliflozin (Farxiga) tablet 5 mg 5 mg, Oral, Daily, First dose on Wed07/22/24 at 0900 0952 (Given - Provider: Merry Agudelo RN) 0900 (Not Given - Provider: Merry Agudelo RN - Reason: Other - Comment: given-) famotidine (Pepcid) tablet 20 mg 20 mg, Oral, 2 times daily, First dose on Wed07/21/24 at 2100, Phase II/On Unit 2009 (Given - Provider: Brit Stockton RN) 0952 (Given - Provider: Merry Agudelo RN)2148 (Given - Provider: Tram Ray LPN) 0941 (Given - Provider: Merry Agudelo RN) gabapentin (Neurontin) capsule 300 mg 300 mg, Oral, 3 times daily, First dose on Wed07/21/24 at 2215 0051 (Given - Provider: Brit Stockton RN)0952 (Given - Provider: Merry Agudelo RN)1329 (Given - Provider: Merry Agudelo RN)2150 (Given - Provider: Tram Ray LPN) 0941 (Given - Provider: Merry Agudelo RN)1400 (Canceled Entry - Provider: Automatic Discharge Provider - Comment: Automatically canceled at discontinue of medication order) ketorolac (Toradol) injection 15 mg (COMPLETED) 15 mg, IntraVENous, Every 6 hours, First dose on Wed07/21/24 at 1845, For 2 doses, Phase II/On Unit 2008 (Given - Provider: Brit Stockton RN) 005 (Given - Provider: Brit Stockton RN) lisinopril tablet 5 mg 5 mg, Oral, Daily, First dose on 07/22/24 at 0800 0952 (Given - Provider: Merry Agudelo RN) 0941 (Not Given - Provider: Merry Agudelo RN - Reason: Other) ropivacaine (Naropin) 5 MG/ML 15 mL, EPINEPHrine (Adrenalin) 30 MG/30ML 0.125 mL, ketorolac (Toradol) 30 MG/ML 0.5 mL in sodium chloride (PF) 0.9 % 15 mL syringe (COMPLETED) 1 Syringe, Intra-artICUlar, Once, On Wed07/21/24 at 1345, For 1 dose, Intraprocedure 1342 (Given - Provider: Gela Segovia RN) sertraline (Zoloft) tablet 50 mg 50 mg, Oral, Daily, First dose on 07/22/24 at 0900 0953 (Given - Provider: Merry Agudelo RN) 0941 (Given - Provider: Merry Agudelo RN) sodium chloride 0.9% (NS) flush 10 mL 10 mL, IntraVENous, Every 12 hours scheduled (2 times per day), First dose on Wed07/21/24 at 2100, Phase II/On Unit 2099 (Not Given - Provider: Brit Stockton RN - Reason: IV Fluids Infusing) 0900 (Given - Provider: Merry Agudelo RN)2150 (Given - Provider: Tram Ray LPN) 0900 (Not Given - Provider: Merry Agudelo RN - Reason: Other) sodium chloride tablet 1 g 1 g, Oral, 3 times daily, First dose on Wed07/21/24 at 2215 0052 (Given - Provider: Brit Stockton RN)0953 (Given - Provider: Merry Agudelo RN)1329 (Given - Provider: Merry Agudelo, SREE)2149 (Given - Provider: Tram Ray LPN) 0941 (Given - Provider: Merry Agudelo RN)1400 (Canceled Entry - Provider: Automatic Discharge Provider - Comment: Automatically canceled at discontinue of medication order) tiotropium (Spiriva Respimat) 2.5 MCG/ACT inhaler 2 puff 2 puff, Inhalation, Daily, First dose on Wed07/22/24 at 0900 0954 (Given - Provider: Merry Agudelo RN) 0900 (Not Given - Provider: Merry Agudelo RN - Reason: Other) Continuous Medication Order 07/21/2024 07/22/2024 07/23/2024 lactated Ringer's (LR) infusion (CANCELED) 50 mL/hr, IntraVENous, Continuous, Starting on Wed07/21/24 at 1000, Preprocedure, Upon admission to sameday - please start iv if patient does not have iv access. Use 500ml NS for patients on dialysis. 1259 (New Bag - Provider: Fabián Coleman CRNA)1501 (New Bag - Provider: Chantale Marina APRN - DAMPENER)1548 (Stopped - Provider: LUC Beck DAMPENER) sodium chloride 0.9 % infusion 125 mL/hr, IntraVENous, Continuous, Starting on Wed07/21/24 at 1845, Phase II/On Unit 2000 (New Bag - Provider: Brit Stockton RN) 0504 (New Bag - Provider: Brit Stockton RN) PRN Medication Order 07/21/2024 07/22/2024 07/23/2024 albuterol 108 (90 Base) MCG/ACT inhaler 2 puff 2 puff, Inhalation, Every 4 hours PRN, wheezing, Starting on Wed07/21/24 at 2157 0953 (Given - Provider: Merry Agudelo RN) bisacodyl (Dulcolax) EC tablet 5 mg 5 mg, Oral, Daily PRN, constipation, Starting on Wed07/21/24 at 1832, Phase II/On Unit, 1st line for treatment of constipation - give scheduled if no bowel movement in past 24 hours. Do not crush, chew, or split. cefuroxime (Zinacef) injection (CANCELED) As needed, Starting on Wed07/21/24 at 1307, Intraprocedure 1307 (Given - Provider: Clara Judge MD - Comment: MIXED IN CEMENT) cyclobenzaprine (Flexeril) tablet 5 mg 5 mg, Oral, 3 times daily PRN, muscle spasms, Starting on Wed07/21/24 at 2158 diphenhydrAMINE (BENADryl) injection 25 mg(Linked Group 1) 25 mg, IntraVENous, Every 6 hours PRN, itching, Starting on Wed07/21/24 at 1832, Phase II/On Unit, Administer if oral route cannot be used. diphenhydrAMINE (BENADryl) tablet/capsule 25 mg(Linked Group 1) 25 mg, Oral, Every 6 hours PRN, itching, Starting on Wed07/21/24 at 1832, Phase II/On Unit HYDROmorphone (Dilaudid) injection 0.25 mg(Linked Group 2) 0.25 mg, IntraVENous, Every 3 hours PRN, moderate pain (4-6), Starting on Wed07/21/24 at 1832, Phase II/On Unit, If oral and IV narcotics ordered, use oral first and only use IV if oral is ineffective or cannot take oral. Do Not give oral and IV within 1 hour of each other unless specifically ordered. HYDROmorphone (Dilaudid) injection 0.5 mg(Linked Group 2) 0.5 mg, IntraVENous, Every 3 hours PRN, severe pain (7-10), Starting on Wed07/21/24 at 1832, Phase II/On Unit, If oral and IV narcotics ordered, use oral first and only use IV if oral is ineffective or cannot take oral. Do Not give oral and IV within 1 hour of each other unless specifically ordered. magnesium citrate solution 297 mL 297 mL, Oral, Once PRN, constipation, constipation, Starting on Wed07/21/24 at 1832, For 1 dose, Phase II/On Unit, 2nd line for treatment of constipation - give scheduled (in addition to 1st line agent) if no bowel movement in past 48 hours. If no bowel movement within 3 hours of magnesium citrate administration, contact provider for further instructions. Melatonin disintegrating tablet 10 mg 10 mg, Oral, Nightly PRN, sleep, Starting on Wed07/21/24 at 2158 naloxone (Narcan) injection 0.4 mg 0.4 mg, IntraVENous, PRN, opioid reversal, Starting on Wed07/21/24 at 1832, Phase II/On Unit, For oversedation/difficult to rouse, pinpoint pupils, RR < 8; notify primary team power house control room operator if used ondansetron (Zofran) injection 4 mg(Linked Group 3) 4 mg, IntraVENous, Every 6 hours PRN, nausea, vomiting, Starting on Wed07/21/24 at 1832, Phase II/On Unit, 1st Line. Give IV if patient is unable to take orally. If inadequate response within 60 minutes, proceed to next-line agent or contact provider if no further options ordered. ondansetron ODT (Zofran-ODT) disintegrating tablet 4 mg(Linked Group 3) 4 mg, Oral, Every 8 hours PRN, nausea, vomiting, Starting on Wed07/21/24 at 1832, Phase II/On Unit, 1st Line. If inadequate response within 60 minutes, proceed to next-line agent or contact provider if no further options ordered. Patient should allow tablet to dissolve on tongue. Do not remove from blister pack until just before administering. oxyCODONE (Roxicodone) immediate release tablet 10 mg 10 mg, Oral, Every 4 hours PRN, severe pain (7-10), Starting on Wed07/21/24 at 1832, Phase II/On Unit 1859 (Given - Provider: Merry Agudelo RN)2309 (Given - Provider: Tram Ray LPN) oxyCODONE (Roxicodone) immediate release tablet 10 mg (COMPLETED)(Linked Group 4) 10 mg, Oral, Every 4 hours PRN, severe pain (7-10), Starting on Wed07/21/24 at 1615, For 1 dose, Recovery (only), PHASE II 1814 (Given - Provider: Aracely Matthews RN) oxyCODONE (Roxicodone) immediate release tablet 5 mg 5 mg, Oral, Every 4 hours PRN, moderate pain (4-6), Starting on Wed07/21/24 at 1832, Phase II/On Unit sodium chloride 0.9 % infusion 5-250 mL/hr, IntraVENous, PRN, if patient receiving piggyback infusions and maintenance fluids are not ordered OR KVO fluids to protect IV site / prevent frequent line interruptions/ long duration, Starting on Wed07/21/24 at 1832, Phase II/On Unit, For piggyback infusion, administer at same rate as piggyback for a total of 25 mL. Enter 25 mL into dose field and piggyback rate into rate field of order. If piggyback is infusing at a rate less than 100 mL/hr, enter 25 mL into dose field and 100 mL/hr into rate field of order. For KVO fluids, enter rate of 20 mL/hr or less into rate field of order. sodium chloride 0.9 % irrigation solution (CANCELED) As needed, Starting on Wed07/21/24 at 1243, Intraprocedure 1243 (Given - Provider: Clara Judge MD - Comment: TINTED WITH BETADINE)1244 (Given - Provider: Clara Judge MD - Comment: PULSE LAVAGE) sodium chloride 0.9% (NS) flush 10 mL 10 mL, IntraVENous, PRN, line care, Starting on Wed07/21/24 at 1832, Phase II/On Unit, After every IV line use 2008 (Given - Provider: Brit Stockton RN) sterile water irrigation solution (CANCELED) As needed, Starting on Wed07/21/24 at 1244, Intraprocedure 1244 (Given - Provider: Clara Judge MD - Comment: INSTRUMENT CLEANING) traMADol (Ultram) tablet 50 mg 50 mg, Oral, Every 6 hours PRN, mild pain (1-3), Starting on Wed07/21/24 at 1832, Phase II/On Unit, DO NOT GIVE IF PATIENT IS ON WELLBUTRIN (BUPROPION) OR SEIZURE DISORDER OR HISTORY Tramadol can be given in conjunction with Oxy/[place] if pain above 3., Indications: Pain Linked Groups Order Group 1: diphenhydrAMINE (BENADryl) tablet/capsule 25 mgJump to med 25 mg, Oral, Every 6 hours PRN, itching, Starting on Wed07/21/24 at 1832, Phase II/On Unit Or diphenhydrAMINE (BENADryl) injection 25 mgJump to med 25 mg, IntraVENous, Every 6 hours PRN, itching, Starting on Wed07/21/24 at 1832, Phase II/On Unit, Administer if oral route cannot be used. Group 2: HYDROmorphone (Dilaudid) injection 0.25 mgJump to med 0.25 mg, IntraVENous, Every 3 hours PRN, moderate pain (4-6), Starting on Wed07/21/24 at 1832, Phase II/On Unit, If oral and IV narcotics ordered, use oral first and only use IV if oral is ineffective or cannot take oral. Do Not give oral and IV within 1 hour of each other unless specifically ordered. Or HYDROmorphone (Dilaudid) injection 0.5 mgJump to med 0.5 mg, IntraVENous, Every 3 hours PRN, severe pain (7-10), Starting on Wed07/21/24 at 1832, Phase II/On Unit, If oral and IV narcotics ordered, use oral first and only use IV if oral is ineffective or cannot take oral. Do Not give oral and IV within 1 hour of each other unless specifically ordered. Group 3: ondansetron ODT (Zofran-ODT) disintegrating tablet 4 mgJump to med 4 mg, Oral, Every 8 hours PRN, nausea, vomiting, Starting on Wed07/21/24 at 1832, Phase II/On Unit, 1st Line. If inadequate response within 60 minutes, proceed to next-line agent or contact provider if no further options ordered. Patient should allow tablet to dissolve on tongue. Do not remove from blister pack until just before administering. Or ondansetron (Zofran) injection 4 mgJump to med 4 mg, IntraVENous, Every 6 hours PRN, nausea, vomiting, Starting on Wed07/21/24 at 1832, Phase II/On Unit, 1st Line. Give IV if patient is unable to take orally. If inadequate response within 60 minutes, proceed to next-line agent or contact provider if no further options ordered. Group 4: oxyCODONE (Roxicodone) immediate release tablet 5 mg (COMPLETED) 5 mg, Oral, Every 4 hours PRN, moderate pain (4-6), Starting on Wed07/21/24 at 1615, For 1 dose, Recovery (only), PHASE II Or oxyCODONE (Roxicodone) immediate release tablet 10 mg (COMPLETED)Jump to med 10 mg, Oral, Every 4 hours PRN, severe pain (7-10), Starting on Wed07/21/24 at 1615, For 1 dose, Recovery (only), PHASE II Scheduled Medication Order 10/12/2022 10/13/2022 10/14/2022 amoxicillin-clavulanate (Augmentin) 875-125 MG per tablet 1 tablet 1 tablet (875 mg), Oral, Every 12 hours scheduled (2 times per day), First dose on Wed10/13/22 at 2100, Suspected Indication (Select all that apply): Skin and Soft Tissue Infection 2056 (Given - Provider: Josie Hernandez RN) 0935 (Given - Provider: Zeeshan Rodriguez RN) enoxaparin (Lovenox) syringe 40 mg 40 mg, SubCUTAneous, Every 24 hours scheduled (Daily), First dose on Wed10/09/22 at 0900, Indication of Use: Treatment-DVT/PE, Indications: Prophylaxis of Venous Thromboembolism 904 (Given - Provider: Bobby Nava RN) 0900 (Not Given - Provider: Quan Ramos RN - Reason: Patient/family refused) 0935 (Given - Provider: Zeeshan Rodriguez RN) Insulin Lispro (Humalog) injection 0-6 Units(Linked Group 1) 0-6 Units, SubCUTAneous, 3 times daily with meals, First dose on Wed10/09/22 at 0800, Low Dose Correction Algorithm Glucose: Dose: LESS than 139 No Insulin 140-199 1 Unit 200-249 2 Units 250-299 3 Units 300-349 4 Units 350-400 5 Units Above 400 6 Units 0800 (Not Given - Provider: Bobby Nava RN - Reason: Order parameters not met)1200 (Not Given - Provider: Bobby Nava RN - Reason: Order parameters not met)1700 (Not Given - Provider: Bobby Nava RN - Reason: Order parameters not met) 0800 (Not Given - Provider: Quan Ramos RN - Reason: Order parameters not met)1200 (Not Given - Provider: Quan Ramos RN - Reason: Order parameters not met)1700 (Not Given - Provider: Quan Ramos RN - Reason: Order parameters not met) 0800 (Canceled Entry - Provider: Zeeshan Rodriguez RN - Comment: NO SSI NEEDED)1200 (Canceled Entry - Provider: Zeeshan Rodriguez RN - Comment: NO SSI NEEDED)1700 (Canceled Entry - Provider: Zeeshan Rodriguez RN - Comment: NO SSI NEEDED) Insulin Lispro (Humalog) injection 0-6 Units(Linked Group 1) 0-6 Units, SubCUTAneous, Nightly, First dose on Wed10/09/22 at 2100, If continuous tube feedings/TPN/NPO, give correction dose based on result, no reduction in dose. If eating or bolus tube feeding: Low Dose Correction Algorithm Glucose: Dose: LESS than 139 No Insulin 140-199 1 Unit 200-249 2 Units 250-299 3 Units 300-349 4 Units 350-400 5 Units Above 400 6 Units 2100 (Not Given - Provider: Catarina Crawford RN - Reason: Order parameters not met) 2044 (Not Given - Provider: Josie Hernandez RN - Reason: Patient/family refused) Lidocaine 4 % patch 1 patch 1 patch, TransDERmal, Administer over 12 Hours, Daily, First dose on Wed10/09/22 at 1615, Apply patch to rt shoulder/ back of the neck . Patch may remain in place for up to 12 hours in any 24 hour period. 0900 (Medication Applied - Provider: Bobby Nava RN)2100 (Medication Removed - Provider: Catarina Crawford RN) 0900 (Not Given - Provider: Quan Ramos RN - Reason: Patient/family refused) 0935 (Medication Applied - Provider: Zeeshan Rodriguez RN - Comment: neck)1735 (Due: Medication Removed - Provider: Automatic Discharge Provider - Comment: Time automatically adjusted from order being discontinued) linezolid (Zyvox) injection 600 mg (CANCELED) 600 mg, IntraVENous, at 300 mL/hr, Administer over 60 Minutes, Every 12 hours, First dose on Wed10/12/22 at 1000, Suspected Indication (Select all that apply): Skin and Soft Tissue Infection 1138 (New Bag - Provider: Bobby Nava RN)1300 (Stopped - Provider: Bobby Nava RN)2205 (New Bag - Provider: Catarina Crawford RN)2305 (Stopped - Provider: Catarina Crawford RN) 1000 (Not Given - Provider: Quan Ramos RN - Reason: Patient/family refused) piperacillin-tazobactam (Zosyn) IVPB 3,375 mg (CANCELED) 3,375 mg, IntraVENous, at 12.5 mL/hr, Administer over 4 Hours, Every 8 hours, First dose on Wed10/09/22 at 0800, premix bag, Suspected Indication (Select all that apply): Skin and Soft Tissue Infection 0000 (Stopped - Provider: Catarina Crawford RN)0330 (New Bag - Provider: Catarina Crawford RN)0730 (Stopped - Provider: Zeeshan Rodriguez RN)1301 (New Bag - Provider: Bobby Nava RN)1701 (Due: Stopped - Provider: Bobby Nava RN)1930 (Not Given - Provider: Catarina Crawford RN - Reason: Loss of IV access) 0330 (New Bag - Provider: Catarina Crawford RN)0730 (Stopped - Provider: Quan Ramos, SREE)1115 (New Bag - Provider: Quan Ramos, SREE)1515 (Stopped - Provider: Quan Ramos RN) PRN Medication Order 10/12/2022 10/13/2022 10/14/2022 dextrose 5 % infusion 100 mL/hr, IntraVENous, PRN, Blood sugar less than 70mg/dL, Starting on Wed10/09/22 at 0627, Start infusion following administration of dextrose 50% or glucagon. dextrose 50 % solution 12.5 g 12.5 g, IntraVENous, PRN, low blood sugar, Blood glucose less than 70 mg/dL and patient NOT ALERT or NPO., Starting on Wed10/09/22 at 0627, If patient does not respond within 5 minutes, repeat dose x1. Start D5W at 100 mL/hour until ordering provider can be reached. Repeat blood glucose in 15 minutes. If blood glucose is less than 70 mg/dL, repeat treatment and recheck blood glucose in 15 minutes x2. If using Glucostabilizer, dose as instructed per system. glucagon (human recombinant) injection 1 mg 1 mg, IntraMUSCular, PRN, low blood sugar, Blood glucose less than 70 mg/dL and patient NOT ALERT or NPO and does not have IV access., Starting on Wed10/09/22 at 0627, After administration, attempt intravenous access and start D5W at 100 mL/hr. Repeat blood glucose in 15 minutes x2 and notify provider. glucose oral gel 15 g 15 g, Oral, As needed, low blood sugar, Starting on Wed10/09/22 at 0627, If blood glucose less than 50 mg/dL and patient ALERT and NOT NPO, give 2 tubes glucose gel. If blood glucose less than 70 mg/dL and patient ALERT and NOT NPO, give 1 tube glucose gel. Repeat blood glucose in 15 minutes. If blood glucose is less than 70 mg/dL, repeat treatment and recheck blood glucose in 15 minutes x2 and notify provider. HYDROmorphone (Dilaudid) injection 0.25 mg 0.25 mg, IntraVENous, Every 4 hours PRN, severe pain (7-10), Starting on Wed10/11/22 at 1906, If oral and IV narcotics ordered, use oral first and only use IV if oral is ineffective or cannot take oral. Do Not give oral and IV within 1 hour of each other unless specifically ordered. 0625 (Given - Provider: Catarina Crawford RN)1252 (Given - Provider: Bobby Nava RN)2206 (Given - Provider: Catarina Crawford RN) 0235 (Given - Provider: Catarina Crawford RN)1902 (Given - Provider: Quan Ramos RN) 0414 (Given - Provider: Josie Hernandez RN)0935 (Given - Provider: Zeeshan Rodriguez, SREE)1409 (Given - Provider: Zeeshan Rodriguez, RN) ondansetron (Zofran) injection 4 mg(Linked Group 2) 4 mg, IntraVENous, Every 6 hours PRN, nausea, vomiting, Starting on Wed10/09/22 at 0625, 1st Line. Give IV if patient is unable to take orally. If inadequate response within 60 minutes, proceed to next-line agent or contact provider if no further options ordered. ondansetron ODT (Zofran-ODT) disintegrating tablet 4 mg(Linked Group 2) 4 mg, Oral, Every 8 hours PRN, nausea, vomiting, Starting on Wed10/09/22 at 0625, 1st Line. If inadequate response within 60 minutes, proceed to next-line agent or contact provider if no further options ordered. Patient should allow tablet to dissolve on tongue. Do not remove from blister pack until just before administering. polyethylene glycol (PEG) 3350 (Miralax) packet 17 g 17 g, Oral, Daily PRN, constipation, Starting on Wed10/09/22 at 0625, 1st line for treatment of constipation - give scheduled if no bowel movement in past 24 hours. traMADol (Ultram) tablet 50 mg 50 mg, Oral, Every 6 hours PRN, moderate pain (4-6), Starting on Wed10/09/22 at 1029 0906 (Given - Provider: Bobby Naav RN) 1115 (Given - Provider: Quan Ramos RN) 0233 (Given - Provider: Josie Hernandez RN) Linked Groups Order Group 1: Insulin Lispro (Humalog) injection 0-6 UnitsJump to med 0-6 Units, SubCUTAneous, 3 times daily with meals, First dose on Wed10/09/22 at 0800
Low Dose Correction Algorithm Glucose: & nbsp; Dose: LESS than 139 No Insulin 140-199 1 Unit 200-249 2 Units 250-299 3 Units 300- 349 4 Units 350-400 5 Units Above 400 6 Units
And Insulin Lispro (Humalog) injection 0-6 UnitsJump to med 0-6 Units, SubCUTAneous, Nightly, First dose on Wed10/09/22 at 2100
If continuous tube feedings/TPN/NPO, give correction dose based on result, no reduction in dose. If eating or bolus tube feeding: Low Dose Correction Algorithm Glucose: & nbsp; Dose: LESS than 139 No Insulin 140-199 1 Unit 200-249 2 Units 250-299 3 Units 300- 349 4 Units 350-400 5 Units Above 400 6 Units
Group 2: ondansetron ODT (Zofran-ODT) disintegrating tablet 4 mgJump to med 4 mg, Oral, Every 8 hours PRN, nausea, vomiting, Starting on Wed10/09/22 at 0625
1st Line. If inadequate response within 60 minutes, proceed to next-line agent or contact provider if no further options ordered. Patient should allow tablet to dissolve on tongue. Do not remove from blister pack until just before administering.
Or ondansetron (Zofran) injection 4 mgJump to med 4 mg, IntraVENous, Every 6 hours PRN, nausea, vomiting, Starting on Wed10/09/22 at 0625
1st Line. Give IV if patient is unable to take orally. If inadequate response within 60 minutes, proceed to next-line agent or contact provider if no further options ordered.
Scheduled Medication Order 11/05/2024 11/06/2024 11/07/2024 apixaban (Eliquis) tablet 2.5 mg 2.5 mg, Oral, 2 times daily, First dose on 11/04/24 at 0900, Anticoagulant 0900 (Dose Auto Held)1345 (Unheld by provider - Provider: Martha Cormier MD)2049 (Given - Provider: Rina Meyer RN) 0855 (Given - Provider: Santosh Martinez RN)211 (Given - Provider: Rina Meyer RN) 0856 (Given - Provider: Katie Ha RN) ARIPiprazole (Abilify) tablet 20 mg 20 mg, Oral, Daily, First dose on 11/04/24 at 0800 0841 (Given - Provider: Rika French RN) 0855 (Given - Provider: Santosh Martinez RN) 0857 (Given - Provider: Katie Ha RN) atorvastatin (Lipitor) tablet 10 mg 10 mg, Oral, Daily, First dose on 11/04/24 at 0900 0840 (Given - Provider: Rika French RN) 0855 (Given - Provider: Santosh Martinez RN) 0856 (Given - Provider: Katie Ha RN) folic acid (Folvite) tablet 1 mg 1 mg, Oral, Daily, First dose on 11/04/24 at 0900 0839 (Given - Provider: Rika French RN) 0855 (Given - Provider: Santosh Martinez RN) 0856 (Given - Provider: Katie Ha RN) gabapentin (Neurontin) capsule 300 mg 300 mg, Oral, 3 times daily, First dose on 11/04/24 at 0900 0839 (Given - Provider: Rika French RN)1512 (Given - Provider: Rika French RN)2050 (Given - Provider: Rina Meyer RN) 0855 (Given - Provider: Santosh Martinez RN)1350 (Given - Provider: Santosh Martinez RN)2117 (Given - Provider: Rina Meyer RN) 0856 (Given - Provider: Katie Ha, SREE)1315 (Given - Provider: Katie Ha RN) Insulin Lispro (Humalog) injection 0-6 Units(Linked Group 1) 0-6 Units, SubCUTAneous, 3 times daily with meals, First dose on 11/04/24 at 1700, Low Dose Correction Algorithm Glucose: Dose: LESS than 150 No Insulin 150-199 1 Unit 200-249 2 Units 250-299 3 Units 300-349 4 Units 350-400 5 Units Above 400 6 Units 0800 (Not Given - Provider: Rika French RN - Reason: Order parameters not met)1200 (Not Given - Provider: Rika French RN - Reason: Order parameters not met)1700 (Not Given - Provider: Rika French RN - Reason: Order parameters not met) 0800 (Not Given - Provider: Santosh Martinez RN - Reason: Contraindicated)1200 (Not Given - Provider: Santosh Martinez RN - Reason: Contraindicated)1700 (Not Given - Provider: Santosh Martinez RN - Reason: Contraindicated) 0800 (Not Given - Provider: Katie Ha RN - Reason: Order parameters not met)1200 (Not Given - Provider: Katie Ha RN - Reason: Order parameters not met)1700 (Canceled Entry - Provider: Automatic Discharge Provider - Comment: Automatically canceled at discontinue of medication order) Insulin Lispro (Humalog) injection 0-6 Units(Linked Group 1) 0-6 Units, SubCUTAneous, Nightly, First dose on 11/04/24 at 2100, If eating or bolus tube feeding: Low Dose Correction Algorithm Glucose: Dose: LESS than 150 No Insulin 150-199 1 Unit 200-249 2 Units 250-299 3 Units 300-349 4 Units 350-400 5 Units Above 400 6 Units 2100 (Not Given - Provider: Rina Meyer RN - Reason: Order parameters not met) 2100 (Not Given - Provider: Rina Meyer RN - Reason: Order parameters not met) lisinopril tablet 5 mg 5 mg, Oral, Daily, First dose on 11/04/24 at 0800 0839 (Given - Provider: Rika French RN) 0855 (Given - Provider: Santosh Martinez RN) 0856 (Given - Provider: Katie Ha RN) melatonin tablet 10 mg 10 mg, Oral, Nightly, First dose on 11/04/24 at 2100 2052 (Given - Provider: Rina Meyer RN) 2100 (Not Given - Provider: Rina Meyer RN - Reason: Patient/family refused) pantoprazole (ProtoNix) 40 mg in sodium chloride (PF) 0.9 % 10 mL injection 40 mg, IntraVENous, Administer over 2 Minutes, Daily before breakfast, First dose on 11/04/24 at 0600, Reconstitute with 10 ml NS. Vial expires 2 hrs after reconstitution. 0537 (Given - Provider: Rina Meyer RN) 0606 (Given - Provider: Rina Meyer RN) 0629 (Given - Provider: Rina Meyer RN) potassium chloride 40 mEq in NS 500 mL IVPB (premix) (COMPLETED) 40 mEq, IntraVENous, at 125 mL/hr, Administer over 4 Hours, Once, On 11/05/24 at 1345, For 1 dose, Max infusion rate = 10 mEq/hr 1512 (New Bag - Provider: Rika French RN)1912 (Stopped - Provider: Rika French RN) sodium chloride tablet 1 g 1 g, Oral, 3 times daily, First dose on 11/04/24 at 0900 0841 (Given - Provider: Rika French RN)1512 (Given - Provider: Rika French RN)2050 (Given - Provider: Rina Meyer RN) 0855 (Given - Provider: Santosh Martinez RN)1350 (Given - Provider: Santosh Martinez, SREE)2221 (Given - Provider: Rina Meyer RN) 0857 (Given - Provider: Katie Ha RN)1315 (Given - Provider: Katie Ha RN) tiotropium (Spiriva Respimat) 2.5 MCG/ACT inhaler 2 puff 2 puff, Inhalation, Daily, First dose on 11/04/24 at 0900 0841 (Given - Provider: Rika French RN) 0855 (Given - Provider: Santosh Martinez, SREE) 0858 (Given - Provider: Katie Ha, SREE) Continuous Medication Order 11/05/2024 11/06/2024 11/07/2024 sodium chloride 0.9 % infusion () 50 mL/hr, IntraVENous, Continuous, Starting on 11/04/24 at 0530, For 20 hours 0447 (Rate/Dose Verify - Provider: Rina Meyer RN)0539 (Stopped - Provider: Rina Meyer RN) PRN Medication Order 11/05/2024 11/06/2024 11/07/2024 acetaminophen (Tylenol) suppository 650 mg(Linked Group 2) 650 mg, Rectal, Every 6 hours PRN, fever, For temp greater than 100.4 F (38 C), Starting on 11/04/24 at 0523, Administer if oral route cannot be used. Maximum dose of acetaminophen is 4000 mg from all sources in 24 hours. acetaminophen (Tylenol) tablet 650 mg(Linked Group 2) 650 mg, Oral, Every 6 hours PRN, mild pain (1-3), fever, For temp greater than 100.4 F (38 C), Starting on 11/04/24 at 0523, Maximum dose of acetaminophen is 4000 mg from all sources in 24 hours. albuterol 108 (90 Base) MCG/ACT inhaler 2 puff 2 puff, Inhalation, Every 4 hours PRN, wheezing, Starting on 11/04/24 at 0521 cyclobenzaprine (Flexeril) tablet 5 mg 5 mg, Oral, 3 times daily PRN, muscle spasms, Starting on 11/04/24 at 1337 2047 (Given - Provider: Rina Meyer RN) 2114 (Given - Provider: Rina Meyer RN) dextrose 5 % infusion 100 mL/hr, IntraVENous, PRN, Blood sugar less than 70mg/dL, Starting on 11/04/24 at 1625, Start infusion following administration of dextrose 50% or glucagon. dextrose 50 % solution 12.5 g 12.5 g, IntraVENous, PRN, low blood sugar, Blood glucose less than 70 mg/dL and patient NOT ALERT or NPO., Starting on 11/04/24 at 1625, If patient does not respond within 5 minutes, repeat dose x1. Start D5W at 100 mL/hour until ordering provider can be reached. Repeat blood glucose in 15 minutes. If blood glucose is less than 70 mg/dL, repeat treatment and recheck blood glucose in 15 minutes x2. If using Glucostabilizer, dose as instructed per system. glucagon (human recombinant) injection 1 mg 1 mg, IntraMUSCular, PRN, low blood sugar, Blood glucose less than 70 mg/dL and patient NOT ALERT or NPO and does not have IV access., Starting on 11/04/24 at 1625, After administration, attempt intravenous access and start D5W at 100 mL/hr. Repeat blood glucose in 15 minutes x2 and notify provider. glucose oral gel 15 g 15 g, Oral, As needed, low blood sugar, Starting on 11/04/24 at 1625, If blood glucose less than 50 mg/dL and patient ALERT and NOT NPO, give 2 tubes glucose gel. If blood glucose less than 70 mg/dL and patient ALERT and NOT NPO, give 1 tube glucose gel. Repeat blood glucose in 15 minutes. If blood glucose is less than 70 mg/dL, repeat treatment and recheck blood glucose in 15 minutes x2 and notify provider. HYDROmorphone (Dilaudid) injection 0.5 mg 0.5 mg, IntraVENous, Every 3 hours PRN, moderate pain (4-6), severe pain (7-10), Starting on 11/04/24 at 0523, If oral and IV narcotics ordered, use oral first and only use IV if oral is ineffective or cannot take oral. Do Not give oral and IV within 1 hour of each other unless specifically ordered. 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 Give IV if patient is unable to take orally. If inadequate response within 60 minutes, proceed to next-line agent or contact provider if no further options ordered. 2045 (See Alternative - Provider: Rina Meyer RN) ondansetron ODT (Zofran-ODT) disintegrating tablet 4 mg(Linked Group 3) 4 mg, Oral, Every 8 hours PRN, nausea, vomiting, Starting on 11/04/24 at 0523, 1st Line. If inadequate response within 60 minutes, proceed to next-line agent or contact provider if no further options ordered. Patient should allow tablet to dissolve on tongue. Do not remove from blister pack until just before administering. 2045 (Given - Provider: Rina Meyer RN) Linked Groups Order Group 1: Insulin Lispro (Humalog) injection 0-6 UnitsJump to med 0-6 Units, SubCUTAneous, 3 times daily with meals, First dose on 11/04/24 at 1700, Low Dose Correction Algorithm Glucose: Dose: LESS than 150 No Insulin 150- 199 1 Unit 200-249 2 Units 250-299 3 Units 300-349 4 Units 350-400 5 Units Above 400 6 Units And Insulin Lispro (Humalog) injection 0-6 UnitsJump to med 0-6 Units, SubCUTAneous, Nightly, First dose on 11/04/24 at 2100, If eating or bolus tube feeding: Low Dose Correction Algorithm Glucose: Dose: LESS than 150 No Insulin 150-199 1 Unit 200-249 2 Units 250-299 3 Units 300-349 4 Units 350-400 5 Units Above 400 6 Units Group 2: acetaminophen (Tylenol) tablet 650 mgJump to med 650 mg, Oral, Every 6 hours PRN, mild pain (1-3), fever, For temp greater than 100.4 F (38 C), Starting on 11/04/24 at 0523, Maximum dose of acetaminophen is 4000 mg from all sources in 24 hours. Or acetaminophen (Tylenol) suppository 650 mgJump to med 650 mg, Rectal, Every 6 hours PRN, fever, For temp greater than 100.4 F (38 C), Starting on 11/04/24 at 0523, Administer if oral route cannot be used. Maximum dose of acetaminophen is 4000 mg from all sources in 24 hours. Group 3: ondansetron ODT (Zofran-ODT) disintegrating tablet 4 mgJump to med 4 mg, Oral, Every 8 hours PRN, nausea, vomiting, Starting on 11/04/24 at 0523, 1st Line. If inadequate response within 60 minutes, proceed to next-line agent or contact provider if no further options ordered. Patient should allow tablet to dissolve on tongue. Do not remove from blister pack until just before administering. Or ondansetron (Zofran) injection 4 mgJump to med 4 mg, IntraVENous, Every 6 hours PRN, nausea, vomiting, Starting on 11/04/24 at 0523, 1st Line. Give IV if patient is unable to take orally. If inadequate response within 60 minutes, proceed to next-line agent or contact provider if no further options ordered. Goals (unrecognized section and content) Goals may be documented in a n alternate sectionGoals may be documented in an alternate section FOR RECORDS PERTAINING TO PATIENTS WHO ARE OR HAVE BEEN ENROLLED IN A CHEMICAL DEPENDENCY/SUBSTANCEABUSE PROGRAM, SOME INFORMATION MAY BE OMITTED. This clinical summary was aggregated from multiple sources. Caution should be exercised in using it in the provision of clinical care. This summary normalizes information from multiple sources, and as a consequence, information in this document may materially change the coding, format and clinical context of patient data. In addition, data may be omitted in some cases. CLINICAL DECISIONS SHOULD BE BASED ON THE PRIMARY CLINICAL RECORDS. [employer] [facility]. provides no warranty or guarantee of the accuracy or completeness of information in this document.
[2025-03-01] MEDS: Lactated Ringers 1,000 ML 15 ML IV (07:45)
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
--- NOTE | 2025-03-01 08:30 | EGD_PTH ---
PATIENT: HYACINTH HURST LOC: [facility] U#:[id number] AGE/SX: 64/M ROOM: RE03/01/[address]: Dr. Javier Cason DO : 1960 BED: DIS: 03/01/2025 SPEC #: [id number] RECD: 03/01/25 10:08 STATUS: LISA JACKLYN #: [id number] JOHN: 03/01/25 08:[address]: Javier Cason DEPT: SURGICAL PATHOLOGY RECD BY: Khurram Mandujano ENTERED: 03/01/25 15:21 SP TYPE: EGD BIOPSY TIFFANY DR: Dr. Chadd Thompson DO Tissues: A - Esophagus, NOS B - COLON BIOPSY Procedures: Surgery Specimen Level IV HEADER OPERATION: Colonoscopy, EGD, biopsy PRE-OP DIAGNOSIS: Diarrhea, upper abdominal pain TISSUE SUBMITTED: A- Distal esophagus biopsy, B- Random colonic biopsy MICROSCOPIC DIAGNOSIS A. Distal esophagus, biopsy: - Columnar mucosa with goblet cell metaplasia, suggestive of Hinkle mucosa - see note. - Negative for dysplasia. Note: The diagnosis depends on the location of the biopsy and the extent of the mucosal irregularity. If the biopsy originates from the tubular esophagus and the mucosal irregularity extends at least 1 cm above the top of the gastric folds, this represents Hinkle mucosa. If the biopsy originates from the gastric cardia and/or the mucosal irregularity is less than 1 cm in extent, this represents intestinal metaplasia. B. Colon, random biopsy: - Fragments of hyperplastic polyp. - No significant inflammation. - The histologic features of microscopic colitis are not demonstrated. MICROSCOPIC DESCRIPTION Slides are reviewed. GROSS DESCRIPTION A. Received in fixative is one container labeled with the patient's name and designated Distal esophagus biopsy. The specimen consists of three irregular fragments of light cisneros soft tissue, each measuring 0.3 cm. The specimen is totally submitted in one cassette. B. Received in fixative is one container labeled with the patient's name and designated Random colonic biopsy. The specimen consists of multiple irregular fragments of light cisneros soft tissue that in aggregate measure 0.2 to 0.7 cm. The specimen is totally submitted in one cassette. KS 03/01/2025 CPT:76512s3
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
--- NOTE | 2025-03-01 09:29 | PCM.POST.ANE ---
Anesthesia: Postop Eval I Current Vital Signs Temperature: 96.9 F Pulse Rate: 60 Blood Pressure: 83/56 Respiratory Rate: 16 Pulse Ox: 94 Oxygen Delivery Method: Room Air Assessment Airway patent: Yes Spontaneous unlabored respirations: Yes Mental status: Awake and Calm nausea: No Vomiting: No Anesthesia Complication: No Fluid Hydration Crystalloid volume administer (ml): 400 Total IV fluid infused: 400 Progress Note Anesthesia document: Postop Eval 1 completed: Yes
--- NOTE | 2025-03-01 09:32 | OP.EGD_ITS ---
Patient Name: Jayden Rodrigez Procedure Date: 03/01/2025 8:56 AM Date of : 1960 Age: 64 Procedure: Upper GI endoscopy Indications: Epigastric abdominal pain, Functional Dyspepsia, Esophageal reflux Providers: Javier Cason DO Medicines: Monitored Anesthesia Care Patient Profile: This is a 64 year old male. Refer to note in patient chart for documentation of history and physical. Patient has symptoms of acute epigastric abdominal pain, acute dyspepsia and chronic heartburn. Complications: No immediate complications. Procedure: Pre-Anesthesia Assessment: - Prior to the procedure, a History and Physical was performed, and patient medications and allergies were reviewed. The patient is competent. The risks and benefits of the procedure and the sedation options and risks were discussed with the patient. All questions were answered and informed consent was obtained. Patient identification and proposed procedure were verified in the pre-procedure area. Mental Status Examination: alert and oriented. Airway Examination: normal oropharyngeal airway and neck mobility. Respiratory Examination: clear to auscultation. CV Examination: normal. Prophylactic Antibiotics: The patient does not require prophylactic antibiotics. Prior Anticoagulants: The patient has taken no anticoagulant or antiplatelet agents except for NSAID medication. ASA Grade Assessment: II - A patient with mild systemic disease. After reviewing the risks and benefits, the patient was deemed in satisfactory condition to undergo the procedure. The anesthesia plan was to use monitored anesthesia care (MAC). Immediately prior to administration of medications, the patient was re-assessed for adequacy to receive sedatives. The heart rate, respiratory rate, oxygen saturations, blood pressure, adequacy of pulmonary ventilation, and response to care were monitored throughout the procedure. The physical status of the patient was re-assessed after the procedure. After obtaining informed consent, the endoscope was passed under direct vision. Throughout the procedure, the patient's blood pressure, pulse, and oxygen saturations were monitored continuously. The Colonoscope was introduced through the mouth, and advanced to the third part of the duodenum. Small bowel enteroscopy was deemed necessary. The upper GI endoscopy was accomplished without difficulty. The patient tolerated the procedure well. Scope In: 9:04:18 AM Scope Out: 9:07:36 AM Total Procedure Duration Time 0 hours 3 minutes 18 seconds Findings: There were esophageal mucosal changes suspicious for long-segment Hinkle's esophagus present in the lower third of the esophagus. The maximum longitudinal extent of these mucosal changes was 5 cm in length. Mucosa was biopsied with a cold forceps for histology in a targeted manner at intervals of 1 cm in the lower third of the esophagus. One specimen bottle was sent to pathology. Verification of patient identification for the specimen was done. Estimated blood loss was minimal. The entire examined stomach was normal. No gross lesions were noted in the entire examined duodenum. 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 Biopsied. - Normal stomach. - No gross lesions in the entire examined duodenum. Recommendation: - Await pathology results. - Repeat upper endoscopy for surveillance. - Continue present medications. Procedure Code(s): --- Professional --- 46959, Small intestinal endoscopy, enteroscopy beyond second portion of duodenum, not including ileum; with biopsy, single or multiple CPT copyright 2021 [employer]. All rights reserved. The codes documented in this report are preliminary and upon medical biller coder review may be revised to meet current compliance requirements. Javier Cason DO 03/01/2025 9:31:59 AM This report has been signed electronically. Number of Addenda: 0 Note Initiated On: 03/01/2025 8:56 AM
--- NOTE | 2025-03-01 09:32 | OP.CCLET_ITS ---
03/01/2025 Chadd Thompson Do Re : Upper GI endoscopy procedure for Jayden Rodrigez Dear Dr. Thompson This procedure was performed on February. 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 Biopsied. - Normal stomach. - No gross lesions in the entire examined duodenum. Recommendations : - Await pathology results. - Repeat upper endoscopy for surveillance. - Continue present medications. My findings are described in the full procedure note, which is enclosed. If I can be of further assistance, please feel free to contact me at . Sincerely, Javier Cason DO 03/01/2025 9:31:59 AM This report has been signed electronically.
--- NOTE | 2025-03-01 09:35 | OP.COLON_ITS ---
Patient Name: Jayden Rodrigez Procedure Date: 03/01/2025 9:07 AM Date of : 1960 Age: 64 Procedure: Colonoscopy Indications: This is the patient's first colonoscopy Providers: Javier Cason DO Medicines: Monitored Anesthesia Care Patient Profile: This is a 64 year old male. Refer to note in patient chart for documentation of history and physical. Patient has symptoms of acute epigastric abdominal pain, acute dyspepsia and chronic heartburn. Last Colonoscopy: date unknown. Unable to locate last colonoscopy report. Complications: No immediate complications. Procedure: Pre-Anesthesia Assessment: - Prior to the procedure, a History and Physical was performed, and patient medications and allergies were reviewed. The patient is competent. The risks and benefits of the procedure and the sedation options and risks were discussed with the patient. All questions were answered and informed consent was obtained. Patient identification and proposed procedure were verified in the pre-procedure area. Mental Status Examination: alert and oriented. Airway Examination: normal oropharyngeal airway and neck mobility. Respiratory Examination: clear to auscultation. CV Examination: normal. Prophylactic Antibiotics: The patient does not require prophylactic antibiotics. Prior Anticoagulants: The patient has taken no anticoagulant or antiplatelet agents except for NSAID medication. ASA Grade Assessment: II - A patient with mild systemic disease. After reviewing the risks and benefits, the patient was deemed in satisfactory condition to undergo the procedure. The anesthesia plan was to use monitored anesthesia care (MAC). Immediately prior to administration of medications, the patient was re-assessed for adequacy to receive sedatives. The heart rate, respiratory rate, oxygen saturations, blood pressure, adequacy of pulmonary ventilation, and response to care were monitored throughout the procedure. The physical status of the patient was re-assessed after the procedure. After I obtained informed consent, the scope was passed under direct vision. Throughout the procedure, the patient's blood pressure, pulse, and oxygen saturations were monitored continuously. The Colonoscope was introduced through the anus and advanced to the terminal ileum. The colonoscopy was performed without difficulty. The patient tolerated the procedure well. The quality of the bowel preparation was adequate. The terminal ileum, ileocecal valve, appendiceal orifice, and rectum were photographed. Scope In: 9:10:04 AM Scope Withdrawal Time 0 hours 9 minutes 17 seconds Scope Out: 9:22:17 AM Total Procedure Duration Time 0 hours 12 minutes 13 seconds Findings: The perianal and digital rectal examinations were normal. An area of mildly congested mucosa was found in the entire colon. Biopsies were taken with a cold forceps for histology. Verification of patient identification for the specimen was done. Estimated blood loss was minimal. Multiple small and large-mouthed diverticula were found in the recto-sigmoid colon, sigmoid colon, descending colon, hepatic flexure and ascending colon. The terminal ileum appeared normal. Impression: - Congested mucosa in the entire examined colon. Biopsied. - Diverticulosis in the recto-sigmoid colon, in the sigmoid colon, in the descending colon, at the hepatic flexure and in the ascending colon. - The examined portion of the ileum was normal. Recommendation: - Discharge patient to home. - Resume previous diet. - Continue present medications. - Await pathology results. - Repeat colonoscopy for surveillance. Procedure Code(s): --- Professional --- 04965, Colonoscopy, flexible; with biopsy, single or multiple CPT copyright 2021 [employer]. All rights reserved. The codes documented in this report are preliminary and upon case management director review may be revised to meet current compliance requirements. Javier Cason DO 03/01/2025 9:35:22 AM This report has been signed electronically. Number of Addenda: 0 Note Initiated On: 03/01/2025 9:07 AM
--- NOTE | 2025-03-01 09:36 | OP.CCLET_ITS ---
03/01/2025 Chadd Thompson Do Re : Colonoscopy procedure for Jayden Rodrigez Dear Dr. Thompson This procedure was performed on February. My impressions and recommendations are as follows: Impressions : - Congested mucosa in the entire examined colon. Biopsied. - Diverticulosis in the recto-sigmoid colon, in the sigmoid colon, in the descending colon, at the hepatic flexure and in the ascending colon. - The examined portion of the ileum was normal. Recommendations : - Discharge patient to home. - Resume previous diet. - Continue present medications. - Await pathology results. - Repeat colonoscopy for surveillance. My findings are described in the full procedure note, which is enclosed. If I can be of further assistance, please feel free to contact me at . Sincerely, Javier Cason DO 03/01/2025 9:35:22 AM This report has been signed electronically.
--- NOTE | 2025-03-01 10:57 | POSTOPAN2_ITS ---
Anesthesia Postop Eval I Sum Postop Eval Completion status Anesthesia document: Postop Eval 1 completed: Yes Anesthesia Postop Eval I Summary Anesthesia Postop Eval I Summary: Anesthesia Postop Eval I: Assessment Summary Airway patent Yes 03/01/25 09:29 [email or web address] Spontaneous unlabored Yes 03/01/25 09:29 [email or web address] respirations Mental status Awake,Calm 03/01/25 09:29 [email or web address] nausea No 03/01/25 09:29 [email or web address] Vomiting No 03/01/25 09:29 [email or web address] Anesthesia Postop Eval I: Fluid Summary Crystalloid volume administer 400 03/01/25 09:29 [email or web address] (ml) Colloids volume administered ( ml) Blood Product volume administered (ml) Total IV fluid infused 400 03/01/25 09:29 [email or web address] Anesthesia Postop Eval I: Summary Notes Anesthesia Complication No 03/01/25 09:29 [email or web address] Anesthesia Complication Comment: Post-operative progress note Anesthesia: Postop Eval II Evaluation Mental status: Awake and Calm Pain Level: 2 nausea: No Vomiting: No Complications Anesthesia Complication: No
--- NOTE | 2025-03-01 10:57 | PCM.POSTANE2 ---
Anesthesia Postop Eval I Sum Postop Eval Completion status Anesthesia document: Postop Eval 1 completed: Yes Anesthesia Postop Eval I Summary Anesthesia Postop Eval I Summary: Anesthesia Postop Eval I: Assessment Summary Airway patent Yes 03/01/25 09:29 [email or web address] Spontaneous unlabored Yes 03/01/25 09:29 [email or web address] [email or web address] respirations Mental status Awake,Calm 03/01/25 09:29 [email or web address] [email or web address] nausea No 03/01/25 09:29 [email or web address] Vomiting No 03/01/25 09:29 [email or web address] [email or web address] Anesthesia Postop Eval I: Fluid Summary Crystalloid volume administer 400 03/01/25 09:29 [email or web address] (ml) Colloids volume administered ( ml) Blood Product volume administered (ml) Total IV fluid infused 400 03/01/25 09:29 [email or web address] [email or web address] Anesthesia Postop Eval I: Summary Notes Anesthesia Complication No 03/01/25 09:29 [email or web address] Anesthesia Complication Comment: Post-operative progress note Anesthesia: Postop Eval II Evaluation Mental status: Awake and Calm Pain Level: 2 nausea: No Vomiting: No Complications Anesthesia Complication: No
== END 2025-03-01 09:55 | disposition home or self-care (01) ==
LOC: EN 06:52 → AC 06:52
PROVIDERS: PCP Internal Medicine; Referring Provider Internal Medicine; Visit Provider Internal Medicine Gastroenterology
PROC: 0DJD8ZZ Inspection of Lower Intestinal Tract, Via Natural or Artificial Opening Endoscopic (ICD-10-PCS; CPT 45378; principal; 2025-03-01 08:25)
DX: K57.30 Diverticulosis of large intestine without perforation or abscess without bleeding (principal); I11.0 Hypertensive heart disease with heart failure; I50.9 Heart failure, unspecified; F31.9 Bipolar disorder, unspecified; E11.9 Type 2 diabetes mellitus without complications; K63.89 Other specified diseases of intestine; I25.10 Atherosclerotic heart disease of native coronary artery without angina pectoris; K21.9 Gastro-esophageal reflux disease without esophagitis; E78.5 Hyperlipidemia, unspecified; G47.30 Sleep apnea, unspecified; Z79.51 Long term (current) use of inhaled steroids; Z79.01 Long term (current) use of anticoagulants; Z79.899 Other long term (current) drug therapy; Z86.711 Personal history of pulmonary embolism; Z86.718 Personal history of other venous thrombosis and embolism; Z79.85 Long-term (current) use of injectable non-insulin antidiabetic drugs; Z87.891 Personal history of nicotine dependence
CPT/HCPCS: 44361; 45380; 82962; 88305